=== PATIENT | female | born 1950 | race Hispanic/Latino ===

== ENCOUNTER 2018-08-11 13:20 | Emergency (ER) | payer OTHER ==
--- OUTSIDE RECORDS SUMMARY | 2018-08-11 13:41 | XMS REPORT | Continuity of Care Document ---
:1950 Author Organization Interface Problems Problem Status Onset Classification Date Comments Source Date Reported FOLLOW UP Active [address] FOLLOW-UP Active [address] Cyst of pancreas [address],[facility] BDDC-PANCREATIC CYST Active [address] DDC // NEW CLINIC Active [facility] VISIT // REF FROM DR Herber Penaloza [facility] LABH Active [address] Abnormal results of liver function studies 018 8 [facility] K86.[address] K75.4 AUTOIMMUNE Active HEPATITIS, R79.89 018 [facility] OTHER Type 2 diabetes [facility] mellitus without 018 Medical complications Center R79.89 - OTHER Active OPID SPECIFIED ABNORMAL 018 [place] FINDI FATTY LIVER Active [address] ELEVATED LIVER Active FUNCTION 017 [place] Discharge Diagnosis: Cellulitis of trunk, 017 7 [place] unspecified SPIDER BITE Active 017 [place] Paronychia of Active Problem Data toe<sup>5</sup> 015 7 migrated [place], from [facility] OP Centricity Upper on 11/06/14. [place] Urinary Active Problem Data incontinence<sup>8</moss 014 7 migrated [place], p> from [facility] OP Centricity Upper on 08/31/14. [place] Urinary Resolved Problem Data [facility] incontinence<sup>7</moss 014 9 migrated Medical p> from [facility] Centricity [place], on 08/31/14. Medical Group Urinary Resolved Problem Data [place] incontinence<sup>7</moss 014 9 migrated Medical p> from [facility], on 08/31/14. EDDC URINARY INCONTINENCE Active Condition Medical 014 4 Group Ureteric Active Problem Data stone<sup>7</sup> 014 7 migrated [place], from [facility] OP Centricity Upper on 08/31/14. [place] Fatigue<sup>2</sup> Resolved Problem Data [place] 014 9 migrated Medical from [facility], on 08/31/14. Medical Group Ureteric Resolved Problem Data [facility] stone<sup>6</sup> 014 9 migrated Medical from [facility], on 08/31/14. Medical Group Fatigue<sup>2</sup> Resolved Problem Data [place] 014 9 migrated Medical from [facility], on 08/31/14. OP Upper [place], EDDC Ureteric Resolved Problem Data [facility] stone<sup>6</sup> 014 9 migrated Medical from [facility], on 08/31/14. EDDC CALCULUS OF URETER Active Condition Medical 014 4 Group FATIGUE Active Condition Medical 014 4 Group 719.46 - JOINT Active OPID PAIN-L/LE 013 [place] CLOSED PATELLA FX, S/P Active [facility] FALL 013 [facility] Diabetes mellitus Resolved Problem SMR 3 [facility], OPID [place] Hypothyroid Resolved Problem SMR 3 [facility], OPID [place] Vertigo Resolved Problem SMR 3 [facility], OPID [place] Rheumatoid Active Problem Data arthritis<sup>6</sup> 7 migrated [place], from [facility] OP Centricity Upper on 08/31/14. [place] Abnormal levels of [facility] other serum enzymes [address] [place] [address] Hypothyroidism, [facility] unspecified [address] [place] [address] Abnormal liver Resolved Problem [facility] function [address] [place] [address],[facility], Medical Group Breast cancer Active Problem [facility] screening [address] [place] [address],[facility], Medical Group Diabetes Active Problem Data [facility] mellitus<sup>1</sup> 9 migrated Medical from [facility], on 08/31/14. Medical Group Diabetes Resolved Problem [address],[facility], Medical Group Female stress Active Problem [facility] incontinence [address] [place] [address],[facility], Medical Group History of - Resolved Problem [facility] rheumatoid arthritis [address] [place] [address],[facility], Medical Group Hyperlipidemia Resolved Problem [address],[facility], Medical Group Hypertriglyceridemia<s Active Problem Data [facility] up>3</sup> 9 migrated Medical from [facility], on 08/31/14. Medical Group Hypothyroid Resolved Problem [address],[facility], Medical Group Hypothyroidism<sup>4</ Active Problem Data [facility] sup> 9 migrated Medical from [facility], on 08/31/14. Medical Group Obesity Active Problem [address],[facility], Medical Group Rheumatoid Active Problem Data [facility] arthritis<sup>5</sup> 9 migrated Medical from [facility], on 08/31/14. Medical Group Vertigo Resolved Problem [address],[facility], Medical Group Final: Dorsalgia, unspecified 6 [place] Final: Pain in right hip 6 [place] Final: Scoliosis, unspecified 6 [place] Final: Spondylosis, unspecified 6 [place] Autoimmune hepatitis 8 [place] Other specified diabetes mellitus 8 [place] without complications Acquired absence of other specified parts 8 [place] of digestive tract Fatty liver, not elsewhere classified 8 [place] Other specified [facility] abnormal findings of 8 Medical blood chemistry Center Personal history of Active Problem [facility] immunosuppressive Medical therapy [place], Medical Group Abnormal liver Resolved Problem [facility] function [address] [place] [address],[facility], [facility]DC Breast cancer Active Problem [facility] screening [address] [place] [address],[facility], [facility] Diabetes Active Problem Data [place] mellitus<sup>1</sup> 9 migrated Medical from [facility], on 08/31/14. OP Upper [place], [facility] Diabetes Resolved Problem [address],[facility], OP Upper [place], [facility] Female stress Active Problem [facility] incontinence [address] [place] [address],[facility], [facility] History of - Resolved Problem [facility] rheumatoid arthritis [address] [place] [address],[facility], OP Upper [place], [facility] Personal history of Active Problem [facility] immunosuppressive [address] [place] [address], [facility] Hyperlipidemia Resolved Problem [address],[facility], OP Upper [place], [facility] Hypertriglyceridemia<s Active Problem Data [facility] up>3</sup> 9 migrated Medical from [facility], on 08/31/14. OP [place], [facility] Hypothyroid Resolved Problem [address],[facility], OP Upper [place], [facility] Hypothyroidism<sup>4</ Active Problem Data [facility] sup> 9 migrated Medical from [facility], on 08/31/14. OP Upper [place], [facility] Obesity Active Problem [address],[facility], OP Upper [place], [facility] Rheumatoid Active Problem Data [facility] arthritis<sup>5</sup> 9 migrated Medical from [facility], on 08/31/14. ED[facility] Vertigo Resolved Problem [address],[facility], OP Upper [place], [facility] DIABETES MELLITUS Active Condition Medical 4 Group UNSPECIFIED Active Condition Medical HYPOTHYROIDISM 4 Group HYPERTRIGLYCERIDEMIA Active Condition Medical 4 Group RHEUMATOID ARTHRITIS Active Condition Medical 4 Group LT KNEE FRACTURE Active SMR [facility] [place] FRACTURE Active [facility] PATELLA-CLOSED [facility] X RAY Active [facility] DORSALGIA, UNSPECIFIED Active [facility] PAIN IN RIGHT HIP Active [facility] ENCNTR FOR GENERAL Active [facility] ADULT MEDICAL EXAM W/ Medical Center HEPATOMEGALY, NOT Active ELSEWHERE CLASSIFIED [place] Datatype(DG1.4)- Active [facility] AUTOIMMUNE HEPATITIS Active [facility] CYST OF PANCREAS Active [facility] PERSONS ENCOUNTERING Active [facility] IN [facility] Medications Medication Details Route Status Patient Ordering Order Source Instructions Provider Date 24 HR 25 mg=1 tab, PO, Active Medical mirabegron 25 Daily, # 30 tab, 2019 Group MG Extended 5 Refill(s) Release Tablet [Myrbetriq] alogliptin 25 1 tab, PO, Inactive 07/27[facility] Medical MG / Daily, 0 2019 Group pioglitazone 15 Refill(s) MG Oral Tablet predniSONE 5 mg 5 mg=1 tab, PO, Active [place] oral tablet Daily, # 30 tab, 2019 Medical 5 Refill(s), Center Pharmacy: [facility] azaTHIOprine 50 100 mg=2 tab, Active 05/29[facility] [place] mg oral tablet PO, Daily, # 60 2019 Medical tab, 5 Center Refill(s), Pharmacy: [facility] predniSONE 5 mg 5 mg=1 tab, PO, Active 05/29[facility] [place] oral tablet Daily, Give with 2019 Medical food., # 14 tab, Center 0 Refill(s) alogliptin 25 1 tab, PO, Active 05/29[facility] [place] MG / Daily, 0 2019 Medical pioglitazone 15 Refill(s) Center MG Oral Tablet oxybutynin 5 mg =1 tab, PO, Active Medical oral tablet, Daily, # 30 tab, 2019 Group extended Refill(s) 3, release Pharmacy: [facility] predniSONE 10 10 mg=1 tab, PO, Active 04/25[facility] Medical mg oral tablet Daily, # 30 tab, 2019 Group 0 Refill(s) 24 HR 25 mg=1 tab, PO, Active 04/25[facility] Medical mirabegron 25 Daily 2019 Group MG Extended Release Tablet [Myrbetriq] predniSONE 10 20 mg=2 tab, PO, No Longer EDDC mg oral tablet Daily, # 60 tab, Active 2018 1 Refill(s), Pharmacy: [facility] azaTHIOprine 50 50 mg=1 tab, PO, No Longer EDDC mg oral tablet Daily, # 30 tab, Active 2018 1 Refill(s), Pharmacy: [facility] predniSONE 10 20 mg=2 tab, PO, Active [place] mg oral tablet Daily, # 60 tab, 2018 Medical 1 Refill(s), Center Pharmacy: [facility] 24 HR 25 mg=1 tab, PO, Active [place] mirabegron 25 Daily, # 30 tab, 2018 Medical MG Extended 5 Refill(s) Center Release Tablet [Myrbetriq] oxybutynin 5 mg 5 mg=1 tab, PO, Active Medical oral tablet, Daily, # 30 tab, 2018 Group extended 3 Refill(s), release Pharmacy: [facility] cephalexin 250 500 mg=2 cap, Active mg oral capsule PO, BID, X 10 2016, # 40 cap, 0 Refill(s) MACROBID 100 MG 1 tablet by Active Medical CAPS mouth every 2013 Group hours for 3 days LISINOPRIL 10 Active Medical MG TABS 2013 Group NAPROXEN SODIUM Active Medical 550 MG TABS 2013 Group LISINOPRIL 10 Active Medical MG TABS 2013 Group LEVOTHYROXINE 1 po daily Active Medical SODIUM 175 MCG 2013 Group TABS TRADJENTA 5 MG 1 po qam Active Medical TABS 2013 Group FENOFIBRATE 160 take 0.5 tablet Active Medical MG TABS daily 2013 Group METFORMIN HCL 1 po bid Active Medical ER 500 MG 2013 Group [id number] GLIPIZIDE ER 5 1 po bid Active Medical MG [id number] 2013 Group HALOG 0.1 % No Longer Medical CREA Active 2013 Group PIROXICAM 20 MG 1 po daily x2 Active Medical CAPS weeks, then 1 po 2013 Group on tue,tue,tue TAMSULOSIN HCL 1 po daily Active Medical 0.4 MG CAPS 2013 Group HYDROCODONE-CELIA 1 po q 6 hrs prn Active Medical TAMINOPHEN 2013 Group 10-325 MG TABS CIPROFLOXACIN 1 po q 12 hrs Active Medical HCL 500 MG TABS 2013 Group TRAVATAN Z instill 1 drop Active Medical 0.004 % SOLN at bedtime in 2013 Group both eyes LEVOTHYROXINE 1 po daily Active Medical SODIUM 175 MCG 2013 Group TABS FENOFIBRATE 160 take 0.5 tablet Active Medical MG TABS daily 2013 Group METFORMIN HCL 1 po bid Active Medical ER 500 MG 2013 Group [id number] PIROXICAM 20 MG 1 po daily x2 Active Medical CAPS weeks, then 1 po 2013 Group on ,tue TAMSULOSIN HCL 1 po daily Active Medical 0.4 MG CAPS 2013 Group HYDROCODONE-CELIA 1 po q 6 hrs prn Active Medical TAMINOPHEN 2013 Group 10-325 MG TABS CIPROFLOXACIN 1 po q 12 hrs Active Medical HCL 500 MG TABS 2013 Group TRAVATAN Z instill 1 drop Active Medical 0.004 % SOLN at bedtime in 2013 Group both eyes LEVOTHYROXINE 1 po daily Active Medical SODIUM 175 MCG 2013 Group TABS HYDROCODONE-CELIA 1 po q 6 hrs prn Active Medical TAMINOPHEN 2013 Group 10-325 MG TABS TRADJENTA 5 MG 1 po qam Active Medical TABS 2013 Group PIROXICAM 20 MG 1 po daily x2 Active Medical CAPS weeks, then 1 po 2013 Group on tue,tue,tue HYDROCODONE-CELIA 1 po q 6 hrs prn Active Medical TAMINOPHEN 2013 Group 10-325 MG TABS Colace 100 mg 100 mg, 1 cap, PO Active [place] oral capsule PO, BID, 60 cap, 2013 Medical Substitution Center Allowed, CAP [place] 10/325 1 tab, PO, Q4H, PO Active [facility] [place] oral tablet PRN, 45 tab, as 2013 Medical needed for pain, Center Substitution Allowed, Maintenance, TAB fenofibrate 160 80 mg, 0.5 tab, PO No Longer [place] [facility] mg oral tablet Route: PO, Drug Active 2012 Medical form: TAB, Center Daily, Dosing Weight 93.182, kg, Start date: 04/21/12 9:00:00, Duration: 30 day, Stop date: 05/20/12 9:00:00 glipiZIDE 5 mg 5 mg, 1 tab, PO No Longer [place] [facility] oral tablet, Route: PO, Drug Active 2012 Medical extended form: ERTAB, Center release BID, Dosing Weight 93.182, kg, Start date: 04/20/12 14:00:00, Duration: 30 day, Stop date: 05/20/12 9:00:00 glipiZIDE 5 mg 5 mg, 1 tab, PO, PO Active [facility] oral tablet, BID, 30 tab, 2012 Medical extended Substitution Center release Allowed Trajenta Trajenta PO No Longer [place] [facility] (Linagliptin) 5 (Linagliptin) 5 Active 2012 Medical mg tablet mg tablet, 5 mg, Center Drug form: MISC, Route: PO, Daily, 04/20/12 13:00:00, Duration: 30 day, Stop date: 05/20/12 9:00:00 linagliptin 5 mg, Route: PO, PO No Longer [place] [facility] Drug form: TAB, Active 2012 Medical Daily, Dosing Center Weight 93.182, kg, Priority: NOW, Start date: 04/20/12 11:35:00 glipiZIDE 10 mg, Route: PO No Longer [place] [facility] PO, Daily, Active 2012 Medical Dosing Weight Center 93.182, kg, Priority: NOW, Start date: 04/20/12 11:35:00, Duration: 30 day, Stop date: 05/20/12 9:00:00 bisacodyl 10 mg, 1 supp, OR No Longer [place] [facility] Route: OR, Drug Active 2012 Medical form: SUPP, Center Daily, Dosing Weight 93.182, kg, PRN as needed for constipation, Start date: 04/20/12 4:34:00, Duration: 30 day, Stop date: 05/20/12 4:33:00 Zofran 4 mg, 2 mL, IV No Longer [place] Route: IV, Drug Active 2012 Medical form: INJ, Q6H, Center Dosing Weight 93.182, kg, PRN Nausea, Start date: 04/19/12 21:20:00, Duration: 30 day, Stop date: 05/19/12 21:19:00 [place] 10/325 1 tab, Route: PO No Longer [place] oral tablet PO, Drug Form: Active 2012 Medical TAB, Dosing Center Weight 93.182, kg, Q4H, Start date: 04/19/12 20:00:00, Duration: 30 day, Stop date: 05/19/12 16:00:00 [place] 10/325 1 tab, Route: PO No Longer [place] oral tablet PO, Drug Form: Active 2012 Medical TAB, Dosing Center Weight 93.182, kg, Q4H, PRN Pain, Start date: 04/19/12 18:56:00, Duration: 30 day, Stop date: 05/19/12 18:55:00 cefazolin + 2 gm, Route: IVPB No Longer [place] Sodium Chloride IVPB, ABXQ8H, Active 2012 Medical 0.9% IV 100 mL Start date: [place] 04/19/12 16:00:00, Duration: 24 hr, Stop date: 04/20/12 8:00:00 influenza virus 0.5 mL, Route: IM No Longer [place] SMR vaccine IM, Drug Form: Active 2012 [place] intramuscular INJ, ONCE, Start [place] suspension date: 04/19/12 [place] 15:52:00, Stop [facility] date: 04/19/12 OPID 15:52:00 [place] magnesium 2 gm, 50 mL, IVPB No Longer [place] sulfate Route: IVPB, Active 2012 Medical Drug form: INJ, Center Q2H, Dosing Weight 93.182, kg, Total dose=4 gm, Start date: 04/19/12 14:00:00, Duration: 2 doses or times, Stop date: 04/19/12 16:00:00 ropivacaine 1% 320 mL, Rate: 8 NERVE No Longer [place] 800 mg + Q-Pump ml/hr, Infuse BLOCK Active 2012 Medical 1 ea + Sodium over: 50 hr, Center Chloride 0.9% Route: NERVE IV 320 mL BLOCK, kg, Total Volume: 400, Start date: 04/19/12 12:18:00, Duration: 7 day, Stop date: 05/03/12 12:17:00 ropivacaine 800 320 mL, Rate: 8 NERVE No Longer [place] mg + Q-Pump 1 ml/hr, Infuse BLOCK Active 2012 Medical ea + Sodium over: 40 hr, Center Chloride 0.9% Dosing Weight (titrate) 320 93.182, kg, mL Route: NERVE BLOCK, Total Volume: 320 mL, Duration: 30 day, Stop date: 05/19/12 11:54:00, Replace Every: 24 hr flumazenil 0.2 mg, 2 mL, IVP No Longer [place] Route: IVP, Drug Active 2012 Medical form: INJ, PRN, Center Dosing Weight 93.182, kg, PRN Benzodiazepine Reversal, Initial dose, Start date: 04/19/12 10:06:00, Stop date: 04/20/12 0:00:00 hydromorphone 0.5 mg, 0.25 mL, IVP No Longer [place] Route: IVP, Drug Active 2012 Medical form: INJ, Center Q5Min, Dosing Weight 93.182, kg, PRN Pain Score 4-6, Start date: 04/19/12 10:06:00, Duration: 5 doses or times, Stop date: 04/20/12 0:00:00 naloxone 0.04 mg, 0.1 mL, IVP No Longer [facility] Route: IVP, Drug Active 2012 Medical form: INJ, Center Q2MIN, Dosing Weight 93.182, kg, PRN Narcotic Reversal, Start date: 04/19/12 10:06:00, Duration: 8 doses or times, Stop date: 04/20/12 0:00:00 ondansetron 4 mg, 2 mL, IVP No Longer [place] Route: IVP, Drug Active 2012 Medical form: INJ, ONCE, Center Dosing Weight 93.182, kg, PRN Nausea & Vomiting, Start date: 04/19/12 10:06:00 Ancef 2 gm, Route: IVPB No Longer [place] IVPB, ABXQ8H, Active 2012 Medical Dosing Weight Center 93.182, kg, Start date: 04/19/12 10:00:00, Duration: 24 hr, Stop date: 04/20/12 2:00:00 influenza virus 0.5 ml, Route: IM No Longer [facility] vaccine, IM, Drug Form: Active 2012 [place] inactivated INJ, Start date: [place] 04/19/12 Silver 9:00:00, Stop [place], date: 04/19/12 OPID 9:00:00 [place] Colace 100 mg 100 mg, 1 cap, PO No Longer [place] oral capsule Route: PO, Drug Active 2012 Medical form: CAP, BID, Center Dosing Weight 93.182, kg, Start date: 04/19/12 9:00:00, Duration: 30 day, Stop date: 05/18/12 17:00:00 multivitamin 1 tab, Route: PO No Longer [place] PO, Drug Form: Active 2012 Medical TAB, Dosing Center Weight 93.182, kg, Daily, Start date: 04/19/12 9:00:00, Duration: 30 day, Stop date: 05/18/12 9:00:00 fenofibrate 96 mg, 2 tab, PO No Longer [place] Route: PO, Drug 2012 Medical form: TAB, Center Daily, Dosing Weight 93.182, kg, Start date: 04/19/12 9:00:00, Duration: 30 day, Stop date: 05/18/12 9:00:00 levothyroxine 150 microgram, 1 PO No Longer [place] [facility] tab, Route: PO, Active 2012 Medical Drug form: TAB, Center Q630AM, Dosing Weight 93.182, kg, Start date: 04/19/12 9:00:00, Stop date: 05/18/12 6:30:00 magnesium 2 gm, 50 mL, IVPB No Longer [place] sulfate Route: IVPB, Active 2012 Medical Drug form: INJ, Center Q2H, Dosing Weight 93.182, kg, Total dose=4 gm, Start date: 04/19/12 8:00:00, Duration: 2 doses or times, Stop date: 04/19/12 10:00:00 Levothroid 25 microgram, 1 PO No Longer [place] tab, Route: PO, Active 2012 Medical Drug form: TAB, Center Q630AM, Start date: 04/19/12 6:30:00, Duration: 30 day, Stop date: 05/18/12 6:30:00 Sodium Chloride 1,000 mL, Rate: IV No Longer [place] 0.9% IV 1,000 100 ml/hr, Active 2012 Medical mL Infuse over: 10 Center hr, Route: IV, kg, Total Volume: 1,000, Start date: 04/18/12 23:59:00, Duration: 30 day, Stop date: 05/18/12 23:58:00 clonazepam 0.25 mg, 0.5 PO No Longer [place] tab, Route: PO, Active 2012 Medical Drug form: TAB, Center TID, Dosing Weight 93.182, kg, PRN Anxiety, Start date: 04/18/12 23:18:00, Duration: 30 day, Stop date: 05/18/12 23:17:00 Lovenox 40 mg, 0.4 mL, SUB-Q No Longer [place] Route: SUB-Q, 2012 Medical Drug form: INJ, Center Q24H, Dosing Weight 93.182, kg, Start date: 04/18/12 20:00:00, Duration: 30 day, Stop date: 05/17/12 20:00:00 morphine 4 mg, Route: IVP No Longer [place] Sulfate IVP, ONCE, Active 2012 Medical Dosing Weight Center 93.182, kg, Start date: 04/18/12 19:58:00, Stop date: 04/18/12 19:58:00 Dextrose 50% 12.5 gm, 25 mL, IVP No Longer [place] Syringe Route: IVP, Drug Active 2012 Medical Form: INJ, Center Dosing Weight 93.182, kg, PRN, PRN Blood Glucose Results, Start date: 04/18/12 18:58:00, Duration: 30 day, Stop date: 05/18/12 18:57:00 glucagon 1 mg, Route: IM, IM No Longer [place] Drug form: Active 2012 Medical PDR/INJ, PRN, Center Dosing Weight 93.182, kg, PRN Blood Glucose Results, Start date: 04/18/12 18:58:00, Duration: 30 day, Stop date: 05/18/12 18:57:00 insulin aspart 10 unit, 0.1 mL, SUB-Q No Longer [place] Route: SUB-Q, Active 2012 Medical Drug form: SOLN, Center TID-Before Meals, Dosing Weight 93.182, kg, PRN Blood Glucose Results, Start date: 04/18/12 18:58:00, Duration: 30 day, Stop date: 05/18/12 18:57:00 multivitamin Substitution Active [facility] Martin Allowed, 2012 Medical Maintenance Center morphine 2 mg, 1 mL, IVP [facility] Sulfate Route: IVP, Drug Active 2012 Medical form: INJ, Q4H, Center Dosing Weight 93.182, kg, PRN Pain Score 7-10, Start date: 04/18/12 18:45:00, Duration: 30 day, Stop date: 05/18/12 18:44:00 [place] 5/325 1 tab, Route: PO No Longer [facility] [place] oral tablet PO, Drug Form: Active 2012 Medical TAB, Dosing Center Weight 93.182, kg, Q4H, PRN Pain Score 4-6, Start date: 04/18/12 18:45:00, Duration: 30 day, Stop date: 05/18/12 18:44:00 Sodium Chloride 1,000 mL, Rate: IV No Longer [place] 0.9% IV 1,000 100 ml/hr, Active 2012 Medical mL Infuse over: 10 Center hr, Route: IV, kg, Total Volume: 1,000, Start date: 04/18/12 16:29:00, Duration: 30 day, Stop date: 05/18/12 16:28:00 morphine 4 mg, Route: IVP No Longer [place] Sulfate IVP, Drug form: Active 2012 Medical INJ, ONCE, Center Dosing Weight 93.182, kg, Priority: STAT, Start date: 04/18/12 15:22:00, Stop date: 04/18/12 15:22:00 metFORmin 500 mg, BID, Active [facility] Substitution 2012 Medical Allowed [place] levothyroxine 175 microgram, Active [place] Substitution 2012 Medical Allowed [place] fenofibrate 80 mg, PO, PO Active [place] Daily, 2012 Medical Substitution Center Allowed Tradjenta 5 mg 5 mg, 1 tab, PO, PO Active [facility] oral tablet Daily, 2012 Medical Substitution Center Allowed glipiZIDE 10 mg, No Longer [place] Substitution Active 2012 Medical Allowed [place] piroxicam 20 mg, PRN, as Active [facility] needed for 2012 Medical arthritis, Center Substitution Allowed Allergies, Adverse Reactions, Alerts Substance Category Reaction Severity Reaction Status Date Comments Source type Reported LATEX Environmental LATEX allergy 4 Medical Group Latex<sup> Assertion Drug Active Data [place] [id number]</sup> allergy 4 migrated Medical from [facility] on 06/04/15. Originally documented as LATEX. Immunizations Immunization Date Site Status Last Comments Source Given Updated influenza virus Right completed [place] Result Comment: [place]: 48136-375-96 Medical vaccine, 8 Deltoid LOT: [id number] [facility] inactivated<sup> EXP: [id number] [place] [address]</sup> [facility] NO ADVERSE REACTIONS AT TIME OF VISIT EDID influenza virus completed [place] [facility] vaccine, 3 [place] inactivated [facility] [address] influenza virus Left completed [place] [facility] vaccine, 3 Deltoid Medical inactivated [place] influenza virus Left completed [place] Women vaccine, 3 [facility] inactivated [place],[facility], OP [place], EDID influenza virus Not Given Tubb 1Result [facility] vaccine, 3 Comment: [place] inactivated<sup> duplicate [place] [id number]</sup> [facility] [address] Results Order Name Results Value Reference Date Interpretation Comments Source Range BODY Glucose BF <2 mg/dL 07/25 [facility] FLUIDS Cyst [facility] BODY CEA BF Cyst 49.3 ng/mL 07/25 [facility] FLUIDS /2017 [facility] BODY Amylase BF 802 unit/L 07/25 [facility] FLUIDS Cyst [facility] CHEM PANEL eGFR 52 05/23 Result Comment: The eGFR is calculated using the CKD-EPI formula. In most young, healthy individuals the eGFR will be >90 mL/ min/1.73m2. The eGFR declines with age. An eGFR of 60-89 may be normal in mL/min/1.7 some populations, particularly the elderly, for whom the CKD-EPI formula has not been extensively validated. Use of the eGFR is not recommended in the following populations: [address] Individuals with unstable creatinine concentrations, including patients and those with serious co-morbid conditions. Patients with extremes in muscle mass or diet. The data above are obtained from the National Kidney Disease Education Program (NKDEP) which additionally recommends that when the eGFR is used in patients with extremes of body mass index for purposes of drug dosing, the eGFR should be multiplied by the estimated BMI. CHEM PANEL POC 1.1 mg/dL 0.5 - 1.4 05/23 Creatinine /2017 [facility] Abdomen Abdomen w/wo Clinical Indication: - Pancreas Protocol. US shows pacreatic cystic structure measuring 3.2 cm. 05/23 - w/wo contrast MRI /2017 - [facility] contrast Comparison: Liver ultrasound 05/09/2017 MRI Read by: Taty Nicholson MD Dictated Date/time: 05/23/17 19:12 TECHNIQUE: Multiplanar, multisequence acquisition of the abdomen both prior to and following intravenous contrast. Electronically Signed by: Taty Nicholson MD 05/23/17 19:22 FINAL REPORT IV contrast: 7 mL MultiHance Enteric contrast: None. FINDINGS: Lower thorax: Clear. Liver: Multiple T2 hyperintense cysts are seen in the visualized liver parenchyma, the largest in the segment 5, measuring 0.9 cm. Biliary tree: No evidence of intra or extrahepatic biliary ductal dilatation. Gallbladder: The gallbladder is surgically absent. Pancreas: Pancreas divisum is present. The pancreatic parenchyma is atrophic with innumerable T2 hyperintense cyst throughout the pancreas. There is no definite evidence of internal enhancement. The lar gest cyst is a 1.3 x 1.3 x 2 cm lobulated cyst with communication with the main pancreatic duct in the pancreatic body (series 3 image 13). Numerous additional cysts are seen throughout the pancreas. The pancreatic duct is normal in caliber. Spleen: The spleen is normal in size and enhancement. Adrenals: Normal. Kidneys and ureters: Kidneys symmetric symmetric uptake of intravenous contrast. No hydronephrosis. Gastrointestinal tract: The stomach is unremarkable. Visualized portions of the small and large bowel are normal in caliber. Peritoneum and retroperitoneum: No ascites or free air. No other fluid collection. Lymph nodes: No abdominal lymphadenopathy. Vasculature: Abdominal aorta is normal in caliber. The portal vasculature is patent. Bones: No enhancing osseous lesions. No marrow signal abnormality. Soft tissues: Normal. IMPRESSION: 1. Innumerable cysts throughout the pancreatic parenchyma. 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 Numerous other cysts may repr esent epithelial cysts, pseudocysts, or cystic neoplasm. Follow-up MRI in 6 months is recommended, per ACR white paper criteria. 2. Pancreas divisum. RECOMMENDATION: 2-2.5 cm cyst * Reimage q6mo x 4, then q1yr x 2, then q2yr x 3. * Stop imaging if stable over 10 years * Growth at any point: EUS/FNA Breezy Kong et al. Management of Incidental Pancreatic Cysts: A White Paper of the ACR Incidental Findings Committee. 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 FINDINGS: Liver: The liver demonstrates increased echogenicity and is normal in size, measuring 13.4 cm. No focal liver lesion identified. The main portal vein demonstrates normal hepatopedal flow. Gallbladder: Cholecystectomy. Biliary: No intra or extrahepatic biliary ductal dilatation. The common bile duct measures 0.84 cm. Pancreas: Anechoic structure (3.2 x 1.4 x 2.4cm) within the pancreatic neck. No evidence of free fluid. IMPRESSION: Cystic structure (3.2 x 1.4 x 2.4 cm) within the pancreatic neck. This may represent a true pancreatic cyst, pseudocyst, or possibly a cystic neoplasm. Recommend CT or MRI pancreatic protocol for further catheterization. Hepatic steatosis. Cholecystectomy. 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 Utilizing sonographic guidance, 18-gauge core biopsy of right hepatic lobe parenchyma was performed. Biopsy performed coaxially through 17-gauge cannula needle. Hard copy sonographic images recorded. 2 18-gauge core biopsy specimens were obtained. Tract embolization with Gelfoam, upon removal of 18-gauge needle. Intravenous conscious sedation. Patient received 2 mg Versed and 100 mcg fentanyl intravenously. Total physician-patient [id number] sedation monitoring was 13 minutes. Procedure well-tolerated. SL: [id number] CHEM PANEL Lipase Lvl 107 unit/L 73 - 393 08/24 [facility] CHEM PANEL eGFR 47 08/24 Result Comment: The eGFR is calculated using the CKD-EPI formula. In most young, healthy individuals the eGFR will be >90 mL/ min/1.73m2. The eGFR declines with age. An eGFR of 60-89 may be normal in mL/min/1. some populations, particularly the elderly, for whom the CKD-EPI formula has not been extensively validated. Use of the eGFR is not recommended in the following populations: [facility] 3m2 Individuals with unstable creatinine concentrations, including patients and those with serious co-morbid conditions. Patients with extremes in muscle mass or diet. The data above are obtained from the National Kidney Disease Education Program (NKDEP) which additionally recommends that when the eGFR is used in patients with extremes of body mass index for purposes of drug dosing, the eGFR should be multiplied by the estimated BMI. CHEM PANEL Bili Total 0.6 mg/dL 0.2 - 1.3 08/24 [facility] CHEM PANEL ALT 78 unit/L 0 - 65 08/24 [facility] CHEM PANEL AST 42 unit/L 0 - 37 08/24 [facility] CHEM PANEL Alk Phos 123 unit/L 39 - 136 08/24 [facility] CHEM PANEL Albumin Lvl 3.3 g/dL 3.5 - 5.0 08/24 [facility] CHEM PANEL Calcium Lvl 8.8 mg/dL 8.5 - 10.5 08/24 [facility] CHEM PANEL Total 7.6 g/dL 6.4 - 8.4 08/24 [facility] CHEM PANEL CO2 21 meq/L 24 - 32 08/24 [facility] CHEM PANEL Chloride Lvl 110 meq/L 95 - 109 08/24 [facility] CHEM PANEL Potassium 4.7 meq/L 3.5 - 5.1 08/24 Lvl [facility] CHEM PANEL Creatinine 1.20 mg/dL 0.50 - 08/24 Lvl 1.40 [facility] CHEM PANEL Sodium Lvl 138 meq/L 135 - 145 08/24 [facility] CHEM PANEL Glucose Lvl 93 mg/dL 70 - 99 08/24 [facility] CHEM PANEL BUN 30 mg/dL 7 - 22 08/24 [facility] CHEM PANEL A/G Ratio 0.8 0.7 - 1.6 08/24 [facility] CHEM PANEL Globulin 4.3 g/dL 2.7 - 4.2 08/24 [facility] CHEM PANEL B/C Ratio 25 6 - 25 08/24 [facility] CHEM PANEL AGAP 11.7 meq/L 10.0 - 08/24 20.0 [facility] HEMATOLOGY Monocytes 11.0 % 2.0 - 12.0 08/24 [facility] HEMATOLOGY Lymphocytes 21.8 % 20.0 - 08/24 MH 40.0 [facility] HEMATOLOGY Basophils 0.4 % 0.0 - 1.0 08/24 [facility] HEMATOLOGY Eosinophils 2.5 % 0.0 - 4.0 08/24 [facility] HEMATOLOGY Monocytes # 0.8 K/CMM 0.0 - 0.8 08/242016 [facility] HEMATOLOGY Lymphocytes 1.7 K/CMM 1.0 - 5.5 08/24 MH # /2017 [facility] HEMATOLOGY Segs-Bands # 5.0 K/CMM 1.5 - 8.1 08/24 /2016 [facility] HEMATOLOGY Eosinophils 0.2 K/CMM 0.0 - 0.5 08/24 MH # /2016 [facility] HEMATOLOGY Segs 64.3 % 45.0 - 08/24 MH 75.0 /2016 [facility] HEMATOLOGY WBC 7.7 K/CMM 3.7 - 10.4 08/24 /2016 [facility] HEMATOLOGY Hgb 13.5 g/dL 12.0 - 08/24 MH 16.0 /2016 [facility] HEMATOLOGY MCV 85.0 fL 80.0 - 08/24 MH 98.0 /2016 [facility] HEMATOLOGY RBC 4.74 M/CMM 4.20 - 08/24 MH 5.40 /2016 [facility] HEMATOLOGY Hct 40.3 % 36.0 - 08/24 MH 48.0 /2016 [facility] HEMATOLOGY MPV 8.3 fL 7.4 - 10.4 08/24 [facility] HEMATOLOGY MCH 28.6 pg 27.0 - 08/24 31.0 /2016 [facility] HEMATOLOGY MCHC 33.6 g/dL 32.0 - 08/24 36.0 /2016 [facility] HEMATOLOGY RDW 14.9 % 11.5 - 08/24 14.5 /2016 [facility] HEMATOLOGY Platelet 270 K/CMM 133 - 450 08/24 [facility] URINE AND UA Color Yellow Yellow 08/24 STOOL [facility] *NA* (08/24/16 6:59 PM) URINE AND UA Protein Negative Negative 08/24 [facility] mg/dL mg/dL /2016 [facility] URINE AND UA Turbidity Slight Clear 08/24 STOOL [facility] *ABN* (08/24/16 6:59 PM) URINE AND UA pH 5.0 5.0 - 8.0 08/24 STOOL [facility] URINE AND UA Spec Grav 1.017 <=1.030 08/24 STOOL [facility] URINE AND UA Ketones Negative Negative 08/24 [facility] mg/dL mg/dL [facility] URINE AND UA Glucose Negative Negative 08/24 [facility] mg/dL mg/dL [facility] URINE AND UA Nitrite Negative Negative 08/24 STOOL [facility] (08/24/16 6:59 PM) URINE AND UA Blood Negative Negative 08/24 [facility] (08/24/16 6:59 PM) URINE AND UA Bili Negative Negative 08/24 [facility] *NA* (08/24/16 6:59 PM) URINE AND UA <=1.0 0.1 - 1.0 08/24 [facility] Urobilinogen mg/dL URINE AND UA Bacteria Occasional None Seen 08/24 [facility] /HPF /HPF /2016 URINE AND UA Mucus Few /LPF None Seen 08/24 [facility] /LPF /2016 URINE AND UA Sq Epi Few /LPF Few /LPF 08/24 URINE AND UA Leuk Est Trace Negative 08/24 [facility] *ABN* (08/24/16 6:59 PM) URINE AND UA WBC 3 /HPF 0 - 5 08/24 URINE AND UA RBC 1 /HPF 0 - 2 08/24 Hip 1 view Hip 1 view Hip 1 view bilateral DX 07/08 - bilateral bilateral DX /2015 - DX CLINICAL HISTORY: M54.9 Dorsalgia, unspecified, M25.551 Pain in right hip Read by: Anthony Chase MD Dictated Date/time: 07/09/15 16:58 Electronically Signed by: Anthony Chase MD 07/09/15 16:59 FINAL REPORT Single AP views of both hips are submitted. IMPRESSION: Mild degenerative changes with marginal osteophyte formation of the lateral acetabular margin. The changes appears symmetric bilaterally. No significant joint space narrowing or periarticular erosion, otherwise. SL: [id number] Spine Spine lumbar Spine lumbar 2 or 3 views DX 07/08 - lumbar 2 2 or 3 views - or 3 views DX DX COMPARISON: None Read by: Anthony Chase MD Dictated Date/time: 07/09/15 16:56 Electronically Signed by: Anthony Chase MD 07/09/15 16:58 FINAL REPORT CLINICAL HISTORY: M54.9 Dorsalgia, unspecified, M25.551 Pain in right hip; FINDINGS: 5 nonrib-bearing lumbar-type vertebra are visualized. Visualized bones demonstrate normal radiodensity. There is no evidence for fracture or subluxation. Mild scoliosis convex to the right. Endplate degenerative changes, marginal osteophytes at L3-L4 and L1-L2 levels. The SI joints demonstrate normal morphology. Pelvic phleboliths. 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 IMPRESSION: Mild scoliosis. Mild degenerative spondylosis. SL: [id number] Digital Digital - DIGITAL MAMMO SCREENING MARCIO CRISTOBAL 11/29 - [facility] Mammo Mammo /2014 - [place] Screening Screening BILATERAL DIGITAL SCREENING MAMMOGRAM WITH CAD: 2014 Marcio Buckley [place] CLINICAL: Routine. Read by: Sy Goodwin MD Dictated Date/time: 12/10/14 14:13 Electronically Signed by: Sy Goodwin MD 12/10/14 14:13 FINAL REPORT Current study was evaluated with a Computer Aided Detection (CAD) system. Attempts to locate prior exams have been unsuccessful; if these can be located by the patient or clinician, they can be submitted for review. The tissue of both breasts is almost entirely fat. There are benign calcifications in both breasts. There also is a biopsy clip in both breasts. No significant masses, calcifications, or other findings are seen in either breast. IMPRESSION: BENIGN There is no mammographic evidence of malignancy. A 1 year screening mammogram is recommended. Sy anton/penrad:12/10/2014 14:13:27 Screw Eye Assembler: Kristi GARNICA(Nichol)(Izabela), [facility] This exam was dictated and interpreted by [id number] for [facility]. 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 COMPARISON: Left knee series 06/28/2012. TECHNIQUE: Weight bearing AP and sunrise radiographs of both knees, and a lateral radiograph of the left knee FINDINGS: There is unchanged appearance of patella fixation hardware. Patellar fracture is unchanged in alignment with progressive bone remodeling. Fracture line remains faintly apparent. Mild anterior knee soft tissue swelling is unchanged. IMPRESSION: Progressive healing of patellar fracture without hardware complication apparent. BEDSIDE Gluc POC 251 mg/dL 70 - 99 04/21 HI 1Interpretive [facility] GLUCOSE [facility] Data: [facility] [place] Reportable Limit: 200 mg/dL. BEDSIDE Comment1 Notify 04/21 NA [facility] GLUCOSE RN/ /2012 [facility] TESTING Center BEDSIDE Gluc POC 211 mg/dL 70 - 99 04/21 HI 2Interpretive [facility] GLUCOSE [facility] Data: [facility] Reportable Limit: 200 mg/dL. CHEMISTRY eGFR 94 04/21 NA 4Result Comment: The eGFR is calculated using the CKD-EPI formula. In most young, healthy individuals the eGFR will be > 90 mL/min/1.73m2. The eGFR declines with age. An eGFR of 60-89 may be normal in [facility] mL/min/1.7 some populations, particularly the elderly, for whom the CKD-EPI formula has not been extensively validated. Use of the eGFR is not recommended in the following populations: [place] [address] Center Individuals with unstable creatinine concentrations, including patients and those with serious co-morbid conditions. Patients with extremes in muscle mass or diet. The data above are obtained from the National Kidney Disease Education Program (NKDEP) which additionally recommends that when the eGFR is used in patients with extremes of body mass index for purposes of drug dosing, the eGFR should be multiplied by the estimated BMI. CHEMISTRY CO2 21 meq/L 24 - 32 04/21 LOW [facility] CHEMISTRY Calcium Lvl 7.7 mg/dL 8.5 - 10.5 04/21 LOW [facility] CHEMISTRY Potassium 4.3 meq/L 3.5 - 5.1 04/21 Normal [facility] CHEMISTRY Chloride Lvl 106 meq/L 95 - 109 04/21 Normal [facility] CHEMISTRY Creatinine 0.7 mg/dL 0.5 - 1.4 04/21 Normal [facility] CHEMISTRY Sodium Lvl 138 meq/L 135 - 145 04/21 Normal [facility] CHEMISTRY Glucose Lvl 189 mg/dL 70 - 99 04/21 HI 7Interpretive Data: Adult reference range values reflect the clinical guidelines of the [place] [employer]. [facility] CHEMISTRY BUN 21 mg/dL 7 - 22 04/21 Normal /2012 [facility] CHEMISTRY AGAP 15.3 meq/L 10.0 - 04/21 Normal [place] 20.0 /2012 [facility] HEMATOLOGY Basophils 0.5 % 0.0 - 1.0 04/21 Normal [facility] HEMATOLOGY Eosinophils 1.4 % 0.0 - 4.0 04/21 Normal [facility] HEMATOLOGY Segs 58.3 % 45.0 - 04/21 Normal [place] 75.0 /2012 [facility] HEMATOLOGY Lymphocytes 30.8 % 20.0 - 04/21 Normal [place] 40.0 /2012 [facility] HEMATOLOGY Eosinophils 0.1 K/CMM 0.0 - 0.5 04/21 Normal [place] # /2012 [facility] HEMATOLOGY Monocytes # 0.4 K/CMM 0.0 - 0.8 04/21 Normal /2012 [facility] HEMATOLOGY Segs-Bands # 2.6 K/CMM 1.5 - 8.1 04/21 Normal [facility] HEMATOLOGY Monocytes 9.0 % 2.0 - 12.0 04/21 Normal /2012 [facility] HEMATOLOGY Lymphocytes 1.4 K/CMM 1.0 - 5.5 04/21 Normal [place] # /2012 [facility] HEMATOLOGY MCHC 34.0 g/dL 32.0 - 04/21 Normal [place] 36.0 /2012 [facility] HEMATOLOGY MCH 30.1 pg 27.0 - 04/21 Normal [place] 31.0 /2012 [facility] HEMATOLOGY Hgb 10.3 g/dL 12.0 - 04/21 LOW [place] 16.0 /2012 [facility] HEMATOLOGY RBC 3.41 M/CMM 4.20 - 04/21 LOW [place] 5.40 /2012 [facility] HEMATOLOGY MPV 8.1 fL 7.4 - 10.4 04/21 Normal /2012 [facility] HEMATOLOGY Platelet 173 K/CMM 133 - 450 04/21 Normal [facility] HEMATOLOGY RDW 14.0 % 11.5 - 04/21 Normal [place] 14.5 [facility] HEMATOLOGY MCV 88.5 fL 81.0 - 04/21 Normal [place] 99.0 /2012 [facility] HEMATOLOGY Hct 30.2 % 36.0 - 04/21 LOW [place] 48.0 /2012 [facility] HEMATOLOGY WBC 4.4 K/CMM 3.7 - 10.4 04/21 Normal [facility] BEDSIDE Gluc POC 293 mg/dL 70 - 99 04/21 HI 3Interpretive [facility] GLUCOSE [facility] Data: Medical TESTING [facility] Upper Reportable Limit: 200 mg/dL. BEDSIDE Comment1 Notify 04/21 NA [facility] GLUCOSE RN/ Medical TESTING Center BEDSIDE Comment1 Notify 04/20 NA [facility] GLUCOSE RN/ /2012 [facility] TESTING Center CHEMISTRY Hgb A1C 9.6 % 04/20 NA 10Interpretive Data: HbA1C% eAG( mg/dL) Interpretation 6.0 126 Very good control Medical 6.5 140 Very good control Center 7.0 154 Good Control 7.5 169 Good Control 8.0 183 Marginal Control, take action to lower 8.5 197 Marginal Control, take action to lower 9.0 212 Poor Control, take action to lower 9.5 226 Poor Control, take action to lower 10.0 240 Poor Control, take action to lower CHEMISTRY eGFR 69 04/19 NA 5Result Comment: The eGFR is calculated using the CKD-EPI formula. In most young, healthy individuals the eGFR will be > 90 mL/min/1.73m2. The eGFR declines with age. An eGFR of 60-89 may be normal in [facility] mL/min/1.7 some populations, particularly the elderly, for whom the CKD-EPI formula has not been extensively validated. Use of the eGFR is not recommended in the following populations: [place] [address] Center Individuals with unstable creatinine concentrations, including patients and those with serious co-morbid conditions. Patients with extremes in muscle mass or diet. The data above are obtained from the National Kidney Disease Education Program (NKDEP) which additionally recommends that when the eGFR is used in patients with extremes of body mass index for purposes of drug dosing, the eGFR should be multiplied by the estimated BMI. CHEMISTRY CO2 24 meq/L 24 - 32 04/19 Normal [facility] CHEMISTRY AGAP 13.1 meq/L 10.0 - 04/19 Normal [facility] .0 [facility] CHEMISTRY Calcium Lvl 8.1 mg/dL 8.5 - 10.5 04/19 LOW [facility] CHEMISTRY Chloride Lvl 108 meq/L 95 - 109 04/19 Normal [facility] CHEMISTRY BUN 20 mg/dL 7 - 22 04/19 Normal [facility] CHEMISTRY Glucose Lvl 175 mg/dL 70 - 99 04/19 HI 8Interpretive Data: Adult reference range values reflect the clinical guidelines of the [place] [employer]. Medical Center CHEMISTRY Sodium Lvl 141 meq/L 135 - 145 04/19 Normal [facility] CHEMISTRY Creatinine 0.9 mg/dL 0.5 - 1.4 04/19 Normal [facility] CHEMISTRY Potassium 4.1 meq/L 3.5 - 5.1 04/19 Normal [facility] CHEMISTRY Magnesium 1.4 mg/dL 1.8 - 2.4 04/19 LOW [facility] CHEMISTRY Phosphorus 4.0 mg/dL 2.5 - 4.5 04/19 Normal [facility] HEMATOLOGY Monocytes # 0.5 K/CMM 0.0 - 0.8 04/19 Normal [facility] HEMATOLOGY Lymphocytes 1.3 K/CMM 1.0 - 5.5 04/19 Normal [facility] HEMATOLOGY Eosinophils 1.9 % 0.0 - 4.0 04/19 Normal [facility] HEMATOLOGY Basophils 0.4 % 0.0 - 1.0 04/19 Normal [facility] HEMATOLOGY Segs-Bands # 3.3 K/CMM 1.5 - 8.1 04/19 Normal [facility] HEMATOLOGY Lymphocytes 25.3 % 20.0 - 04/19 Normal [facility] 40.0 [facility] HEMATOLOGY Monocytes 9.5 % 2.0 - 12.0 04/19 Normal [facility] HEMATOLOGY Segs 62.9 % 45.0 - 04/19 Normal [facility] 75.0 [facility] HEMATOLOGY Eosinophils 0.1 K/CMM 0.0 - 0.5 04/19 Normal [facility] HEMATOLOGY Platelet 170 K/CMM 133 - 450 04/19 Normal [facility] HEMATOLOGY MCHC 34.2 g/dL 32.0 - 04/19 Normal [facility] 36.0 [facility] HEMATOLOGY RDW 13.8 % 11.5 - 04/19 Normal [facility] 14.5 Medical [place] HEMATOLOGY MCH 30.2 pg 27.0 - 04/19 Normal [facility] 31.0 [facility] HEMATOLOGY Hgb 11.4 g/dL 12.0 - 04/19 LOW [place] 16.0 /2012 [facility] HEMATOLOGY RBC 3.77 M/CMM 4.20 - 04/19 LOW [place] 5.40 /2012 [facility] HEMATOLOGY WBC 5.3 K/CMM 3.7 - 10.4 04/19 Normal [facility] HEMATOLOGY MPV 8.1 fL 7.4 - 10.4 04/19 Normal [facility] HEMATOLOGY Hct 33.4 % 36.0 - 04/19 LOW [place] 48.0 /2012 [facility] HEMATOLOGY MCV 88.5 fL 81.0 - 04/19 Normal [facility] 99.0 [facility] BLOOD BANK Antibody Negative 04/18 Normal [facility] RESULTS [facility] (04/18/2012 16:22:00) [place] BLOOD BANK ABO/Rh O NEG 04/18 Unknown [facility] RESULTS [facility] CHEMISTRY eGFR 61 04/18 NA 6Result Comment: The eGFR is calculated using the CKD-EPI formula. In most young, healthy individuals the eGFR will be > 90 mL/min/1.73m2. The eGFR declines with age. An eGFR of 60-89 may be normal in [facility] mL/min/1. some populations, particularly the elderly, for whom the CKD-EPI formula has not been extensively validated. Use of the eGFR is not recommended in the following populations: [place] [address] [facility] Individuals with unstable creatinine concentrations, including patients and those with serious co-morbid conditions. Patients with extremes in muscle mass or diet. The data above are obtained from the National Kidney Disease Education Program (NKDEP) which additionally recommends that when the eGFR is used in patients with extremes of body mass index for purposes of drug dosing, the eGFR should be multiplied by the estimated BMI. CHEMISTRY Calcium Lvl 8.9 mg/dL 8.5 - 10.5 04/18 Normal [facility] CHEMISTRY Potassium 4.6 meq/L 3.5 - 5.1 04/18 Normal [facility] Lvl [facility] CHEMISTRY Sodium Lvl 137 meq/L 135 - 145 04/18 Normal [facility] CHEMISTRY CO2 26 meq/L 24 - 32 04/18 Normal [facility] CHEMISTRY Chloride Lvl 104 meq/L 95 - 109 04/18 Normal [facility] CHEMISTRY Glucose Lvl 279 mg/dL 70 - 99 04/18 HI 9Interpretive Data: Adult reference range values reflect the clinical guidelines of the [employer] [employer]. [facility] CHEMISTRY Creatinine 1.0 mg/dL 0.5 - 1.4 04/18 Normal [facility] Lvl [facility] CHEMISTRY BUN 23 mg/dL 7 - 22 04/18 HI [facility] CHEMISTRY AGAP 11.6 meq/L 10.0 - 04/18 Normal [place] 20.0 [facility] HEMATOLOGY MPV 8.2 fL 7.4 - 10.4 04/18 Normal [facility] HEMATOLOGY MCH 29.6 pg 27.0 - 04/18 Normal [place] 31.0 [facility] HEMATOLOGY MCHC 34.0 g/dL 32.0 - 04/18 Normal [place] 36.0 [facility] HEMATOLOGY WBC 5.6 K/CMM 3.7 - 10.4 04/18 Normal [facility] HEMATOLOGY MCV 87.3 fL 81.0 - 04/18 Normal [place] 99.0 [facility] HEMATOLOGY Platelet 219 K/CMM 133 - 450 04/18 Normal [facility] HEMATOLOGY RDW 13.2 % 11.5 - 04/18 Normal [place] 14.5 [facility] HEMATOLOGY Hct 40.5 % 36.0 - 04/18 Normal [place] 48.0 [facility] HEMATOLOGY RBC 4.64 M/CMM 4.20 - 04/18 Normal [place] 5.40 /2012 [facility] HEMATOLOGY Hgb 13.8 g/dL 12.0 - 04/18 Normal [place] 16.0 [facility] HEMATOLOGY Monocytes # 0.3 K/CMM 0.0 - 0.8 04/18 Normal [facility] HEMATOLOGY Lymphocytes 0.9 K/CMM 1.0 - 5.5 04/18 LOW [place] # /2012 [facility] HEMATOLOGY Segs-Bands # 4.3 K/CMM 1.5 - 8.1 04/18 Normal [facility] HEMATOLOGY Basophils 0.5 % 0.0 - 1.0 04/18 Normal [facility] HEMATOLOGY Monocytes 5.8 % 2.0 - 12.0 04/18 Normal [facility] HEMATOLOGY Eosinophils 1.3 % 0.0 - 4.0 04/18 Normal [facility] HEMATOLOGY Lymphocytes 16.1 % 20.0 - 04/18 LOW [place] 40.0 /2013 [facility] HEMATOLOGY Eosinophils 0.1 K/CMM 0.0 - 0.5 04/18 Normal [place] # /2013 [facility] HEMATOLOGY Basophils # 0.0 K/CMM 0.0 - 0.2 04/18 Normal [place] /2012 [facility] HEMATOLOGY Segs 76.3 % 45.0 - /15 HI [place] 75.0 /2013 [facility] HEMATOLOGY PT 13.0 s 12.0 - 04/18 Normal [place] 14.7 /2013 [facility] HEMATOLOGY INR 0.96 0.85 - 04/18 Normal 11Interpretive Data: RECOMMENDED RANGES FOR PROTIME INR: [facility] 1.17 /2012 2.0-3.0 for most medical and surgical thromboembolic states. Medical 2.5-3.5 for artificial heart valves and recurrent embolism. Center INR SHOULD BE USED ONLY FOR PATIENTS ON STABLE ANTICOAGULANT THERAPY. HEMATOLOGY PTT 38.3 s 22.9 - 04/18 HI 12Interpretiv [facility] 35.8 /2013 e Data: [facility] Therapeutic Range: 57 - 92 Seconds Vital Signs Vital Sign Value Date Comments Source Temperature Oral (F) 97.6 F 07/27/2018 [facility] Heart Rate 54 07/27/2018 Medical [facility] Height 170.18 cm 07/27/2018 Medical [facility] Weight 85.091 07/27/2018 Medical [facility] BMI Calculated 29.38 07/27/2018 Medical [facility] Systolic (mm Hg) 155 07/27/2018 Medical [facility] Diastolic (mm Hg) 81 07/27/2018 Medical [facility] Systolic (mm Hg) 137 06/01/2018 [facility] Diastolic (mm Hg) 72 06/01/2018 Medical [facility] Temperature Oral (F) 98.1 F 06/01/2018 Medical [facility] Heart Rate 79 06/01/2018 Medical [facility] Height 170.18 cm 06/01/2018 Medical [facility] BMI Calculated 31.52 05/29/2018 [facility] Weight 85.909 05/29/2018 [facility] Height 165.1 cm 05/29/2018 [facility] Systolic (mm Hg) 155 05/29/2018 [facility] Diastolic (mm Hg) 76 05/29/2018 [facility] Heart Rate 79 05/29/2018 [facility] BMI Calculated 28.22 04/25/2018 [facility] Weight 81.727 04/25/2018 [facility] Height 170.18 cm 04/25/2018 [facility] Systolic (mm Hg) 144 04/25/2018 [facility] Diastolic (mm Hg) 68 04/25/2018 [facility] Heart Rate 63 04/25/2018 [facility] Temperature Oral (F) 97.8 F 04/25/2018 [facility] Height 165.1 cm 07/01/2017 [facility] BMI Calculated 29.18 07/01/2017 [facility] Weight 79.545 07/01/2017 [facility] Respitory Rate 16 07/01/2017 [facility] Systolic (mm Hg) 126 07/01/2017 [facility] Diastolic (mm Hg) 77 07/01/2017 [facility] Heart Rate 66 07/01/2017 [facility] BMI Calculated 26.68 05/31/2017 [facility] Weight 77.273 05/31/2017 [facility] Systolic (mm Hg) 135 05/31/2017 [facility] Diastolic (mm Hg) 77 05/31/2017 [facility] Temperature Oral (F) 98.5 F 05/31/2017 [facility] Respitory Rate 16 05/31/2017 [facility] Heart Rate 75 05/31/2017 [facility] Height 170.18 cm 05/31/2017 [facility] BMI Calculated 25.11 05/23/2017 [facility] Height 170.18 cm 05/23/2017 [facility] Weight 72.727 05/23/2017 [facility] Height 165.1 cm 04/28/2017 [facility] Weight 78.182 04/28/2017 [facility] BMI Calculated 28.68 04/28/2017 [facility] Heart Rate 78 04/28/2017 [facility] Respitory Rate 16 04/28/2017 [facility] Systolic (mm Hg) 136 04/28/2017 [facility] Diastolic (mm Hg) 85 04/28/2017 [facility] Weight 72.727 03/21/2017 [facility] BMI Calculated 26.68 03/21/2017 [facility] Height 165.1 cm 03/21/2017 [facility] Respitory Rate 18 08/25/2016 [facility] Heart Rate 82 08/25/2016 [facility] Temperature Oral (F) 97.9 F 08/25/2016 [facility] Systolic (mm Hg) 125 08/25/2016 [facility] Diastolic (mm Hg) 76 08/25/2016 [facility] BMI Calculated 28.35 08/24/2016 [facility] Weight 77.273 08/24/2016 [facility] Respitory Rate 18 08/24/2016 [facility] Systolic (mm Hg) 126 08/24/2016 [facility] Diastolic (mm Hg) 77 08/24/2016 [facility] Height 165.1 cm 08/24/2016 [facility] Temperature Oral (F) 97.9 F 08/24/2016 [facility] Heart Rate 81 08/24/2016 [facility] Weight 198 01/01/2014 [facility] Systolic (mm Hg) 118 01/01/2014 [facility] Diastolic (mm Hg) 77 01/01/2014 [facility] Heart Rate 76 01/01/2014 [facility] Height 65 05/10/2013 [facility] Weight 203 05/10/2013 [facility] Temperature Oral (F) 98.0 F 05/10/2013 [facility] Heart Rate 84 05/10/2013 [facility] Systolic (mm Hg) 131 05/10/2013 [facility] Diastolic (mm Hg) 76 05/10/2013 [facility] Heart Rate 61 04/21/2012 [facility] Temperature Oral (F) 97.5 F 04/21/2012 [facility] Center Systolic (mm Hg) 115 04/21/2012 [facility] Center Respitory Rate 20 04/21/2012 [facility] Center Diastolic (mm Hg) 70 04/21/2012 [facility] Heart Rate 56 04/21/2012 [facility] Respitory Rate 20 04/21/2012 [facility] Temperature Oral (F) 98.3 F 04/21/2012 [facility] Center Systolic (mm Hg) 117 04/21/2012 [facility] Center Diastolic (mm Hg) 57 04/21/2012 [facility] Respitory Rate 20 04/21/2012 [facility] Center Diastolic (mm Hg) 57 04/21/2012 [facility] Heart Rate 68 04/21/2012 [facility] Center Systolic (mm Hg) 100 04/21/2012 [facility] Temperature Oral (F) 98.0 F 04/21/2012 [facility] Height 162.56 cm 04/19/2012 [facility] Weight 93.182 04/19/2012 [facility] Height 162.56 cm 04/18/2012 [facility] Weight 93.182 04/18/2012 [facility] Encounters Location Location Encounter Encounter Reason Attending ADM DC Status Source Details Type Number For Provider Date Date Visit [facility] Inpatient [id number] CLOSED COREY 04/18 04/21 Active [facility] 0 PATELLA CIERA [facility] S[facility] [id number] 719.46 - TEDDY 05/03 05/03 Active MH OPID 0 JOINT PRASARN /2012 [place] PAIN-L/L E TH [id number] LT KNEE TEDDY 05/10 Active MH SMR 0 FRACTURE PRASARN [facility] OD [id number] 719.46 - TEDDY 05/31 05/31 Active MH OPID 1 JOINT PRASARN /2012 [place] PAIN-L/L E TH [id number] TEDDY 06/14 07/13 Active MH SMR 1 PRASARN /2012 [facility] [place] [id number] 719.46 - TEDDY 06/28 06/28 Active MH OPID 2 JOINT PRASARN /2012 [place] PAIN-L/L E TH [id number] LT KNEE TEDDY 07/14 Active MH SMR 2 FRACTURE PRASARN [facility] TH [id number] LT KNEE TEDDY 08/14 Active MH SMR 3 FRACTURE PRASARN [facility] OD [id number] 719.46 - TEDDY 09/27 09/27 Active MH OPID 3 JOINT PRASARN /2012 [place] PAIN-L/L E [facility] [id number] Alexander 05/10 05/10 [place] Syed [id number] MD Martina /2013 [facility] Lab Report [id number] Alexander 05/15 05/15 [place] 32335 MD Martina /2013 [facility] - [place] [facility] Lab Report [id number] Alexander 08/01 08/[address] [address] MD Martina /2013 [facility] Lab Report [id number] Alexander 12/24 12/[address] [address] MD Martina /2013 Medical [facility] Lab Report [id number] Danish 01/01 01/01 Domingo 95641 MD Blas /2013 [facility] visitor services specialist [facility] Office [id number] Danish 01/01 01/01 [place] Visit 27961 MD Blas /2013 [facility] visitor services specialist [facility] Lab Report [id number] Danish 01/01 01/01 [place] [address] MD Blas /2013 [facility] visitor services specialist Outpatient [id number] ALEXANDER10/23 Active [facility] 0 [place] Outpatient [id number] ALEXANDER11/28 Active Memorial 1 [facility] Diag [id number] 11/29 OP Outpatient Services [facility] Outpatient [id number] Dorota 07/08 07/09 [place] 7 [place] [facility] Outpatient [id number] JUAN 08/24 Active [facility] 2 [facility] Emergency [id number] Deborah Banegas 08/24 08/25 [facility] Outpatient [id number] JUAN 08/25 Active [facility] 3 [place] Outpatient [id number] ALEXANDER 01/18 Active Memorial [facility] Outpatient [id number] [facility] 03/21 03/22 [facility] 2 Le[facility]patient [id number] Amauri 04/28 04/29 [facility] 3 Teja Vu [facility] Outpatient [id number] Glenty 05/09 05/10 [place] 5 [facility] [id number] Glenty 05/23 05/24 [place] 7 [facility] Outpatient [id number] Amauri 05/24 05/25 [facility] [place] 1 Vu [facility] Outpatient [id number] BLANQUITA 02/27 [facility] [id number] Blanquita 05/31 06/01 Primary 5 [facility] Outside [id number] 06/14 06/16 Primary Medical Medical [facility] Outpatient [id number] Alireza Kavon 07/01 07/02 [facility] Medical [facility] Outside [id number] 07/18 07/20 MH Primary Medical [facility] Bedded [id number] Alireza Kavon 07/25 07/25 [facility] Outpatient [facility] Phone [id number] 08/03 08/05 Primary Message Medical Care [facility] Outside [id number] 08/25 08/27 MH Primary Medical Medical Care [place] [facility] Outside [id number] 11/02 11/04 Primary Medical Medical Care [facility] Digestive Phone [id number] 12/22 12/24 [facility] Disease [facility] Phone [id number] 01/19 01/21 Primary Message [facility] [place] [facility] Outpatient [id number] 01/23 Active [facility] 6 [place] Outpatient [id number] 02/15 Active [facility] 7 [place] Outpatient [id number] 03/01 Active Memorial 8 [place] Outpatient [id number] 04/25 Active Memorial 9 [facility] Outpatient [id number] 04/25 MH Primary 9 [facility] Phone [id number] 05/18 05/20 Primary Message Medical [facility] [place] [facility] Outpatient [id number] Amauri 05/29 05/[address] Medical [facility] Outpatient [id number] 06/01 Active Memorial 0 [facility] Outpatient [id number] Alexander 06/01 06/02 MH Primary 0 [facility] Outpatient [id number] 07/27 Active Memorial [facility] Outpatient [id number] Alexander 07/27 07/28 Primary 1 [facility] MG Between [id number] 07/28 07/29 Primary Visit [facility] Procedures Procedure Code Date Perfomer Comments Source Colonoscopy [id number] [address] Colonoscopy 67031436 [facility] 7 Colonoscopy [id number] Medical 7 Group Colonoscopy 59477098 [facility] 7 vaginal Pap smear 27260 normal Medical results 4 Group mammogram 06832 11/2012 Medical 4 Group Cholecystectomy 39031085 [facility] Tubal ligation 883222290 [facility] Appendectomy 69105896 [facility] Cholecystectomy 96459373 [facility] Excision of cyst of 72047266 11/2011 [facility] breast<sup>1</sup> [facility] Repair of knee joint 50934421 [facility] Tubal ligation 18922030 [facility] Appendectomy 08269789 [facility] Cholecystectomy 70360151 [facility] Excision of cyst of 96443528 11/2011 [facility] breast<sup>1</sup> Repair of knee joint 72060734 [facility] Tubal ligation 00441153 [facility] Appendectomy [id number] Medical Group Cholecystectomy 31353559 Medical Group Excision of cyst of 63814081 11/2011 Medical breast<sup>1</sup> Group Repair of knee joint 27055600 [facility] Tubal ligation 17342503 [facility] Appendectomy [id number] [place] Cholecystectomy 94796305 [facility] [place] Excision of cyst of 82562662 11/2011 OP Upper breast<sup>1</sup> [place] Repair of knee joint 05570243 [facility] [place] Tubal ligation 74748629 [place] Appendectomy 35556153 [facility] Cholecystectomy 02193167 [facility] Excision of cyst of 49174783 11/2011 [facility] breast<sup>1</sup> Repair of knee joint 50377104 [facility] Tubal ligation 35238879 [facility]
--- OUTSIDE RECORDS SUMMARY | 2018-08-11 13:41 | XMS REPORT | Summary of Care ---
:1950 Author Organization [facility] Primary [facility] [place] Address [address] [place] [address]- Encounter HQ Rear_christine(FIN) [id number] Date(s): 11/02/17 - 11/03/17 [facility] [place] [address] [place] [address]- [phone] Vital Signs No data available for this section Problem List Condition Effective Dates Status Health Status Informant Abnormal liver function(Confirmed) Resolved Breast cancer screening(Confirmed) Active Diabetes mellitus1 Active Diabetes(Confirmed) Resolved Fatigue2 05/10/13 Active Female stress Active incontinence(Confirmed) History of - rheumatoid Resolved arthritis(Confirmed) Hyperlipidemia(Confirmed) Resolved Hypertriglyceridemia3 Active Hypothyroid(Confirmed) Resolved Hypothyroidism4 Active Obesity(Confirmed) Active Rheumatoid arthritis5 Active Ureteric stone6 05/10/13 Active Urinary incontinence7 01/01/14 Active Vertigo(Confirmed) Resolved 1Data migrated from [employer] on 08/31/14.2Data migrated from [employer] on 08/31/14.3Data migrated from [employer] on 08/31/14.4Data migrated from [employer] on 08/31/14.5Data migrated from [employer] on 08/31/14.6Data migrated from [employer] on 08/31/14.7Data migrated from [employer] on 08/31. Allergies, Adverse Reactions, Alerts Substance Reaction Severity Status NKDA Active Latex1 Active 1Data migrated from [employer] on 06/04/15. Originally documented as LATEX. Medications No data available for this section Results No data available for this section Immunizations Given and Recorded Vaccine Date Status Refusal Reason influenza virus vaccine, inactivated1 03/01/18 Given influenza virus vaccine, inactivated 04/19/12 Given 1Result Comment: [facility]: [id number] LOT: [id number] EXP: [id number] NO ADVERSE REACTIONS AT TIME OF VISIT Procedures Procedure Date Related Diagnosis Body Site Status Colonoscopy 2016 Completed Appendectomy Completed Cholecystectomy Completed Excision of cyst of breast1 Completed Repair of knee joint Completed Tubal ligation Completed Social History Social History Type Response Exercise Exercise frequency: 3-4 times/week. Exercise type: Walking. Alcohol Current, Type Wine. Frequency: 1-2 times per month. Smoking Status Never smoker; Concerns about tobacco use in household: No; Exposure to Tobacco Smoke None; Cigarette Smoking Last 365 Days No; Reg Smoking Cessation Counseling No entered on: 04/25/18 Assessment and Plan No data available for this section
--- OUTSIDE RECORDS SUMMARY | 2018-08-11 13:42 | XMS REPORT | Summary of Care ---
:1950 Author Organization [facility] Primary [facility] [place] Address [address] [place] [address]- Care Team Providers Name Role Phone Blanquita Alcantar Primary Care Physician Encounter HQ Manish(CJ) [id number] Date(s): 07/27/18 - 07/27/18 [facility] [place] [address] [place] [address]- [phone] Discharge Disposition: Home or Self Care Attending Physician: Wily Mack MD Vital Signs Most recent to oldest [Reference Range]: 1 Height 170.18 cm (07/27/18 9:17 AM) Temperature Oral [96.4-99.1 DegF] 97.6 DegF (07/27/18 9:17 AM) Blood Pressure [90-140/60-90 mmHg] 155/81 mmHg *HI* (07/27/18 9:17 AM) Peripheral Pulse Rate [60-100 bpm] 54 bpm *LOW* (07/27/18 9:17 AM) Weight 85.091 kg (07/27/18 9:17 AM) Body Mass Index 29.38 m2 (07/27/18 9:17 AM) Problem List Condition Effective Dates Status Health Status Informant Abnormal liver function(Confirmed) Resolved Breast cancer screening(Confirmed) Active Diabetes mellitus1 Active Diabetes(Confirmed) Resolved Fatigue(Confirmed)2 05/10/13 Resolved Female stress Active incontinence(Confirmed) History of - rheumatoid Resolved arthritis(Confirmed) Personal history of Active immunosuppressive therapy(Confirmed) Hyperlipidemia(Confirmed) Resolved Hypertriglyceridemia3 Active Hypothyroid(Confirmed) Resolved Hypothyroidism4 Active Obesity(Confirmed) Active Rheumatoid arthritis5 Active Ureteric stone(Confirmed)6 05/10/13 Resolved Urinary incontinence(Confirmed)7 01/01/14 Resolved Vertigo(Confirmed) Resolved 1Data migrated from [employer] [...] on 06/04/15. Originally documented as LATEX. Medications alogliptin-pioglitazone 25 mg-15 mg oral tablet 1 tab, PO, Daily, 0 Refill(s) Start Date: 07/27/18 Stop Date: 07/27/18 Status: DiscontinuedMyrbetriq 25 mg oral tablet, extended release 25 mg=1 tab, PO, Daily, # 30 tab, 5 Refill(s) Start Date: 07/27/18 Status: Ordered Results No data available for this section Immunizations Given and Recorded Vaccine Date Status Refusal Reason influenza virus vaccine, inactivated1 03/01/18 Given influenza virus vaccine, inactivated 04/19/12 Given 1Result Comment: [facility]: [id number] LOT: [id number] EXP: [id number] NO ADVERSE REACTIONS AT TIME OF VISIT [...] Reg Smoking Cessation Counseling No entered on: 07/27/18 Assessment and Plan No data available for this section
--- OUTSIDE RECORDS SUMMARY | 2018-08-11 13:42 | XMS REPORT | Summary of Care ---
:1950 Author Organization [facility] Primary [facility] [place] Address [address] [place] [address]- Care Team Providers Name Role Phone Blanquita Alcantar Primary Care Physician Encounter HQ Manish(CJ) [phone] Date(s): 07/27/18 - 07/27/18 [facility] [place] [address] [place] [address]- [phone] Discharge Disposition: Home or Self Care Attending [...] virus vaccine, inactivated 04/19/12 Given 1Result Comment: [facility][NOTE 2]: [id number] LOT: [id number] EXP: [id number] NO ADVERSE REACTIONS AT TIME OF VISIT [...]
--- OUTSIDE RECORDS SUMMARY | 2018-08-11 13:42 | XMS REPORT | Summary of Care ---
:1950 Author Organization [facility] Primary Care [place] Address [address] [place] [address]- Care Team Providers Name Role Phone Blanquita Alcantar Primary Care Physician Encounter HQ Manish(CJ) [phone] Date(s): 07/27/18 - 07/27/18 [facility] Primary [place] [address] [place] [address]- [phone] Discharge Disposition: Home or Self Care Attending [...] virus vaccine, inactivated 04/19/12 Given 1Result Comment: [facility]: [id number] LOT: [id number] EXP: [id number] NO ADVERSE REACTIONS AT TIME OF VISIT [...]
--- OUTSIDE RECORDS SUMMARY | 2018-08-11 13:42 | XMS REPORT | Summary of Care ---
:1950 Author Organization [facility] Primary [facility] [place] Address [address] [place] [address]- Care Team Providers Name Role Phone Blanquita Alcantar Primary Care Physician Encounter HQ Manish(FIN) [phone] Date(s): 07/28/18 - 07/29/18 [facility] Primary [place] [address] [place] [address]- Vital Signs No data available for this [...] virus vaccine, inactivated 04/19/12 Given 1Result Comment: [facility]: [id number] LOT: [id number] EXP: [id number] NO ADVERSE REACTIONS AT TIME OF VISIT [...]
--- OUTSIDE RECORDS SUMMARY | 2018-08-11 13:42 | XMS REPORT | Summary of Care ---
:1950 Author Organization [facility] Primary [facility] [place] Address [address] [place] [address]- Care Team Providers Name Role Phone Blanquita Alcantar Primary Care Physician Encounter HQ Manish(CJ) [phone] Date(s): 07/27/18 - 07/27/18 [facility] Primary [place] [address] [place] [address]- Discharge Disposition: Home or Self Care Attending [...] virus vaccine, inactivated 04/19/12 Given 1Result Comment: [facility]: [id number] LOT: [id number] EXP: [id number] NO ADVERSE REACTIONS AT TIME OF VISIT [...]
--- OUTSIDE RECORDS SUMMARY | 2018-08-11 13:43 | XMS REPORT | Summary of Care ---
:1950 Author Organization [facility] [place] Address [address] [place] [address]- Encounter HQ Manish(FIN) [phone] Date(s): 06/01/18 - 06/01/18 [facility] [place] [address] [place] [phone] Discharge Disposition: Home or Self Care Attending Physician: Wily Mack MD Vital Signs Most recent to oldest [Reference Range]: 1 Height 170.18 cm (06/01/18 11:05 AM) Temperature Oral [96.4-99.1 DegF] 98.1 DegF (06/01/18 11:05 AM) Blood Pressure [90-140/60-90 mmHg] 137/72 mmHg (06/01/18 11:05 AM) Peripheral Pulse Rate [60-100 bpm] 79 bpm (06/01/18 11:05 AM) Problem List Condition Effective Dates Status [...] 06/04/15. Originally documented as LATEX. Medications No Known Medications Results No data available for this section Immunizations Given and Recorded Vaccine Date Status Refusal Reason influenza virus vaccine, inactivated1 03/01/18 Given influenza virus vaccine, inactivated 04/19/12 Given 1Result Comment: [facility]: 50340-348-61 LOT: [id number] EXP: [id number] NO ADVERSE REACTIONS AT TIME OF VISIT [...] Reg Smoking Cessation Counseling No entered on: 06/01/18 Assessment and Plan No data available for this section
--- OUTSIDE RECORDS SUMMARY | 2018-08-11 13:44 | XMS REPORT | Summary of Care ---
:1950 Author Organization [facility] [place] Address [address] [place] [address]- Encounter HQ Manish(FIN) [phone] Date(s): 04/25/18 - 04/25/18 [facility] [place] [address] [place] [phone] Discharge Disposition: Home or Self Care Attending Physician: Wily Mack MD Vital Signs Most recent to oldest [Reference Range]: 1 Height 170.18 cm (04/25/18 10:38 AM) Temperature Oral [96.4-99.1 DegF] 97.8 DegF (04/25/18 10:38 AM) Blood Pressure [90-140/60-90 mmHg] 144/68 mmHg *HI* (04/25/18 10:38 AM) Peripheral Pulse Rate [60-100 bpm] 63 bpm (04/25/18 10:38 AM) Weight 81.727 kg (04/25/18 10:38 AM) Body Mass Index 28.22 m2 (04/25/18 10:38 AM) Problem List Condition Effective Dates Status [...] on 06/04/15. Originally documented as LATEX. Medications Myrbetriq 25 mg oral tablet, extended release 25 mg=1 tab, PO, Daily Start Date: 04/25/18 Status: OrderedpredniSONE 10 mg oral tablet 10 mg=1 tab, PO, Daily, # 30 tab, 0 Refill(s) Start Date: 04/25/18 Stop Date: 05/25/18 Status: Ordered Results No data available for this section Immunizations Given and Recorded Vaccine Date Status Refusal Reason influenza virus vaccine, inactivated1 03/01/18 Given influenza virus vaccine, inactivated 04/19/12 Given 1Result Comment: [facility]: [id number] LOT: [id number] EXP: [id number] NO ADVERSE REACTIONS AT TIME OF VISIT [...]
--- OUTSIDE RECORDS SUMMARY | 2018-08-11 13:44 | XMS REPORT | Summary of Care ---
:1950 Author Organization [facility] Address [address], [address] [place] [address]- Encounter HQ Ernie_christine(FIN) [phone] Date(s): 12/22/17 - 12/23/17 [facility] [address] [place] [address]- Vital Signs No data available for this [...] on 06/04/15. Originally documented as LATEX. Medications azaTHIOprine 50 mg oral tablet 50 mg=1 tab, PO, Daily, # 30 tab, 1 Refill(s), Pharmacy: [id number] Start Date: 12/22/17 Stop Date: 02/08/18 Status: CompletedpredniSONE 10 mg oral tablet 20 mg=2 tab, PO, Daily, # 60 tab, 1 Refill(s), Pharmacy: [facility] Start Date: 12/22/17 Stop Date: 02/08/18 Status: Completed Results No data available for this section Immunizations Given and Recorded Vaccine Date Status Refusal Reason influenza virus vaccine, inactivated1 03/01/18 Given influenza virus vaccine, inactivated 04/19/12 Given 1Result Comment: [facility]: [id number] LOT: [id number] EXP: [id number] NO ADVERSE REACTIONS AT TIME OF VISIT [...]
--- OUTSIDE RECORDS SUMMARY | 2018-08-11 13:44 | XMS REPORT | Summary of Care ---
:1950 Author Organization [facility] [place] Address [address] [place] [address]- Care Team Providers Name Role Phone Blanquita Alcantar Primary Care Physician Encounter HQ Manish(FIN) [phone] Date(s): 01/19/18 - 01/20/18 [facility] [place] [address] [place] [address]- Vital Signs No data available for this [...] virus vaccine, inactivated 04/19/12 Given 1Result Comment: [facility]: 90273-870-88 LOT: [id number] EXP: [id number] NO ADVERSE REACTIONS AT TIME OF VISIT [...]
--- OUTSIDE RECORDS SUMMARY | 2018-08-11 13:45 | XMS REPORT | Summary of Care ---
:1950 Author Organization [facility] [place] Address [address] [place] [address]- Encounter HQ Ernie_christine(FIN) [phone] Date(s): 05/18/18 - 05/19/18 [facility] [place] [address] [place] [address] [phone] Vital Signs No data available for this [...] on 06/04/15. Originally documented as LATEX. Medications oxybutynin 5 mg oral tablet, extended release =1 tab, PO, Daily, # 30 tab, Refill(s) 3, Pharmacy: [facility] Start Date: 05/18/18 Status: Ordered Results No data available for this section Immunizations Given and Recorded Vaccine Date Status Refusal Reason influenza virus vaccine, inactivated1 03/01/18 Given influenza virus vaccine, inactivated 04/19/12 Given 1Result Comment: [facility]: [id number] LOT: [id number] EXP: [id number] NO ADVERSE REACTIONS AT TIME OF VISIT [...]
--- OUTSIDE RECORDS SUMMARY | 2018-08-11 13:45 | XMS REPORT | CCD ---
:1950 Author Organization [facility] Care Team Providers Name Role Phone PhucNamrata Jyothi Consulting Provider Sherly Boyd Consulting Provider Allergies, Adverse Reactions, Alerts Substance Reaction Status NKDA Active Problem List Condition Effective Dates Status Diabetes mellitus Resolved Hypothyroid Resolved Vertigo Resolved Medications Medication Instructions Start Date End Date Status magnesium sulfate 2 gm, 50 mL, Route: IVPB, 04/19/2012 04/19/2012 Deleted Drug form: INJ, Q2H, Dosing Weight 93.182, kg, Total dose=4 gm, Start date: 04/19/12 8:00:00, Duration: 2 doses or times, Stop date: 04/19/12 10:00:00 morphine Sulfate 4 mg, Route: IVP, Drug 04/18/2012 04/18/2012 Completed form: INJ, ONCE, Dosing Weight 93.182, kg, Priority: STAT, Start date: 04/18/12 15:22:00, Stop date: 04/18/12 15:22:00 metFORmin 500 mg, BID, Substitution 04/18/2012 Ordered Allowed levothyroxine 175 microgram, 04/18/2012 Ordered Substitution Allowed fenofibrate 80 mg, PO, Daily, 04/18/2012 Ordered Substitution Allowed Tradjenta 5 mg oral 5 mg, 1 tab, PO, Daily, 04/18/2012 Ordered tablet Substitution Allowed glipiZIDE 10 mg, Substitution 04/18/2012 04/20/2012 Discontinued Allowed flumazenil 0.2 mg, 2 mL, Route: IVP, 04/19/2012 04/19/2012 Discontinued Drug form: INJ, PRN, Dosing Weight 93.182, kg, PRN Benzodiazepine Reversal, Initial dose, Start date: 04/19/12 10:06:00, Stop date: 04/20/12 0:00:00 hydromorphone 0.5 mg, 0.25 mL, Route: 04/19/2012 04/19/2012 Discontinued IVP, Drug form: INJ, Q5Min, Dosing Weight 93.182, kg, PRN Pain Score 4-6, Start date: 04/19/12 10:06:00, Duration: 5 doses or times, Stop date: 04/20/12 0:00:00 naloxone 0.04 mg, 0.1 mL, Route: 04/19/2012 04/19/2012 Discontinued IVP, Drug form: INJ, Q2MIN, Dosing Weight 93.182, kg, PRN Narcotic Reversal, Start date: 04/19/12 10:06:00, Duration: 8 doses or times, Stop date: 04/20/12 0:00:00 ondansetron 4 mg, 2 mL, Route: IVP, 04/19/2012 04/19/2012 Discontinued Drug form: INJ, ONCE, Dosing Weight 93.182, kg, PRN Nausea & Vomiting, Start date: 04/19/12 10:06:00 piroxicam 20 mg, PRN, as needed for 04/18/2012 Ordered arthritis, Substitution Allowed Colace 100 mg oral 100 mg, 1 cap, Route: PO, 04/19/2012 04/21/2012 Discontinued capsule Drug form: CAP, BID, Dosing Weight 93.182, kg, Start date: 04/19/12 9:00:00, Duration: 30 day, Stop date: 05/18/12 17:00:00 Sodium Chloride 0.9% IV 1,000 mL, Rate: 100 04/18/2012 04/20/2012 Discontinued 1,000 mL ml/hr, Infuse over: 10 hr, Route: IV, kg, Total Volume: 1,000, Start date: 04/18/12 23:59:00, Duration: 30 day, Stop date: 05/18/12 23:58:00 Trajenta (Linagliptin) 5 Trajenta (Linagliptin) 5 04/20/2012 04/21/2012 Discontinued mg tablet mg tablet, 5 mg, Drug form: MISC, Route: PO, Daily, 04/20/12 13:00:00, Duration: 30 day, Stop date: 05/20/12 9:00:00 linagliptin 5 mg, Route: PO, Drug 04/20/2012 04/20/2012 Discontinued form: TAB, Daily, Dosing Weight 93.182, kg, Priority: NOW, Start date: 04/20/12 11:35:00 glipiZIDE 10 mg, Route: PO, Daily, 04/20/2012 04/20/2012 Discontinued Dosing Weight 93.182, kg, Priority: NOW, Start date: 04/20/12 11:35:00, Duration: 30 day, Stop date: 05/20/12 9:00:00 magnesium sulfate 2 gm, 50 mL, Route: IVPB, 04/19/2012 04/19/2012 Completed Drug form: INJ, Q2H, Dosing Weight 93.182, kg, Total dose=4 gm, Start date: 04/19/12 14:00:00, Duration: 2 doses or times, Stop date: 04/19/12 16:00:00 Ancef 2 gm, Route: IVPB, 04/19/2012 04/19/2012 Deleted ABXQ8H, Dosing Weight 93.182, kg, Start date: 04/19/12 10:00:00, Duration: 24 hr, Stop date: 04/20/12 2:00:00 cefazolin + Sodium 2 gm, Route: IVPB, 04/19/2012 04/20/2012 Completed Chloride 0.9% IV 100 mL ABXQ8H, Start date: 04/19/12 16:00:00, Duration: 24 hr, Stop date: 04/20/12 8:00:00 glipiZIDE 5 mg oral 5 mg, 1 tab, PO, BID, 30 04/20/2012 Ordered tablet, extended release tab, Substitution Allowed Levothroid 25 microgram, 1 tab, 04/19/2012 04/21/2012 Discontinued Route: PO, Drug form: TAB, Q630AM, Start date: 04/19/12 6:30:00, Duration: 30 day, Stop date: 05/18/12 6:30:00 Medfield 10/325 oral tablet 1 tab, Route: PO, Drug 04/19/2012 04/21/2012 Discontinued Form: TAB, Dosing Weight 93.182, kg, Q4H, PRN Pain, Start date: 04/19/12 18:56:00, Duration: 30 day, Stop date: 05/19/12 18:55:00 multivitamin 1 tab, Route: PO, Drug 04/19/2012 04/21/2012 Discontinued Form: TAB, Dosing Weight 93.182, kg, Daily, Start date: 04/19/12 9:00:00, Duration: 30 day, Stop date: 05/18/12 9:00:00 fenofibrate 96 mg, 2 tab, Route: PO, 04/19/2012 04/20/2012 Discontinued Drug form: TAB, Daily, Dosing Weight 93.182, kg, Start date: 04/19/12 9:00:00, Duration: 30 day, Stop date: 05/18/12 9:00:00 levothyroxine 150 microgram, 1 tab, 04/19/2012 04/21/2012 Discontinued Route: PO, Drug form: TAB, Q630AM, Dosing Weight 93.182, kg, Start date: 04/19/12 9:00:00, Stop date: 05/18/12 6:30:00 multivitamin Substitution Allowed, 04/18/2012 Ordered Maintenance Sodium Chloride 0.9% IV 1,000 mL, Rate: 100 04/18/2012 04/18/2012 Discontinued 1,000 mL ml/hr, Infuse over: 10 hr, Route: IV, kg, Total Volume: 1,000, Start date: 04/18/12 16:29:00, Duration: 30 day, Stop date: 05/18/12 16:28:00 ropivacaine 800 mg + 320 mL, Rate: 8 ml/hr, 04/19/2012 04/19/2012 Discontinued Q-Pump 1 ea + Sodium Infuse over: 40 hr, Chloride 0.9% (titrate) Dosing Weight 93.182, kg, 320 mL Route: NERVE BLOCK, Total Volume: 320 mL, Duration: 30 day, Stop date: 05/19/12 11:54:00, Replace Every: 24 hr morphine Sulfate 2 mg, 1 mL, Route: IVP, 04/18/2012 04/19/2012 Discontinued Drug form: INJ, Q4H, Dosing Weight 93.182, kg, PRN Pain Score 7-10, Start date: 04/18/12 18:45:00, Duration: 30 day, Stop date: 05/18/12 18:44:00 Medfield 5/325 oral tablet 1 tab, Route: PO, Drug 04/18/2012 04/19/2012 Discontinued Form: TAB, Dosing Weight 93.182, kg, Q4H, PRN Pain Score 4-6, Start date: 04/18/12 18:45:00, Duration: 30 day, Stop date: 05/18/12 18:44:00 Lovenox 40 mg, 0.4 mL, Route: 04/18/2012 04/21/2012 Discontinued SUB-Q, Drug form: INJ, Q24H, Dosing Weight 93.182, kg, Start date: 04/18/12 20:00:00, Duration: 30 day, Stop date: 05/17/12 20:00:00 influenza virus vaccine 0.5 mL, Route: IM, Drug 04/19/2012 04/19/2012 Completed intramuscular suspension Form: INJ, ONCE, Start date: 04/19/12 15:52:00, Stop date: 04/19/12 15:52:00 Zofran 4 mg, 2 mL, Route: IV, 04/19/2012 04/21/2012 Discontinued Drug form: INJ, Q6H, Dosing Weight 93.182, kg, PRN Nausea, Start date: 04/19/12 21:20:00, Duration: 30 day, Stop date: 05/19/12 21:19:00 Dextrose 50% Syringe 12.5 gm, 25 mL, Route: 04/18/2012 04/21/2012 Discontinued IVP, Drug Form: INJ, Dosing Weight 93.182, kg, PRN, PRN Blood Glucose Results, Start date: 04/18/12 18:58:00, Duration: 30 day, Stop date: 05/18/12 18:57:00 Dextrose 50% Syringe 25 gm, 50 mL, Route: IVP, 04/18/2012 04/21/2012 Discontinued Drug Form: INJ, Dosing Weight 93.182, kg, PRN, PRN Blood Glucose Results, Start date: 04/18/12 18:58:00, Duration: 30 day, Stop date: 05/18/12 18:57:00 glucagon 1 mg, Route: IM, Drug 04/18/2012 04/21/2012 Discontinued form: PDR/INJ, PRN, Dosing Weight 93.182, kg, PRN Blood Glucose Results, Start date: 04/18/12 18:58:00, Duration: 30 day, Stop date: 05/18/12 18:57:00 insulin aspart 10 unit, 0.1 mL, Route: 04/18/2012 04/21/2012 Discontinued SUB-Q, Drug form: SOLN, TID-Before Meals, Dosing Weight 93.182, kg, PRN Blood Glucose Results, Start date: 04/18/12 18:58:00, Duration: 30 day, Stop date: 05/18/12 18:57:00 insulin aspart 8 unit, 0.08 mL, Route: 04/18/2012 04/21/2012 Discontinued SUB-Q, Drug form: SOLN, TID-Before Meals, Dosing Weight 93.182, kg, PRN Blood Glucose Results, Start date: 04/18/12 18:58:00, Duration: 30 day, Stop date: 05/18/12 18:57:00 insulin aspart 4 unit, 0.04 mL, Route: 04/18/2012 04/21/2012 Discontinued SUB-Q, Drug form: SOLN, TID-Before Meals, Dosing Weight 93.182, kg, PRN Blood Glucose Results, Start date: 04/18/12 18:58:00, Duration: 30 day, Stop date: 05/18/12 18:57:00 insulin aspart 6 unit, 0.06 mL, Route: 04/18/2012 04/21/2012 Discontinued SUB-Q, Drug form: SOLN, TID-Before Meals, Dosing Weight 93.182, kg, PRN Blood Glucose Results, Start date: 04/18/12 18:58:00, Duration: 30 day, Stop date: 05/18/12 18:57:00 insulin aspart 2 unit, 0.02 mL, Route: 04/18/2012 04/21/2012 Discontinued SUB-Q, Drug form: SOLN, TID-Before Meals, Dosing Weight 93.182, kg, PRN Blood Glucose Results, Start date: 04/18/12 18:58:00, Duration: 30 day, Stop date: 05/18/12 18:57:00 fenofibrate 160 mg oral 80 mg, 0.5 tab, Route: 04/21/2012 04/21/2012 Discontinued tablet PO, Drug form: TAB, Daily, Dosing Weight 93.182, kg, Start date: 04/21/12 9:00:00, Duration: 30 day, Stop date: 05/20/12 9:00:00 clonazepam 0.25 mg, 0.5 tab, Route: 04/18/2012 04/21/2012 Discontinued PO, Drug form: TAB, TID, Dosing Weight 93.182, kg, PRN Anxiety, Start date: 04/18/12 23:18:00, Duration: 30 day, Stop date: 05/18/12 23:17:00 morphine Sulfate 4 mg, Route: IVP, ONCE, 04/18/2012 04/18/2012 Completed Dosing Weight 93.182, kg, Start date: 04/18/12 19:58:00, Stop date: 04/18/12 19:58:00 Colace 100 mg oral 100 mg, 1 cap, PO, BID, 04/21/2012 Ordered capsule 60 cap, Substitution Allowed, CAP Med[place] 10/325 oral tablet 1 tab, PO, Q4H, PRN, 45 04/21/2012 Ordered tab, as needed for pain, Substitution Allowed, Maintenance, TAB influenza virus vaccine, 0.5 ml, Route: IM, Drug 04/19/2012 04/19/2012 Completed inactivated Form: INJ, Start date: 04/19/12 9:00:00, Stop date: 04/19/12 9:00:00 Medfield 10/325 oral tablet 1 tab, Route: PO, Drug 04/19/2012 04/21/2012 Discontinued Form: TAB, Dosing Weight 93.182, kg, Q4H, Start date: 04/19/12 20:00:00, Duration: 30 day, Stop date: 05/19/12 16:00:00 bisacodyl 10 mg, 1 supp, Route: MT, 04/20/2012 04/21/2012 Discontinued Drug form: SUPP, Daily, Dosing Weight 93.182, kg, PRN as needed for constipation, Start date: 04/20/12 4:34:00, Duration: 30 day, Stop date: 05/20/12 4:33:00 influenza virus vaccine, 0.5 ml, Route: IM, Drug 04/19/2012 04/19/2012 Completed inactivated Form: INJ, Daily, Start date: 04/19/12 9:00:00, Duration: 1 doses or times, Stop date: 04/19/12 9:00:00 ropivacaine 1% 800 mg + 320 mL, Rate: 8 ml/hr, 04/19/2012 04/21/2012 Discontinued Q-Pump 1 ea + Sodium Infuse over: 50 hr, Chloride 0.9% IV 320 mL Route: NERVE BLOCK, kg, Total Volume: 400, Start date: 04/19/12 12:18:00, Duration: 7 day, Stop date: 05/03/12 12:17:00 glipiZIDE 5 mg oral 5 mg, 1 tab, Route: PO, 04/20/2012 04/21/2012 Discontinued tablet, extended release Drug form: ERTAB, BID, Dosing Weight 93.182, kg, Start date: 04/20/12 14:00:00, Duration: 30 day, Stop date: 05/20/12 9:00:00 Immunizations Vaccine Date Status influenza virus vaccine, inactivated1 04/19/2012 Not Done influenza virus vaccine, inactivated 04/19/2012 Auth (Verified) 1Result Comment: duplicate Vital Signs Most recent to oldest 1 2 3 [Reference Range]: Height 162.56 cm 162.56 cm (04/18/2012 23:46:00) (04/18/2012 14:50:00) Temperature Oral 97.5 DegF 98.3 DegF 98.0 DegF [96.4-99.1 DegF] (04/21/2012 11:39:00) (04/21/2012 08:00:00) (04/21/2012 04: 18:00) Systolic Blood Pressure 115 mmHg 117 mmHg 100 mmHg [90-140 mmHg] (04/21/2012 11:39:00) (04/21/2012 08:00:00) (04/21/2012 04:18: 00) Diastolic Blood Pressure 70 mmHg 57 mmHg 57 mmHg [60-90 mmHg] (04/21/2012 11:39:00) *LOW* *LOW* (04/21/2012 08:00:00) (04/21/2012 04:18:00) Respiratory Rate [14-20 20 BRMIN 20 BRMIN 20 BRMIN BRMIN] (04/21/2012 11:39:00) (04/21/2012 08:00:00) (04/21/2012 04:18:00) Peripheral Pulse Rate 61 bpm 56 bpm 68 bpm [60-100 bpm] (04/21/2012 11:39:00) *LOW* (04/21/2012 04:18:00) (04/21/2012 08:00:00) Weight 93.182 kg 93.182 kg (04/18/2012 23:46:00) (04/18/2012 14:50:00) Results BEDSIDE GLUCOSE TESTING Most recent to oldest 1 2 3 [Reference Range]: Gluc POC Lifscn [70-99 251 mg/dL 1 211 mg/dL 2 293 mg/dL 3 mg/dL] *HI* *HI* *HI* (04/21/2012 11:55:00) (04/21/2012 05:54:00) (04/20/2012 21:11:00) Comment1 Notify RN/MD Notify RN/MD Notify RN/MD *NA* *NA* *NA* (04/21/2012 05:54:00) (04/20/2012 21:11:00) (04/20/2012 17:18:00) 1Interpretive Data: Upper Reportable Limit: 200 mg/dL.2Interpretive Data: Upper Reportable Limit: 200 mg/dL.3Interpretive Data: Upper Reportable Limit: 200 mg/dL.BLOOD BANK RESULTS Most recent to oldest [Reference Range]: 1 2 3 ABO/Rh O NEG *Unknown* (04/18/2012 16:22:00) Antibody Scrn Negative (04/18/2012 16:22:00) CHEMISTRY Most recent to oldest 1 2 3 [Reference Range]: Sodium Lvl [135-145 mEq/L] 138 mEq/L 141 mEq/L 137 mEq/L (04/21/2012 05:24:00) (04/19/2012 01:46:00) (04/18/2012 15:45:00) Potassium Lvl [3.5-5.1 4.3 mEq/L 4.1 mEq/L 4.6 mEq/L mEq/L] (04/21/2012 05:24:00) (04/19/2012 01:46:00) (04/18/2012 15:45:00) Chloride Lvl [95-109 mEq/L] 106 mEq/L 108 mEq/L 104 mEq/L (04/21/2012 05:24:00) (04/19/2012 01:46:00) (04/18/2012 15:45:00) CO2 [24-32 mEq/L] 21 mEq/L 24 mEq/L 26 mEq/L *LOW* (04/19/2012 01:46:00) (04/18/2012 15:45:00) (04/21/2012 05:24:00) AGAP [10.0-20.0 mEq/L] 15.3 mEq/L 13.1 mEq/L 11.6 mEq/L (04/21/2012 05:24:00) (04/19/2012 01:46:00) (04/18/2012 15:45:00) Creatinine Lvl [0.5-1.4 0.7 mg/dL 0.9 mg/dL 1.0 mg/dL mg/dL] (04/21/2012 05:24:00) (04/19/2012 01:46:00) (04/18/2012 15:45:00) eGFR 94 mL/min/1.73m2 4 69 mL/min/1.73m2 5 61 mL/min/1.73m2 6 *NA* *NA* *NA* (04/21/2012 05:24:00) (04/19/2012 01:46:00) (04/18/2012 15:45:00) BUN [7-22 mg/dL] 21 mg/dL 20 mg/dL 23 mg/dL (04/21/2012 05:24:00) (04/19/2012 01:46:00) *HI* (04/18/2012 15:45:00) Glucose Lvl [70-99 mg/dL] 189 mg/dL 7 175 mg/dL 8 279 mg/dL 9 *HI* *HI* *HI* (04/21/2012 05:24:00) (04/19/2012 01:46:00) (04/18/2012 15:45:00) Calcium Lvl [8.5-10.5 7.7 mg/dL 8.1 mg/dL 8.9 mg/dL mg/dL] *LOW* *LOW* (04/18/2012 15:45:00) (04/21/2012 05:24:00) (04/19/2012 01:46:00) Phosphorus [2.5-4.5 mg/dL] 4.0 mg/dL (04/19/2012 01:46:00) Magnesium Lvl [1.8-2.4 1.4 mg/dL mg/dL] *LOW* (04/19/2012 01:46:00) Hgb A1C 9.6 % 10 *NA* (04/20/2012 12:00:00) 4Result Comment: The eGFR is calculated using the CKD-EPI formula. In most young , healthy individualsthe eGFR will be >90 mL/min/1.73m2. The eGFR declines with age. An eGFR of 60-89 may be normal in some populations, particularly the elderly, for whom the CKD-EPI formula has not been extensively validated. Use of the eGFR is not recommended in the following populations: Individuals with unstable creatinine concentrations, including patients and those with serious co-morbid conditions. Patients with extremes in muscle mass or diet. The data above are obtained from the National Kidney Disease Education Program ( NKDEP) which additionally recommends that when the eGFR is used in patients with extremes of body mass index for purposesof drug dosing, the eGFR should be multiplied by the estimated BMI.5Result Comment: The eGFR is calculated using the CKD-EPI formula. In most young, healthy individualsthe eGFR will be >90 mL/ min/1.73m2. The eGFR declines with age. An eGFR of 60-89 may be normal in some populations, particularly the elderly, for whom the CKD-EPI formula has not been extensively validated. Use of the eGFR is not recommended in the following populations: Individuals with unstable creatinine concentrations, including patients and those with serious co-morbid conditions. Patients with extremes in muscle mass or diet. The data above are obtained from the National Kidney Disease Education Program ( NKDEP) which additionally recommends that when the eGFR is used in patients with extremes of body mass index for purposesof drug dosing, the eGFR should be multiplied by the estimated BMI.6Result Comment: The eGFR is calculated using the CKD-EPI formula. In most young, healthy individualsthe eGFR will be >90 mL/ min/1.73m2. The eGFR declines with age. An eGFR of 60-89 may be normal in some populations, particularly the elderly, for whom the CKD-EPI formula has not been extensively validated. Use of the eGFR is not recommended in the following populations: Individuals with unstable creatinine concentrations, including patients and those with serious co-morbid conditions. Patients with extremes in muscle mass or diet. The data above are obtained from the National Kidney Disease Education Program ( NKDEP) which additionally recommends that when the eGFR is used in patients with extremes of body mass index for purposesof drug dosing, the eGFR should be multiplied by the estimated BMI.7Interpretive Data: Adult reference range values reflect the clinical guidelines of the [place] [employer].8Interpretive Data: Adult reference range values reflect the clinical guidelines of the [place] [employer].9Interpretive Data: Adult reference range values reflect the clinical guidelines of the [place] [employer].10Interpretive Data: HbA1C% eAG(mg/dL ) Interpretation 6.0 126 Very good control 6.5 140 Very good control 7.0 154 Good Control 7.5 169 Good Control 8.0 183 Marginal Control, take action to lower 8.5 197 Marginal Control, take action to lower 9.0 212 Poor Control, take action to lower 9.5 226 Poor Control, take action to lower 10.0 240 Poor Control, take action to lowerHEMATOLOGY Most recent to oldest 1 2 3 [Reference Range]: WBC [3.7-10.4 K/CMM] 4.4 K/CMM 5.3 K/CMM 5.6 K/CMM (04/21/2012 05:24:00) (04/19/2012 01:46:00) (04/18/2012 15:45:00) RBC [4.20-5.40 M/CMM] 3.41 M/CMM 3.77 M/CMM 4.64 M/CMM *LOW* *LOW* (04/18/2012 15:45:00) (04/21/2012 05:24:00) (04/19/2012 01:46:00) Hgb [12.0-16.0 g/dL] 10.3 g/dL 11.4 g/dL 13.8 g/dL *LOW* *LOW* (04/18/2012 15:45:00) (04/21/2012 05:24:00) (04/19/2012 01:46:00) Hct [36.0-48.0 %] 30.2 % 33.4 % 40.5 % *LOW* *LOW* (04/18/2012 15:45:00) (04/21/2012 05:24:00) (04/19/2012 01:46:00) MCV [81.0-99.0 fL] 88.5 fL 88.5 fL 87.3 fL (04/21/2012 05:24:00) (04/19/2012 01:46:00) (04/18/2012 15:45:00) MCH [27.0-31.0 pg] 30.1 pg 30.2 pg 29.6 pg (04/21/2012 05:24:00) (04/19/2012 01:46:00) (04/18/2012 15:45:00) MCHC [32.0-36.0 g/dL] 34.0 g/dL 34.2 g/dL 34.0 g/dL (04/21/2012 05:24:00) (04/19/2012 01:46:00) (04/18/2012 15:45:00) RDW [11.5-14.5 %] 14.0 % 13.8 % 13.2 % (04/21/2012 05:24:00) (04/19/2012 01:46:00) (04/18/2012 15:45:00) Platelet [133-450 K/CMM] 173 K/CMM 170 K/CMM 219 K/CMM (04/21/2012 05:24:00) (04/19/2012 01:46:00) (04/18/2012 15:45:00) MPV [7.4-10.4 fL] 8.1 fL 8.1 fL 8.2 fL (04/21/2012 05:24:00) (04/19/2012 01:46:00) (04/18/2012 15:45:00) Segs [45.0-75.0 %] 58.3 % 62.9 % 76.3 % (04/21/2012 05:24:00) (04/19/2012 01:46:00) *HI* (04/18/2012 15:45:00) Lymphocytes [20.0-40.0 %] 30.8 % 25.3 % 16.1 % (04/21/2012 05:24:00) (04/19/2012 01:46:00) *LOW* (04/18/2012 15:45:00) Monocytes [2.0-12.0 %] 9.0 % 9.5 % 5.8 % (04/21/2012 05:24:00) (04/19/2012 01:46:00) (04/18/2012 15:45:00) Eosinophils [0.0-4.0 %] 1.4 % 1.9 % 1.3 % (04/21/2012 05:24:00) (04/19/2012 01:46:00) (04/18/2012 15:45:00) Basophils [0.0-1.0 %] 0.5 % 0.4 % 0.5 % (04/21/2012 05:24:00) (04/19/2012 01:46:00) (04/18/2012 15:45:00) Segs-Bands # [1.5-8.1 2.6 K/CMM 3.3 K/CMM 4.3 K/CMM K/CMM] (04/21/2012 05:24:00) (04/19/2012 01:46:00) (04/18/2012 15:45:00) Lymphocytes # [1.0-5.5 1.4 K/CMM 1.3 K/CMM 0.9 K/CMM K/CMM] (04/21/2012 05:24:00) (04/19/2012 01:46:00) *LOW* (04/18/2012 15:45:00) Monocytes # [0.0-0.8 K/CMM] 0.4 K/CMM 0.5 K/CMM 0.3 K/CMM (04/21/2012 05:24:00) (04/19/2012 01:46:00) (04/18/2012 15:45:00) Eosinophils # [0.0-0.5 0.1 K/CMM 0.1 K/CMM 0.1 K/CMM K/CMM] (04/21/2012 05:24:00) (04/19/2012 01:46:00) (04/18/2012 15:45:00) Basophils # [0.0-0.2 K/CMM] 0.0 K/CMM (04/18/2012 15:45:00) PT [12.0-14.7 seconds] 13.0 seconds (04/18/2012 15:18:00) INR [0.85-1.17] 0.96 11 (04/18/2012 15:18:00) PTT [22.9-35.8 seconds] 38.3 seconds 12 *HI* (04/18/2012 15:18:00) 11Interpretive Data: RECOMMENDED RANGES FOR PROTIME INR: 2.0-3.0 for most medical and surgical thromboembolic states. 2.5-3.5 for artificial heart valves and recurrent embolism. INR SHOULD BE USED ONLY FOR PATIENTS ON STABLE ANTICOAGULANT THERAPY.12Interpretive Data: Heparin Therapeutic Range: 57 - 92 Seconds Procedures Procedures Date Related Diagnosis Cholecystectomy Tubal ligation
--- OUTSIDE RECORDS SUMMARY | 2018-08-11 13:45 | XMS REPORT | CCD ---
:1950 Author Organization [facility] Team Providers Name Role Phone David Cohn Consulting Provider Allergies, Adverse Reactions, Alerts Substance Reaction Status NKDA Active Problem List Condition Effective Dates Status Diabetes mellitus Resolved Hypothyroid Resolved Vertigo Resolved Medications Medication Instructions Start Date End Date Status influenza virus vaccine 0.5 mL, Route: IM, Drug 04/19/2012 04/19/2012 Completed intramuscular suspension Form: INJ, ONCE, Start date: 04/19/12 15:52:00, Stop date: 04/19/12 15:52:00 influenza virus vaccine, 0.5 ml, Route: IM, Drug 04/19/2012 04/19/2012 Completed inactivated Form: INJ, Start date: 04/19/12 9:00:00, Stop date: 04/19/12 9:00:00 Immunizations Vaccine Date Status influenza virus vaccine, inactivated1 04/19/2012 Not Done influenza virus vaccine, inactivated 04/19/2012 Auth (Verified) 1Result Comment: duplicate
--- OUTSIDE RECORDS SUMMARY | 2018-08-11 13:45 | XMS REPORT | CCD ---
:1950 Author Organization [facility] Outpatient Imaging [place] Care Team Providers Name Role Phone David Cohn [...]
--- OUTSIDE RECORDS SUMMARY | 2018-08-11 13:45 | XMS REPORT | CCD ---
:1950 Author Organization [facility] Outpatient Imaging [place] Care Team Providers Name Role Phone David [...]
--- OUTSIDE RECORDS SUMMARY | 2018-08-11 13:46 | XMS REPORT | Continuity of Care Document ---
:1950 Author Organization [facility] Care Team Providers Name Role Phone MD Martina, Wily Unavailable Unavailable Insurance Providers Payer name Policy type / Coverage type Policy ID Covered green party ID Policy Sethi [employer] Encounters Encounter Performer Location Date Lab Report Wily Mack MD [facility] Aug 01, 2013 Problems Problem Effective Dates Problem Status DIABETES MELLITUS Active UNSPECIFIED HYPOTHYROIDISM Active HYPERTRIGLYCERIDEMIA Active RHEUMATOID ARTHRITIS Active CALCULUS OF URETER May 10, 2013 Active FATIGUE May 10, 2013 Active Procedures Date Description Comments May 10, 2013 smoking status never smoker Medications Medication Instructions Start Date Status LEVOTHYROXINE SODIUM 175 MCG 1 po daily May 10, 2013 Active TABS TRADJENTA 5 MG TABS 1 po qam May 10, 2013 Active FENOFIBRATE 160 MG TABS take 0.5 tablet daily May 10, 2013 Active METFORMIN HCL ER 500 MG 1 po bid May 10, 2013 Active [id number] GLIPIZIDE ER 5 MG [id number] 1 po bid May 10, 2013 Active HALOG 0.1 % CREA Inactive PIROXICAM 20 MG CAPS 1 po daily x2 weeks, then 1 po May 10, 2013 Active on mon,wed,fri TAMSULOSIN HCL 0.4 MG CAPS 1 po daily May 10, 2013 Active HYDROCODONE-ACETAMINOPHEN 10-325 1 po q 6 hrs prn May 10, 2013 Active MG TABS CIPROFLOXACIN HCL 500 MG TABS 1 po q 12 hrs May 10, 2013 Active TRAVATAN Z 0.004 % SOLN instill 1 drop at bedtime in May 10, 2013 Active both eyes Vital Signs Date Description Test Result May 10, 2013 height E&M - 8302-2 HEIGHT 65 in May 10, 2013 weight E&M - 3141-9 WEIGHT 203 lb May 10, 2013 temperature E&M TEMPERATURE 98.0 deg f May 10, 2013 pulse rate E&M - 8867-4 PULSE RATE 84 /min May 10, 2013 blood pressure, systolic - 8480-6 BP SYSTOLIC 131 mm Hg May 10, 2013 blood pressure, diastolic - 8462-4 BP DIASTOLIC 76 mm Hg
--- OUTSIDE RECORDS SUMMARY | 2018-08-11 13:46 | XMS REPORT | Continuity of Care Document ---
:[address] [facility] Care Team Providers Name Role Phone MD Martina, Wily Unavailable Unavailable Insurance Providers Payer name Policy type / Coverage type Policy ID Covered alliance party ID Policy Sethi [employer] Encounters Encounter Performer Location Date Lab Report Wily Mack MD [facility] - May 15, 2013 [place] Problems Problem Effective Dates Problem Status DIABETES [...] 1 po bid May 10, 2013 Active [id number] GLIPIZIDE ER 5 MG [id number] 1 po bid May 10, 2013 Active [...]
--- OUTSIDE RECORDS SUMMARY | 2018-08-11 13:46 | XMS REPORT | Continuity of Care Document ---
:1950 Author Organization [facility] Care Team Providers Name Role Phone MD Martina, Wily Unavailable Unavailable Insurance Providers Payer name Policy type / Coverage type Policy ID Covered constitution party ID Policy Sethi AETNA Encounters Encounter Performer Location Date Office Visit Wily Mack MD [facility] [place] May 10, 2013 Problems Problem Effective Dates Problem Status [...] 1 po bid May 10, 2013 Active [id number] GLIPIZIDE ER 5 MG [id number] 1 po bid May 10, 2013 Active [...]
--- OUTSIDE RECORDS SUMMARY | 2018-08-11 13:46 | XMS REPORT | CCD ---
:1950 Author Organization [facility] [place] Care Team Providers Name Role Phone David [...]
--- OUTSIDE RECORDS SUMMARY | 2018-08-11 13:46 | XMS REPORT | CCD ---
:1950 Author Organization [facility] Team Providers Name Role Phone David Cohn [...]
--- OUTSIDE RECORDS SUMMARY | 2018-08-11 13:46 | XMS REPORT | CCD ---
:1950 Author Organization [facility] Team Providers Name Role Phone David Cohn [...]
--- OUTSIDE RECORDS SUMMARY | 2018-08-11 13:47 | XMS REPORT ---
:1950 Author Organization [employer] Care Team Providers Name Role Phone Parnell Jona Provider Role Unavailable Allergies, Adverse Reactions, Alerts Substance Reaction Event Type N.K.D.A. Info Not Available Non Drug Allergy Problems Problem Type Condition Code Onset Dates Condition Status Problem Plantar fasciitis of right foot M72.2 Active Problem Pain of right heel M79.671 Active Assessment Pain of right heel M79.671 Active Assessment Plantar fasciitis of right foot M72.2 Active Medications Medication Code System Code Instructions Start Date End Date Status Dosage Myrbetriq [facility] [id number] 25 MG Oral Active not defined Results No Known Results Summary Purpose [employer] Submission
--- OUTSIDE RECORDS SUMMARY | 2018-08-11 13:47 | XMS REPORT | Continuity of Care Document ---
:[address] 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 Allergies, Adverse Reactions, Alerts Type Substance Reaction Status Environmental allergy LATEX Active Problems Problem Effective Dates Problem Status DIABETES MELLITUS Active UNSPECIFIED HYPOTHYROIDISM Active HYPERTRIGLYCERIDEMIA Active RHEUMATOID ARTHRITIS Active CALCULUS OF URETER May 10, 2013 Active FATIGUE May 10, 2013 Active 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 Jan 01, 2014 Active URINARY INCONTINENCE Jan 01, 2014 Active Procedures Date Description Comments May 10, 2013 smoking status never smoker Jan 01, 2014 vaginal Pap smear results normal Jan 01, 2014 mammogram 11/2012Jan 01, 2014 smoking status Never smoker Medications Medication Instructions Start Date Status LEVOTHYROXINE SODIUM 175 MCG 1 po daily May 10, 2013 Active TABS TRADJENTA 5 MG TABS 1 po qam May 10, 2013 Active FENOFIBRATE 160 MG TABS take 0.5 tablet daily May 10, 2013 Active METFORMIN HCL ER 500 MG 1 po bid May 10, 2013 Active [id number]-HTD GLIPIZIDE ER 5 MG [id number] 1 po bid May 10, 2013 Active [...] in May 10, 2013 Active both eyes LISINOPRIL 10 MG TABS Jan 01, 2014 Active NAPROXEN SODIUM 550 MG TABS Jan 01, 2014 Active Vital Signs Date Description Test Result May [...] - 8462-4 BP DIASTOLIC 76 mm Hg Jan 01, 2014 weight E&M - 3141-9 WEIGHT 198 lb Jan 01, 2014 blood pressure, systolic, sitting, left arm BP SYS SIT L 118 mm Hg Jan 01, 2014 blood pressure, diastolic, sitting, left arm BP ANNIE SIT L 77 mm Hg Jan 01, 2014 blood pressure, systolic - 8480-6 BP SYSTOLIC 118 mm Hg Jan 01, 2014 blood pressure, diastolic - 8462-4 BP DIASTOLIC 77 mm Hg Jan 01, 2014 pulse rate, sitting, left PULSE SIT L 76 /min Jan 01, 2014 pulse rate E&M - 8867-4 PULSE RATE 76 /min Results Date Description Test Name Value Reference Interpretation Status Jan 01, 2014 vaginal Pap smear PAP SMEAR normal null results
--- OUTSIDE RECORDS SUMMARY | 2018-08-11 13:47 | XMS REPORT | Continuity of Care Document ---
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
--- OUTSIDE RECORDS SUMMARY | 2018-08-11 13:47 | XMS REPORT | Continuity of Care Document ---
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
--- OUTSIDE RECORDS SUMMARY | 2018-08-11 13:47 | XMS REPORT | Continuity of Care Document ---
:1950 Author Organization [facility] Care Team Providers Name Role Phone MD Martina, Wily Unavailable Unavailable Insurance Providers Payer name Policy type / Coverage type Policy ID Covered libertarian ID Policy Sethi AETNA Encounters Encounter Performer Location Date Lab Report Wily Mack MD [facility] Dec 24, 2013 Problems Problem Effective Dates Problem Status [...] 1 po bid May 10, 2013 Active HY98H-RLH GLIPIZIDE ER 5 MG [id number] 1 po bid May 10, 2013 Active [...]
--- OUTSIDE RECORDS SUMMARY | 2018-08-11 13:47 | XMS REPORT | Continuity of Care Document ---
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
--- NOTE | 2018-08-11 14:16 | RAD REPORT ---
EXAM DESCRIPTION: RAD - Wrist Right 3 View - 08/11/2018 2:05 pm CLINICAL HISTORY: Fall, arm pain COMPARISON: None. FINDINGS: Transverse fracture through the distal radial metaphysis is present on the right. There ar e multiple small fracture fragments along this main fracture plane. No significant angulation deformi ty seen. There is 1/2 shaft width dorsal displacement of the distal fracture fragment. There are 2 ad ditional fracture lines that extend along a sagittal plane from the articular surface of the radius t o the diaphyseal metaphyseal junction of the radius. Distal ulna fracture is present also with approximately 1/2 shaft width dorsal displacement. There is an oblique fracture without displacement involving the ulna styloid. No pathologic finding. No carpa l bone injury identified. Carpal bones maintain normal positioning to the displaced distal fracture f ragment. No air or foreign body in the soft tissues. Soft tissue swelling present. IMPRESSION: Comminuted and displaced fractures of the distal radius and ulna as detailed.
--- NOTE | 2018-08-11 14:16 | RAD REPORT ---
EXAM DESCRIPTION: RAD - Elbow Right 3 View - 08/11/2018 2:05 pm CLINICAL HISTORY: Fall, arm pain COMPARISON: None. FINDINGS: No fracture is identified and no elevated posterior fat pad. There is no dislocation or pe riosteal reaction noted. No foreign body or other soft tissue abnormality. No other significant findi ng. IMPRESSION: Negative right elbow examination.
--- NOTE | 2018-08-11 14:18 | RAD REPORT ---
EXAM DESCRIPTION: RAD - Forearm Right - 08/11/2018 2:05 pm CLINICAL HISTORY: Fall, arm pain COMPARISON: None. FINDINGS: Comminuted, displaced fractures of the distal radius and ulna are present and detailed on the right wrist report. Distal radius sagittal fracture planes also detailed on separate report. No acute finding of the radius or ulna at the elbow joint. No acute finding in the proximal and mid p ortions of the radius and ulna shafts. Soft tissue edema changes are present. No foreign body. IMPRESSION: Fractures of the right distal radius and ulna are present and detailed in a separate rig ht wrist report. Remainder of the radius and ulna without significant finding.
[2018-08-11] MEDS ORDERED: ONDANSETRON 4 MG/2 ML VIAL ONE (14:35)
[2018-08-11] MEDS ORDERED: MORPHINE 4 MG/ML SYR ONE ×2 (14:35→15:44)
[2018-08-11] MEDS ORDERED: LIDOCAINE 1% MPF 30 ML VIAL ONE (15:20)
[2018-08-11] MEDS ORDERED: KETAMINE HCL 500 MG/5 ML VIAL ONE (15:20)
[2018-08-11] MEDS ORDERED: MIDAZOLAM HCL 2 MG/2 ML INJ ONE (15:43)
--- NOTE | 2018-08-11 16:47 | RAD REPORT ---
EXAM DESCRIPTION: RAD - Wrist Right 2 View - 08/11/2018 4:35 pm FINDINGS: Two views the right wrist obtained labeled post reduction. Dorsal displaced fracture has b een reduced to near anatomic alignment and position.
--- NOTE | 2018-08-11 17:01 | EDPHYS ---
Physician Documentation [facility] Name: Cynthia Mayen Age: 68 yrs Sex: Female : 1950 Arrival Date: 08/11/2018 Time: 13:23 Bed 3 Private MD: ED Physician Edwar Levine HPI: 08/11 16:05 This 68 yrs old Female presents to ER via EMS with complaints of Fall injury. pm1 16:05 The patient or guardian reports deformity, pain. The complaints affect the right wrist pm1 diffusely. Context: The problem was sustained at a store, resulted from a fall, while walking, on an outstretched hand. Onset: The symptoms/episode began/occurred just prior to arrival. Modifying factors: The symptoms are alleviated by nothing, the symptoms are aggravated by movement. Associated signs and symptoms: Pertinent negatives: cyanosis distally, decreased sensation distally, numbness distally, tingling distally. Compartment Syndrome negative for numbness, tingling. The patient has not experienced similar symptoms in the past. Patient was walking and tripped landing on right outstretched arm. Present with splint by EMS to right wrist with deformity. Patient was given 75 mcg Fentanyl in route. No head injury, headache, neck pain or LOC. Patient able to move all her right fingers and has not complaints of numbness or tingling to right hand. Historical: - Allergies: 14:04 No Known Allergies; ch - PMHx: 14:04 Hypertension; ch - PSHx: 14:04 Appendectomy; Cholecystectomy; ch - Immunization history:: Adult Immunizations up to date. - Social history:: Smoking status: Patient/guardian denies using tobacco. - Ebola Screening: : Patient negative for fever greater than or equal to 101.5 degrees Fahrenheit, and additional compatible Ebola Virus Disease symptoms Patient denies exposure to infectious person Patient denies travel to an Ebola-affected area in the 21 days before illness onset No symptoms or risks identified at this time. ROS: 16:05 Constitutional: Negative for fever, chills, and weight loss, Eyes: Negative for injury, pm1 pain, redness, and discharge, ENT: Negative for injury, pain, and discharge, Neck: Negative for injury, pain, and swelling, Cardiovascular: Negative for chest pain, palpitations, and edema, Respiratory: Negative for shortness of breath, cough, wheezing, and pleuritic chest pain, Abdomen/GI: Negative for abdominal pain, nausea, vomiting, diarrhea, and constipation, Back: Negative for injury and pain, : Negative for injury, bleeding, discharge, and swelling. 16:05 Skin: Negative for injury, rash, and discoloration, Neuro: Negative for headache, weakness, numbness, tingling, and seizure. 16:05 MS/extremity: Positive for deformity, pain, of the right wrist. Exam: 16:05 Hand exam: Exam is positive for deformity, right wrist. Circulation is intact in all pm1 extremities. brisk capillary refill to all fingers of right hand. sensation intact. 16:05 Skin: injury, puncture(s), of the distal palmar aspect of right forearm radial side, 3 mm in length. 16:05 Constitutional: This is a well developed, well nourished patient who is awake, alert, and in no acute distress. Head/Face: Normocephalic, atraumatic. Eyes: Pupils equal round and reactive to light, extra-ocular motions intact. Lids and lashes normal. Conjunctiva and sclera are non-icteric and not injected. Cornea within normal limits. Periorbital areas with no swelling, redness, or edema. ENT: Nares patent. No nasal discharge, no septal abnormalities noted. Tympanic membranes are normal and external auditory canals are clear. Oropharynx with no redness, swelling, or masses, exudates, or evidence of obstruction, uvula midline. Mucous membranes moist. Neck: Trachea midline, no thyromegaly or masses palpated, and no cervical lymphadenopathy. Supple, full range of motion without nuchal rigidity, or vertebral point tenderness. No Meningismus. Chest/axilla: Normal chest wall appearance and motion. Nontender with no deformity. No lesions are appreciated. Cardiovascular: Regular rate and rhythm with a normal S1 and S2. No gallops, murmurs, or rubs. Normal PMI, no JVD. No pulse deficits. Respiratory: Lungs have equal breath sounds bilaterally, clear to auscultation and percussion. No rales, rhonchi or wheezes noted. No increased work of breathing, no retractions or nasal flaring. Abdomen/GI: Soft, non-tender, with normal bowel sounds. No distension or tympany. No guarding or rebound. No evidence of tenderness throughout. Back: No spinal tenderness. No costovertebral tenderness. Full range of motion. 16:05 Neuro: Orientation: is normal, Motor: is normal, moves all fours, Sensation: is normal, no obvious gross deficits. Vital Signs: 13:45 BP 167 / 84; Pulse 68; Resp 14; Temp 98.7; Pulse Ox 100% on R/A; Pain 7/10; ch 14:47 BP 176 / 68; Pulse 71; Resp 16; Temp 98.8; Pulse Ox 99% on R/A; Pain 8/10; ch 16:14 BP 154 / 81; Pulse 62; Resp 20; Temp 98.8; Pulse Ox 99% on R/A; ch 17:23 BP 142 / 78; Pulse 84; Resp 16; Temp 98.3; Pulse Ox 99% on R/A; Pain 2/10; ch 18:29 BP 147 / 86; Pulse 72; Resp 16; Temp 98.8; Pulse Ox 99% on R/A; Pain 3/10; ch Procedures: 16:05 Reduction: of the right wrist, using traction, manipulation, Immobilized with sugar pm1 tong splint. Patient tolerated well. Post reduction film - reveals normal alignment. Performed under conscious sedation. MDM: 13:34 Patient medically screened. pm1 16:28 Physician consultation: Brett Soni MD was called at 16:28, was contacted at 16:28, pm1 regarding consult, patient's condition, after a discussion of the case, a recommendation for transfer for higher level of care is made, Unable to work on open fractures at this facility. 16:58 Data reviewed: vital signs. Data interpreted: Pulse oximetry: on room air is 99 %. pm1 Interpretation: normal. Counseling: I had a detailed discussion with the patient and/or guardian regarding: the historical points, exam findings, and any diagnostic results supporting the discharge/admit diagnosis, radiology results, the need to transfer to another facility, [facility] does not immediately have the required specialist. 08/11 17:01 Order name: CBC with Diff; Complete Time: 17:57 pm1 08/11 13:28 Order name: XRAY Wrist RIGHT 3 view; Complete Time: 14:17 08/11 13:28 Order name: XRAY Forearm RIGHT; Complete Time: 14:30 08/11 13:28 Order name: XRAY Elbow RIGHT 3 view; Complete Time: 14:17 ch 08/11 17:01 Order name: CMP; Complete Time: 17:57 pm1 08/11 16:05 Order name: Wrist Right 2 View XRAY; Complete Time: 17:01 pm1 08/11 14:32 Order name: Conscious Sedation; Complete Time: 17:26 pm1 08/11 17:57 Order name: NPO; Complete Time: 18:18 pm1 Administered Medications: 14:45 Drug: Zofran 4 mg Route: IVP; Site: left hand; aa5 17:18 Follow up: Response: No adverse reaction ch 14:49 Drug: morphine 4 mg Route: IVP; Site: left hand; aa5 18:33 Follow up: Response: No adverse reaction; Marked relief of symptoms ch 15:42 Drug: morphine 4 mg Route: IVP; Site: left hand; ch 18:33 Follow up: Response: No adverse reaction; Marked relief of symptoms ch 15:51 Drug: Versed 4 mg Route: IVP; Site: left hand; ch 18:32 Follow up: Response: No adverse reaction ch 15:55 Drug: morphine 2 mg Route: IVP; Site: left hand; ch 18:32 Follow up: Response: No adverse reaction; Marked relief of symptoms ch 15:57 Drug: Versed 1 mg Route: IVP; Site: left hand; ch 18:32 Follow up: Response: No adverse reaction ch 16:30 Drug: Lidocaine (1 %) 5 ml {Note: at bedside for physician.} Volume: 5 ml; Route: ch Infiltration; 18:33 Follow up: Response: No adverse reaction; Pain is decreased ch 17:10 Drug: Ancef 1 grams Route: IVPB; Site: left hand; ch 17:26 Follow up: IV Status: Completed infusion; IV Intake: 100ml ch 17:17 Drug: Tetanus-Diphtheria Toxoid Adult 0.5 ml {[employer]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 Exp: 06/01/2020. Lot #: [id number]. } Route: IM; Site: left deltoid; 17:26 Follow up: Response: No adverse reaction ch 18:18 Drug: morphine 2 mg Route: IVP; Site: left hand; ch 18:32 Follow up: Response: No adverse reaction ch 18:25 Drug: NS 0.9% 1000 ml Route: IV; Rate: 100 ml/hr; Site: left hand; 18:32 Follow up: IV Status: Infusion continued upon transfer Disposition: 08/11/18 17:00 Transfer ordered to [facility]. Diagnosis is Open comminuted and displaced fractures of the distal radius and ulna. - Reason for transfer: Higher level of care. - Accepting physician is [facility]. - Condition is Stable. - Problem is new. - Symptoms have improved. Addendum: 08/12/2018 19:32 Co-signature as Attending Physician, Edwar Levine MD I agree with the assessment and k dr plan of care. Signatures: Dispatcher [employer] Raiza Marie, RN RN Edwar Crawford MD MD [facility] Amanda Koenig RN RN aa5 Dennis Henderson, LAUREN SALES OFFICE ADMINISTRATOR pm1 Corrections: (The following items were deleted from the chart) 08/11 18:34 17:00 08/11/2018 17:00 Transfer ordered to [facility]. Diagnosis is Open comminuted and displaced fractures of the distal radius and ulna. Reason for transfer: Higher level of care. Accepting physician is [facility]. Condition is Stable. Problem is new. Symptoms have improved. pm1
--- NOTE | 2018-08-11 17:01 | ER ---
Nurse's Notes [facility] Name: Cynthia Mayen Age: 68 yrs Sex: Female : 1950 Arrival Date: 08/11/2018 Time: 13:23 Bed 3 Private MD: Diagnosis: Open comminuted and displaced fractures of the distal radius and ulna Presentation: 08/11 13:53 Presenting complaint: EMS states: slipped and fell in water approx 1230. given 150 mcg ch fent in route. Transition of care: patient was not received from another setting of care. Onset of symptoms was August 11, 2018 at 12:30. Risk Assessment: Do you want to hurt yourself or someone else? Patient reports no desire to harm self or others. Initial Sepsis Screen: Does the patient meet any 2 criteria? No. Patient's initial sepsis screen is negative. Does the patient have a suspected source of infection? No. Patient's initial sepsis screen is negative. Care prior to arrival: None. 13:53 Method Of Arrival: EMS: [facility] 13:53 Acuity: SOL 3 ch Triage Assessment: 13:45 General: Appears in no apparent distress. uncomfortable, Behavior is cooperative, ch appropriate for age. Pain: Complains of pain in dorsal aspect of right forearm, right wrist and palmar aspect of right forearm Pain currently is 7 out of 10 on a pain scale. Neuro: No deficits noted. Level of Consciousness is awake, alert, obeys commands, Oriented to person, place, time, situation, Hardwood Floor Finisher are weak on right Respiratory: Airway is patent Respiratory effort is even, unlabored, Breath sounds are clear bilaterally. Musculoskeletal: Capillary refill < 3 seconds, in bilateral fingers. toes. Range of motion: limited in right wrist Bony deformity noted of right arm. Injury Description: Deformity sustained to dorsal aspect of right forearm, right wrist and palmar aspect of right forearm is concave, was sustained 1-2 hours ago. Historical: - Allergies: 14:04 No Known Allergies; ch - PMHx: 14:04 Hypertension; ch - PSHx: 14:04 Appendectomy; Cholecystectomy; ch - Immunization history:: Adult Immunizations up to date. - Social history:: Smoking status: Patient/guardian denies using tobacco. - Ebola Screening: : Patient negative for fever greater than or equal to 101.5 degrees Fahrenheit, and additional compatible Ebola Virus Disease symptoms Patient denies exposure to infectious person Patient denies travel to an Ebola-affected area in the 21 days before illness onset No symptoms or risks identified at this time. Screenin:07 Abuse screen: Denies threats or abuse. Denies injuries from another. Nutritional ch screening: No deficits noted. Tuberculosis screening: No symptoms or risk factors identified. Fall Risk None identified. Assessment: 14:07 Reassessment: x ray at bedside. 14:47 Reassessment: Patient appears in no apparent distress at this time. No changes from previously documented assessment. Patient and/or family updated on plan of care and expected duration. Pain level reassessed. pt appears anxious. General: Appears in no apparent distress. comfortable. 14:48 Reassessment: pt medicated per orders. pt consented. 16:14 Reassessment: Patient appears in no apparent distress at this time. conscious sedation completed, repeat x rays being taken now. 17:22 Reassessment: Patient appears in no apparent distress at this time. pt is being transferred, calling report now. 17:39 Reassessment: Patient appears in no apparent distress at this time. See Sedation flow ch sheet for vitals. 18:29 Reassessment: Patient appears in no apparent distress at this time. Patient and/or family updated on plan of care and expected duration. Pain level reassessed. Patient is alert, oriented x 3, equal unlabored respirations, skin warm/dry/pink. pt medicated for ride to [facility]. ems at bedside, report given to ems Patient states feeling better. Patient states symptoms have improved. Vital Signs: 13:45 BP 167 / 84; Pulse 68; Resp 14; Temp 98.7; Pulse Ox 100% on R/A; Pain 7/10; ch 14:47 BP 176 / 68; Pulse 71; Resp 16; Temp 98.8; Pulse Ox 99% on R/A; Pain 8/10; ch 16:14 BP 154 / 81; Pulse 62; Resp 20; Temp 98.8; Pulse Ox 99% on R/A; ch 17:23 BP 142 / 78; Pulse 84; Resp 16; Temp 98.3; Pulse Ox 99% on R/A; Pain 2/10; ch 18:29 BP 147 / 86; Pulse 72; Resp 16; Temp 98.8; Pulse Ox 99% on R/A; Pain 3/10; ch ED Course: 13:23 Patient arrived in ED. iw 13:27 Raiza Nunez, EDGAR is Primary Nurse. ch 13:34 Dennis Henderson NP is PHCP. pm1 13:34 Edwar Levine MD is Attending Physician. pm1 13:45 Arm band placed on left wrist. Patient placed in an exam room, on a stretcher, on pulse ch oximetry. 13:54 Triage completed. ch 14:05 XRAY Wrist RIGHT 3 view In Process Unspecified. EDMS 14:06 XRAY Forearm RIGHT In Process Unspecified. EDMS 14:06 XRAY Elbow RIGHT 3 view In Process Unspecified. EDMS 14:07 Patient has correct armband on for positive identification. Bed in low position. Call light in reach. Side rails up X 1. Adult w/ patient. Pulse ox on. NIBP on. Warm blanket given. Ice pack to injury. Cool cloth applied. 14:07 Maintain EMS IV. Dressing intact. Good blood return noted. Site clean \T\ dry. Gauge \T\ ch site: 22 L hand. 16:30 Assist provider with fracture care of right wrist Fracture is open. Obvious deformity ch is noted. Circulation, motor and sensation is intact. Set up for procedure. Performed by Dennis Henderson NP Reduced with traction. Immobilized with OCL splint, Post immobilization, circulation, motor and sensation remain intact. Patient tolerated well. 16:31 initiated a transfer with Nu at the [facility]. eb 16:35 Wrist Right 2 View XRAY In Process Unspecified. EDMS 16:37 connected the orthopedic surgeon welding machine operator electron beam for [facility] with Dennis AGUILAR for patient eb transfer consultation. 16:[address] Manzo the hospitalist welding machine operator electron beam or [facility] with Dennis for eb patient transfer consultation. 17:04 administrative approval given by Nu Herr RN from the [facility]/ eb patient has been approved to the [facility] bed 1823/ Dr. Manzo has accepted the patient in transfer/ report to be called to [phone]. 17:30 Inserted saline lock: 20 gauge in left antecubital area, using aseptic technique. Blood ch collected. Patient transferred, IV remains in place. Administered Medications: 14:45 Drug: Zofran 4 mg Route: IVP; Site: left hand; aa5 17:18 Follow up: Response: No adverse reaction ch 14:49 Drug: morphine 4 mg Route: IVP; Site: left hand; aa5 18:33 Follow up: Response: No adverse reaction; Marked relief of symptoms ch 15:42 Drug: morphine 4 mg Route: IVP; Site: left hand; ch 18:33 Follow up: Response: No adverse reaction; Marked relief of symptoms ch 15:51 Drug: Versed 4 mg Route: IVP; Site: left hand; ch 18:32 Follow up: Response: No adverse reaction ch 15:55 Drug: morphine 2 mg Route: IVP; Site: left hand; ch 18:32 Follow up: Response: No adverse reaction; Marked relief of symptoms ch 15:57 Drug: Versed 1 mg Route: IVP; Site: left hand; ch 18:32 Follow up: Response: No adverse reaction ch 16:30 Drug: Lidocaine (1 %) 5 ml {Note: at bedside for physician.} Volume: 5 ml; Route: ch Infiltration; 18:33 Follow up: Response: No adverse reaction; Pain is decreased ch 17:10 Drug: Ancef 1 grams Route: IVPB; Site: left hand; ch 17:26 Follow up: IV Status: Completed infusion; IV Intake: 100ml ch 17:17 Drug: Tetanus-Diphtheria Toxoid Adult 0.5 ml {Framing Machine Tender: [employer]. Exp: 06/01/2020. Lot #: [id number]. } Route: IM; Site: left deltoid; 17:26 Follow up: Response: No adverse reaction ch 18:18 Drug: morphine 2 mg Route: IVP; Site: left hand; ch 18:32 Follow up: Response: No adverse reaction ch 18:25 Drug: NS 0.9% 1000 ml Route: IV; Rate: 100 ml/hr; Site: left hand; ch 18:32 Follow up: IV Status: Infusion continued upon transfer ch Intake: 17:26 IV: 100ml; Total: 100ml. ch Outcome: 17:00 ER care complete, transfer ordered by . pm1 18:31 Transferred by ground EMS to [facility]. ch 18:31 Condition: stable 18:31 Instructed on the need for transfer. 18:34 Patient left the ED. Signatures: Dispatcher [employer] Raiza Marie RN RN Kay Porter RN RN Amanda Koenig RN RN aa5 Dennis Henderson, FIRE FIGHTER FIRE FIGHTER pm1 Ashlee Moctezuma
[2018-08-11] MEDS ORDERED: TETANUS & DIPHTHERIA TOX,ADULT 0.5 ML VIAL ONE (17:03)
[2018-08-11] MEDS ORDERED: CEFAZOLIN 2GM (PREMIX IV) 2 GM/50 ML BAG ONE (17:03)
[2018-08-11 17:23] LABS: Absolute Lymphocytes (CBC) 1.1 K/uL (0.7-4.9); Absolute Monocytes 0.5 K/uL (0.1-1.3); Absolute Neutrophil 7.7 K/uL (1.8-8.0); Basophils % 0.3 % (0-1.3); Eosinophils % 0.4 % (0-4.4); Hematocrit 35.8 % (36.0-45.0); Lymphocytes % 11.8 % (15.3-44.8); MPV 8.1 fL (7.6-11.3); Monocytes % 5.6 % (3.3-12.3)
[2018-08-11 17:39] LABS: Albumin 3.4 g/dL (3.4-5.0); Bilirubin Total 0.5 mg/dL (0.2-1.0); Potassium 4.1 mmol/L (3.5-5.1); Protein, Total 6.6 g/dL (6.4-8.2)
[2018-08-11] MEDS ORDERED: MORPHINE 2 MG/ML SYR ONE (18:34)
== END 2018-08-11 18:34 | disposition short-term general hospital (02) ==
LOC: ER 13:20
PROC: 0PSHXZZ Reposition Right Radius, External Approach (ICD-10-PCS; principal; 2018-08-11)
PROC: 0PSKXZZ Reposition Right Ulna, External Approach (ICD-10-PCS; 2018-08-11)
DX: S52.501A Unspecified fracture of the lower end of right radius, initial encounter for closed fracture (principal); S52.601A Unspecified fracture of lower end of right ulna, initial encounter for closed fracture; W18.30XA Fall on same level, unspecified, initial encounter; Y93.01 Activity, walking, marching and hiking; I10 Essential (primary) hypertension
CPT/HCPCS: 96365; 85025; 36415; 80053; 73080; 73090; 73110; 73100; 90471; 90714; 96375; 99285; 25605; J2250; J2270; J0690; J2405

== ENCOUNTER 2023-03-06 18:29 | Emergency (ER) | payer OTHER ==
--- OUTSIDE RECORDS SUMMARY | 2023-03-06 18:40 | XMS REPORT | Continuity of Care Document ---
:1950 Author Organization [facility] t Address [address] [facility] [address] [place] [address] Care Team Providers Name Role Phone Wily Mack MD Primary Care Physician [phone] Wilfredo Thomas Attending Clinician Doctor Unassigned, [place] Attending Clinician Unavailable ZACK MALLORY Attending Clinician Unavailable ZACK MALLORY Attending Clinician Unavailable Zack Mallory MD Attending Clinician Wily Mack Attending Clinician Blanquita Alcantar Attending Clinician SANDY GALLARDO Attending Clinician Unavailable Amauri Samuels Attending Clinician Alireza Jacobson Attending Clinician Blanquita Alcantar Attending Clinician Amauri Vu Attending Clinician Unavailable Aggie Huang Attending Clinician Kay Corey Attending Clinician Deborah Banegas Attending Clinician Dorota Forte Attending Clinician ZACK MALLORY Admitting Clinician Unavailable SANDY GALLARDO Admitting Clinician Unavailable Amauri Vu Admitting Clinician Unavailable Dorota Forte Admitting Clinician Payers Payer Name Policy Type Policy Number Effective Date Expiration Date Luciano lakhani MEDICARE PART A [id number] 2015 2016 00:00:00 00:00:00 Problems Condition Condition Condition Status Onset Resolution Last Treating Co mments Source Name Details Category Date Date Treatment Clinician Date Closed Closed Disease Active [facility] fracture fracture 00:00: Medica l of right of right 00 Center radius radius with with routine routine healing healing Fracture Fracture Disease [facility] FOLLOW UP FOLLOW UP Diagnosis Active 2018-05-29 Memoria Active 05-22 10:52:00 l 05/22/2018 00:00: Jose Angel shanks [address] FOLLOW-UP FOLLOW-UP Diagnosis Active 2018-01-25 Memoria Active 11-18 10:04:00 l 11/18/2017 00:00: Jose Angel shanks [address] BDDC-PANCR BDDC-PANC Diagnosis Active 2017-07-25 Memoria EATIC CYST REATIC 07-01 08:57:00 l CYST 00:00: Domingo Active 00 07/01/2017 [facility] DDC // NEW DDC // Diagnosis Active 2017-07-01 Memoria CLINIC NEW CLINIC 06-10 09:58:00 l VISIT // VISIT // 00:00: Jose Angel shanks REF FROM REF FROM 00 DR Herber Shanks Active 06/10/2017 [facility] LABH LABH Diagnosis Active 2017-05-24 Mem oria Active 05-24 13:28:00 l 05/24/2017 00:00: Jose Angel shanks [address] K86.2 K86.2 Diagnosis Active 2017-05-23 Mem oria Active 05-12 15:13:00 l 05/12/2017 00:00: Jose Angel shanks [address] K75.4 K75.4 Diagnosis Active 2017-05-09 Mem oria AUTOIMMUNE AUTOIMMUNE 05-05 12:06:00 l HEPATITIS, HEPATITIS, 00:00: Martin hogan R79.89 R79.89 00 OTHER OTHER Active 05/05/2017 [facility] R79.89 - R79.89 - Diagnosis Active 2017-09-22 Memoria OTHER OTHER 05-04 11:25:00 l SPECIFIED SPECIFIED 00:01: Herm jyothi ABNORMAL ABNORMAL 00 FINDI FINDI Active 05/04/2017 [facility] [place] FATTY FATTY Diagnosis Active 2017-04-28 Mem oria LIVER LIVER 1- 13:14:00 l Active 00:00: Domingo 04/05/2017 00 [facility] ELEVATED ELEVATED Diagnosis Active 2016-042017-03-21 Memoria LIVER LIVER 2-13 08:15:00 l FUNCTION FUNCTION 00:00: Jose Angel n Active 00 03/16/2017 [facility] Transamini Transamini Disease Active 2016-04 U nivers tis tis 04-12 ity of 00:00: [place] 00 [facility] CRP CRP Disease Active 2016-04 Univers elevated elevated 04-12 ity of 00:00: [place] 00 [facility] Immunizati Immunizati Disease Active 2016-04 U nivers on on 04-12 [place]y of counseling [place] Polyarthra Polyarthra Disease Active U nivers lgia RF lgia RF 12 ity of 71, CCP 71, CCP 00:00: [place] 28.7 28.7 00 Medical Branch Generalize Generalize Disease Active U nivers d OA d OA 12 ity of 00:00: [place] 00 [facility] 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 Uni vers 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 current 9-12 ity of use of use of 00:00: [place] non-steroi non-steroi 00 Me dical ekv kev Branch anti-infla anti-infla mmatories mmatories (NSAID) (NSAID) Vitamin D Vitamin D Disease Active Uni vers insufficie insufficie -12 it y of ncy ncy 00:00: [place] 00 [facility] Osteopenia Osteopenia Disease Active U nivers -12 ity of 00:00: [place] 00 [facility] SPIDER SPIDER Diagnosis Active 2016-08-24 Me moria BITE BITE 08-24 18:09:00 l Active 00:00: Domingo 08/24/2016 00 [facility] Type 2 Type 2 Disease Active 2014-04 Overview: Univer s diabetes diabetes 2-03 Formattin ity of mellitus mellitus 00:00: g of this Ángel as 00 note Medical might be Branch different from the original. Since 1999 Paronychia Paronychi Problem Active 2017-03-24 Memoria of toe a of toe 10-23 03:12:07 l (disorder) (disorder) 00:00: He rmann Active 00 10/23/2014 Problem 03/24/2017 Data migrated from [facility] on 11/06/14. [facility], OP [place] 719.46 - 719.46 - Diagnosis Active 2013-02-26 Memoria JOINT JOINT 09-26 11:11:00 l PAIN-L/LE PAIN-L/LE 00:01: Herm jyothi Active 00 09/26/2012 [facility] [place] CLOSED CLOSED Diagnosis Active 2012-04-27 Me moria PATELLA PATELLA 04-18 08:24:00 l FX, S/P FX, S/P 00:00: [place] FALL FALL Active 04/18/2012 [facility] Other Other Problem 2017-08-15 Memor ia specified specified 13:05:18 l diabetes diabetes Jose Angel n mellitus mellitus without without complicati complicati ons ons 08/15/2017 [facility] Acquired Acquired Problem 2017-08-15 Memoria absence of absence of 13:05:18 l other other [place] specified specified parts of parts of digestive digestive tract tract 08/15/2017 [facility] Fatty Fatty Problem 2017-08-15 Memor ia (change (change 13:05:18 l of) liver, of) liver, He rmann not not elsewhere elsewhere classified classified 8 [facility] Abnormal Abnormal Problem 2017-08-04 Memoria levels of levels of 15:58:43 l other other [place] serum serum enzymes enzymes 08/04/2017 [facility] Hypothyroi Hypothyro Problem 2017-08-04 Memoria dism, idism, 15:58:43 l unspecifie unspecifie He samira d d 08/04/2017 [facility] Other Other Problem 2017-10-07 Memor ia specified specified 11:45:48 l abnormal abnormal Jose Angel n findings findings of blood of blood chemistry chemistry 10/07/2017 [facility] Final: Final: Problem 2015-07-12 Zheng dinah Dorsalgia, Dorsalgia, 04:02:52 l unspecifie unspecifie He rmann d d 07/12/2015 [facility] Final: Final: Problem 2015-07-12 Zheng dinah Pain in Pain in 04:02:52 l right hip right hip Herm jyothi 07/12/2015 [facility] Final: Final: Problem 2015-07-12 Zheng dinah Scoliosis, Scoliosis, 04:02:52 l unspecifie unspecifie He rmann d d 07/12/2015 [facility] Final: Final: Problem 2015-07-12 Zheng dinah Spondylosi Spondylosi 04:02:52 l s, s, Domingo unspecifie unspecifie d d 07/12/2015 [facility] Abnormal Abnormal Problem Resolve 2021-09-13 Memoria liver liver d 21:32:34 l function function Jose Angel n (finding) (finding) Resolved Problem 09/13/2021 [facility], EDPA History of History Problem Resolve 2021-09-13 Memoria - of - d 21:32:34 l rheumatoid rheumatoid He rmann arthritis arthritis (context-d (context-d ependent ependent category) category) Resolved Problem 09/13/2021 [facility], OP [facility], [facility]PA Hyperlipid Hyperlipi Problem Resolve 2021-09-13 Memoria emia demia d 21:32:34 l (disorder) (disorder) He rmann Resolved Problem 09/13/2021 [facility], OP [facility], [facility] Hypothyroi Hypothyro Problem Resolve 2021-09-13 Memoria dism idism d 21:32:34 l (disorder) (disorder) He rmann Resolved Problem 09/13/2021 [facility], [facility], [facility] Vertigo Vertigo Problem Resolve 2021-09-13 M emoria (finding) (finding) d 21:32:34 l Resolved Domingo Problem 09/13/2021 [facility], [facility] [place], [facility] Diabetes Diabetes Problem Resolve 2012-09-29 Memoria mellitus mellitus d 21:40:56 l Resolved Domingo Problem 09/29/2012 [facility], [address],[facility] Hypothyroi Hypothyro Problem Resolve 2012-09-29 Memoria d id d 21:40:56 l Resolved [place] Problem 09/29/2012 [facility], [address],[facility] Vertigo Vertigo Problem Resolve 2012-09-29 Izabela emoria Resolved d 21:40:56 l Problem Domingo 09/29/2012 [facility], [address],[facility] Diabetes Diabetes Problem Active 2021-09-13 Memoria mellitus mellitus 21:32:34 l (disorder) (disorder) He rmann Active Problem 09/13/2021 [facility] migrated from [employer] [facility] [employer] on 08/31/14. [facility], [facility], [facility] Hypertrigl Hypertrig Problem Active 2021-09-13 Memoria yceridemia lyceridemi 21:32:34 l (disorder) a Jose Angel n (disorder) Active Problem 09/13/2021 [facility] migrated from [place] [employer] on 08/31/14. [facility], [facility], [facility] Rheumatoid Rheumatoi Problem Active 2021-09-13 Memoria arthritis d 21:32:34 l (disorder) arthritis Her travis (disorder) Active Problem 09/13/2021 [facility] migrated from [place] [employer] on 08/31/14. 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 Memoria hepatitis e 23:52:21 l (disorder) hepatitis Her travis (disorder) Active Problem 12/23/2022 [facility] Breast Breast Problem Active 2022-12-23 Zheng dinah neoplasm neoplasm 23:52:21 l screening screening Herm jyothi (procedure (procedure ) ) Active Problem 12/23/2022 [facility] Female Female Problem Active 2022-12-23 Zheng dinah urinary urinary 23:52:21 l stress stress Domingo incontinen incontinen ce ce (finding) (finding) Active Problem 12/23/2022 [facility], [facility] History of History Problem Active 2022-12-23 Memoria - of - 23:52:21 l immunosupr immunosupr He samira essive essive therapy therapy (context-d (context-d ependent ependent category) category) Active Problem 12/23/2022 [facility] Impaired Impaired Problem Active 2022-12-23 Memoria cognition cognition 23:52:21 l (finding) (finding) Scott lopez Active Problem 12/23/2022 [facility] Obesity Obesity Problem Active 2022-12-23 Me moria (disorder) (disorder) 23:52:21 l Active Domingo Problem 12/23/2022 [facility], [facility] [place],[facility] FRACTURE FRACTURE Diagnosis Active 2012-04-27 Memoria PATELLA-CL PATELLA-CL 08:24:00 l OSED OSED Domingo Active [facility] LT KNEE LT KNEE Diagnosis Active 2012-08-21 Memoria FRACTURE FRACTURE 09:16:00 l Active Domingo [facility] X RAY X RAY Diagnosis Active 2015 Mem oria Active 13:28:00 l [facility] Domingo DORSALGIA, DORSALGIA Diagnosis Active 2015 Memoria UNSPECIFIE , 13:28:00 l D UNSPECIFIE Jose Angel n Kervin Active [facility] PAIN IN PAIN IN Diagnosis Active 2015 Memoria RIGHT HIP RIGHT HIP 13:28:00 l Active Jose Angel Ken ENCNTR FOR ENCNTR Diagnosis Active 2018-05-29 Memoria GENERAL FOR 10:52:00 l ADULT GENERAL [place] MEDICAL ADULT EXAM W/ MEDICAL EXAM W/ Active [facility] HEPATOMEGA HEPATOMEG Diagnosis Active 2017-03-21 Memoria LY, NOT TAWNY, NOT 08:15:00 l ELSEWHERE ELSEWHERE Scott lopez CLASSIFIED CLASSIFIED Active [facility] Datatype(D Datatype( Diagnosis Active 2017-03-21 Memoria G1.4)- DG1.4)- 08:15:00 l [facility] AUTOIMMUNE AUTOIMMUN Diagnosis Active 2017-05-09 Memoria HEPATITIS E 12:06:00 l HEPATITIS Domingo Active [facility] PERSONS PERSONS Diagnosis Active 2017-05-24 Memoria ENCOUNTERI ENCOUNTERI 13:28:00 l [facility] SERVICES SERVICES IN [place] Active [facility] CYST OF CYST OF Diagnosis Active 2017-05-23 Memoria PANCREAS PANCREAS 15:13:00 l Active Jose Angel shanks [facility] Plantar Plantar Diagnosis Active Commo n fasciitis fasciitis Spir it of right of right - [facility] Pain of Pain of Diagnosis Active Commo n right heel right heel Sp mindy - [facility] Urinary Urinary Problem Resolve 2021-09-13 2021-09-13 Memoria incontinen incontinen d 01-01 21:32:34 21:32:34 l ce ce 00:00: Domingo (finding) (finding) 00 Resolved 01/01/2014 Problem 09/13/2021 Data migrated from [facility] on 08/31/14. [facility] Group,[facility], [facility] [place], [facility] Fatigue Fatigue Problem Resolve 2021-09-13 2021-09-13 Memoria (finding) (finding) d 05-10 21:32:34 21:32:34 l Resolved 00:00: Domingo 05/10/2013 00 Problem 09/13/2021 Data migrated from [facility] on 08/31/14. [facility], [facility], [facility] Ureteric Ureteric Problem Resolve 2021-09-13 2021-09-13 Memoria stone stone d 05-10 21:32:34 21:32:34 l (disorder) (disorder) 00:00: He rmann Resolved 00 05/10/2013 Problem 09/13/2021 Data migrated from [facility] on 08/31/14. [facility], OP [facility] [place], [facility] History of Past Illness Condition Condition Condition Status Onset Resolution Last Treating Co mments Source Name Details Category Date Date Treatment Clinician Date Type 2 Type 2 Problem 2019-042020-01-20 2020-01-20 Memoria diabetes diabetes 0-15 23:59:37 23:59:37 l mellitus mellitus 17:00: Jose Angel shanks without without 00 complicati complicati ons ons 01/17/2020 0 [facility] Group,[facility] Autoimmune Autoimmun Problem 2017-2018-08-14 2018-08-14 Memoria hepatitis e 11:14:13 11:14:13 l hepatitis 02:58: Domingo 02/01/2018 46 9 [facility] Cyst of Cyst of Problem 2017-2017-10-07 2017-10-07 Memoria pancreas pancreas 07-09 11:45:48 11:45:48 l 2017 03:13: Jose Angel shanks 14 8 [facility] Abnormal Abnormal Problem 2017-08-15 2017-08-15 Memoria results of results of 05-13 13:05:18 13:05:18 l liver liver 04:26: Domingo function function 00 studies studies 05/13/2017 08/15/2017 [facility] Cellulitis Celluliti Problem 2016-08-27 2016-08-27 Memoria of trunk, s of 08-24 05:04:46 05:04:46 l unspecifie trunk, 05:00: Jose Angel parsons unspecifie 00 d 08/24/2016 08/27/2016 [facility] Allergies, Adverse Reactions, Alerts Allergy Allergy Status Severity Reaction(s) Onset Inactive Treating Comm ents Source Name Type Date Date Clinician ATORVAST DRUG Active Unknown-Cmnt 2014-04 Un karen ATIN INGREDI 05-07 ity of CALCIUM 00:00: [place] 00 [facility] Atorvast Propensi Active Unknown - 2014-04 Patient Un karen atin ty to See comments 05-07 didn't ity of Calcium adverse 00:00: feel good [place] reaction 00 Medical s Branch Latex<moss Latex<moss Active Memori a p>1</sup p>1</sup 9-30 l > > 05:00: Dom[place] 00 Social History Social Habit Start Date Stop Date Quantity Comments Source Sexual orientation [facility] Exposure to 2022-06-12 2022-06-22 Not sure [facility] SARS-CoV-2 (event) 00:00:00 14:25:00 [facility] Alcohol intake 2022-06-22 2022-06-22 0 /d University of 00:00:00 00:00:00 [facility] History of Social 2022-06-22 2022-06-22 Univers ity of function 00:00:00 00:00:00 [facility] Tobacco use and 2021-12-21 2021-12-21 Smokeless Universit y of exposure 00:00:00 00:00:00 tobacco non-user [facility] dical [place] Social History 2014-11-28 2014-11-28 [facility] 15:22:35 15:22:35 Sex [birth year] MARTÍN Lopez 00:00:00 00:00:00 [facility] Smoking Status Start Date Stop Date Source Tobacco smoking status [facility] Medications Ordered Filled Start Stop Current Ordering Indication Dosage Frequency Signature Comments Components Source Medication Medication Date Date Medication? Clinician (SIG) Name Name mirtazapine 3-0 Yes 15mg Take 1 Univ ers 15 mg 5-11 tablet by ity of tablet 00:00: mouth at [place] [address] bedtime. Medical Take this Branch with the 7.5 mg (total 22.5mg) mirtazapine 2023-0 Yes 7.5mg Take 1 Uni vers 7.5 mg 5-11 tablet by ity of tablet 00:00: mouth at [place] [address] bedtime. Medical Take this Branch with the 7.5mg (total 22.5mg) mirtazapine 2023-0 Yes 15mg Take 1 Univ ers 15 mg 5-11 tablet by ity of tablet 00:00: mouth at [place] [address] bedtime. Medical Take this Branch with the 7.5 mg (total 22.5mg) mirtazapine 2023-0 Yes 7.5mg Take 1 Uni vers 7.5 mg 5-11 tablet by ity of tablet 00:00: mouth at [place] [address] bedtime. Medical Take this Branch with the 7.5mg (total 22.5mg) mirtazapine 2023-0 Yes 15mg Take 1 Univ ers 15 mg 5-11 tablet by ity of tablet 00:00: mouth at [place] [address] bedtime. Medical Take this Branch with the 7.5 mg (total 22.5mg) mirtazapine 2023-0 Yes 7.5mg Take 1 Uni vers 7.5 mg 5-11 tablet by ity of tablet 00:00: mouth at [place] [address] bedtime. Medical Take this Branch with the 7.5mg (total 22.5mg) mirtazapine 2023-0 Yes 15mg Take 1 Univ ers 15 mg 5-11 tablet by ity of tablet 00:00: mouth at [place] 00 bedtime. Medical Take this Branch with the 7.5 mg (total 22.5mg) mirtazapine 2023-0 Yes 7.5mg Take 1 Uni vers 7.5 mg 5-11 tablet by ity of tablet 00:00: mouth at [place] 00 bedtime. Medical Take this Branch with the 7.5mg (total 22.5mg) mirtazapine 2023-0 Yes 15mg Take 1 Univ ers 15 mg 5-11 tablet by ity of tablet 00:00: mouth at [place] 00 bedtime. Medical Take this Branch with the 7.5 mg (total 22.5mg) mirtazapine 2023-0 Yes 7.5mg Take 1 Uni vers 7.5 mg 5-11 tablet by ity of tablet 00:00: mouth at [place] 00 bedtime. Medical Take this Branch with the 7.5mg (total 22.5mg) mirtazapine 3-0 2022- No Unive rs 15 mg 4-25 05-11 ity of tablet 00:00: 00:00 [place] 00 :00 Medical Branch HYDROcodone 3-0 2022- No hydrocodon Univers -acetaminop 3- e 10 ity of hen 10-325 15:16: 00:00 mg-acetami [place] mg tablet 59 :00 nophen 325 Medi lai mg tablet Branch HYDROcodone 3-0 2022- No hydrocodon Univers -acetaminop 306-22 e 10 ity of hen 10-325 15:16: 00:00 mg-acetami [place] mg tablet 59 :00 nophen 325 Medi lai mg tablet Branch lisinopril 3-0 2022- No 5mg Take 5 mg U nivers (PRINIVIL,Z 06-22 by mouth ity of ESTRIL) 5 15:16: 00:00 daily. [place] mg tablet 46 :00 Medical Branch lisinopril 3-0 2022- No 5mg Take 5 mg U nivers (PRINIVIL,Z 06-22-21 by mouth ity of ESTRIL) 5 15:16: 00:00 daily. [place] mg tablet 46 :00 Medical Branch glimepiride 2022- No 1mg Take 1 mg Univers 1 mg tablet 06-22- by mouth ity of 15:16: 00:00 daily with [place] 37 :00 breakfast. Medical Branch glimepiride 2022- No 1mg Take 1 mg Univers 1 mg tablet 06-22- by mouth ity of 15:16: 00:00 daily with [place] 37 :00 breakfast. Medical Branch METFORMIN 2022- No 500mg Take 500 Un karen HCL -21 03-21 mg by ity of (METFORMIN 15:14: 00:00 mouth [place] ORAL) 42 :00 daily. Medical Branch METFORMIN 2022- No 500mg Take 500 Un karen HCL 3-21 03-21 mg by ity of (METFORMIN 15:14: 00:00 mouth [place] ORAL) 42 :00 daily. Medical Branch donepeziL Yes [id number] 10mg Take 1 Un karen (ARICEPT) 9-19 tablet by ity o f 10 mg 00:00: mouth at [place] tablet 00 bedtime. Medical Branch donepeziL Yes [id number] 10mg Take 1 Un karen (ARICEPT) 9-19 tablet by ity o f 10 mg 00:00: mouth at [place] tablet 00 bedtime. Medical Branch donepeziL Yes [id number] 10mg Take 1 Un karen (ARICEPT) 9-19 tablet by ity o f 10 mg 00:00: mouth at [place] tablet 00 bedtime. Medical Branch donepeziL Yes [id number] 10mg Take 1 Un karen (ARICEPT) 9-19 tablet by ity o f 10 mg 00:00: mouth at [place] tablet 00 bedtime. Medical Branch donepeziL Yes [id number] 10mg Take 1 Un karen (ARICEPT) 9-19 tablet by ity o f 10 mg 00:00: mouth at [place] tablet 00 bedtime. Medical Branch donepeziL Yes [id number] 10mg Take 1 Un karen (ARICEPT) 9-19 tablet by ity o f 10 mg 00:00: mouth at [place] tablet 00 bedtime. Medical Branch donepeziL 2022-0 Yes [id number] 10mg Take 1 Un karen (ARICEPT) 9-19 tablet by ity o f 10 mg 00:00: mouth at [place] tablet 00 bedtime. Medical Branch donepeziL Yes [id number] 10mg Take 1 Un karen (ARICEPT) 9-19 tablet by ity o f 10 mg 00:00: mouth at [place] tablet 00 bedtime. Medical Branch donepeziL 0 Yes [id number] 10mg Take 1 Un karen (ARICEPT) 9-19 tablet by ity o f 10 mg 00:00: mouth at [place] tablet 00 bedtime. Medical Branch donepeziL Yes [id number] 10mg Take 1 Un karen (ARICEPT) 9-19 tablet by ity o f 10 mg 00:00: mouth at [place] tablet 00 bedtime. Medical Branch donepeziL Yes [id number] 10mg Take 1 Un karen (ARICEPT) 9-19 tablet by ity o f 10 mg 00:00: mouth at [place] tablet 00 bedtime. Medical Branch donepeziL Yes [id number] 10mg Take 1 Un karen (ARICEPT) 9-19 tablet by ity o f 10 mg 00:00: mouth at [place] tablet 00 bedtime. Medical Branch donepeziL Yes [id number] 10mg Take 1 Un karen (ARICEPT) 9-19 tablet by ity o f 10 mg 00:00: mouth at [place] tablet 00 bedtime. Medical Branch donepeziL Yes [id number] 10mg Take 1 Un karen (ARICEPT) 9-19 tablet by ity o f 10 mg 00:00: mouth at [place] tablet 00 bedtime. Medical Branch donepeziL 0 Yes [id number] 10mg Take 1 Un karen (ARICEPT) 9-19 tablet by ity o f 10 mg 00:00: mouth at [place] tablet 00 bedtime. Medical Branch donepeziL 0 Yes [id number] 10mg Take 1 Un karen (ARICEPT) 9-19 tablet by ity o f 10 mg 00:00: mouth at [place] tablet 00 bedtime. Medical Branch donepeziL Yes [id number] 10mg Take 1 Un karen (ARICEPT) 9-19 tablet by ity o f 10 mg 00:00: mouth at [place] tablet 00 bedtime. Medical Branch donepeziL Yes [id number] 10mg Take 1 Un karen (ARICEPT) 9-19 tablet by ity o f 10 mg 00:00: mouth at [place] tablet 00 bedtime. Medical Branch donepeziL Yes [id number] 10mg Take 1 Un karen (ARICEPT) 9-19 tablet by ity o f 10 mg 00:00: mouth at [place] tablet 00 bedtime. Medical Branch donepeziL Yes [id number] 10mg Take 1 Un karen (ARICEPT) 9-19 tablet by ity o f 10 mg 00:00: mouth at [place] tablet 00 bedtime. Medical Branch donepeziL Yes [id number] 10mg Take 1 Un karen (ARICEPT) 9-19 tablet by ity o f 10 mg 00:00: mouth at [place] tablet 00 bedtime. Medical Branch donepeziL Yes [id number] 10mg Take 1 Un karen (ARICEPT) 9-19 tablet by ity o f 10 mg 00:00: mouth at [place] tablet 00 bedtime. Medical Branch donepeziL Yes [id number] 10mg Take 1 Un karen (ARICEPT) 9-19 tablet by ity o f 10 mg 00:00: mouth at [place] tablet 00 bedtime. Medical Branch donepeziL Yes [id number] 10mg Take 1 Un karen (ARICEPT) 9-19 tablet by ity o f 10 mg 00:00: mouth at [place] tablet 00 bedtime. Medical Branch donepeziL Yes [id number] 10mg Take 1 Un karen (ARICEPT) 9-19 tablet by ity o f 10 mg 00:00: mouth at [place] tablet 00 bedtime. Medical Branch alogliptin- Yes alogliptin Univers pioglitazon 8-16 25 ity of e 25-15 mg 16:11: mg-pioglit [place] Tab 59 azone 15 Medical mg tablet Branch HYDROcodone 0 Yes hydrocodon Univers -acetaminop 8-16 e 10 ity of hen 10-325 16:11: mg-acetami [place] mg tablet 59 nophen 325 Medi lai mg tablet Branch pioglitazon Yes pioglitazo Univers e 15 mg 8-16 ne 15 mg ity of tablet 16:11: tablet [place] 59 Medical Branch alogliptin- Yes alogliptin Univers pioglitazon 8-16 25 ity of e 25-15 mg 16:11: mg-pioglit [place] Tab [facility] azone 15 Medical mg tablet Branch HYDROcodone Yes hydrocodon [facility] -acetaminop 8-16 e 10 ity of hen 10-325 16:11: mg-acetami [place] mg tablet 59 nophen 325 Medi lai mg tablet Branch pioglitazon Yes pioglitazo [facility] e 15 mg 8-16 ne 15 mg ity of tablet 16:11: tablet [place] 59 Medical Branch alogliptin- Yes alogliptin [facility] pioglitazon 8-16 25 ity of e 25-15 mg 16:11: mg-pioglit [place] Tab 59 azone 15 Medical mg tablet Branch HYDROcodone Yes hydrocodon [facility] -acetaminop 8-16 e 10 ity of hen 10-325 16:11: mg-acetami [place] mg tablet 59 nophen 325 Medi lai mg tablet Branch pioglitazon Yes pioglitazo [facility] e 15 mg 8-16 ne 15 mg ity of tablet 16:11: tablet [place] 59 Medical Branch alogliptin- Yes alogliptin [facility] pioglitazon 8-16 25 ity of e 25-15 mg 16:11: mg-pioglit [place] Tab 59 azone 15 Medical mg tablet Branch HYDROcodone Yes hydrocodon [facility] -acetaminop 8-16 e 10 ity of hen 10-325 16:11: mg-acetami [place] mg tablet 59 nophen 325 Medi lai mg tablet Branch pioglitazon Yes pioglitazo [facility] e 15 mg 8-16 ne 15 mg ity of tablet 16:11: tablet [place] 59 Medical Branch alogliptin- Yes alogliptin [facility] pioglitazon 8-16 25 ity of e 25-15 mg 16:11: mg-pioglit [place] Tab 59 azone 15 Medical mg tablet Branch HYDROcodone Yes hydrocodon [facility] -acetaminop 8-16 e 10 ity of hen 10-325 16:11: mg-acetami [place] mg tablet 59 nophen 325 Medi lai mg tablet Branch pioglitazon Yes pioglitazo [facility] e 15 mg 8-16 ne 15 mg ity of tablet 16:11: tablet [place] 59 Medical Branch alogliptin- Yes alogliptin [facility] pioglitazon 8-16 25 ity of e 25-15 mg 16:11: mg-pioglit [place] Tab 59 azone 15 Medical mg tablet Branch HYDROcodone Yes hydrocodon [facility] -acetaminop 8-16 e 10 ity of hen 10-325 16:11: mg-acetami [place] mg tablet 59 nophen 325 Medi lai mg tablet Branch pioglitazon Yes pioglitazo [facility] e 15 mg 8-16 ne 15 mg ity of tablet 16:11: tablet [place] 59 Medical Branch alogliptin- Yes alogliptin [facility] pioglitazon 8-16 25 ity of e 25-15 mg 16:11: mg-pioglit [place] Tab 59 azone 15 Medical mg tablet Branch HYDROcodone Yes hydrocodon [facility] -acetaminop 8-16 e 10 ity of hen 10-325 16:11: mg-acetami [place] mg tablet 59 nophen 325 Medi lai mg tablet Branch pioglitazon Yes pioglitazo [facility] e 15 mg 8-16 ne 15 mg ity of tablet 16:11: tablet [place] 59 Medical Branch alogliptin- Yes alogliptin [facility] pioglitazon 8-16 25 ity of e 25-15 mg 16:11: mg-pioglit [place] Tab 59 azone 15 Medical mg tablet Branch HYDROcodone Yes hydrocodon [facility] -acetaminop 8-16 e 10 ity of hen 10-325 16:11: mg-acetami [place] mg tablet 59 nophen 325 Medi lai mg tablet Branch pioglitazon Yes pioglitazo [facility] e 15 mg 8-16 ne 15 mg ity of tablet 16:11: tablet [place] 59 Medical Branch alogliptin- Yes alogliptin [facility] pioglitazon 8-16 25 ity of e 25-15 mg 16:11: mg-pioglit [place] Tab 59 azone 15 Medical mg tablet Branch HYDROcodone Yes hydrocodon [facility] -acetaminop 8-16 e 10 ity of hen 10-325 16:11: mg-acetami [place] mg tablet 59 nophen 325 Medi lai mg tablet Branch pioglitazon Yes pioglitazo [facility] e 15 mg 8-16 ne 15 mg ity of tablet 16:11: tablet [place] 59 Medical Branch alogliptin- Yes alogliptin [facility] pioglitazon 8-16 25 ity of e 25-15 mg 16:11: mg-pioglit [place] Tab 59 azone 15 Medical mg tablet Branch HYDROcodone Yes hydrocodon [facility] -acetaminop 8-16 e 10 ity of hen 10-325 16:11: mg-acetami [place] mg tablet 59 nophen 325 Medi lai mg tablet Branch pioglitazon Yes pioglitazo [facility] e 15 mg 8-16 ne 15 mg ity of tablet 16:11: tablet [place] 59 Medical Branch alogliptin- Yes alogliptin [facility] pioglitazon 8-16 25 ity of e 25-15 mg 16:11: mg-pioglit [place] Tab 59 azone 15 Medical mg tablet Branch HYDROcodone Yes hydrocodon [facility] -acetaminop 8-16 e 10 ity of hen 10-325 16:11: mg-acetami [place] mg tablet 59 nophen 325 Medi lai mg tablet Branch pioglitazon Yes pioglitazo [facility] e 15 mg 8-16 ne 15 mg ity of tablet 16:11: tablet [place] 59 Medical Branch alogliptin- Yes alogliptin [facility] pioglitazon 8-16 25 ity of e 25-15 mg 16:11: mg-pioglit [place] Tab 59 azone 15 Medical mg tablet Branch HYDROcodone Yes hydrocodon [facility] -acetaminop 8-16 e 10 ity of hen 10-325 16:11: mg-acetami [place] mg tablet 59 nophen 325 Medi lai mg tablet Branch pioglitazon Yes pioglitazo [facility] e 15 mg 8-16 ne 15 mg ity of tablet 16:11: tablet [place] [address] Medical [place] alogliptin- Yes alogliptin [facility] pioglitazon 8-16 25 ity of e 25-15 mg 16:11: mg-pioglit [place] Tab 59 azone 15 Medical mg tablet Branch HYDROcodone Yes hydrocodon [facility] -acetaminop 8-16 e 10 ity of hen 10-325 16:11: mg-acetami [place] mg tablet 59 nophen 325 Medi lai mg tablet Branch pioglitazon Yes pioglitazo [facility] e 15 mg 8-16 ne 15 mg ity of tablet 16:11: tablet [address] alogliptin- Yes alogliptin [facility] pioglitazon 8-16 25 ity of e 25-15 mg 16:11: mg-pioglit [place] Tab 59 azone 15 Medical mg tablet Branch pioglitazon Yes pioglitazo [facility] e 15 mg 8-16 ne 15 mg ity of tablet 16:11: tablet [address] alogliptin- Yes alogliptin [facility] pioglitazon 8-16 25 ity of e 25-15 mg 16:11: mg-pioglit [place] Tab 59 azone 15 Medical mg tablet Branch pioglitazon Yes pioglitazo [facility] e 15 mg 8-16 ne 15 mg ity of tablet 16:11: tablet [address] alogliptin- Yes alogliptin [facility] pioglitazon 8-16 25 ity of e 25-15 mg 16:11: mg-pioglit [place] Tab 59 azone 15 Medical mg tablet Branch pioglitazon Yes pioglitazo [facility] e 15 mg 8-16 ne 15 mg ity of tablet 16:11: tablet [address] alogliptin- Yes alogliptin [facility] pioglitazon 8-16 25 ity of e 25-15 mg 16:11: mg-pioglit [place] Tab 59 azone 15 Medical mg tablet Branch pioglitazon Yes pioglitazo [facility] e 15 mg 8-16 ne 15 mg ity of tablet 16:11: tablet [place] [address] Medical Branch alogliptin- Yes alogliptin [facility] pioglitazon 8-16 25 ity of e 25-15 mg 16:11: mg-pioglit [place] Tab 59 azone 15 Medical mg tablet Branch pioglitazon Yes pioglitazo [facility] e 15 mg 8-16 ne 15 mg ity of tablet 16:11: tablet [address] Branch alogliptin- Yes alogliptin [facility] pioglitazon 8-16 25 ity of e 25-15 mg 16:11: mg-pioglit [place] Tab 59 azone 15 Medical mg tablet Branch pioglitazon Yes pioglitazo [facility] e 15 mg 8-16 ne 15 mg ity of tablet 16:11: tablet [address] Branch alogliptin- Yes alogliptin [facility] pioglitazon 8-16 25 ity of e 25-15 mg 16:11: mg-pioglit [place] Tab 59 azone 15 Medical mg tablet Branch pioglitazon Yes pioglitazo [facility] e 15 mg 8-16 ne 15 mg ity of tablet 16:11: tablet [address] alogliptin- Yes alogliptin [facility] pioglitazon 8-16 25 ity of e 25-15 mg 16:11: mg-pioglit [place] Tab 59 azone 15 Medical mg tablet Branch pioglitazon Yes pioglitazo [facility] e 15 mg 8-16 ne 15 mg ity of tablet 16:11: tablet [place] [address] Medical Branch alogliptin- Yes alogliptin [facility] pioglitazon 8-16 25 ity of e 25-15 mg 16:11: mg-pioglit [place] Tab 59 azone 15 Medical mg tablet Branch pioglitazon Yes pioglitazo [facility] e 15 mg 8-16 ne 15 mg ity of tablet 16:11: tablet [address] alogliptin- Yes alogliptin [facility] pioglitazon 8-16 25 ity of e 25-15 mg 16:11: mg-pioglit [place] Tab 59 azone 15 Medical mg tablet Branch pioglitazon Yes pioglitazo [facility] e 15 mg 8-16 ne 15 mg ity of tablet 16:11: tablet [address] alogliptin- Yes alogliptin [facility] pioglitazon 8-16 25 ity of e 25-15 mg 16:11: mg-pioglit [place] Tab 59 azone 15 Medical mg tablet Branch pioglitazon Yes pioglitazo [facility] e 15 mg 8-16 ne 15 mg ity of tablet 16:11: tablet [address] alogliptin- Yes alogliptin [facility] pioglitazon 8-16 25 ity of e 25-15 mg 16:11: mg-pioglit [place] Tab 59 azone 15 Medical mg tablet Branch pioglitazon Yes pioglitazo [facility] e 15 mg 8-16 ne 15 mg ity of tablet 16:11: tablet [address] alogliptin- Yes alogliptin [facility] pioglitazon 8-16 25 ity of e 25-15 mg 16:11: mg-pioglit [place] Tab 59 azone 15 Medical mg tablet Branch pioglitazon Yes pioglitazo [facility] e 15 mg 8-16 ne 15 mg ity of tablet 16:11: tablet [place] [address] Medical Branch alogliptin- Yes alogliptin [facility] pioglitazon 8-16 25 ity of e 25-15 mg 16:11: mg-pioglit [place] Tab 59 azone 15 Medical mg tablet Branch pioglitazon Yes pioglitazo [facility] e 15 mg 8-16 ne 15 mg ity of tablet 16:11: tablet [address] alogliptin- Yes alogliptin [facility] pioglitazon 8-16 25 ity of e 25-15 mg 16:11: mg-pioglit [place] Tab 59 azone 15 Medical mg tablet Branch pioglitazon Yes pioglitazo [facility] e 15 mg 8-16 ne 15 mg ity of tablet 16:11: tablet [place] 59 Medical Branch donepeziL 5 Yes [id number] 5mg Take 1 [facility] mg tablet 8-16 tablet by ity o f 00:00: mouth at [place] 00 bedtime. Medical Branch donepeziL 5 Yes [id number] 5mg Take 1 [facility] mg tablet 8-16 tablet by ity o f 00:00: mouth at [place] 00 bedtime. Medical Branch donepeziL 5 Yes [id number] 5mg Take 1 [facility] mg tablet 8-16 tablet by ity o f 00:00: mouth at [place] 00 bedtime. Medical Branch donepeziL 5 2021- No [id number] 5mg Take 1 [facility] mg tablet 8-18 12- tablet by ity of 00:00: 00:00 mouth at [place] 00 :00 bedtime. Medical Branch donepeziL 5 2021- No [id number] 5mg Take 1 [facility] mg tablet 8-18 12- tablet by ity of 00:00: 00:00 mouth at [place] 00 :00 bedtime. Medical Branch donepeziL 5 2021-2021- No [id number] 5mg Take 1 [facility] mg tablet 8- tablet by ity of 00:00: 00:00 mouth at [place] 00 :00 bedtime. Medical Branch Dose 2021-0 No Unknown 7-29 00:00: 00 &lt 2022-0 No 7-29 00:00: 00 Dose 2-0 No Unknown 7-28 00:00: 00 Dose 2-0 No Unknown 7-28 00:00: 00 &lt 2022-0 No 7-27 00:00: 00 &lt 2022-0 No 7-27 00:00: 00 &lt 2022-0 No 7-27 00:00: 00 &lt 2022-0 No 7-26 00:00: 00 &lt 2022-0 No 7-21 00:00: 00 Dose 2-0 No Unknown 7-21 00:00: 00 pioglitazon 2021-0 No 1mg e 15 mg 7-06 tablet 00:00: 00 Remeron 15 2021-0 No 1mg mg tablet 10-07 00:00: 00 &lt 2022-0 No 7- 00:00: 00 &lt 2022-0 No 7- 00:00: 00 &lt 2022-0 No 7- 00:00: 00 &lt 2022-0 No 7- 00:00: 00 &lt 2022-0 No 7- 00:00: 00 &lt 2022-0 No 7- 00:00: 00 &lt 2022-0 No 7- 00:00: 00 Dose 2022-0 No Unknown 7- 00:00: 00 &lt 2022-0 No 7- 00:00: 00 &lt 2022-0 No 7- 00:00: 00 donepeziL 5 2021-0 2021- No 5mg Take 5 mg Univers mg tablet 09-10 by mouth ity o f 00:00: 00:00 at [place] 00 :00 bedtime. Medical Branch donepeziL 5 2021-0 2021- No 5mg Take 5 mg [facility] mg tablet 09-10 by mouth ity o f 00:00: 00:00 at [place] 00 :00 bedtime. Medical Branch pioglitazon 2021-0 No 1mg e 15 mg 6-08 tablet 00:00: 00 pioglitazon 2021-0 No 1mg e 15 mg -08 tablet 00:00: 00 &lt 2022-0 No 6-08 00:00: 00 &lt 2022-0 No 6-08 00:00: 00 &lt 2022-0 No 6-08 00:00: 00 &lt 2022-0 No 6-08 00:00: 00 &lt 2022-0 No 6-08 00:00: 00 donepezil 5 2021-0 Yes = 1 tab, Me moria mg oral 3-24 PO, l tablet 19:24: Bedtime, # Krystle nn 00 30 tab, 5 Refill(s), Pharmacy: [facility] 527, 170.18, cm, 03/19/21 14:10:00 [employer], Height, 71.636, kg, 03/19/21 14:10:00 [employer], Weight oxybutynin 2022-0 Yes 5 mg = 1 Mem oria 5 mg oral 1-19 tab, PO, l tablet, 16:16: Daily, # Jose Angel n extended 00 30 tab, 2 release Refill(s), Pharmacy: [facility] 527, 170.18, cm, 03/19/21 14:10:00 [employer], Height, 71.636, kg, 03/19/21 14:10:00 [employer], Weight metFORMIN Yes 1,000 mg = Me moria 1000 mg 1-19 1 tab, PO, l oral tablet 16:16: BID-Meals, [place] 00 # 60 tab, 2 Refill(s), Pharmacy: [facility] 527, 170.18, cm, 03/19/21 14:10:00 [employer], Height, 71.636, kg, 03/19/21 14:10:00 [employer], Weight oxybutynin 2020-04 Yes 5 mg = 1 Mem oria 5 mg oral 2-16 tab, PO, l tablet, 20:32: Daily, # Jose Angel n extended 00 90 tab, 0 release Refill(s), other predniSONE 2020-04 Yes 40 mg = 2 Me moria 20 mg oral 0-13 tab, PO, l tablet 21:50: Daily, X 5 Krystle nn day, # 10 tab, 0 Refill(s), Pharmacy: [facility] 527, 170.18, cm, 12/29/20 10:18:00 CDT, Height, 73.273, kg, 12/29/20 10:18:00 CDT, Weight Metformin Yes 1,000 mg = Me moria hydrochlori 9-27 1 tab, PO, l de 1000 MG 15:52: BID-Meals, [place] Oral Tablet 00 # 60 tab, 5 Refill(s), Pharmacy: [facility] [id number], 170.18, cm, 12/29/20 10:18:00 CDT, Height, 73.273, kg, 12/29/20 10:18:00 CDT, Weight azaTHIOprin No 100 mg = 2 Memoria e 50 mg 4-15 tab, PO, l oral tablet 13:53: Daily, # [place] r[place] 00 60 tab, 2 Refill(s), Pharmacy: [facility] 808, patient needs to contact office to schedule a follow-up visit., 170.18, cm, 10/09/19 13:14:00 CDT, Height, 74.182, kg, 10/09/19 13:14:00 CDT, Weight azaTHIOprin 2019-1 Yes 100 mg = 2 Memoria e 50 mg 1-04 tab, PO, l oral tablet 20:00: Daily, # [place] 00 60 tab, 2 Refill(s), Pharmacy: [facility] 808, patient needs to contact office to schedule a follow-up visit., 170.18, cm, 10/09/19 13:14:00 CDT, Height, 74.182, kg, 10/09/19 13:14:00 CDT, Weight donepezil 5 2019- Yes 5 mg = 1 Me moria mg oral 0-22 tab, PO, l tablet 21:06: Bedtime, # Krystle nn 00 30 tab, 5 Refill(s), Pharmacy: [facility] 808, 170.18, cm, 10/09/19 13:14:00 CDT, Height, 74.182, kg, 10/09/19 13:14:00 CDT, Weight non-formula 2020-0 Yes 1 tab, PO, Memoria ry 7-11 Breakfast, l 14:09: # 90 tab, [place] 00 Refill(s) 1, Pharmacy: [facility] 808, 170.18, cm, 10/09/19 13:14:00 CDT, Height, 74.182, kg, 10/09/19 13:14:00 CDT, Weight Metformin 2019-0 Yes 1,000 mg = Me moria hydrochlori 7-07 1 tab, PO, l de 1000 MG 18:54: BID-Meals, [place] Oral Tablet 00 # 60 tab, 5 Refill(s), Pharmacy: [facility] 808, 170.18, cm, 10/09/19 13:14:00 CDT, Height, 74.182, kg, 10/09/19 13:14:00 CDT, Weight oxybutynin 2020-0 Yes 5 mg = 1 Mem oria 5 mg oral 3-27 tab, PO, l tablet, 17:59: Daily, # Jose Angel n extended 00 90 tab, 0 release Refill(s), Pharmacy: [facility] oxybutynin Yes 5 mg = 1 Mem oria 5 mg oral 1-24 tab, PO, l tablet, 21:25: Daily, # Jose Angel n extended 00 90 tab, 1 release Refill(s), Pharmacy: [facility] pioglitazon Yes = 1 tab, Me moria e 15 mg 1-20 PO, Daily, l oral tablet 18:35: # 90 ea, He rmann 47 Pharmacy: [place] [id number] oxybutynin 2018-04 Yes 5 mg = 1 Mem oria 5 mg oral 0-29 tab, PO, l tablet, 19:23: Daily, # Jose Angel n extended 00 30 tab, 1 release Refill(s), other GLIMEPIRIDE 2018-04 Yes = 1 tab, Me moria 2MG TAB 0-24 PO, l 21:54: Breakfast, [place] 14 # 90 tab, Pharmacy: [facility] pioglitazon Yes = 1 tab, Me moria e 15 mg 8-26 PO, Daily, l oral tablet 14:28: # 90 tab, H [place] 03 Pharmacy: [facility] pioglitazon Yes = 1 tab, Me moria e 15 mg 6-13 PO, Daily, l oral tablet 19:41: # 90 tab, H [place] 54 Pharmacy: [facility] HYDROcodone Yes 10 mg = 1 M emoria 10 mg oral 6-04 cap, PO, l capsule, 19:54: Q12H, 0 Jose Angel n extended 00 Refill(s) release glimepiride Yes 2mg Take [address] [facility] (AMARYL) 2 5-12 by [facility] tablet 15:57: every Medical [facility] morning Center before breakfast. azaTHIOprin 2018- Yes 75mg QD Take [address] [facility] (IMURAN) 5-12 [facility] 50 mg 15:57: daily. Medical tablet 55 [place] oxybutynin Yes 5mg QD Take [address] [facility] [address] [facility] (DITROPAN) 5-12 [facility] 5 MG tablet 15:57: daily. Medi lai [address] [place] pioglitazon 2019-0 Yes 15mg QD Take [address] [facility] (ACTOS) 5-12 by [facility] 15 MG 15:57: daily. Medical tablet [address] [place] [address] oxybutynin 2019-0 Yes 5mg QD Take [address] [facility] [address] (DITROPAN) 5-12 by [facility] 5 MG tablet 15:57: daily. [address] pioglitazon 2019-0 Yes 15mg QD Take [address] [facility] (ACTOS) 5-12 by [facility] 15 MG 15:57: daily. Medical tablet [address] [place] [address] glimepiride 2019-0 Yes 2mg Take [address] (AMARYL) 2 5-12 by [facility] tablet 15:57: every Medical morning Center before breakfast. azaTHIOprin 2018- Yes 75mg QD Take [address] [facility] [facility] (IMURAN) 5-12 by [facility] 50 mg 15:57: daily. Medical tablet [address] [place] [address] 24 HR 2018- Yes 25 mg = 1 Memoria mirabegron 4-25 tab, PO, l 25 MG 14:27: Daily, # [place] Extended 00 30 tab, 5 Release Refill(s) Tablet [Myrbetriq] alogliptin No 1 tab, PO, M emoria 25 MG / 4-25 Daily, 0 l pioglitazon 14:27: Refill(s) H ermann e 15 MG 00 Oral Tablet predniSONE 2018-0 Yes 5 mg = 1 Mem oria 5 mg oral 2-25 tab, PO, l tablet 17:51: Daily, # [place] 00 30 tab, 5 Refill(s), Pharmacy: [facility] 808 azaTHIOprin 2018-0 Yes 100 mg = 2 Memoria e 50 mg 2-25 tab, PO, l oral tablet 17:51: Daily, # [place] 00 60 tab, 5 Refill(s), Pharmacy: [facility] 808 predniSONE 2018-0 Yes 5 mg = 1 Mem oria 5 mg oral 2-25 tab, PO, l tablet 16:58: Daily, [place] 00 Give with food., # 14 tab, 0 Refill(s) alogliptin 2018-0 Yes 1 tab, PO, M emoria 25 MG / 2-25 Daily, 0 l pioglitazon 16:58: Refill(s) H ermann e 15 MG 00 Oral Tablet oxybutynin Yes = 1 tab, Mem oria 5 mg oral 2-14 PO, Daily, l tablet, 18:12: # 30 tab, Krystle nn extended 03 Refill(s) release 3, Pharmacy: [facility] 808 predniSONE No 10 mg = 1 Me moria 10 mg oral 1-22 tab, PO, l tablet 16:46: Daily, # [place] 00 30 tab, 0 Refill(s) 24 HR No 25 mg = 1 Memoria mirabegron 1-22 tab, PO, l 25 MG 16:46: Daily [place] Extended 00 Release Tablet [Myrbetriq] metFORMIN 2017-04 Yes 1,000 mg = Me moria 500 mg oral -29 2 tab, PO, l tablet, 21:01: BID-Meals, Herm jyothi extended 00 # 120 tab, release 3 Refill(s), Pharmacy: [facility] 808 glimepiride 2017-04 Yes 2 mg = 1 Me moria 2 mg oral 29 tab, PO, l tablet 21:01: Breakfast, Krystle nn 00 # 30 tab, 3 Refill(s), Pharmacy: [facility] 808 pioglitazon 2017-04 No 15 mg = 1 M emoria e 15 mg -29 tab, PO, l oral tablet 21:01: Daily, # He r[place] 00 30 tab, 3 Refill(s), Pharmacy: [facility] 808 alogliptin 2017-04 No 1 tab, PO, M emoria 25 MG / -28 Daily, # l pioglitazon 16:20: 30 tab, 5 H ermann e 15 MG 00 Refill(s), Oral Tablet Pharmacy: [Oseni] [facility] 808 24 HR 2017-04 No 2 tab, PO, Memori a dapaglifloz - QAM, # 60 l in 5 MG / 16:20: tab, 5 Jose Angel n Metformin 00 Refill(s), hydrochlori Pharmacy: de 1000 MG [facility] Release 808 Oral Tablet [Xigduo] predniSONE 2017-04 No 10 mg = 1 Me moria 10 mg oral 1-14 tab, PO, l tablet 21:12: Daily, 0 [place] 00 Refill(s) predniSONE 2017-04 No 10 mg = 2 Me moria 5 mg oral 0-31 tab, PO, l tablet 18:58: Daily, # [place] 00 60 tab, 1 Refill(s), Pharmacy: [facility] 808 azaTHIOprin 2017-04 No 75 mg = Mem oria e 50 mg 0-31 1.5 tab, l oral tablet 18:58: PO, Daily, [place] 00 # 45 tab, 5 Refill(s), Pharmacy: [facility] azaTHIOprin 2017-04 No 75 mg = Mem oria e 50 mg 0-24 1.5 tab, l oral tablet 15:55: PO, Daily, [place] 00 # 45 tab, 5 Refill(s), Pharmacy: [facility] predniSONE 2017-04 No 10 mg = 2 Me moria 5 mg oral 0-24 tab, PO, l tablet 15:55: Daily, # [place] 00 60 tab, 0 Refill(s), Pharmacy: [facility] Trimethopri 2017-04 Yes 100 mg = 1 Memoria m 100 MG 0-24 tab, PO, l Oral Tablet 15:10: Daily, 0 [place] 00 Refill(s) predniSONE No 20 mg = 2 Me moria 10 mg oral 9-20 tab, PO, l tablet 19:13: Daily, # [place] 13 60 tab, 1 Refill(s), Pharmacy: [facility] azaTHIOprin No 50 mg = 1 M emoria e 50 mg 9-20 tab, PO, l oral tablet 19:13: Daily, # He r[place] 00 30 tab, 1 Refill(s), Pharmacy: [facility] 808 GLIPIZIDE Yes 5mg Take 5 mg Uni vers ORAL 6-12 by mouth 2 ity of 13:11: (two) [place] 23 times Medical daily. Branch METFORMIN 2018 Yes 500mg Take 500 Uni vers HCL 6-12 mg by ity of (METFORMIN 13:11: mouth [place] ORAL) 23 daily. Medical Branch lisinopril 0 Yes 5mg Take 5 mg Un karen (PRINIVIL,Z 6-12 by mouth ity of ESTRIL) 5 13:11: daily. [place] mg tablet 23 Medical Branch GLIPIZIDE 0 Yes 5mg Take 5 mg Uni vers ORAL 6-12 by mouth 2 ity of 13:11: (two) [place] 23 times Medical daily. Branch METFORMIN 2018-0 Yes 500mg Take 500 Uni vers HCL 6-12 mg by ity of (METFORMIN 13:11: mouth [place] ORAL) 23 daily. Medical Branch lisinopril 2018-0 Yes 5mg Take 5 mg Un [facility]aren (PRINIVIL,Z 6-12 by mouth ity of ESTRIL) 5 13:11: daily. [place] mg tablet 23 Medical Branch GLIPIZIDE 2018-0 Yes 5mg Take 5 mg Uni vers ORAL 6-12 by mouth 2 ity of 13:11: (two) [place] 23 times Medical daily. Branch METFORMIN 2018-0 Yes 500mg Take 500 Uni vers HCL 6-12 mg by ity of (METFORMIN 13:11: mouth [place] ORAL) 23 daily. Medical Branch lisinopril 2018-0 Yes 5mg Take 5 mg Un [facility]aren (PRINIVIL,Z 6-12 by mouth ity of ESTRIL) 5 13:11: daily. [place] mg tablet 23 Medical Branch GLIPIZIDE 2018-0 Yes 5mg Take 5 mg Uni vers ORAL 6-12 by mouth 2 ity of 13:11: (two) [place] 23 times Medical daily. Branch METFORMIN 2018-0 Yes 500mg Take 500 Uni vers HCL 6-12 mg by ity of (METFORMIN 13:11: mouth [place] ORAL) 23 daily. Medical Branch lisinopril 2018-0 Yes 5mg Take 5 mg Un karen (PRINIVIL,Z 6-12 by mouth ity of ESTRIL) 5 13:11: daily. [place] mg tablet 23 Medical Branch GLIPIZIDE 2018-0 Yes 5mg Take 5 mg Uni vers ORAL 6-12 by mouth 2 ity of 13:11: (two) [place] 23 times Medical daily. Branch METFORMIN 2018-0 Yes 500mg Take 500 Uni vers HCL 6-12 mg by ity of (METFORMIN 13:11: mouth [place] ORAL) 23 daily. Medical Branch lisinopril 2018-0 Yes 5mg Take 5 mg Un [place] (PRINIVIL,Z 6-12 by mouth ity of ESTRIL) 5 13:11: daily. [place] mg tablet 23 Medical Branch GLIPIZIDE 2018-0 Yes 5mg Take 5 mg Uni vers ORAL 6-12 by mouth 2 ity of 13:11: (two) [place] 23 times Medical daily. Branch METFORMIN 2018-0 Yes 500mg Take 500 Uni vers HCL 6-12 mg by ity of (METFORMIN 13:11: mouth [place] ORAL) 23 daily. Medical Branch lisinopril 2018-0 Yes 5mg Take 5 mg Un [place] (PRINIVIL,Z 6-12 by mouth ity of ESTRIL) 5 13:11: daily. [place] mg tablet 23 Medical Branch GLIPIZIDE 2018-0 Yes 5mg Take 5 mg Uni vers ORAL 6-12 by mouth 2 ity of 13:11: (two) [place] 23 times Medical daily. Branch METFORMIN 2018-0 Yes 500mg Take 500 Uni vers HCL 6-12 mg by ity of (METFORMIN 13:11: mouth [place] ORAL) 23 daily. Medical Branch lisinopril 2018-0 Yes 5mg Take 5 mg Un k[facility] (PRINIVIL,Z 6-12 by mouth ity of ESTRIL) 5 13:11: daily. [place] mg tablet 23 Medical Branch GLIPIZIDE 2018-0 Yes 5mg Take 5 mg Uni vers ORAL 6-12 by mouth 2 ity of 13:11: (two) [place] 23 times Medical daily. Branch METFORMIN 2018-0 Yes 500mg Take 500 Uni vers HCL 6-12 mg by ity of (METFORMIN 13:11: mouth [place] ORAL) 23 daily. Medical Branch lisinopril 2018-0 Yes 5mg Take 5 mg Un [facility] (PRINIVIL,Z 6-12 by mouth ity of ESTRIL) 5 13:11: daily. [place] mg tablet 23 Medical Branch GLIPIZIDE 2018-0 Yes 5mg Take 5 mg Uni vers ORAL 6-12 by mouth 2 ity of 13:11: (two) [place] 23 times Medical daily. Branch METFORMIN 2018-0 Yes 500mg Take 500 Uni vers HCL 6-12 mg by ity of (METFORMIN 13:11: mouth [place] ORAL) 23 daily. Medical Branch lisinopril 2018-0 Yes 5mg Take 5 mg Un [facility] (PRINIVIL,Z 6-12 by mouth ity of ESTRIL) 5 13:11: daily. [place] mg tablet 23 Medical Branch GLIPIZIDE 2018-0 Yes 5mg Take 5 mg Uni vers ORAL 6-12 by mouth 2 ity of 13:11: (two) [place] 23 times Medical daily. Branch METFORMIN 2018-0 Yes 500mg Take 500 Uni vers HCL 6-12 mg by ity of (METFORMIN 13:11: mouth [place] ORAL) 23 daily. Medical Branch lisinopril 2018-0 Yes 5mg Take 5 mg Un [facility] (PRINIVIL,Z 6-12 by mouth ity of ESTRIL) 5 13:11: daily. [place] mg tablet 23 [facility] GLIPIZIDE 2018-0 Yes 5mg Take 5 mg [facility] vers ORAL 6-12 by mouth 2 ity of 13:11: (two) [place] 23 times Medical daily. Branch METFORMIN 2018-0 Yes 500mg Take 500 Uni vers HCL 6-12 mg by ity of (METFORMIN 13:11: mouth [place] ORAL) 23 daily. [facility] lisinopril 2018-0 Yes 5mg Take 5 mg [facility] [place] (PRINIVIL,Z 6-12 by mouth ity of ESTRIL) 5 13:11: daily. [place] mg tablet 23 [facility] GLIPIZIDE 2018-0 Yes 5mg Take 5 mg Uni vers ORAL 6-12 by mouth 2 ity of 13:11: (two) [place] 23 times Medical daily. Branch METFORMIN 2018-0 Yes 500mg Take 500 Uni vers HCL 6-12 mg by ity of (METFORMIN 13:11: mouth [place] ORAL) 23 daily. [facility] lisinopril 2018-0 Yes 5mg Take 5 mg [facility] [place] (PRINIVIL,Z 6-12 by mouth ity of ESTRIL) 5 13:11: daily. [place] mg tablet 23 Medical Branch GLIPIZIDE 2018-0 Yes 5mg Take 5 mg Uni vers ORAL 6-12 by mouth 2 ity of 13:11: (two) [place] 23 times Medical daily. Branch METFORMIN 2018-0 Yes 500mg Take 500 Uni vers HCL 6-12 mg by ity of (METFORMIN 13:11: mouth [place] ORAL) 23 daily. Medical Branch lisinopril 2018-0 Yes 5mg Take 5 mg Un karen (PRINIVIL,Z 6-12 by mouth ity of ESTRIL) 5 13:11: daily. [place] mg tablet 23 Medical Branch GLIPIZIDE 2018-0 Yes 5mg Take 5 mg Uni vers ORAL 6-12 by mouth 2 ity of 13:11: (two) [place] 23 times Medical daily. Branch GLIPIZIDE 2018-0 Yes 5mg Take 5 mg Uni vers ORAL 6-12 by mouth 2 ity of 13:11: (two) [place] 23 times Medical daily. Branch GLIPIZIDE 2018-0 Yes 5mg Take 5 mg Uni vers ORAL 6-12 by mouth 2 ity of 13:11: (two) [place] 23 times Medical daily. Branch GLIPIZIDE 2018-0 Yes 5mg Take 5 mg Uni vers ORAL 6-12 by mouth 2 ity of 13:11: (two) [place] 23 times Medical daily. Branch GLIPIZIDE 2018-0 Yes 5mg Take 5 mg Uni vers ORAL 6-12 by mouth 2 ity of 13:11: (two) [place] 23 times Medical daily. Branch GLIPIZIDE 2018-0 Yes 5mg Take 5 mg Uni vers ORAL 6-12 by mouth 2 ity of 13:11: (two) [place] 23 times Medical daily. Branch GLIPIZIDE 2018-0 Yes 5mg Take 5 mg Uni vers ORAL 6-12 by mouth 2 ity of 13:11: (two) [place] 23 times Medical daily. Branch GLIPIZIDE 2018-0 Yes 5mg Take 5 mg Uni vers ORAL 6-12 by mouth 2 ity of 13:11: (two) [place] 23 times Medical daily. Branch GLIPIZIDE 2018-0 Yes 5mg Take 5 mg Uni vers ORAL 6-12 by mouth 2 ity of 13:11: (two) [place] 23 times Medical daily. Branch GLIPIZIDE 2018-0 Yes 5mg Take 5 mg Uni vers ORAL 6-12 by mouth 2 ity of 13:11: (two) [place] 23 times Medical daily. Branch GLIPIZIDE 2018-0 Yes 5mg Take 5 mg Uni vers ORAL 6-12 by mouth 2 ity of 13:11: (two) [place] 23 times Medical daily. Branch GLIPIZIDE 2018-0 Yes 5mg Take 5 mg Uni vers ORAL 6-12 by mouth 2 ity of 13:11: (two) [place] 23 times Medical daily. Branch GLIPIZIDE 2018-0 Yes 5mg Take 5 mg Uni vers ORAL 6-12 by mouth 2 ity of 13:11: (two) [place] 23 times Medical daily. Branch GLIPIZIDE 2018-0 Yes 5mg Take 5 mg Uni vers ORAL 6-12 by mouth 2 ity of 13:11: (two) [place] 23 times Medical daily. Branch GLIPIZIDE 2018-0 Yes 5mg Take 5 mg Uni vers ORAL 6-12 by mouth 2 ity of 13:11: (two) [place] 23 times Medical daily. Branch mirabegron 2018-0 Yes Take by Univ ers (MYRBETRIQ) 6-12 mouth. ity of 25 mg 13:09: [place] tablet 19 Medical Branch mirabegron 2018-0 Yes Take by Univ ers (MYRBETRIQ) 6-12 mouth. ity of 25 mg 13:09: [place] tablet 19 Medical Branch mirabegron 2018-0 Yes Take by Univ ers (MYRBETRIQ) 6-12 mouth. ity of 25 mg 13:09: [place] tablet 19 Medical Branch mirabegron 2018-0 Yes Take by Univ ers (MYRBETRIQ) 6-12 mouth. ity of 25 mg 13:09: [place] tablet 19 Medical Branch mirabegron 2018-0 Yes Take by Univ ers (MYRBETRIQ) 6-12 mouth. ity of 25 mg 13:09: [place] tablet 19 Medical Branch mirabegron 2018-0 Yes Take by [facility] ers (MYRBETRIQ) 6-12 mouth. ity of 25 mg 13:09: [place] tablet 19 Medical Branch mirabegron 2018-0 Yes Take by Univ ers (MYRBETRIQ) 6-12 mouth. ity of 25 mg 13:09: [place] tablet 19 Medical Branch mirabegron 2018-0 Yes Take by Univ ers (MYRBETRIQ) 6-12 mouth. ity of 25 mg 13:09: [place] tablet 19 Medical Branch mirabegron 2018-0 Yes Take by Univ ers (MYRBETRIQ) 6-12 mouth. ity of 25 mg 13:09: [place] tablet 19 Medical Branch mirabegron 2018-0 Yes Take by Univ ers (MYRBETRIQ) 6-12 mouth. ity of 25 mg 13:09: [place] tablet 19 Medical Branch mirabegron 2018-0 Yes Take by Univ ers (MYRBETRIQ) 6-12 mouth. ity of 25 mg 13:09: [place] tablet 19 Medical Branch mirabegron 2018-0 Yes Take by Univ ers (MYRBETRIQ) 6-12 mouth. ity of 25 mg 13:09: [place] tablet 19 Medical Branch mirabegron 2018-0 Yes Take by Univ ers (MYRBETRIQ) 6-12 mouth. ity of 25 mg 13:09: [place] tablet 19 Medical Branch mirabegron 2018-0 Yes Take by Univ ers (MYRBETRIQ) 6-12 mouth. ity of 25 mg 13:09: [place] tablet 19 Medical Branch mirabegron 2018-0 Yes Take by Univ ers (MYRBETRIQ) 6-12 mouth. ity of 25 mg 13:09: [place] tablet 19 Medical Branch mirabegron 2018-0 Yes Take by Univ ers (MYRBETRIQ) 6-12 mouth. ity of 25 mg 13:09: [place] tablet 19 Medical Branch mirabegron 2018-0 Yes Take by Univ ers (MYRBETRIQ) 6-12 mouth. ity of 25 mg 13:09: [place] tablet 19 Medical Branch mirabegron 2018-0 Yes Take by [facility] ers (MYRBETRIQ) 6-12 mouth. ity of 25 mg 13:09: [place] tablet 19 Medical Branch mirabegron 2018-0 Yes Take by [facility] ers (MYRBETRIQ) 6-12 mouth. ity of 25 mg 13:09: [place] tablet 19 Medical Branch mirabegron 2018-0 Yes Take by [facility] ers (MYRBETRIQ) 6-12 mouth. ity of 25 mg 13:09: [place] tablet 19 Medical Branch mirabegron 2018-0 Yes Take by [facility] ers (MYRBETRIQ) 6-12 mouth. ity of 25 mg 13:09: [place] tablet 19 Medical Branch mirabegron 2018-0 Yes Take by [facility] ers (MYRBETRIQ) 6-12 mouth. ity of 25 mg 13:09: [place] tablet 19 Medical Branch mirabegron 2018-0 Yes Take by [facility] ers (MYRBETRIQ) 6-12 mouth. ity of 25 mg 13:09: [place] tablet 19 Medical Branch mirabegron 2018-0 Yes Take by Univ ers (MYRBETRIQ) 6-12 mouth. ity of 25 mg 13:09: [place] tablet 19 Medical Branch mirabegron 2018-0 Yes Take by Univ ers (MYRBETRIQ) 6-12 mouth. ity of 25 mg 13:09: [place] tablet 19 Medical Branch mirabegron 2018-0 Yes Take by Univ ers (MYRBETRIQ) 6-12 mouth. ity of 25 mg 13:09: [place] tablet 19 Medical Branch mirabegron 2018-0 Yes Take by Univ ers (MYRBETRIQ) 6-12 mouth. ity of 25 mg 13:09: [place] tablet 19 Medical [place] mirabegron 2018-0 Yes Take by [facility] ers (MYRBETRIQ) 6-12 mouth. ity of 25 mg 13:09: [place] tablet 19 Medical Branch PREMARIN 0 Yes Univers 0.625 5-22 ity of mg/gram 00:00: [place] cream [facility] PREMARIN 2018-0 Yes Univers 0.625 5-22 ity of mg/gram 00:00: [place] cream Medical Branch PREMARIN 2018-0 Yes Univers 0.625 5-22 ity of mg/gram 00:00: [place] cream Medical [place] PREMARIN 2017-0 Yes Univers 0.625 5-22 ity of mg/gram 00:00: [place] cream Medical Branch PREMARIN 2017-0 Yes Univers 0.625 5-22 ity of mg/gram 00:00: [place] cream Medical [place] PREMARIN 0 Yes Univers 0.625 5-22 ity of mg/gram 00:00: [place] cream Medical Branch PREMARIN 2017-0 Yes Univers 0.625 5-22 ity of mg/gram 00:00: [place] cream Medical Branch PREMARIN 0 Yes Univers 0.625 5-22 ity of mg/gram 00:00: [place] cream Medical Branch PREMARIN 2018-0 Yes Univers 0.625 5-22 ity of mg/gram 00:00: [place] cream Medical Branch PREMARIN 2018-0 Yes Univers 0.625 5-22 ity of mg/gram 00:00: [place] cream Medical Branch PREMARIN 2018-0 Yes Univers 0.625 5-22 ity of mg/gram 00:00: [place] cream Medical Branch PREMARIN 2018-0 Yes Univers 0.625 5-22 ity of mg/gram 00:00: [place] cream Medical Branch PREMARIN 2018-0 Yes Univers 0.625 5-22 ity of mg/gram 00:00: [place] cream 00 Medical Branch PREMARIN 2018-0 2023- No Univers 0.625 5-22 03-21 ity of mg/gram 00:00: 00:00 [place] cream 00 :00 Medical Branch PREMARIN 2018-0 3- No Univers 0.625 5-22 03-21 ity of mg/gram 00:00: 00:00 [place] cream 00 :00 [facility] levothyroxi 2018-0 Yes 175ug Take 175 U nivers ne 175 mcg 5-15 mcg by ity of tablet 11:14: mouth [place] 43 every Medical morning. Branch levothyroxi 2018-0 Yes 175ug Take 175 U nivers ne 175 mcg 5-15 mcg by ity of tablet 11:14: mouth [place] 43 every Medical morning. Branch levothyroxi 2018-0 Yes 175ug Take 175 U nivers ne 175 mcg 5-15 mcg by ity of tablet 11:14: mouth [place] 43 every Medical morning. Branch levothyroxi 2018-0 Yes 175ug Take 175 U nivers ne 175 mcg 5-15 mcg by ity of tablet 11:14: mouth [place] 43 every Medical morning. Branch levothyroxi 2018-0 Yes 175ug Take 175 U nivers ne 175 mcg 5-15 mcg by ity of tablet 11:14: mouth [place] 43 every Medical morning. Branch levothyroxi 2017-0 Yes 175ug Take 175 U nivers ne 175 mcg 5-15 mcg by ity of tablet 11:14: mouth [place] 43 every Medical morning. Branch levothyroxi 2018-0 Yes 175ug Take 175 U nivers ne 175 mcg 5-15 mcg by ity of tablet 11:14: mouth [place] 43 every Medical morning. Branch levothyroxi 2017-0 Yes 175ug Take 175 U nivers ne 175 mcg 5-15 mcg by ity of tablet 11:14: mouth [place] 43 every Medical morning. Branch levothyroxi 2018-0 Yes 175ug Take 175 U nivers ne 175 mcg 5-15 mcg by ity of tablet 11:14: mouth [place] 43 every Medical morning. Branch levothyroxi 2018-0 Yes 175ug Take 175 U nivers ne 175 mcg 5-15 mcg by ity of tablet 11:14: mouth [place] 43 every Medical morning. Branch levothyroxi 2018-0 Yes 175ug Take 175 U nivers ne 175 mcg 5-15 mcg by ity of tablet 11:14: mouth [place] 43 every Medical morning. Branch levothyroxi 2018-0 Yes 175ug Take 175 U nivers ne 175 mcg 5-15 mcg by ity of tablet 11:14: mouth [place] 43 every Medical morning. Branch levothyroxi 2018-0 Yes 175ug Take 175 U nivers ne 175 mcg 5-15 mcg by ity of tablet 11:14: mouth [place] 43 every Medical morning. Branch levothyroxi 2018-0 Yes 175ug Take 175 U nivers ne 175 mcg 5-15 mcg by ity of tablet 11:14: mouth [place] 43 every Medical morning. Branch levothyroxi 2018-0 Yes 175ug Take 175 U nivers ne 175 mcg 5-15 mcg by ity of tablet 11:14: mouth [place] 43 every Medical morning. Branch levothyroxi 2018-0 Yes 175ug Take 175 U nivers ne 175 mcg 5-15 mcg by ity of tablet 11:14: mouth [place] 43 every Medical morning. Branch levothyroxi 2018-0 Yes 175ug Take 175 U nivers ne 175 mcg 5-15 mcg by ity of tablet 11:14: mouth [place] 43 every Medical morning. Branch levothyroxi 2018-0 Yes 175ug Take 175 U nivers ne 175 mcg 5-15 mcg by ity of tablet 11:14: mouth [place] 43 every Medical morning. Branch levothyroxi 2017-0 Yes 175ug Take 175 U nivers ne 175 mcg 5-15 mcg by ity of tablet 11:14: mouth [place] 43 every Medical morning. Branch levothyroxi 2017-0 Yes 175ug Take 175 U nivers ne 175 mcg 5-15 mcg by ity of tablet 11:14: mouth [place] 43 every Medical morning. Branch levothyroxi 2017-0 Yes 175ug Take 175 U nivers ne 175 mcg 5-15 mcg by ity of tablet 11:14: mouth [place] 43 every Medical morning. Branch levothyroxi 2017-0 Yes 175ug Take 175 U nivers ne 175 mcg 5-15 mcg by ity of tablet 11:14: mouth [place] 43 every Medical morning. Branch levothyroxi 2018-0 Yes 175ug Take 175 U nivers ne 175 mcg 5-15 mcg by ity of tablet 11:14: mouth [place] 43 every Medical morning. Branch levothyroxi 2018-0 Yes 175ug Take 175 U nivers ne 175 mcg 5-15 mcg by ity of tablet 11:14: mouth [place] 43 every Medical morning. Branch levothyroxi 2018-0 Yes 175ug Take 175 U nivers ne 175 mcg 5-15 mcg by ity of tablet 11:14: mouth [place] 43 every Medical morning. Branch levothyroxi 2018-0 Yes 175ug Take 175 U nivers ne 175 mcg 5-15 mcg by ity of tablet 11:14: mouth [place] 43 every Medical morning. Branch levothyroxi Yes 175ug Take 175 U nivers ne 175 mcg 5-15 mcg by ity of tablet 11:14: mouth [place] 43 every Medical morning. Branch levothyroxi Yes 175ug Take 175 U nivers ne 175 mcg 5-15 mcg by ity of tablet 11:14: mouth [place] 43 every Medical morning. Branch oxybutynin Yes Univers XL 5 mg 24 5-14 ity of hr tablet 00:00: [place] 00 [facility] oxybutynin Yes Univers XL 5 mg 24 5-14 ity of hr tablet 00:00: [address] oxybutynin Yes Univers XL 5 mg 24 5-14 ity of hr tablet 00:00: [place] 00 [facility] oxybutynin Yes Univers XL 5 mg 24 5-14 ity of hr tablet 00:00: [address] oxybutynin Yes Univers XL 5 mg 24 5-14 ity of hr tablet 00:00: [place] 00 [facility] oxybutynin Yes Univers XL 5 mg 24 5-14 ity of hr tablet 00:00: [address] oxybutynin Yes Univers XL 5 mg 24 5-14 ity of hr tablet 00:00: [place] 00 [facility] oxybutynin Yes Univers XL 5 mg 24 5-14 ity of hr tablet 00:00: [place] 00 [facility] oxybutynin Yes Univers XL 5 mg 24 5-14 ity of hr tablet 00:00: [place] 00 [facility] oxybutynin 2018 Yes Univers XL 5 mg 24 5-14 ity of hr tablet 00:00: [place] 00 [facility] oxybutynin 2018 Yes Univers XL 5 mg 24 5-14 ity of hr tablet 00:00: [place] 00 [facility] oxybutynin 2018 Yes Univers XL 5 mg 24 5-14 ity of hr tablet 00:00: [place] 00 [facility] oxybutynin 0 Yes Univers XL 5 mg 24 5-14 ity of hr tablet 00:00: [address] oxybutynin 3- No Univer s XL 5 mg 24 5-14 03-21 ity of hr tablet 00:00: 00:00 [place] 00 :00 Medical Branch oxybutynin 2018-0 3- No Univer s XL 5 mg 24 5-14 -21 ity of hr tablet 00:00: 00:00 [place] 00 :00 Medical Branch trimethopri 2018-0 Yes Univer s m 100 mg 4-13 ity of tablet 00:00: [place] 00 Medical Branch trimethopri 2018-0 Yes Univer s m 100 mg 4-13 ity of tablet 00:00: [place] 00 Medical Branch trimethopri 2018-0 Yes Univer s m 100 mg 4-13 ity of tablet 00:00: [place] 00 Medical Branch trimethopri 2018-0 Yes Univer s m 100 mg 4-13 ity of tablet 00:00: [place] 00 Medical Branch trimethopri 2018-0 Yes Univer s m 100 mg 4-13 ity of tablet 00:00: [place] 00 Medical Branch trimethopri 2018-0 Yes Univer s m 100 mg 4-13 ity of tablet 00:00: [place] 00 Medical Branch trimethopri 2018-0 Yes Univer s m 100 mg 4-13 ity of tablet 00:00: [place] 00 Medical Branch trimethopri 2018-0 Yes Univer s m 100 mg 4-13 ity of tablet 00:00: [place] 00 Medical Branch trimethopri 2018-0 Yes Univer s m 100 mg 4-13 ity of tablet 00:00: [place] 00 Medical Branch trimethopri 2018-0 Yes Univer s m 100 mg 4-13 ity of tablet 00:00: [place] 00 Medical Branch trimethopri 2018-0 Yes Univer s m 100 mg 4-13 ity of tablet 00:00: [place] 00 Medical Branch trimethopri 2018-0 Yes Univer s m 100 mg 4-13 ity of tablet 00:00: [place] 00 Medical Branch trimethopri 2018-0 Yes Univer s m 100 mg 4-13 ity of tablet 00:00: [place] 00 Medical Branch trimethopri 2018-0 2023- No Unive rs m 100 mg 4-13 -21 ity of tablet 00:00: 00:00 [place] 00 :00 Medical Branch trimethopri 2018-0 3- No Unive rs m 100 mg 4-13 -21 ity of tablet 00:00: 00:00 [place] 00 :00 Medical Branch Nitrofurant 2018-0 Yes Univer s oin&Nit. 4-12 ity of Macrocryst 00:00: [place] 100 mg 00 Medical capsule Branch Nitrofurant 2018-0 Yes Justina s oin&Nit. 4-12 ity of Macrocryst 00:00: [place] 100 mg 00 Medical capsule Branch Nitrofurant 2018-0 Yes Univmartha s oin&Nit. 4-12 ity of Macrocryst 00:00: [place] 100 mg 00 Medical capsule Branch Nitrofurant 2018-0 Yes Justina s oin&Nit. 4-12 ity of Macrocryst 00:00: [place] 100 mg 00 Medical capsule Branch Nitrofurant 2018-0 Yes Justina s oin&Nit. 4-12 ity of Macrocryst 00:00: [place] 100 mg 00 Medical capsule Branch Nitrofurant 2018-0 Yes Justina s oin&Nit. 4-12 ity of Macrocryst 00:00: [place] 100 mg 00 Medical capsule Branch Nitrofurant 2018-0 Yes Justina s oin&Nit. 4-12 ity of Macrocryst 00:00: [place] 100 mg 00 Medical capsule Branch Nitrofurant 2018-0 Yes Justina s oin&Nit. 4-12 ity of Macrocryst 00:00: [place] 100 mg 00 Medical capsule Branch Nitrofurant 2018-0 Yes Justina s oin&Nit. 4-12 ity of Macrocryst 00:00: [place] 100 mg 00 Medical capsule Branch Nitrofurant 2018-0 Yes Justina s oin&Nit. 4-12 ity of Macrocryst 00:00: [place] 100 mg 00 Medical capsule Branch Nitrofurant 2018-0 Yes Justina s oin&Nit. 4-12 ity of Macrocryst 00:00: [place] 100 mg 00 Medical capsule Branch Nitrofurant 2018-0 Yes Justina s oin&Nit. 4-12 ity of Macrocryst 00:00: [place] 100 mg 00 Medical capsule Branch Nitrofurant 2018-0 Yes Justina s oin&Nit. 4-12 ity of Macrocryst 00:00: [place] 100 mg 00 Medical capsule Branch Nitrofurant 2018-0 2022- No Unive rs oin&Nit. 4-12 06-22 ity of Macrocryst 00:00: 00:00 [place] 100 mg 00 :00 Medical capsule Branch Nitrofurant 2018-0 2022- No Unive rs oin&Nit. 4-12 -21 ity of Macrocryst 00:00: 00:00 [place] 100 mg 00 :00 Medical capsule Branch predniSONE 2017-0 Yes 20 mg = 2 Me moria 10 mg oral 4-11 tab, PO, l tablet 19:53: Daily, # [place] 00 60 tab, 1 Refill(s), Pharmacy: [id number] HR Yes 25 mg = 1 [place] mirabegron 3-30 tab, PO, l 25 MG 15:02: Daily, # [place] Extended 00 30 tab, 5 Release Refill(s) Tablet [Myrbetriq] oxybutynin Yes 5 mg = 1 Mem oria 5 mg oral 2-27 tab, PO, l tablet, 17:02: Daily, # [place] Angel n extended 00 30 tab, 3 release Refill(s), Pharmacy: [facility] [id number] Diclofenac 2016-04 Yes Apply Univer s Sodium 1 % 1-28 1gram to ity o f gel 00:00: affected [place] 00 area twice Medical daily Branch Diclofenac 2017 Yes Apply Univer s Sodium 1 % 1-28 1gram to ity o f gel 00:00: affected 00 area twice Medical daily Branch Diclofenac 2017- Yes Apply Univer s Sodium 1 % 1-28 1gram to ity o f gel 00:00: [place] 00 area twice Medical daily Branch Diclofenac 2017- Yes Apply Univer s Sodium 1 % 1-28 1gram to ity o f gel 00:00: affected 00 area twice Medical daily Branch Diclofenac 2017- Yes Apply Univer s Sodium 1 % 1-28 1gram to ity o f gel 00:00: affected [place] 00 area twice Medical daily Branch Diclofenac 2016- Yes Apply Univer s Sodium 1 % 1-28 1gram to ity o f gel 00:00: affected [place] 00 area twice Medical daily Branch Diclofenac 2016- Yes Apply Univer s Sodium 1 % 1-28 1gram to ity o f gel 00:00: affected [place] 00 area twice Medical daily Branch Diclofenac 2016-04 Yes Apply Univer s Sodium 1 % 1-28 1gram to ity o f gel 00:00: affected 00 area twice Medical daily Branch Diclofenac 2016-04 Yes Apply Univer s Sodium 1 % 1-28 1gram to ity o f gel 00:00: affected [place] 00 area twice Medical daily Branch Diclofenac 2016-04 Yes Apply Univer s Sodium 1 % 28 1gram to ity o f gel 00:00: affected [place] 00 area twice Medical daily Branch Diclofenac 2016-04 Yes Apply Univer s Sodium 1 % 128 1gram to ity o f gel 00:00: affected [place] 00 area twice Medical daily Branch Diclofenac 2016-04 Yes Apply Univer s Sodium 1 % 28 1gram to ity o f gel 00:00: affected [place] 00 area twice Medical daily Branch Diclofenac 2016-04 Yes Apply Univer s Sodium 1 % 28 1gram to ity o f gel 00:00: affected [place] 00 area twice Medical daily Branch Diclofenac 2016-04- No Apply Unive rs Sodium 1 % 05-01 1gram to ity of gel 00:00: 00:00 affected [place] 00 :00 area twice Medical daily Branch Diclofenac 2016-04- No Apply Unive rs Sodium 1 % 05-01 1gram to ity of gel 00:00: 00:00 affected [place] 00 :00 area twice Medical daily Branch glimepiride 2016-04 Yes 1mg Take 1 mg U nivers 1 mg tablet 1-09 by mouth ity of 13:22: daily with [place] 04 breakfast. Medical Branch glimepiride 2016-04 Yes 1mg Take 1 mg U nivers 1 mg tablet 1-09 by mouth ity of 13:22: daily with [place] 04 breakfast. Medical Branch glimepiride 2016-04 Yes 1mg Take 1 mg U nivers 1 mg tablet 1-09 by mouth ity of 13:22: daily with [place] 04 breakfast. Medical Branch glimepiride 2016-04 Yes 1mg Take 1 mg U nivers 1 mg tablet 1-09 by mouth ity of 13:22: daily with [place] 04 breakfast. Medical Branch glimepiride 2016-04 Yes 1mg Take 1 mg U nivers 1 mg tablet 1-09 by mouth ity of 13:22: daily with [place] 04 breakfast. Medical Branch glimepiride 2016-04 Yes 1mg Take 1 mg U nivers 1 mg tablet 1-09 by mouth ity of 13:22: daily with [place] 04 breakfast. Medical Branch glimepiride 2016-04 Yes 1mg Take 1 mg U nivers 1 mg tablet 1-09 by mouth ity of 13:22: daily with [place] 04 breakfast. Medical Branch glimepiride 2016-04 Yes 1mg Take 1 mg U nivers 1 mg tablet 1-09 by mouth ity of 13:22: daily with [place] 04 breakfast. Medical Branch glimepiride 2016-04 Yes 1mg Take 1 mg U nivers 1 mg tablet 1-09 by mouth ity of 13:22: daily with [place] 04 breakfast. [facility] Branch glimepiride 2016-04 Yes 1mg Take 1 mg U nivers 1 mg tablet 1-09 by mouth ity of 13:22: daily with [place] 04 breakfast. [facility] Branch glimepiride 2016-04 Yes 1mg Take 1 mg U nivers 1 mg tablet 1-09 by mouth ity of 13:22: daily with [place] 04 breakfast. [facility] Branch glimepiride 2016-04 Yes 1mg Take 1 mg U nivers 1 mg tablet 1-09 by mouth ity of 13:22: daily with [place] 04 breakfast. [facility] Branch glimepiride 2016-04 Yes 1mg Take 1 mg U nivers 1 mg tablet 1-09 by mouth ity of 13:22: daily with [place] 04 breakfast. Medical Branch predniSONE 2016-04 Yes 10mg Take 1 Unive rs 10 mg 1-09 tablet by ity of tablet 00:00: mouth [place] 00 daily. 1 Medical tablet Branch daily predniSONE 2016-04 Yes 10mg Take 1 Unive rs 10 mg 1-09 tablet by ity of tablet 00:00: mouth [place] 00 daily. 1 Medical tablet Branch daily predniSONE 2016-04 Yes 10mg Take 1 Unive rs 10 mg 1-09 tablet by ity of tablet 00:00: mouth [place] 00 daily. 1 Medical tablet Branch daily predniSONE 2016-04 Yes 10mg Take 1 Unive rs 10 mg 1-09 tablet by ity of tablet 00:00: mouth [place] 00 daily. 1 Medical tablet Branch daily predniSONE 2016-04 Yes 10mg Take 1 Unive rs 10 mg 1-09 tablet by ity of tablet 00:00: mouth [place] 00 daily. 1 Medical tablet Branch daily predniSONE 2016-04 Yes 10mg Take 1 Unive rs 10 mg 1-09 tablet by ity of tablet 00:00: mouth [place] 00 daily. 1 Medical tablet Branch daily predniSONE 2016-04 Yes 10mg Take 1 Unive rs 10 mg 1-09 tablet by ity of tablet 00:00: mouth [place] 00 daily. 1 Medical tablet Branch daily predniSONE 2016-04 Yes 10mg Take 1 Unive rs 10 mg 1-09 tablet by ity of tablet 00:00: mouth [place] 00 daily. 1 Medical tablet Branch daily predniSONE 2016-04 Yes 10mg Take 1 Unive rs 10 mg 1-09 tablet by ity of tablet 00:00: mouth [place] 00 daily. 1 Medical tablet Branch daily predniSONE 2016-04 Yes 10mg Take 1 Unive rs 10 mg 1-09 tablet by ity of tablet 00:00: mouth [place] 00 daily. 1 Medical tablet Branch daily predniSONE 2016-04 Yes 10mg Take 1 Unive rs 10 mg 1-09 tablet by ity of tablet 00:00: mouth [place] 00 daily. 1 Medical tablet Branch daily predniSONE 2016-04 Yes 10mg Take 1 Unive rs 10 mg 1-09 tablet by ity of tablet 00:00: mouth [place] 00 daily. 1 Medical tablet Branch daily predniSONE 2016-04 Yes 10mg Take 1 Unive rs 10 mg 1-09 tablet by ity of tablet 00:00: mouth [place] 00 daily. 1 Medical tablet Branch daily predniSONE 2016-04- No 10mg Take 1 Univ ers 10 mg -09 -21 tablet by ity of tablet 00:00: 00:00 mouth [place] 00 :00 daily. 1 Medical tablet Branch daily predniSONE 2016-04- No 10mg Take 1 Univ ers 10 mg -09 -21 tablet by ity of tablet 00:00: 00:00 mouth [place] 00 :00 daily. 1 Medical tablet Branch daily naproxen Yes [facility] 500 mg 8-05 ity of tablet 00:00: [place] 00 Medical Branch naproxen Yes [facility] 500 mg 8-05 ity of tablet 00:00: [place] 00 Medical Branch naproxen Yes [facility] 500 mg 8-05 ity of tablet 00:00: [place] 00 Medical Branch naproxen Yes [facility] 500 mg 8-05 ity of tablet 00:00: [place] 00 Medical Branch naproxen Yes [facility] 500 mg 8-05 ity of tablet 00:00: [place] 00 Medical Branch naproxen Yes [facility] 500 mg 8-05 ity of tablet 00:00: [place] 00 Medical Branch naproxen Yes Univers 500 mg 8-05 ity of tablet 00:00: [place] 00 Medical Branch naproxen 0 Yes Univers 500 mg 8-05 ity of tablet 00:00: [place] [facility] naproxen 0 Yes Univers 500 mg 8-05 ity of tablet 00:00: [place] [facility] naproxen 0 Yes Univers 500 mg 8-05 ity of tablet 00:00: [place] [facility] naproxen 0 Yes [facility] 500 mg 8-05 ity of tablet 00:00: [place] [facility] naproxen 0 Yes Univers 500 mg 8-05 ity of tablet 00:00: [place] [facility] naproxen 0 Yes Univers 500 mg 8-05 ity of tablet 00:00: [place] [facility] Branch naproxen 0 2023- No Univers 500 mg 8-05 03-21 ity of tablet 00:00: 00:00 [place] 00 :00 Medical Branch naproxen 0 2023- No Univers 500 mg 8-05 03-21 ity of tablet 00:00: 00:00 [place] 00 :00 Medical Branch cephalexin 0 Yes 500 mg = 2 M emoria 250 mg oral 5-24 cap, PO, l capsule 00:35: BID, X 10 Krystle nn 00 day, # 40 cap, 0 Refill(s) erythromyci 2014-04 Yes .5[in_u Place 0.5 Univers n 2-03 s] Inches in ity of (ILOTYCIN) 00:00: right eye [place] 5 mg/gram 00 4 (four) Medica l (0.5 %) times Branch ophthalmic daily. ointment erythromyci 2014-04 Yes .5[in_u Place 0.5 Univers n 2-03 s] Inches in ity of (ILOTYCIN) 00:00: right eye [place] 5 mg/gram 00 4 (four) Medica l (0.5 %) times Branch ophthalmic daily. ointment erythromyci 2014-04 Yes .5[in_u Place 0.5 Univers n 2-03 s] Inches in ity of (ILOTYCIN) 00:00: right eye [place] 5 mg/gram 00 4 (four) Medica l (0.5 %) times Branch ophthalmic daily. ointment erythromyci 2014-04 Yes .5[in_u Place 0.5 Univers n 2-03 s] Inches in ity of (ILOTYCIN) 00:00: right eye [place] 5 mg/gram 00 4 (four) Medica l (0.5 %) times Branch ophthalmic daily. ointment erythromyci 2014-04 Yes .5[in_u Place 0.5 Univers n 2-03 s] Inches in ity of (ILOTYCIN) 00:00: right eye [place] 5 mg/gram 00 4 (four) Medica l (0.5 %) times Branch ophthalmic daily. ointment erythromyci 2014-04 Yes .5[in_u Place 0.5 Univers n 2-03 s] Inches in ity of (ILOTYCIN) 00:00: right eye [place] 5 mg/gram 00 4 (four) Medica l (0.5 %) times Branch ophthalmic daily. ointment erythromyci 2014-04 Yes .5[in_u Place 0.5 Univers n 2-03 s] Inches in ity of (ILOTYCIN) 00:00: right eye [place] 5 mg/gram 00 4 (four) Medica l (0.5 %) times Branch ophthalmic daily. ointment erythromyci 2014-04 Yes .5[in_u Place 0.5 Univers n 2-03 s] Inches in ity of (ILOTYCIN) 00:00: right eye [place] 5 mg/gram 00 4 (four) Medica l (0.5 %) times Branch ophthalmic daily. ointment erythromyci 2014-04 Yes .5[in_u Place 0.5 Univers n 2-03 s] Inches in ity of (ILOTYCIN) 00:00: right eye [place] 5 mg/gram 00 4 (four) Medica l (0.5 %) times Branch ophthalmic daily. ointment erythromyci 2014-04 Yes .5[in_u Place 0.5 Univers n 2-03 s] Inches in ity of (ILOTYCIN) 00:00: right eye [place] 5 mg/gram 00 4 (four) Medica l (0.5 %) times Branch ophthalmic daily. ointment erythromyci 2014-04 Yes .5[in_u Place 0.5 Univers n 2-03 s] Inches in ity of (ILOTYCIN) 00:00: right eye [place] 5 mg/gram 00 4 (four) Medica l (0.5 %) times Branch ophthalmic daily. ointment erythromyci 2014-04 Yes .5[in_u Place 0.5 Univers n 2-03 s] Inches in ity of (ILOTYCIN) 00:00: right eye [place] 5 mg/gram 00 4 (four) Medica l (0.5 %) times Branch ophthalmic daily. ointment erythromyci 2014-04 Yes .5[in_u Place 0.5 Univers n 2-03 s] Inches in ity of (ILOTYCIN) 00:00: right eye [place] 5 mg/gram 00 4 (four) Medica l (0.5 %) times Branch ophthalmic daily. ointment erythromyci 2014-04- No .5[in_u Place 0.5 Univers n 05-07 s] Inches in ity of (ILOTYCIN) 00:00: 00:00 right eye [place] 5 mg/gram 00 :00 4 (four) Medica l (0.5 %) times Branch ophthalmic daily. ointment erythromyci 2014-04- No .5[in_u Place 0.5 Univers n 05-07 s] Inches in ity of (ILOTYCIN) 00:00: 00:00 right eye [place] 5 mg/gram 00 :00 4 (four) Medica l (0.5 %) times Branch ophthalmic daily. ointment Colace 100 Yes Namrata 100 mg, 1 Memoria mg oral 04-21 Jyothi Phuc cap, PO, l capsule 17:55: BID, 60 [place] 27 cap, Substituti on Allowed, CAP [place] Yes Namrata 1 tab, PO, Me moria 10/325 oral 04-21 Jyothi Phuc Q4H, PRN, l tablet 17:55: 45 tab, as Krystle nn 22 needed for pain, Substituti on Allowed, Maintenanc e, TAB fenofibrate No Namrata 80 mg, 0.5 Memoria 160 mg oral 04-21 Jyothi Phuc tab, l tablet 15:00: Route: PO, Krystle nn 00 Drug form: TAB, Daily, Dosing Weight 93.182, kg, Start date: 04/21/12 9:00:00, Duration: 30 day, Stop date: 05/20/12 9:00:00 glipiZIDE 5 2012-0 No Namrata 5 mg, 1 Memoria mg oral 04-20 Jyothi Phuc tab, l tablet, 20:00: Route: PO, Herm jyothi extended 00 Drug form: release ERTAB, BID, Dosing Weight 93.182, kg, Start date: 04/20/12 14:00:00, Duration: 30 day, Stop date: 05/20/12 9:00:00 glipiZIDE 5 2012- Yes 5 mg, 1 Mem oria mg oral 04-20 tab, PO, l tablet, 19:56: BID, 30 Domingo extended 08 tab, release Substituti on Allowed Trajenta 2012- No Namrata Trajenta M emoria (Linaglipti 04-20 Jyothi Phuc (Linaglipt l n) 5 mg 19:00: in) 5 mg Jose Angel n tablet 00 tablet, 5 mg, Drug form: MISC, Route: PO, Daily, 04/20/12 13:00:00, Duration: 30 day, Stop date: 05/20/12 9:00:00 linagliptin 2012- No Namrata 5 mg, M emoria 04-20 Jyothi Phuc Route: PO, l 17:35: Drug form: [place] 00 TAB, Daily, Dosing Weight 93.182, kg, Priority: NOW, Start date: 04/20/12 11:35:00 glipiZIDE 2012- No Namrata 10 mg, Me moria 04-20 Jyothi Phuc Route: PO, l 17:35: Daily, Dom[place] 00 Dosing Weight 93.182, kg, Priority: NOW, Start date: 04/20/12 11:35:00, Duration: 30 day, Stop date: 05/20/12 9:00:00 bisacodyl 2012-0 No [place] 10 mg, 1 Memoria 17 Jose supp, l 10:34: [place] Route: [place], He rmann Drug form: SUPP, Daily, Dosing Weight 93.182, kg, PRN as needed for constipati on, Start date: 04/20/12 4:34:00, Duration: 30 day, Stop date: 05/20/12 4:33:00 Zofran 2012-0 No Gertrudis 4 mg, 2 Memori a 1-17 Jena mL, Route: l 03:20: Foster IV, Drug [place] 00 form: INJ, Q6H, Dosing Weight 93.182, kg, PRN Nausea, Start date: 04/19/12 21:20:00, Duration: 30 day, Stop date: 05/19/12 21:19:00 [place] 2012-0 No Jerry W 1 tab, Memoria 10/325 oral 1-17 [place] Route: PO, l tablet 02:00: Drug Form: Krystle nn 00 TAB, Dosing Weight 93.182, kg, Q4H, Start date: 04/19/12 20:00:00, Duration: 30 day, Stop date: 05/19/12 16:00:00 [place] 2012-0 No Jerry W 1 tab, Memoria 10/325 oral 1-17 [place] Route: PO, l tablet 00:56: Drug Form: Krystle nn 00 TAB, Dosing Weight 93.182, kg, Q4H, PRN Pain, Start date: 04/19/12 18:56:00, Duration: 30 day, Stop date: 05/19/12 18:55:00 cefazolin + 2012-0 No Wily 2 gm, Me moria Sodium -16 Jayjay Route: l Chloride 22:00: Devon IVPB, Domingo 0.9% IV 100 00 ABXQ8H, mL Start date: 04/19/12 16:00:00, Duration: 24 hr, Stop date: 04/20/12 8:00:00 influenza 2012- No Wily 0.5 mL, Me moria virus 1-16 Jayjay Route: IM, l vaccine 21:52: Devon Drug Form: Her travis intramuscul 00 INJ, ONCE, ar Start suspension date: 04/19/12 15:52:00, Stop date: 04/19/12 15:52:00 magnesium 2012-0 No Namrata 2 gm, 50 Memoria sulfate 1-16 Jyothi Phuc mL, Route: l 20:00: IVPB, Drug [place] 00 form: INJ, Q2H, Dosing Weight 93.182, kg, Total dose = 4 gm, Start date: 04/19/12 14:00:00, Duration: 2 doses or times, Stop date: 04/19/12 16:00:00 ropivacaine 2012-0 No Oludayo A 320 mL, Memoria 1% 800 mg + 1-16 Adeyefa Rate: 8 l Q-Pump 1 ea 18:18: ml/hr, Herm jyothi + Sodium 00 Infuse Chloride over: 50 0.9% IV 320 hr, Route: mL NERVE BLOCK, kg, Total Volume: 400, Start date: 04/19/12 12:18:00, Duration: 7 day, Stop date: 05/03/12 12:17:00 ropivacaine 2012-0 No Oludayo A 320 mL, Memoria 800 mg + 1-16 Adeyefa Rate: 8 l Q-Pump 1 ea 17:54: ml/hr, Herm jyothi + Sodium 00 Infuse Chloride over: 40 0.9% hr, Dosing (titrate) Weight 320 mL 93.182, kg, Route: NERVE BLOCK, Total Volume: 320 mL, Duration: 30 day, Stop date: 05/19/12 11:54:00, Replace Every: 24 hr flumazenil 2012- No Marlo 0.2 mg, 2 M emoria 1-16 Jose mL, Route: l 16:06: Cebe IVP, Drug form: INJ, PRN, Dosing Weight 93.182, kg, PRN Benzodiaze pine Reversal, Initial dose, Start date: 04/19/12 10:06:00, Stop date: 04/20/12 0:00:00 hydromorpho 2012-0 No Marlo 0.5 mg, Me moria ne 1-16 Jose 0.25 mL, l 16:06: Cebe Route: Domingo 00 IVP, Drug form: INJ, Q5Min, Dosing Weight 93.182, kg, PRN Pain Score 4-6, Start date: 04/19/12 10:06:00, Duration: 5 doses or times, Stop date: 04/20/12 0:00:00 naloxone 2012-0 No Marlo 0.04 mg, Zheng dinah 1-16 Jose 0.1 mL, l 16:06: Cebe Route: [place] 00 IVP, Drug form: INJ, Q2MIN, Dosing Weight 93.182, kg, PRN Narcotic Reversal, Start date: 04/19/12 10:06:00, Duration: 8 doses or times, Stop date: 04/20/12 0:00:00 ondansetron 2012- No Marlo 4 mg, 2 Me moria 1-16 Jose mL, Route: l 16:06: Cebe IVP, Drug form: INJ, ONCE, Dosing Weight 93.182, kg, PRN Nausea & Vomiting, Start date: 04/19/12 10:06:00 Ancef 2012-0 No Wily 2 gm, Memoria -16 Jayjay Route: l 16:00: Devon IVPB, [place] ABXQ8H, Dosing Weight 93.182, kg, Start date: 04/19/12 10:00:00, Duration: 24 hr, Stop date: 04/20/12 2:00:00 Colace 100 2012-0 No Sherly 100 mg, 1 Memoria mg oral 1-16 Bernadette cap, l capsule 15:00: Cynthia Route: PO, Her travis 00 Boyd Drug form: CAP, BID, Dosing Weight 93.182, kg, Start date: 04/19/12 9:00:00, Duration: 30 day, Stop date: 05/18/12 17:00:00 multivitami No Sherly 1 tab, Memoria n 1-16 Bernadette Route: PO, l 15:00: Cynthia Drug Form: Jose Angel n 00 [place] TAB, Dosing Weight 93.182, kg, Daily, Start date: 04/19/12 9:00:00, Duration: 30 day, Stop date: 05/18/12 9:00:00 fenofibrate No Namrata 96 mg, 2 Memoria 1-16 Jyothi Phuc tab, l 15:00: Route: PO, [place] 00 Drug form: TAB, Daily, Dosing Weight 93.182, kg, Start date: 04/19/12 9:00:00, Duration: 30 day, Stop date: 05/18/12 9:00:00 levothyroxi 0 No Sherly 150 M emoria ne 1-16 Bernadette microgram, l 15:00: Cynthia 1 tab, Domingo 00 [place] Route: PO, Drug form: TAB, Q630AM, Dosing Weight 93.182, kg, Start date: 04/19/12 9:00:00, Stop date: 05/18/12 6:30:00 influenza 2012- No SYSTEM 0.5 ml, Mem oria virus 1-16 SYSTEM Route: IM, l vaccine, 15:00: Drug Form: Her travis inactivated 00 INJ, Start date: 04/19/12 9:00:00, Stop date: 04/19/12 9:00:00 magnesium 2012-0 No Namrata 2 gm, 50 Memoria sulfate 1-16 Jyothi Phuc mL, Route: l 14:00: IVPB, Drug [place] 00 form: INJ, Q2H, Dosing Weight 93.182, kg, Total dose = 4 gm, Start date: 04/19/12 8:00:00, Duration: 2 doses or times, Stop date: 04/19/12 10:00:00 Levothroid 2012- No Sherly 25 Me moria 1-16 Bernadette microgram, l 12:30: Cynthia 1 tab, Domingo 00 [place] Route: PO, Drug form: TAB, Q630AM, Start date: 04/19/12 6:30:00, Duration: 30 day, Stop date: 05/18/12 6:30:00 Sodium 2012-0 No Namrata 1,000 mL, Me moria Chloride 1-16 Jyothi Phuc Rate: 100 l 0.9% IV 05:59: ml/hr, [place] 1,000 mL 00 Infuse over: 10 hr, Route: IV, kg, Total Volume: 1,000, Start date: 04/18/12 23:59:00, Duration: 30 day, Stop date: 05/18/12 23:58:00 clonazepam 2012-0 No Delores Melba 0.25 mg, Memoria 1-16 Do Eng 0.5 tab, l 05:18: Route: PO, [place] 00 Drug form: TAB, TID, Dosing Weight 93.182, kg, PRN Anxiety, Start date: 04/18/12 23:18:00, Duration: 30 day, Stop date: 05/18/12 23:17:00 Lovenox 2012-0 No Sherly 40 mg, 0.4 Memoria 1-16 Bernadette mL, Route: l 02:00: Cynthia SUB-Q, [place] 00 [place] Drug form: INJ, Q24H, Dosing Weight 93.182, kg, Start date: 04/18/12 20:00:00, Duration: 30 day, Stop date: 05/17/12 20:00:00 morphine 2012- No Caroline 4 mg, Zheng dinah Sulfate 1-16 Mckenzie Route: l 01:58: Brown IVP, ONCE, Jose Angel n 00 Dosing Weight 93.182, kg, Start date: 04/18/12 19:58:00, Stop date: 04/18/12 19:58:00 Dextrose 2012- No Sherly 12.5 gm, Memoria 50% Syringe 1-16 Bernadette 25 mL, l 00:58: Cynthia Route: [place] 00 [place] IVP, Drug Form: INJ, Dosing Weight 93.182, kg, PRN, PRN Blood Glucose Results, Start date: 04/18/12 18:58:00, Duration: 30 day, Stop date: 05/18/12 18:57:00 glucagon 2012- No Sherly 1 mg, Mem oria 1-16 Bernadette Route: IM, l 00:58: Cynthia Drug form: Jose Angel n 00 [place] PDR/INJ, PRN, Dosing Weight 93.182, kg, PRN Blood Glucose Results, Start date: 04/18/12 18:58:00, Duration: 30 day, Stop date: 05/18/12 18:57:00 insulin No Sherly 10 unit, M emoria aspart 1-16 Bernadette 0.1 mL, l 00:58: Cynthia Route: [place] SUB-Q, Drug form: SOLN, TID-Before Meals, Dosing Weight 93.182, kg, PRN Blood Glucose Results, Start date: 04/18/12 18:58:00, Duration: 30 day, Stop date: 05/18/12 18:57:00 multivitami Yes Sherly Substituti Memoria n 1-16 Bernadette on l 00:47: Cynthia Allowed, [place] 10 [place] Maintenanc e morphine No Jerry W 2 mg, 1 Mem oria Sulfate 1-16 [place] mL, Route: l 00:45: IVP, Drug [place] 00 form: INJ, Q4H, Dosing Weight 93.182, kg, PRN Pain Score 7-10, Start date: 04/18/12 18:45:00, Duration: 30 day, Stop date: 05/18/12 18:44:00 [place] 5/325 2012-0 No Jerry W 1 tab, M emoria oral tablet 1-16 [place] Route: PO, l 00:45: Drug Form: [place] 00 TAB, Dosing Weight 93.182, kg, Q4H, PRN Pain Score 4-6, Start date: 04/18/12 18:45:00, Duration: 30 day, Stop date: 05/18/12 18:44:00 Sodium 2012- No Jean Claude 1,000 mL, Memori a Chloride 1-15 Carl Rate: 100 l 0.9% IV 22:29: Kyara ml/hr, Herm jyothi 1,000 mL 00 Infuse over: 10 hr, Route: IV, kg, Total Volume: 1,000, Start date: 04/18/12 16:29:00, Duration: 30 day, Stop date: 05/18/12 16:28:00 morphine 2012-0 No Marycruz 4 mg, Memor ia Sulfate 1-15 Caroline Route: l 21:22: Berto IVP, Drug Krystle nn 00 form: INJ, ONCE, Dosing Weight 93.182, kg, Priority: STAT, Start date: 04/18/12 15:22:00, Stop date: 04/18/12 15:22:00 metFORmin 2012- Yes 500 mg, Memor ia 1-15 BID, l 21:12: Substituti Domingo 25 on Allowed levothyroxi Yes 175 Memori a ne 1-15 microgram, l 21:12: Substituti Domingo 18 on Allowed fenofibrate Yes 80 mg, PO, Memoria 1-15 Daily, l 21:12: Substituti Domingo 13 on Allowed Tradjenta 5 0 Yes 5 mg, 1 Mem oria mg oral 1-15 tab, PO, l tablet 21:12: Daily, Domingo 05 Substituti on Allowed glipiZIDE No 10 mg, Memori a 1-15 Substituti l 21:11: on Allowed Domingo 57 piroxicam Yes 20 mg, Memori a 1-15 PRN, as l 21:11: needed for [place] 51 arthritis, Substituti on Allowed Myrbetriq Myrbetriq Yes Jona not Com yves Parnell defined [facility] Immunizations Ordered Filled Immunization Date Status Comments Sour e Immunization Name Name influenza, seasonal 2022-01-13 Completed vaccine, 00:00:00 quadrivalent, adjuvanted, .5mL dose, preservative-free [id number] Unknown Completed Memor ial [id number] Krystle nn ER [id number] Unknown Completed Memor ial [id number] Krystle nn ER [id number] Unknown Completed Memor ial [id number] Krystle nn ER influenza virus Unknown Completed [facility] vaccine, [place] inactivated<sup>1</ sup> influenza virus Unknown Completed [facility] vaccine, [place] inactivated influenza virus Unknown Completed [facility] vaccine, [place] inactivated Vital Signs Vital Name Observation Time Observation Value Comments Source Systolic blood 2022-06-22 19:45:00 147 mm[Hg] [facility] Diastolic blood 2022-06-22 19:45:00 75 mm[Hg] [facility] Heart rate 2022-06-22 19:45:00 57 /min [facility] Body height 2022-06-22 19:45:00 165.1 cm [facility] Body weight 2022-06-22 19:45:00 73.936 kg [facility] BMI 2022-06-22 19:45:00 27.12 kg/m2 [facility] Oxygen saturation in 2022-06-22 19:45:00 99 /min [facility] Arterial blood by [facility] Pulse oximetry Branch Systolic blood 2021-12-21 21:35:00 136 mm[Hg] [facility] Diastolic blood 2021-12-21 21:35:00 75 mm[Hg] [facility] Heart rate 2021-12-21 21:35:00 54 /min [facility] Body height 2021-12-21 21:35:00 165.1 cm [facility] Body weight 2021-12-21 21:35:00 69.854 kg [facility] BMI 2021-12-21 21:35:00 25.63 kg/m2 [facility] Oxygen saturation in 2021-12-21 21:35:00 98 /min [facility] P[facility] Systolic blood 2021-11-17 21:10:00 138 mm[Hg] [facility] Diastolic blood 2021-11-17 21:10:00 81 mm[Hg] [facility] Heart rate 2021-11-17 21:10:00 70 /min [facility] Body height 2021-11-17 21:10:00 165.1 cm [facility] Body weight 2021-11-17 21:10:00 69.4 kg [facility] BMI 2021-11-17 21:10:00 25.46 kg/m2 [facility] Oxygen saturation in 2021-11-17 21:10:00 98 /min [facility] Pulse oxim[facility] BP Systolic 2022-01-13 11:42:00 160 mm[Hg] BP Diastolic 2022-01-13 11:42:00 82 mm[Hg] Weight Measured 2022-01-13 11:42:00 151.40 pounds Height Measured 2022-01-13 11:42:00 64.17 inches Body Temperature 2022-01-13 11:42:00 98.70 degrees Heart Rate 2022-01-13 11:42:00 60.00 /min Respiratory Rate 2022-01-13 11:42:00 BP Systolic 2021-10-07 17:36:00 148 mm[Hg] BP Diastolic 2021-10-07 17:36:00 87 mm[Hg] Weight Measured 2021-10-07 17:36:00 151.00 pounds Height Measured 2021-10-07 17:36:00 64.17 inches Body Temperature 2021-10-07 17:36:00 98.20 degrees Heart Rate 2021-10-07 17:36:00 85.00 /min Respiratory Rate 2021-10-07 17:36:00 BP Systolic 2021-09-09 13:36:00 142 mm[Hg] BP Diastolic 2021-09-09 13:36:00 85 mm[Hg] Weight Measured 2021-09-09 13:36:00 157.80 pounds Height Measured 2021-09-09 13:36:00 64.17 inches Body Temperature 2021-09-09 13:36:00 98.00 degrees Heart Rate 2021-09-09 13:36:00 71.00 /min Respiratory Rate 2021-09-09 13:36:00 Temperature Oral (F) 2021-03-19 20:10:00 98.7 F [facility] Heart Rate 2021-03-19 20:10:00 [facility] [place] Systolic (mm Hg) 2021-03-19 20:10:00 Zheng rial [place] Diastolic (mm Hg) 2021-03-19 20:10:00 Mem orial [place] Height 2021-03-19 20:10:00 170.18 cm [facility] [place] Weight 2021-03-19 20:10:00 [facility] [place] BMI Calculated 2021-03-19 20:10:00 Memori al [place] Systolic (mm Hg) 2020-12-29 15:18:00 Zheng rial [place] Diastolic (mm Hg) 2020-12-29 15:18:00 Mem orial [place] Heart Rate 2020-12-29 15:18:00 [facility] [place] Temperature Oral (F) 2020-12-29 15:18:00 98.7 F [facility] [place] Height 2020-12-29 15:18:00 170.18 cm [facility] [place] Weight 2020-12-29 15:18:00 [facility] [place] BMI Calculated 2020-12-29 15:18:00 Memori al [place] Systolic (mm Hg) 2019-10-09 18:14:00 Zheng rial [place] Diastolic (mm Hg) 2019-10-09 18:14:00 Mem orial [place] Heart Rate 2019-10-09 18:14:00 [facility] [place] Temperature Oral (F) 2019-10-09 18:14:00 97.9 F [facility] [place] Height 2019-10-09 18:14:00 170.18 cm [facility] [place] Weight 2019-10-09 18:14:00 [facility] [place] BMI Calculated 2019-10-09 18:14:00 Memori al [place] Systolic (mm Hg) 2019-01-30 19:04:00 Zheng rial [place] Diastolic (mm Hg) 2019-01-30 19:04:00 Mem orial [place] Heart Rate 2019-01-30 19:04:00 [facility] [place] Temperature Oral (F) 2019-01-30 19:04:00 98.6 F [facility] [place] Height 2019-01-30 19:04:00 170.18 cm [facility] [place] Weight 2019-01-30 19:04:00 [facility] [place] BMI Calculated 2019-01-30 19:04:00 Memori al [place] BMI Calculated 2018-09-05 19:46:00 [facility] al [place] Weight 2018-09-05 19:46:00 [facility] [place] Systolic (mm Hg) 2018-09-05 19:46:00 Zheng rial [place] Diastolic (mm Hg) 2018-09-05 19:46:00 Mem orial [place] Height 2018-09-05 19:46:00 170.18 cm [facility] Heart Rate 2018-09-05 19:46:00 [facility] [place] Temperature Oral (F) 2018-09-05 19:46:00 98.1 F [facility] [place] Respitory Rate 2018-09-05 19:46:00 Memori al [place] Temperature Oral (F) 2018-07-27 14:17:00 97.6 F [facility] Heart Rate 2018-07-27 14:17:00 [facility] [place] Height 2018-07-27 14:17:00 170.18 cm [facility] [place] Weight 2018-07-27 14:17:00 [facility] BMI Calculated 2018-07-27 14:17:00 [facility] [place] Systolic (mm Hg) 2018-07-27 14:17:00 Zheng rial [place] Diastolic (mm Hg) 2018-07-27 14:17:00 Mem orial [place] Systolic (mm Hg) 2018-06-01 17:05:00 Zheng rial [place] Diastolic (mm Hg) 2018-06-01 17:05:00 Mem orial [place] Temperature Oral (F) 2018-06-01 17:05:00 98.1 F [facility] [place] Heart Rate 2018-06-01 17:05:00 [facility] [place] Height 2018-06-01 17:05:00 170.18 cm [facility] [place] BMI Calculated 2018-05-29 16:51:00 Memori al [place] Weight 2018-05-29 16:51:00 [facility] [place] Height 2018-05-29 16:51:00 165.1 cm [facility] [place] Systolic (mm Hg) 2018-05-29 16:51:00 Zheng rial [place] Diastolic (mm Hg) 2018-05-29 16:51:00 Mem orial [place] Heart Rate 2018-05-29 16:51:00 [facility] [place] BMI Calculated 2018-04-25 16:38:00 Memori al [place] Weight 2018-04-25 16:38:00 [facility] [place] Height 2018-04-25 16:38:00 170.18 cm [facility] [place] Systolic (mm Hg) 2018-04-25 16:38:00 Zheng rial [place] Diastolic (mm Hg) 2018-04-25 16:38:00 Mem orial [place] Heart Rate 2018-04-25 16:38:00 [facility] [place] Temperature Oral (F) 2018-04-25 16:38:00 97.8 F [facility] Weight 2018-03-01 15:52:00 [facility] BMI Calculated 2018-03-01 15:52:00 Memori al [place] Height 2018-03-01 15:52:00 170.18 cm [facility] [place] Systolic (mm Hg) 2018-03-01 15:52:00 Zheng rial [place] Diastolic (mm Hg) 2018-03-01 15:52:00 Mem orial [place] Heart Rate 2018-03-01 15:52:00 [facility] [place] Temperature Oral (F) 2018-03-01 15:52:00 97.8 F [facility] BMI Calculated 2018-02-15 21:05:00 Memori al [place] Temperature Oral (F) 2018-02-15 21:05:00 98.0 F [facility] Heart Rate 2018-02-15 21:05:00 [facility] [place] Weight 2018-02-15 21:05:00 [facility] [place] Height 2018-02-15 21:05:00 170.18 cm [facility] Systolic (mm Hg) 2018-02-15 21:05:00 Zheng rial [place] Diastolic (mm Hg) 2018-02-15 21:05:00 Mem orial [place] Height 2018-01-25 15:04:00 165.1 cm [facility] Weight 2018-01-25 15:04:00 [facility] [place] BMI Calculated 2018-01-25 15:04:00 Memori al [place] Respitory Rate 2018-01-25 15:04:00 Memori al [place] Systolic (mm Hg) 2018-01-25 15:04:00 Zheng rial [place] Diastolic (mm Hg) 2018-01-25 15:04:00 Mem orial [place] Heart Rate 2018-01-25 15:04:00 [facility] [place] Height 2017-07-01 14:59:00 165.1 cm [facility] BMI Calculated 2017-07-01 14:59:00 Memori al [place] Weight 2017-07-01 14:59:00 [facility] [place] Respitory Rate 2017-07-01 14:59:00 Memori al [place] Systolic (mm Hg) 2017-07-01 14:59:00 Zheng rial [place] Diastolic (mm Hg) 2017-07-01 14:59:00 Mem orial [place] Heart Rate 2017-07-01 14:59:00 [facility] BMI Calculated 2017-05-31 16:35:00 Memori al [place] Weight 2017-05-31 16:35:00 [facility] [place] Systolic (mm Hg) 2017-05-31 16:35:00 Zheng rial [place] Diastolic (mm Hg) 2017-05-31 16:35:00 Mem orial [place] Temperature Oral (F) 2017-05-31 16:35:00 98.5 F [facility] Respitory Rate 2017-05-31 16:35:00 Mem[facility] al [place] Heart Rate 2017-05-31 16:35:00 [facility] [place] Height 2017-05-31 16:35:00 170.18 cm [facility] BMI Calculated 2017-05-23 21:53:00 [facility] [place] Height 2017-05-23 21:53:00 170.18 cm [facility] [place] Weight 2017-05-23 21:53:00 [facility] [place] Height 2017-04-28 18:43:00 165.1 cm [facility] [place] Weight 2017-04-28 18:43:00 [facility] [place] BMI Calculated 2017-04-28 18:43:00 Memori al [place] Heart Rate 2017-04-28 18:43:00 [facility] [place] Respitory Rate 2017-04-28 18:43:00 Memori al [place] Systolic (mm Hg) 2017-04-28 18:43:00 Zheng rial [place] Diastolic (mm Hg) 2017-04-28 18:43:00 Mem orial [place] Weight 2017-03-21 14:25:00 [facility] [place] BMI Calculated 2017-03-21 14:25:00 Memori al [place] Height 2017-03-21 14:25:00 165.1 cm [facility] [place] Respitory Rate 2016-08-25 00:48:00 Memori al [place] Heart Rate 2016-08-25 00:48:00 [facility] [place] Temperature Oral (F) 2016-08-25 00:48:00 97.9 F [facility] Systolic (mm Hg) 2016-08-25 00:48:00 Zheng rial [place] Diastolic (mm Hg) 2016-08-25 00:48:00 Mem o[facility] [place] BMI Calculated 2016-08-24 22:25:00 [facility] al [place] Weight 2016-08-24 22:25:00 [facility] [place] Respitory Rate 2016-08-24 22:25:00 Memori al [place] Systolic (mm Hg) 2016-08-24 22:25:00 Zheng rial [place] Diastolic (mm Hg) 2016-08-24 22:25:00 [facility] Height 2016-08-24 22:25:00 165.1 cm [facility] [place] Temperature Oral (F) 2016-08-24 22:25:00 97.9 F [facility] [place] Heart Rate 2016-08-24 22:25:00 [facility] [place] Heart Rate 2012-04-21 17:39:00 [facility] [place] Temperature Oral (F) 2012-04-21 17:39:00 97.5 F [facility] [place] Systolic (mm Hg) 2012-04-21 17:39:00 [facility] Respitory Rate 2012-04-21 17:39:00 [facility] Diastolic (mm Hg) 2012-04-21 17:39:00 [facility] [place] Heart Rate 2012-04-21 14:00:00 [facility] [place] Respitory Rate 2012-04-21 14:00:00 [facility] Temperature Oral (F) 2012-04-21 14:00:00 98.3 F [facility] [place] Systolic (mm Hg) 2012-04-21 14:00:00 [facility] [place] Diastolic (mm Hg) 2012-04-21 14:00:00 [facility] [place] Respitory Rate 2012-04-21 10:18:00 [facility] [place] Diastolic (mm Hg) 2012-04-21 10:18:00 [facility] [place] Heart Rate 2012-04-21 10:18:00 [facility] [place] Systolic (mm Hg) 2012-04-21 10:18:00 [facility] Temperature Oral (F) 2012-04-21 10:18:00 98.0 F [facility] [place] Height 2012-04-19 05:46:00 162.56 cm [facility] [place] Weight 2012-04-19 05:46:00 [facility] Height 2012-04-18 20:50:00 162.56 cm [facility] [place] Weight 2012-04-18 20:50:00 [facility] [place] Procedures Procedure Date / Time Performing Clinician Source Performed AUTHORIZATION FOR RELEASE 2022-12-17 05:01:00 Doctor Unassigned, [facility] [place] [facility] MR BRAIN WO CONTRAST 2021-12-11 21:33:07 Zack Mallory Un iversity [facility] Colonoscopy 2016-04-04 00:00:00 [facility] travis Cholecystectomy [facility] [place] Tubal ligation [facility] [place] Repair of knee joint [facility] rmann Excision of cyst of [facility] Her travis breast<sup>1</sup> Appendectomy [facility] [place] Tubal ligation [facility] [place] Cholecystectomy [facility] [place] Plan of Care Planned Activity Planned Date Details Comments Source Goal Plan of Care Note [code = 58322-7] Goal Plan of Care Note [code = 96104-0] Goal Plan of Care Note [code = 41988-1] Goal Plan of Care Note [code = 04332-4] Goal Plan of Care Note [code = 97868-0] Goal Plan of Care Note [code = 62884-5] Goal Plan of Care Note [code = 24922-4] Goal Plan of Care Note [code = 76964-6] Goal Plan of Care Note [code = 47245-5] Goal Plan of Care Note [code = 81001-0] Goal Plan of Care Note [code = 47752-5] Encounters Start End Encounter Admission Attending Care Care Encounter Source Date/Time Date/Time Type Type Clinicians Facility Department ID 2021-05-07 Outpatient MDA [place] [id number] 17:42:41 Anderso n 2022-12-21 2022-12-21 Ambulatory MHIE MNA [id number] Memoria 16:30:00 16:30:00 Pre-Reg Neurology 35 l Lisha Domingo 2022-12-21 2022-12-21 Outpatient MHIE MHIE [id number] Memoria 11:30:00 11:30:00 35 l [place] 2022-12-21 2022-12-21 Outpatient Martha MHMISCHER MHMISCHER [id number] 11:30:00 11:30:00 Wilfredo 35 [place] 2022-12-17 2022-12-17 Orders Doctor KEKE 1.2.840.[id number] [facility] 00:00:00 00:00:00 Only Unassigned, BRO 350.1.13.10 [facility] 4.2.7.2.686 Ángel as [phone] [address] 2022-11-17 2022-11-17 Outpatient [facility] [id number] Wily 14:56:18 14:56:18 [id number] F Roland 2022-08-27 2022-08-27 Outpatient ZACK WEEKS [place] [id number] Univers 10:40:00 10:40:00 ZACK MALLORY itemelina [facility] 2022-08-14 2022-08-14 [facility] 1.2.840.114 [id number] Univers 00:00:00 00:00:00 Zack [facility] 350.1.13.10 ity of [place] 4.2.7.2.686 Ángel as MÓNICA?BLEA [phone] [address] MEDICAL OFFICE BUILDING 2022-08-13 2022-08-13 [facility] 1.2.840.114 [id number] Univers 00:00:00 00:00:00 Zack [facility] 350.1.13.[address] [facility] 4.2.7.2.686 Ángel as MÓNICA?BLEA [phone] [address] OFFICE [facility] 2022-08-12 2022-08-12 Refill [facility] 1.2.840.114 [id number] Univers 00:00:00 00:00:00 [facility] 350.1.13.10 ity of [place] 4.2.7.2.686 Ángel as MÓNICA?BLEA [phone] [address] 2022-08-11 2022-08-11 [facility] 1.2.840.114 [id number] Univers 00:00:00 00:00:00 [facility] 350.1.13.10 ity of [place] 4.2.7.2.686 Ángel as MÓNICA?BLEA [phone] [address] 2022-07-01 2022-07-01 [facility] 1.2.840.114 [id number] Univers 00:00:00 00:00:00 [facility] 350.1.13.10 ity of [place] 4.2.7.2.686 Ángel as MÓNICA?BLEA [phone] [address] 2022-07-01 2022-07-01 [facility] 1.2.840.114 [id number] Univers 00:00:00 00:00:00 [facility] 350.1.13.10 ity of [place] 4.2.7.2.686 Ángel as MÓNICA?BLEA [phone] [address] 2022-06-28 2022-06-28 [facility] 1.2.840.114 [id number] Univers 00:00:00 00:00:00 [facility] 350.1.13.10 ity of [place] 4.2.7.2.686 Ángel as MÓNICA?BLEA [phone] [address] 2022-06-24 2022-06-24 Telephone [facility] 1.2.840.114 [id number] Univers 00:00:00 00:00:00 [facility] 350.1.13.10 ity of [place] 4.2.7.2.686 Ángel as MÓNICA?BLEA [phone] [address] 2022-06-23 2022-06-23 Telephone Saravanan [facility] 1.2.840.[id number] [facility] 00:00:00 00:00:00 [facility] 350.1.13.10 ity of [place] 4.2.7.2.686 Ángel as MÓNICA?BLEA [phone] [address] 2022-06-22 2022-06-22 Outpatient R ZACK MALLORY [place] [id number] [facility] 14:20:00 15:50:14 [facility] 2022-06-22 2022-06-22 Office Saravanan [facility] 1.2.840.[id number] [facility] 14:20:00 15:50:14 Visit [facility] 350.1.13.[address] 4.2.7.2.686 Ángel as MÓNICA?BLEA [phone] [address] 2022-01-18 2022-01-18 [facility] 1.2.840.114 [id number] Univers 00:00:00 00:00:00 [facility] 350.1.13.10 ity of [place] 4.2.7.2.686 Ángel as MÓNICA?BLEA [phone] [address] 2022-01-13 2022-01-13 Outpatient [facility] [id number] Wily 11:38:11 11:38:11 [id number] F Roland 2022-01-13 2022-01-13 Outpatient [id number] 00:00:00 00:00:00 Visit 0630-45df [id number]-[id number] -[id number] [id number]-b63eda [id number] [id number] 2022-01-08 2022-01-08 Telephone Saravanan, [facility] 1.2.840.114 [id number] Univers 00:00:00 00:00:00 [facility] 350.1.13.10 ity of [place] 4.2.7.2.686 Ángel as MÓNICA?BLEA [phone] [address] 2022-01-05 2022-01-05 Outpatient R SARAVANAN, ZACK [place] [id number] Univers 08:40:00 08:40:00 [facility] 2022-01-01 2022-01-01 [facility] 1.2.840.114 [id number] Univers 00:00:00 00:00:00 [facility] 350.1.13.10 ity of [place] 4.2.7.2.686 Ángel as MÓNICA?BLEA [id number] [address] 2022-01-01 2022-01-01 Telephone [facility] 1.2.840.114 [id number] Univers 00:00:00 00:00:00 [facility] 350.1.13.10 ity of [place] 4.2.7.2.686 Ángel as MÓNICA?BLEA [id number] [address] 2021-12-29 2021-12-29 [facility] 1.2.840.114 [id number] Univers 00:00:00 00:00:00 [facility] 350.1.13.10 ity of [place] 4.2.7.2.686 Ángel as MÓNICA?BLEA [phone] [address] 2021-12-23 2021-12-23 Telephone [facility] 1.2.840.114 [id number] Univers 00:00:00 00:00:00 [facility] 350.1.13.10 ity of [place] 4.2.7.2.686 Ángel as MÓNICA?BLEA [phone] [address] 2021-12-22 2021-12-22 Telephone [facility] 1.2.840.114 [id number] Univers 00:00:00 00:00:00 [facility] 350.1.13.10 ity of [place] 4.2.7.2.686 Ángel as MÓNICA?BLEA [phone] [address] OFFICE [facility] 2021-12-21 2021-12-21 Outpatient ZACK WEEKS [place] [id number] Univers 16:00:00 17:29:09 ZACK MALLORY [facility] 2021-12-21 2021-12-21 [place] [address]697.2.840.114 [id number] Univers 16:00:00 17:29:09 Visit [facility] 350.1.13.10 ity of [place] 4.2.7.2.686 Ángel as MÓNICA?BLEA [id number] [address] OFFICE [facility] 2021-12-21 2021-12-21 Outpatient Nichol CABALLEROEZACK [place] [id number] Univers 16:00:00 16:00:00 ZACK MALLORY [facility] 2021-12-11 2021-12-11 Outpatient Nichol KOLBSARAVANANZACK LOPEZ [place] [id number] Univers 15:44:14 23:59:00 SARAVANANZACK LOPEZ emelina [facility] 2021-12-11 2021-12-11 [facility] [place] [id number] Univers 15:44:14 23:59:00 Encounter Zack Agrawal [place] 350.1.13.10 ity [facility] 4.2.7.2.686 [facility] [phone] [place] [address] [place] 2021-12-08 2021-12-08 Outpatient ZACK WEEKS [place] [id number] Univers 00:00:00 00:00:00 SARAVANANZACK Garcia [facility] 2021-11-27 2021-11-27 Outpatient Nichol CABALLEROZACK Garcia [place] [id number] Univers 14:20:00 14:20:00 SARAVANAN ZACK [facility] 2021-11-17 2021-11-17 Outpatient ZACK WEEKS [place] [id number] Univers 16:00:00 17:04:09 ZACK MALLORY [facility] 2021-11-17 2021-11-17 Outpatient ZACK WEEKS [place] [id number] Univers 16:00:00 17:04:09 ZACK MALLORY [facility] 2021-11-17 2021-11-17 Outpatient ZACK WEEKS [place] [id number] [facility] 16:00:00 17:04:09 ZACK MALLORY emelina [facility] 2021-11-17 2021-11-17 Office Saravanan [facility] 1.2.840.[id number] [facility] 16:00:00 17:04:09 Visit Zack [facility] 350.1.13.10 ity of [place] 4.2.7.2.686 Ángel as MÓNICA?BLEA [phone] [address] MEDICAL OFFICE [facility] 2021-11-17 2021-11-17 Outpatient ZACK WEEKS [place] [id number] Univers 16:00:00 16:00:00 ZACK MALLORY [facility] 2021-11-17 2021-11-17 Orders Doctor KEKE 1.2.840.114 [id number] Univers 00:00:00 00:00:00 Only Unassigned, BRO 350.1.13.10 ity of [facility] 4.2.7.2.686 Ángel as [phone] [address] 2021-10-08 2021-10-08 Orders Doctor KEKE 1.2.840.114 [id number] Univers 00:00:00 00:00:00 Only Unassigned, BRO 350.1.13.10 ity of [facility] 4.2.7.2.686 Ángel as [phone] [address] 2021-09-11 2021-09-11 [place] [id number] Memoria 14:00:00 14:00:00 Pre-Reg r Primary 34 l Care Jose Dalton 2021-09-11 2021-09-11 Outpatient MHIE MHIE [id number] Memoria 09:00:00 09:00:[address] 2021-09-11 2021-09-11 Outpatient Martina, MISAMG MHMG [id number] 09:00:00 09:00:00 Wily 34 Brett 2021-03-21 2021-03-22 Between nullFlavo MHMG [id number] Memoria 17:16:35 17:16:35 Visit r Primary 65 l Lina Dalton 2021-03-21 2021-03-22 Outpatient MHMG MHMG [id number] 11:16:35 11:16:35 65 2021-03-19 2021-03-20 Outpatient nullFlavo MHMG [id number] Memoria 20:00:00 05:59:59 r Primary 33 l Lina Dalton 2021-03-19 2021-03-19 Outpatient Martina, MISAMG MHMG [id number] 14:00:00 23:59:59 Wily 33 Brett 2021-03-19 2021-03-19 Outpatient MHIE MHIE [id number] Memoria 14:00:00 14:00:00 33 [place]ann [place] 2021-01-22 2021-01-22 Ambulatory nullFlavo MHMG [id number] Memoria 18:00:00 18:00:00 Pre-Reg r Primary 32 l Lina Dalton 2021-01-22 2021-01-22 Outpatient MHIE MHIE [id number] Memoria 13:00:00 13:00:[address] 2021-01-22 2021-01-22 Outpatient Martina, [place] [id number] 13:00:00 13:00:00 Wily 32 Brett 2021-01-21 2021-01-21 Ambulatory nullFlavo MHMG [id number] Memoria 21:15:00 21:15:00 Pre-Reg r Primary 31 l Lina Dalton vaughn 2021-01-21 2021-01-21 Outpatient MHIE MHIE [id number] Memoria 16:15:00 16:15:00 31 l Domingo 2021-01-21 2021-01-21 Outpatient Alcantar, MHMG MHMG [id number] 16:15:00 16:15:00 Blanquita R 31 2021-01-14 2021-01-16 Phone nullFlavo MHMG [id number] Memoria 21:47:02 04:59:59 Message r Primary 31 l Lina Dalton nn 2021-01-14 2021-01-15 Outpatient MHMG MHMG [id number] 16:47:02 23:59:59 31 2021-01-12 2021-01-12 Ambulatory nullFlavo MHMG [id number] Memoria 18:45:00 18:45:00 Pre-Reg r Primary 29 l Lina Dalton nn 2021-01-12 2021-01-12 Ambulatory nullFlavo MHMG [id number] Memoria 18:45:00 18:45:00 Pre-Reg r Primary 30 l Lina Dalton nn 2021-01-12 2021-01-12 Outpatient MHIE MHIE [id number] Memoria 13:45:00 13:45:[address] 2021-01-12 2021-01-12 Outpatient MHIE MHIE [id number] Memoria 13:45:00 13:45:[address] 2021-01-12 2021-01-12 Outpatient Alcantar, MHMG MHMG [id number] 13:45:00 13:45:00 Blanquita R 30 2021-01-12 2021-01-12 Outpatient Alcantar, MHMG MHMG [id number] 13:45:00 13:45:00 Blanquita R 29 2020-12-30 2020-12-31 Between nullFlavo MHMG [id number] Memoria 16:08:55 16:08:55 Visit r Primary 63 l Lina Dalton nn 2020-12-30 2020-12-31 Outpatient MHMG MHMG [id number] 11:08:55 11:08:55 63 2020-12-29 2020-12-30 Outpatient nullFlavo MHMG [id number] Memoria 16:00:00 04:59:59 r Primary 28 l Lina Dalton 2020-12-29 2020-12-29 Outpatient Martina, MHMG MHMG [id number] 11:00:00 23:59:59 Wily [place] 2020-12-29 2020-12-29 Outpatient MHIE MHIE [id number] Memoria 11:00:00 11:00:00 28 leeann ChavezDomingo 2020-12-02 2020-12-04 Phone nullFlavo MHMG [id number] Memoria 20:19:49 04:59:59 Message r Primary 30 l Lina mendes 2020-12-02 2020-12-03 Outpatient MHMG MHMG [id number] 15:19:49 23:59:59 30 2020-11-12 2020-11-14 Phone nullFlavo MHMG [id number] Memoria 13:50:11 04:59:59 Message r Primary 29 l Lina mendes 2020-11-12 2020-11-14 Phone nullFlavo MG [id number] Memoria 13:49:28 04:59:59 Message r Primary 28 leeann mendes 2020-11-12 2020-11-13 Outpatient MHMG MHMG [id number] 08:50:11 23:59:59 29 2020-11-12 2020-11-13 Outpatient MHMG MHMG [id number] 08:49:28 23:59:59 28 2020-07-17 2020-07-19 Phone nullFlavo [facility] [id number] Memoria 13:51:41 04:59:59 Message r Disease [address] 2020-07-17 2020-07-18 Outpatient MH92 MH92 [id number] 08:51:41 23:59:59 27 2020-06-26 2020-06-26 Ambulatory nullFlavo MHMG [id number] Memoria 15:30:00 15:30:00 Pre-Reg r Primary 27 l Lina Dalton 2020-06-26 2020-06-26 Outpatient Fredrickk, MHMG MHMG [id number] 10:30:00 10:30:00 Wily Carol Brett 2020-06-03 2020-06-03 Outpatient MHIE MHIE [id number] Memoria 10:00:00 10:00:00 27 leeann [place] 2020-03-12 2020-03-14 Phone nullFlavo MG [id number] Memoria 16:56:49 05:59:59 Message r Primary 26 l Lina Dalton 2020-03-12 2020-03-13 Outpatient MHMG MHMG [id number] 10:56:49 23:59:59 26 2020-03-05 2020-03-05 Ambulatory nullFlavo MHMG [id number] Memoria 16:30:00 16:30:00 Pre-Reg r Primary 26 l Lina Dalton 2020-03-05 2020-03-05 Outpatient MHIE MHIE [id number] Memoria 10:30:00 10:30:00 26 [facility] 2020-03-05 2020-03-05 Outpatient Martina, MHMG MHMG [id number] 10:30:00 10:30:00 Wily 26 [place] 2020-03-03 2020-03-05 Phone nullFlavo MHMG [id number] Memoria 20:01:14 05:59:59 Message r Primary 25 l Lina Dalton 2020-03-03 2020-03-04 Outpatient MHMG MHMG [id number] 14:01:14 23:59:59 25 2020-02-18 2020-02-19 Outpatient nullFlavo MHMG [id number] Memoria 15:30:00 05:59:59 r Primary 25 l Lina Dalton 2020-02-18 2020-02-18 Outpatient Martina, MHMG MHMG [id number] 09:30:00 23:59:59 Wily 25 [place] 2020-02-18 2020-02-18 Ambulatory nullFlavo MHMG [id number] Memoria 16:30:00 16:30:00 Pre-Reg r Primary 21 l Lina Dalton 2020-02-18 2020-02-18 Outpatient Martina, MHMG MHMG [id number] 10:30:00 10:30:00 Wily 21 [place] 2020-02-18 2020-02-18 Outpatient MHIE MHIE [id number] Memoria 09:30:00 09:30:00 25 [facility] 2020-02-06 2020-02-08 Phone nullFlavo [facility] [id number] Memoria 19:48:37 05:59:59 Message r Disease 24 l [facility] 2020-02-06 2020-02-07 Outpatient MH92 MH92 [id number] 13:48:37 23:59:59 24 2020-02-01 2020-02-03 Phone nullFlavo MHMG [id number] Memoria 16:34:24 04:59:59 Message r Primary 23 l Lina Dalton 2020-02-01 2020-02-02 Outpatient MHMG MHMG [id number] 11:34:24 23:59:59 23 2020-01-30 2020-02-01 Phone nullFlavo MHMG [id number] Memoria 21:20:16 04:59:59 Message r Primary 22 l Care Jose Dalton 2020-01-30 2020-01-31 Outpatient MHMG MHMG [id number] 16:20:16 23:59:59 22 2020-01-28 2020-01-28 Outpatient MHIE MHIE [id number] Memoria 13:00:00 13:00:00 21 l Domingo 2020-01-23 2020-01-25 Phone nullFlavo MHMG [id number] Memoria 14:53:23 04:59:59 Message r Primary 21 l Lina Dalton 2020-01-23 2020-01-24 Outpatient MHMG MHMG [id number] 09:53:23 23:59:59 21 2020-01-24 2020-01-24 Ambulatory nullFlavo MHMG [id number] Memoria 21:00:00 21:00:00 Pre-Reg r Primary 22 l Lina Dalton 2020-01-24 2020-01-24 Ambulatory nullFlavo MHMG [id number] Memoria 21:00:00 21:00:00 Pre-Reg r Primary 23 l Lina Dalton 2020-01-24 2020-01-24 Outpatient MHIE MHIE [id number] Memoria 16:00:00 16:00:00 22 l Domingo 2020-01-24 2020-01-24 Outpatient MHIE MHIE [id number] Memoria 16:00:00 16:00:00 23 l Domingo 2020-01-24 2020-01-24 Outpatient MHIE MHIE [id number] Memoria 16:00:00 16:00:00 24 l Domingo 2020-01-24 2020-01-24 Outpatient Janecek, MHMG MHMG [id number] 16:00:00 16:00:00 [place] 2020-01-24 2020-01-24 Outpatient Janecek, MHMG MHMG [id number] 16:00:00 16:00:00 Wily 23 [place] 2020-01-21 2020-01-21 Ambulatory nullFlavo MHMG [id number] Memoria 18:00:00 18:00:00 Pre-Reg r Primary 20 l Lina Dalton 2020-01-21 2020-01-21 Outpatient MHIE MHIE [id number] Memoria 13:30:00 13:30:[address] 2020-01-21 2020-01-21 Outpatient Martina, MHMG MHMG [id number] 13:00:00 13:00:00 Wily 20 [place] 2020-01-17 2020-01-19 Phone nullFlavo MHMG [id number] Memoria 13:41:50 04:59:59 Message r Primary 20 l Lina Dalton 2020-01-17 2020-01-18 Outpatient MHMG MHMG [id number] 08:41:50 23:59:59 20 2019-12-24 2019-12-24 Ambulatory nullFlavo MHMG [id number] Memoria 18:30:00 18:30:00 Pre-Reg r Primary 19 l Lina Dalton 2019-12-24 2019-12-24 Outpatient Martina, MISAMG MHMG [id number] 13:30:00 13:30:00 Wily 19 Brett 2019-11-26 2019-11-26 Outpatient MHIE MHIE [id number] Memoria 10:00:00 10:00:00 19 l Domingo 2019-10-10 2019-10-11 Between nullFlavo MHMG [id number] Memoria 13:05:41 13:05:41 Visit r Primary 48 l Lina Dalton 2019-10-10 2019-10-11 Outpatient MHMG MHMG [id number] 08:05:41 08:05:41 48 2019-10-09 2019-10-10 Outpatient nullFlavo MHMG [id number] Memoria 18:30:00 04:59:59 r Primary 18 l Lina Dalton vaughn 2019-10-09 2019-10-09 Outpatient Martina, MISAMG MHMG [id number] 13:30:00 23:59:59 Wily 18 [place] 2019-10-09 2019-10-09 Outpatient MHIE MHIE [id number] Memoria 13:30:00 13:30:[address] 2019-09-18 2019-09-18 Ambulatory nullFlavo MHMG [id number] Memoria 19:00:00 19:00:00 Pre-Reg r Primary 17 l Lina Dalton 2019-09-18 2019-09-18 Outpatient MHIE MHIE [id number] Memoria 14:00:00 14:00:[address] 2019-09-18 2019-09-18 Outpatient Martina, MHMG MHMG [id number] 14:00:00 14:00:00 Wily [place] 2019-06-29 2019-07-01 Phone nullFlavo MHMG [id number] Memoria 13:14:41 04:59:59 Message r Primary 19 l Lina Dalton 2019-06-29 2019-06-30 Outpatient MHMG MHMG [id number] 08:14:41 23:59:59 19 2019-04-27 2019-04-29 Phone nullFlavo MHMG [id number] Memoria 21:09:39 05:59:59 Message r Primary 18 l Lina Dalton 2019-04-27 2019-04-28 Outpatient MHMG MHMG [id number] 15:09:39 23:59:59 18 2019-04-24 2019-04-26 Phone nullFlavo MHMG [id number] Memoria 13:46:32 05:59:59 Message r Primary 17 l Lina Dalton 2019-04-24 2019-04-25 Outpatient MHMG MHMG [id number] 07:46:32 23:59:59 17 2019-04-23 2019-04-25 Phone nullFlavo MHMG [id number] Memoria 16:43:22 05:59:59 Message r Primary 16 l Lina Dalton 2019-04-23 2019-04-24 Outpatient MHMG MHMG [id number] 10:43:22 23:59:59 16 2019-04-23 2019-04-23 Outpatient MHIE MHIE [id number] Memoria 10:30:00 10:30:[address] 2019-03-05 2019-03-05 Ambulatory nullFlavo MHMG [id number] Memoria 16:30:00 16:30:00 Pre-Reg r Primary 16 leeann Dalton 2019-03-05 2019-03-05 Outpatient MISA MackMG MHMG [id number] 10:30:00 10:30:00 Wily Carver Brett 2019-01-31 2019-02-01 Between nullFlavo MHMG [id number] Memoria 12:50:27 12:50:27 Visit r Primary 43 leeann Dalton 2019-01-31 2019-02-01 Outpatient MHMG MHMG [id number] 07:50:27 07:50:27 43 2019-01-30 2019-01-31 Outpatient nullFlavo MHMG [id number] Memoria 18:30:00 04:59:59 r Primary 15 leeann Dalton 2019-01-30 2019-01-30 Outpatient MISA MackMG MHMG [id number] 13:30:00 23:59:59 Wily Yeison Brett 2019-01-30 2019-01-30 Outpatient MHIE MHIE [id number] Memoria 13:30:00 13:30:00 15 [place] 2019-01-25 2019-01-27 Phone nullFlavo MHMG [id number] Memoria 21:31:40 04:59:59 Message r Primary 15 leeann Dalton 2019-01-25 2019-01-26 Outpatient MHMG MHMG [id number] 16:31:40 23:59:59 15 2019-01-02 2019-01-02 Ambulatory nullFlavo MHMG [id number] Memoria 16:00:00 16:00:00 Pre-Reg r Primary 14 leeann Dalton 2019-01-02 2019-01-02 Outpatient MHIE MHIE [id number] Memoria 11:00:00 11:00:00 14 leeann ChavezDomingo 2019-01-02 2019-01-02 Outpatient Martina, MHMG MHMG [id number] 11:00:00 11:00:00 Wily Butler Brett 2018-11-27 2018-11-29 Phone nullFlavo MHMG [id number] Memoria 14:09:12 04:59:59 Message r Primary 14 leeann Dalton 2018-11-27 2018-11-28 Outpatient MHMG MHMG [id number] 09:09:12 23:59:59 14 2018-11-10 2018-11-10 Ambulatory nullFlavo MHMG [id number] Memoria 19:30:00 19:30:00 Pre-Reg r Primary 13 leeann Dalton 2018-11-10 2018-11-10 Outpatient MHIE MHIE [id number] Memoria 14:30:00 14:30:00 13 leeann Domingo 2018-11-10 2018-11-10 Outpatient Fredrickk, MHMG MHMG [id number] 14:30:00 14:30:00 Wily Noel Brett 2018-09-14 2018-09-16 Phone nullFlavo MHMG [id number] Memoria 13:10:03 04:59:59 Message r Primary 13 leeann Dalton 2018-09-14 2018-09-15 Outpatient MHMG MHMG [id number] 08:10:03 23:59:59 13 2018-09-05 2018-09-06 Outpatient nullFlavo MHMG [id number] Memoria 19:30:00 04:59:59 r Primary 12 leeann Dalton 2018-09-05 2018-09-05 Outpatient Martina, MHMG MHMG [id number] 14:30:00 23:59:59 Wily Kaminski [place] 2018-09-05 2018-09-05 Outpatient MHIE MHIE [id number] Memoria 14:30:00 14:30:00 12 leeann [place] 2018-07-28 2018-07-29 Between nullFlavo MHMG [id number] Memoria 12:26:15 12:26:15 Visit r Primary 38 leeann Dalton 2018-07-28 2018-07-29 Outpatient MHMG MHMG [id number] 07:26:15 07:26:15 38 2018-07-27 2018-07-28 Outpatient nullFlavo MHMG [id number] Memoria 15:30:00 04:59:59 r Primary 11 leeann Dalton 2018-07-27 2018-07-27 Outpatient Martina, MISAMG MHMG [id number] 10:30:00 23:59:59 Wily Vega [place] 2018-07-27 2018-07-27 Outpatient Fredrickk, MHMG MHMG [id number] 10:30:00 23:59:59 Wily Vega [place] 2018-07-27 2018-07-27 Outpatient Martina, MISAMG MHMG [id number] 10:30:00 23:59:59 Wily Vega [place] 2018-07-27 2018-07-27 Outpatient MISA MackMG MHMG [id number] 10:30:00 23:59:59 Wily Vega Brett 2018-07-27 2018-07-27 Outpatient MHIE MHIE [id number] Memoria 10:30:00 10:30:[address] 2018-06-01 2018-06-02 Outpatient nullFlavo [facility]MG [id number] Memoria 17:00:00 05:59:59 r Primary 10 leeann Wyattin Krystle 2018-06-01 2018-06-01 Outpatient MISA MackMG [facility]MG [id number] 11:00:00 23:59:59 Wily 10 [place] 2018-06-01 2018-06-01 Outpatient MHIE MHIE [id number] Memoria 11:00:00 11:00:[address] 2018-05-29 2018-05-30 Outpatient nullFlavo [facility] [id number] Memoria 16:43:00 05:59:00 [facility]-29 [facility] [id number] 10:43:00 23:59:00 Horace Kellen Amauri Ilan 2018-05-18 2018-05-20 Phone nullFlavo MG [id number] Memoria 16:29:00 05:59:59 Message r Primary 12 leeann Lina Gracia Krystle 2018-05-18 2018-05-19 Outpatient MHMG MHMG [id number] 10:29:00 23:59:59 12 2018-04-25 2018-04-26 Outpatient nullFlavo [facility]MG [id number] Memoria 17:00:00 05:59:59 r Primary 09 leeann Lina Garcia Krystle 2018-04-25 2018-04-25 Outpatient Martina, MISAMG MH[facility] [id number] 11:00:00 23:59:59 Wily 09 [place] 2018-04-25 2018-04-25 Outpatient Martina, MHMG MHMG [id number] 11:00:00 23:59:59 Wily Angela Brett 2018-04-25 2018-04-25 Outpatient MHIE MHIE [id number] Memoria 11:00:00 11:00:[address] 2018-04-11 2018-04-13 Phone nullFlavo MHMG [id number] Memoria 23:39:00 05:59:59 Message r Primary 11 leeann Dalton 2018-04-11 2018-04-12 Outpatient MHMG MHMG [id number] 17:39:00 23:59:59 11 2018-03-02 2018-03-04 Phone nullFlavo [facility]MG [id number] Memoria 20:35:00 05:59:59 Message r Primary 10 leeann Dalton 2018-03-02 2018-03-03 Outpatient MHMG MHMG [id number] 14:35:00 23:59:59 10 2018-03-01 2018-03-02 Outpatient nullFlavo [facility] [id number] Memoria 15:30:00 05:59:59 r Primary 08 leeann Dalton 2018-03-01 2018-03-01 Outpatient Martina, MHMG MHMG [id number] 09:30:00 23:59:59 Wily Vanegas Brett 2018-03-01 2018-03-01 Outpatient MHIE MHIE [id number] Memoria 09:30:00 09:30:[address] 2018-02-15 2018-02-16 Outpatient nullFlavo [facility] [id number] Memoria 20:30:00 05:59:59 r Primary 07 Lina Dalton 2018-02-15 2018-02-15 Outpatient Martina, MHMG MHMG [id number] 14:30:00 23:59:59 Wily 07 [place] 2018-02-15 2018-02-15 Outpatient MHIE MHIE [id number] Memoria 14:30:00 14:30:[address] 2018-01-25 2018-01-26 Outpatient nullFlavo [facility] [id number] Memoria 14:52:00 04:59:00 r Disease 15 [facility] [place] 2018-01-25 2018-01-25 Outpatient Critical access hospital [id number] 09:52:00 23:59:00 Yeison Vu 2018-01-23 2018-01-23 Ambulatory nullFlavo MG [id number] Memoria 19:00:00 19:00:00 Pre-Reg r Primary 06 l Care Jose Chavezluann mendes 2018-01-23 2018-01-23 Outpatient MHIE IE [id number] Memoria 14:00:00 14:00:00 06 [facility] 2018-01-23 2018-01-23 Outpatient Martina, MG MG [id number] 14:00:00 14:00:00 Wily [place] 2018-01-19 2018-01-21 Phone nullFlavo MG [id number] Memoria 14:21:00 04:59:59 Message r Primary 09 l Care Jose Chavezluann mendes 2018-01-19 2018-01-20 Outpatient MG MG [id number] 09:21:00 23:59:59 09 2017-12-22 2017-12-24 Phone nullFlavo [facility] [id number] Memoria 19:10:00 04:59:59 Message r Disease 08 l [facility] 2017-12-22 2017-12-23 Outpatient [id number] 14:10:00 23:59:59 08 2017-11-29 2017-11-29 [facility] [id number] Common 10:30:00 10:30:00 [facility] 2017-11-02 2017-11-04 Outside nullFlavo MG [id number] Memoria 16:22:00 04:59:59 Medical r Primary 07 l Records Care Jose Krystle mendes 2017-11-02 2017-11-03 Outpatient MHMG MHMG [id number] 11:22:00 23:59:59 07 2017-08-25 2017-08-27 Outside nullFlavo MG [id number] Memoria 21:36:00 04:59:59 Medical r Primary 06 l Records Care Jose Chavezluann mendes 2017-08-25 2017-08-26 Outpatient MHMG MHMG [id number] 16:36:00 23:59:59 06 2017-08-03 2017-08-05 Phone nullFlavo MHMG [id number] Memoria 20:47:00 04:59:59 Message r Primary 05 l Care Jose Krystle 2017-08-03 2017-08-04 Outpatient MHMG MHMG [id number] 15:47:00 23:59:59 05 2017-07-25 2017-07-25 Bedded nullFlavo [facility] [id number] Memoria 13:48:00 15:48:00 Outpatient r Domingo 12 [facility] 2017-07-25 2017-07-25 Outpatient Kavon [facility] [id number] 08:48:00 10:48:00 Alirezasoco Parisi 12 2017-07-18 2017-07-20 Outside nullFlavo MG [id number] Memoria 21:09:00 04:59:59 Medical r Primary 04 l Records [facility] Jose Dalton 2017-07-18 2017-07-19 Outpatient MHMG MHMG [id number] 16:09:00 23:59:59 04 2017-07-01 2017-07-02 Outpatient nullFlavo [facility] [id number] Memoria 14:56:00 04:59:00 r Domingo 09 l [facility] 2017-07-01 2017-07-01 Outpatient Kavon [facility] [id number] 09:56:00 23:59:00 Alirezasoco Parisi 09 2017-06-14 2017-06-16 Outside nullFlavo MHMG [id number] Memoria 18:53:00 04:59:59 Medical r Primary 03 l Records [facility] Jose Krystle 2017-06-14 2017-06-15 Outpatient MHMG MHMG [id number] 13:53:00 23:59:59 03 2017-05-31 2017-06-01 Outpatient nullFlavo MHMG [id number] Memoria 16:30:00 05:59:59 r Primary 05 l [facility] Jose Krystle 2017-05-31 2017-05-31 Outpatient Alcantar, MHMG MHMG [id number] 10:30:00 23:59:59 Blanqiuta 05 2017-05-31 2017-05-31 Outpatient MHIE IE [id number] Memoria 10:30:00 10:30:[address] 2017-05-24 2017-05-25 Outpatient nullFlavo [facility] [id number] Memoria 19:27:00 05:59:00 r Domingo 51 [facility] 2017-05-24 2017-05-24 Outpatient Horace [facility] [id number] 13:27:00 23:59:00 Amauri Sh[facility] 2017-05-23 2017-05-24 Outpatient nullFlavo [facility] [id number] Memoria 21:05:00 05:59:00 r Domingo 07 [facility] 2017-05-23 2017-05-23 Outpatient [place] [id number] 15:05:00 23:59:00 [place] [address] 2017-05-09 2017-05-10 Outpatient nullFlavo [facility] [id number] Memoria 17:15:00 05:59:00 r Domingo 05 [facility] 2017-05-09 2017-05-09 Outpatient [place], [place] [id number] 11:15:00 23:59:00 [facility] 2017-04-28 2017-04-29 Outpatient nullFlavo [facility] [id number] Memoria 18:39:00 05:59:00 r Domingo 03 [facility] 2017-04-28 2017-04-28 Outpatient [facility] [id number] 12:39:00 23:59:00 VuValeria green 2017-03-21 2017-03-22 Outpatient nullFlavo [facility] [id number] Memoria 14:08:00 05:59:[address] 02 [facility] 2017-03-21 2017-03-21 Outpatient Leora MHSE MHSE [id number] 08:08:00 23:59:00 Kay Rodriguez 02 2017-01-18 2017-01-18 Outpatient MHIE MHIE [id number] Memoria 10:00:00 10:00:[address] 2016-08-25 2016-08-25 Outpatient MHIE MHIE [id number] Memoria 11:30:00 11:30:[address] 2016-08-24 2016-08-25 Emergency nullFlavo [facility] [id number] Memoria 22:17:00 00:49:00 r Domingo 01 [facility] 2016-08-24 2016-08-24 Outpatient Banegas, MHSE MHSE [id number] 17:17:00 19:49:00 Deborah Shields 2016-08-24 2016-08-24 Outpatient MHIE MHIE [id number] Memoria 16:00:00 16:00:[address] 2015 2015-07-10 Outpatient nullFlavo [facility] [id number] Memoria 18:12:00 04:59:00 r [place] 97 [facility] 2015 2015 Outpatient [place], MHSE MHSE [id number] 13:12:00 23:59:00 Dorota Luann 2014-11-29 2014-11-30 Outpt Diag nullFlavo [facility] [id number] Memoria 14:16:00 04:59:00 Services r [facility] 04 [facility] 2014-11-29 2014-11-29 Outpatient Martina, [id number] 09:16:00 23:59:00 Wily [id number] Brett [id number] 5.90 2014-11-28 2014-11-28 Outpatient MHIE MHIE [id number] Memoria 10:00:00 10:00:[address] 2014-10-23 2014-10-23 Outpatient MHIE MHIE [id number] Memoria 14:30:00 14:30:[address] 2012-09-27 2012-09-27 OD MHIE MHIE [id number] Memoria 11:06:00 23:59:[address] 2012-08-14 2012-08-14 TH MHIE MHIE [id number] Memoria 15:00:00 15:00:[address] 2012-07-14 2012-07-14 TH MHIE MHIE [id number] Memoria 10:00:00 10:00:[address] 2012-06-14 2012-07-13 TH MHIE MHIE [id number] Memoria 14:00:00 23:59:[address] 2012-06-28 2012-06-28 OD MHIE MHIE [id number] Memoria 15:33:00 23:59:00 02 leeann [place] 2012-05-31 2012-05-31 OD MARJ MCMAHAN [id number] Memoria 09:49:00 23:59:00 01 leeann [place] 2012-05-10 2012-05-10 TH MARJ MCMAHAN [id number] Memoria 14:00:00 14:00:00 00 leeann [place] 2012-05-03 2012-05-03 OD MARJ MCMAHAN [id number] Memoria 10:54:00 23:59:00 [facility] 2012-04-18 2012-04-21 Inpatient nullFlavo [facility] [id number] Memoria 17:59:00 15:05:00 r Medical 00 [facility] Results Test Description Test Time Test Comments Results Result Comments Source CULTURE, URINE 2022-11-21 SPECIMEN NUMBER: 11:36:45 [id number] CULTURE, URINE SPECIMEN NUMBER: [id number] SPECIMEN COMMENT: URINE SOURCE: URINE REPORT STATUS: FINAL ISOLATE NUMBER 1: ORGANISM: 11/19/2022 >100,000 CFU/ML GRAM NEGATIVE BACILLI IDENTIFICATION: 11/21/2022 ESCHERICHIA COLI E. COLI AMOX ICILLIN/CA SENSITIVE <=8/4AMPICILLIN SENSITIVE <=8CEFAZOLIN SENSITIVE <=2CEFTRIAXONE SENSITIVE <=1CIPROFLOXACIN SENSITIVE <=1LEVOFLOXACIN SENSITIVE <=2NITROFURANTOIN SENSITIVE <=32PIP/TAZOBAC SENSITIVE <=16TETRACYCLINE SENSITIVE <=4TOBRAMYCIN SENSITIVE <=4TRIMETH/SULFA SENSITIVE <=2/38 NOTE: NUMBERS DISPLAYED REPRESENT MINIMUM INHIBITORY CONCENTRATION (MARTA) WHICH IS EXPRESSED IN MCG/ML. UNLESS OTHERWISE INDICATED, ALL TESTING PERFORMED AT [facility] [address] [place] [address], [place] [address] HOUSE CARPENTER HELPER: DALLAS MAXWELL M.D. CLIA NUMBER [id number] [facility] [place]. [id number] HEMOGLOBIN A1c 2021-09-12 05:48:52 Test Item Value Reference Range Interpretation Comme nts HEMOGLOBIN A1c (test code = 6.9 % 4.2-5.6 H [employer] 84803) GUIDELINES FOR HGB A1C: PREDIABETES/INC REASED RISK . . . . . . . 5.7-6.4% DIAGNO SIS OF DIABETES . . . . . . . . . >=6.5% WITH CONFIRMATION OR APPROPRIATE SYM PTOMS NOTE: ASSAY MAY BE AFFECTED BY HEM OGLOBINOPATHIES (SICKLE CELL ANEMIA, S- C DISEASE, OTHERS) OR ARTIFICIALLY LO WERED BY DECREASED RED CELL SURVIVAL ( HEMOLYTIC ANEMIAS, BLOOD LOSS, ETC.). CO NSIDER ALTERNATE TESTING OR LABORATORY C ONSULTATION. UNLESS OTHERWISE INDIC ATED, ALL TESTING PERFORMED [facility], [address] DIRECTOR: TEDDY HUITRON M.D. CLIA NUMBER [id number] [facility] [place] [id number] COMPREHENSIVE METABOLIC [id number] 05:22:58 Test Item Value Reference Range Interpretation Comments GLUCOSE (test code = 127 MG/DL 70-99 H 2216) BUN (test code = 20 MG/DL 8-23 2207) CREATININE (test 0.90 MG/DL 0.60-1.30 code = 2214) eGFR (2020 CKD-EPI) 68 ML/MIN/1.73 >60 (test code = 36189) CALC BUN/CREAT (test 22 RATIO 6-28 code = 2235) SODIUM (test code = 142 MEQ/L 461-308 6667) POTASSIUM (test code 4.6 MEQ/L 3.5-5.4 = 2227) CHLORIDE (test code 108 MEQ/L 95-107 H = 2215) CARBON DIOXIDE (test 25 MEQ/L 19-31 code = 2206) CALCIUM (test code = 9.0 MG/DL 8.5-10.5 2208) PROTEIN, TOTAL (test 6.5 G/DL 6.1-8.3 code = 2229) ALBUMIN (test code = 3.9 G/DL 3.5-5.2 2200) CALC GLOBULIN (test 2.6 G/DL 1.9-3.7 code = 2240) CALC A/G RATIO (test 1.5 RATIO 1.0-2.6 code = 2234) BILIRUBIN, TOTAL 0.2 MG/DL See_Comment [Automated message] (test code = 2207) The syste m which generated this result transmit karen reference range : <=1.2. The refe rence range was not u sed to interpret th is result as normal/abnormal . ALKALINE PHOSPHATASE 117 U/L 40-142 (test code = 2204) AST (test code = 21 U/L -2217) ALT (test code = 22 U/L -40 2218) LIPID [id number] 05:22:58 Test Item Value Reference Range Interpretation Comments CHOLESTEROL (test 146 MG/DL <200 code = 2210) TRIGLYCERIDES (test 104 MG/DL <150 code = 2232) HDL CHOLESTEROL (test 29 MG/DL >39 L code = 2220) CALC LDL CHOL (test 97 MG/DL <100 NOTE: C ALCULATED LDL code = 2237) IS BASED ON YONATAN-MENDES METHOD WHICHINCLUDES ADJUSTABLE TRIGLYCERIDE:VL DL CHOLESTEROL RAT IO.THIS FACTOR VARIES B Y MEASURED TRIGLY CERIDE AND NON-HDLCHOL ESTEROL CONCENTRATIONS WITH INCREASED CALCU LATED LDL SEENIN HIGH ER TRIGLYCERIDE OR LOWER NON-HDL SPECIME NS. FOR MOREINFORMATION , SEE CLIENT ANNOUNCE MENT AT [email or web address] RISK RATIO LDL/HDL 3.34 RATIO <3.22 H (test code = 2238) COMPREHENSIVE METABOLIC PANEL [ADDED]2021-09-12 00:00:00 Test Item Value Reference Range Interpretation Comments GLUCOSE (test code = 2216) 127 MG/DL BUN (test code = 8) 20 MG/DL CREATININE (test code = 2214) 0.90 MG/DL eGFR (2020 CKD-EPI) (test code 68 ML/MIN/1.73 = 01079) CALC BUN/CREAT (test code = 22 RATIO 5) SODIUM (test code = 2231) 142 MEQ/L POTASSIUM (test code = 2228) 4.6 MEQ/L CHLORIDE (test code = 2215) 108 MEQ/L CARBON DIOXIDE (test code = 25 MEQ/L 2205) CALCIUM (test code = 220) 9.0 MG/DL PROTEIN, TOTAL (test code = 6.5 G/DL 2228) ALBUMIN (test code = 220) 3.9 G/DL CALC GLOBULIN (test code = 2.6 G/DL 2239) CALC A/G RATIO (test code = 1.5 RATIO 2233) BILIRUBIN, TOTAL (test code = 0.2 MG/DL 2206) ALKALINE PHOSPHATASE (test 117 U/L code = 2204) AST (test code = 2218) 21 U/L ALT (test code = 2219) 22 U/L COMPREHENSIVE METABOLIC PANEL [ADDED]2021-09-12 00:00:00 Test Item Value Reference Range Interpretation Comments GLUCOSE (test code = 2217) 127 MG/DL BUN (test code = 2208) 20 MG/DL CREATININE (test code = 2214) 0.90 MG/DL eGFR (2020 CKD-EPI) (test code 68 ML/MIN/1.73 = 02051) CALC BUN/CREAT (test code = 22 RATIO 2235) SODIUM (test code = 2231) 142 MEQ/L POTASSIUM (test code = 2228) 4.6 MEQ/L CHLORIDE (test code = 2215) 108 MEQ/L CARBON DIOXIDE (test code = 25 MEQ/L 2205) CALCIUM (test code = 2209) 9.0 MG/DL PROTEIN, TOTAL (test code = 6.5 G/DL 2228) ALBUMIN (test code = 2201) 3.9 G/DL CALC GLOBULIN (test code = 2.6 G/DL 224) CALC A/G RATIO (test code = 1.5 RATIO 2234) BILIRUBIN, TOTAL (test code = 0.2 MG/DL 2206) ALKALINE PHOSPHATASE (test 117 U/L code = 2204) AST (test code = 2218) 21 U/L ALT (test code = 2219) 22 U/L LIPID PANEL [ADDED]2021-09-12 00:00:00 Test Item Value Reference Range Interpretation Comments CHOLESTEROL (test code = 2210) 146 MG/DL TRIGLYCERIDES (test code = 2232) 104 MG/DL HDL CHOLESTEROL (test code = 2220) 29 MG/DL CALC LDL CHOL (test code = 2237) 97 MG/DL RISK RATIO LDL/HDL (test code = 3.34 RATIO 2238) LIPID PANEL [ADDED]2021-09-12 00:00:00 Test Item Value Reference Range Interpretation Comments CHOLESTEROL (test code = 2210) 146 MG/DL TRIGLYCERIDES (test code = 2232) 104 MG/DL HDL CHOLESTEROL (test code = 2220) 29 MG/DL CALC LDL CHOL (test code = 2237) 97 MG/DL RISK RATIO LDL/HDL (test code = 3.34 RATIO 2238) HEMOGLOBIN A1c [ADDED]2021-09-12 00:00:00 Test Item Value Reference Range Interpretation Comments HEMOGLOBIN A1c (test code = 35731) 6.9 % HEMOGLOBIN A1c [ADDED]2021-09-12 00:00:00 Test Item Value Reference Range Interpretation Comments HEMOGLOBIN A1c (test code = 32585) 6.9 % HEMOGLOBIN A1c [ADDED]2021-09-12 00:00:00 Test Item Value Reference Range Interpretation Comments HEMOGLOBIN A1c (test code = 45226) 6.9 % URINE AND [id number] 20:39:00 Test Item Value Reference Range Interpretation Comments UA Color (test code = UA Color) YELLOW [facility] [id number] 20:39:00 Test Item Value Reference Range Interpretation Comments UA Turbidity (test code = UA Turbidity) CLEAR [facility] [id number] 20:39:00 Test Item Value Reference Range Interpretation Comments UA Spec Grav (test code = UA Spec 1.023 1 1.001-1.035 Grav) [facility] [id number] 20:39:00 Test Item Value Reference Range Interpretation Comments UA pH (test code = UA pH) < OR = 5.0 5.0-8.0 [facility] [id number] 20:39:00 Test Item Value Reference Range Interpretation Comments UA Glucose (test code = UA Glucose) NEGATIVE [facility] [id number] 20:39:00 Test Item Value Reference Range Interpretation Comments UA Bili (test code = UA Bili) NEGATIVE [facility] [id number] 20:39:00 Test Item Value Reference Range Interpretation Comments UA Ketones (test code = UA Ketones) NEGATIVE [facility] [id number] 20:39:00 Test Item Value Reference Range Interpretation Comments UA Blood (test code = UA Blood) NEGATIVE [facility] [id number] 20:39:00 Test Item Value Reference Range Interpretation Comments UA Protein (test code = UA Protein) 1+ [facility] [id number] 20:39:00 Test Item Value Reference Range Interpretation Comments UA Nitrite (test code = UA Nitrite) POSITIVE [facility] [id number] 20:39:00 Test Item Value Reference Range Interpretation Comments UA Leuk Est (test code = UA Leuk NEGATIVE Est) [facility] [id number] 20:39:00 Test Item Value Reference Range Interpretation Comments UA WBC (test code = UA WBC) 0-5 [facility] [id number] 20:39:00 Test Item Value Reference Range Interpretation Comments UA RBC (test code = UA RBC) NONE SEEN [facility] [id number] 20:39:00 Test Item Value Reference Range Interpretation Comments UA Sq Epi (test code = UA Sq Epi) 0-5 [facility] [id number] 20:39:00 Test Item Value Reference Range Interpretation Comments UA Bacteria (test code = UA Bacteria) FEW [facility] [id number] 20:39:00 Test Item Value Reference Range Interpretation Comments UA Hyal Cast (test code = UA Hyal NONE SEEN Cast) [facility] AND [id number] 20:39:00 Test Item Value Reference Range Interpretation Comments Result 3 (Urine Culture) (test SEE COMMENT code = Result 3 (Urine Culture)) [facility] [id number] 16:03:00 Test Item Value Reference Range Interpretation Comments Glucose Lvl (test code = Glucose Lvl) 129 65-99 [facility] [id number] 16:03:00 Test Item Value Reference Range Interpretation Comments BUN (test code = BUN) 21 7-25 [facility]2021-09-27 16:03:00 Test Item Value Reference Range Interpretation Comments Creatinine Lvl (test code = Creatinine 0.91 0.60-0.93 Lvl) [facility]2021-09-27 16:03:00 Test Item Value Reference Range Interpretation Comments eGFR NON-AFR. RUSSIAN (test code = 64 eGFR NON-AFR. RUSSIAN) [facility]ootCAR[facility] [id number] 16:03:00 Test Item Value Reference Range Interpretation Comments eGFR (test code = eGFR 74 ) [facility]2021-09-27 16:03:00 Test Item Value Reference Range Interpretation Comments B/C Ratio (test code = B/C NOT APPLICABLE 6-22 Ratio) [facility]2021-09-27 16:03:00 Test Item Value Reference Range Interpretation Comments Sodium Lvl (test code = Sodium Lvl) 138 135-146 [facility]2021-09-27 16:03:00 Test Item Value Reference Range Interpretation Comments Potassium Lvl (test code = Potassium 4.6 3.5-5.3 Lvl) [place] [id number] 16:03:00 Test Item Value Reference Range Interpretation Comments Chloride Lvl (test code = Chloride Lvl) 106 98-110 [place] [id number] 16:03:00 Test Item Value Reference Range Interpretation Comments CO2 (test code = CO2) 25 20-32 [place] [id number] 16:03:00 Test Item Value Reference Range Interpretation Comments Calcium Lvl (test code = Calcium Lvl) 8.6 8.6-10.4 [place] [id number] 16:03:00 Test Item Value Reference Range Interpretation Comments Total Protein (test code = Total 6.3 6.1-8.1 Protein) [facility]2021-09-27 16:03:00 Test Item Value Reference Range Interpretation Comments Albumin Lvl (test code = Albumin Lvl) 3.9 3.6-5.1 [facility]2021-09-27 16:03:00 Test Item Value Reference Range Interpretation Comments Globulin (test code = Globulin) 2.4 1.9-3.7 [facility]2021-09-27 16:03:00 Test Item Value Reference Range Interpretation Comments A/G Ratio (test code = A/G Ratio) 1.6 1.0-2.5 [facility]2021-09-27 16:03:00 Test Item Value Reference Range Interpretation Comments Bili Total (test code = Bili Total) 0.3 0.2-1.2 [facility]2021-09-27 16:03:00 Test Item Value Reference Range Interpretation Comments Alk Phos (test code = Alk Phos) 117 37-153 [facility]2021-09-27 16:03:00 Test Item Value Reference Range Interpretation Comments ASPARTATE TRANSAMINASE (test code = 23 10-35 ASPARTATE TRANSAMINASE) [facility]2021-09-27 16:03:00 Test Item Value Reference Range Interpretation Comments ALANINE AMINOTRANSFERASE (test code = 24 6-29 ALANINE AMINOTRANSFERASE) [id number] 16:03:00 Test Item Value Reference Range Interpretation Comments WBC X 10x3 (test code = WBC X 10x3) 4.6 3.8-10.8 [facility] H[id number] 16:03:00 Test Item Value Reference Range Interpretation Comments RBC X 10x6 (test code = RBC X 10x6) 4.52 3.80-5.10 [facility] HospitalZttmlqqREHOHYFDTF2171-91-46 16:03:00 Test Item Value Reference Range Interpretation Comments Hgb (test code = Hgb) 12.4 11.7-15.5 [facility] HospitalZbnskdsEHPRBMTUWI0874-97-10 16:03:00 Test Item Value Reference Range Interpretation Comments Hct (test code = Hct) 39.7 35.0-45.0 [facility] [id number] 16:03:00 Test Item Value Reference Range Interpretation Comments MCV (test code = MCV) 87.8 80.0-100.0 [facility] [id number] 16:03:00 Test Item Value Reference Range Interpretation Comments MCH (test code = MCH) 27.4 pg 27.0-33.0 [facility] H[id number] 16:03:00 Test Item Value Reference Range Interpretation Comments MCHC (test code = MCHC) 31.2 32.0-36.0 [facility] Hos[id number] 16:03:00 Test Item Value Reference Range Interpretation Comments RDW (test code = RDW) 13.8 11.0-15.0 [facility] [id number] 16:03:00 Test Item Value Reference Range Interpretation Comments Platelet (test code = Platelet) 257 140-400 [facility] HospitalBaeioyxAXJPYTWXRX7901-15-86 16:03:00 Test Item Value Reference Range Interpretation Comments MPV (test code = MPV) 10.2 7.5-12.5 [facility] HospitalGvyhzcvWPPFPUNNLN8714-70-94 16:03:00 Test Item Value Reference Range Interpretation Comments Neutrophils # (test code = Neutrophils 2797 6359-1033 #) [facility] HospitalDmtepilLCOFZKBEIM1394-63-88 16:03:00 Test Item Value Reference Range Interpretation Comments Lymphocytes # (test code = Lymphocytes 004 542-5374 #) [facility] HospitalKoxbebxGOTRJCAWDX0499-98-62 16:03:00 Test Item Value Reference Range Interpretation Comments Monocytes # (test code = Monocytes #) 359 200-950 [facility]KahpzcsNWCWGCMWKD2083-21-18 16:03:00 Test Item Value Reference Range Interpretation Comments Eosinophils # (test code = Eosinophils 120 15-500 #) [id number] 16:03:00 Test Item Value Reference Range Interpretation Comments Basophils # (test code = Basophils #) 32 <=200 [facility]iacLsemmyhEPATJYYZYP9573-12-59 16:03:00 Test Item Value Reference Range Interpretation Comments Segs (test code = Segs) 69.5 [facility]HjuxtcfYSRIUVYHUQ0398-34-35 16:03:00 Test Item Value Reference Range Interpretation Comments Lymphocytes (test code = Lymphocytes) 19.4 [facility]JvhgryoPQIRXNUEEY9610-18-31 16:03:00 Test Item Value Reference Range Interpretation Comments Monocytes (test code = Monocytes) 7.8 [facility]iacRnoyldhZQTJZKTMVF9837-68-84 16:03:00 Test Item Value Reference Range Interpretation Comments Eosinophils (test code = Eosinophils) 2.6 [facility]NhpkwpmBKXJBRLHWE1574-45-86 16:03:00 Test Item Value Reference Range Interpretation Comments Basophils (test code = Basophils) 0.7 [facility]TcbbertEUIPRP7451-11-52 16:03:00 Test Item Value Reference Range Interpretation Comments Chol (test code = Chol) 146 [facility] HospitalGuazbysHXNIKQ1306-29-23 16:03:00 Test Item Value Reference Range Interpretation Comments HDL (test code = HDL) 33 [facility] HospitalIxjcfinATHNPT3741-27-93 16:03:00 Test Item Value Reference Range Interpretation Comments Trig (test code = Trig) 134 [facility] HospitalXvqkvwpAXTGSE9085-78-85 16:03:00 Test Item Value Reference Range Interpretation Comments LDL (Calculated) (test code = LDL 90 (Calculated)) [facility] HospitalYexgsjyKSNUZR1103-39-57 16:03:00 Test Item Value Reference Range Interpretation Comments CHD Risk (test code = CHD Risk) 4.4 [facility] HospitalAgykblwLCZJKZ1858-74-17 16:03:00 Test Item Value Reference Range Interpretation Comments Non HDL Chol (test code = Non HDL Chol) 113 [facility] [id number] 16:03:00 Test Item Value Reference Range Interpretation Comments Hgb A1C (test code = Hgb A1C) 6.5 [facility] [id number] 16:03:00 Test Item Value Reference Range Interpretation Comments U Creat mg/dL (test code = U Creat 84 20-275 mg/dL) [facility]2021-09-27 16:03:00 Test Item Value Reference Range Interpretation Comments U Alb (test code = U Alb) 2.4 [facility]2021-09-27 16:03:00 Test Item Value Reference Range Interpretation Comments U Alb/Crea (test code = U Alb/Crea) 29 [facility] HospitalJ[facility] [id number] 15:15:00 Test Item Value Reference Range Interpretation Comments Glucose Lvl (test code = Glucose Lvl) 153 65-99 [facility] [id number] 15:15:00 Test Item Value Reference Range Interpretation Comments BUN (test code = BUN) 18 7-25 [facility] [id number] 15:15:00 Test Item Value Reference Range Interpretation Comments Creatinine Lvl (test code = Creatinine 0.90 0.50-0.99 Lvl) [facility] [id number] 15:15:00 Test Item Value Reference Range Interpretation Comments eGFR NON-AFR. RUSSIAN (test code = 65 eGFR NON-AFR. RUSSIAN) [facility] [id number] 15:15:00 Test Item Value Reference Range Interpretation Comments eGFR (test code = eGFR 76 ) [facility] [id number] 15:15:00 Test Item Value Reference Range Interpretation Comments B/C Ratio (test code = B/C NOT APPLICABLE 6-22 Ratio) [facility] [id number] 15:15:00 Test Item Value Reference Range Interpretation Comments Sodium Lvl (test code = Sodium Lvl) 138 135-146 [facility] [id number] 15:15:00 Test Item Value Reference Range Interpretation Comments Potassium Lvl (test code = Potassium 4.3 3.5-5.3 Lvl) [facility] [id number] 15:15:00 Test Item Value Reference Range Interpretation Comments Chloride Lvl (test code = Chloride Lvl) 105 98-110 [facility] [id number] 15:15:00 Test Item Value Reference Range Interpretation Comments CO2 (test code = CO2) 25 20-32 [id number] 15:15:00 Test Item Value Reference Range Interpretation Comments Calcium Lvl (test code = Calcium Lvl) 8.7 8.6-10.4 [place] [id number] 15:15:00 Test Item Value Reference Range Interpretation Comments Total Protein (test code = Total 6.6 6.1-8.1 Protein) [facility]2020-10-16 15:15:00 Test Item Value Reference Range Interpretation Comments Albumin Lvl (test code = Albumin Lvl) 3.9 3.6-5.1 [place] [id number] 15:15:00 Test Item Value Reference Range Interpretation Comments Globulin (test code = Globulin) 2.7 1.9-3.7 [place] [id number] 15:15:00 Test Item Value Reference Range Interpretation Comments A/G Ratio (test code = A/G Ratio) 1.4 1.0-2.5 [place] [id number] 15:15:00 Test Item Value Reference Range Interpretation Comments Bili Total (test code = Bili Total) 0.6 0.2-1.2 [place] 790950-10-16 15:15:00 Test Item Value Reference Range Interpretation Comments Alk Phos (test code = Alk Phos) 92 37-153 [place] [id number] 15:15:00 Test Item Value Reference Range Interpretation Comments ASPARTATE TRANSAMINASE (test code = 20 10-35 ASPARTATE TRANSAMINASE) [place] [id number] 15:15:00 Test Item Value Reference Range Interpretation Comments ALANINE AMINOTRANSFERASE (test code = 19 6-29 ALANINE AMINOTRANSFERASE) [facility]DarbaijPYFYOE2977-88-66 15:15:00 Test Item Value Reference Range Interpretation Comments Chol (test code = Chol) 152 [facility] HospitalRixjdztCYTHYQ9072-72-40 15:15:00 Test Item Value Reference Range Interpretation Comments HDL (test code = HDL) 34 [facility] Ho[id number] 15:15:00 Test Item Value Reference Range Interpretation Comments Trig (test code = Trig) 95 [facility]JddrpdbZYKQYQ4233-18-86 15:15:00 Test Item Value Reference Range Interpretation Comments LDL (Calculated) (test code = LDL 99 (Calculated)) [place] [address]-10-16 15:15:00 Test Item Value Reference Range Interpretation Comments CHD Risk (test code = CHD Risk) 4.5 [facility] HospitalSsavvyeHKNWAN4462-84-49 15:15:00 Test Item Value Reference Range Interpretation Comments Non HDL Chol (test code = Non HDL Chol) 118 [facility] [id number] 15:15:00 Test Item Value Reference Range Interpretation Comments Hgb A1C (test code = Hgb A1C) 6.6 [facility] [id number] 15:15:00 Test Item Value Reference Range Interpretation Comments U Creat mg/dL (test code = U Creat 98 20-275 mg/dL) [facility] [id number] 15:15:00 Test Item Value Reference Range Interpretation Comments U Alb (test code = U Alb) 6.4 [facility] [id number] 15:15:00 Test Item Value Reference Range Interpretation Comments U Alb/Crea (test code = U Alb/Crea) 65 [facility] HospitalCHEM [id number] 18:53:00 Test Item Value Reference Range Interpretation Comments ALANINE AMINOTRANSFERASE (test code = 20 6-29 ALANINE AMINOTRANSFERASE) [facility] HospitalZqktjszAQZBPFMDII8906-81-67 18:53:00 Test Item Value Reference Range Interpretation Comments WBC X 10x3 (test code = WBC X 10x3) 4.3 3.8-10.8 [facility] HospitalUhlmyapWZVNQCFRMH4246-38-90 18:53:00 Test Item Value Reference Range Interpretation Comments RBC X 10x6 (test code = RBC X 10x6) 4.37 3.80-5.10 [facility] HospitalArdaqoeSRTPYDAHNS7501-97-87 18:53:00 Test Item Value Reference Range Interpretation Comments Hgb (test code = Hgb) 11.9 11.7-15.5 [facility] HospitalXjklbkrBWABHDEVOY4213-60-45 18:53:00 Test Item Value Reference Range Interpretation Comments Hct (test code = Hct) 37.4 35.0-45.0 [facility] HospitalSsuzlnrMONNJUQTPO9168-02-41 18:53:00 Test Item Value Reference Range Interpretation Comments MCV (test code = MCV) 85.6 80.0-100.0 [facility]zrnwgqDLCXDIQYXV8797-79-16 18:53:00 Test Item Value Reference Range Interpretation Comments MCH (test code = MCH) 27.2 pg 27.0-33.0 [facility] HospitalNncxfhwVSFIGSKLEF5676-93-60 18:53:00 Test Item Value Reference Range Interpretation Comments MCHC (test code = MCHC) 31.8 32.0-36.0 [facility] HospitalDelvrjpXJITSHDOLE7828-00-81 18:53:00 Test Item Value Reference Range Interpretation Comments RDW (test code = RDW) 14.9 11.0-15.0 [facility] HospitalJpwwbvzZLSLAAFXFZ8604-07-39 18:53:00 Test Item Value Reference Range Interpretation Comments Platelet (test code = Platelet) 247 140-400 [facility] HospitalBhfsnehDUYPYBGLOV9883-39-47 18:53:00 Test Item Value Reference Range Interpretation Comments MPV (test code = MPV) 10.3 7.5-12.5 [facility] HospitalJaumtwoVKRTDLCRAK5835-43-55 18:53:00 Test Item Value Reference Range Interpretation Comments Neutrophils # (test code = Neutrophils 2821 6068-8880 #) [facility] HospitalNdhmceiSCIERERVEW2461-59-14 18:53:00 Test Item Value Reference Range Interpretation Comments Lymphocytes # (test code = Lymphocytes 7753 976-2837 #) [facility] HospitalOhxsayxAZIOWTKOFS5115-71-72 18:53:00 Test Item Value Reference Range Interpretation Comments Monocytes # (test code = Monocytes #) 348 200-950 [facility] HospitalUvfwsanXJATNOLGNN1943-09-98 18:53:00 Test Item Value Reference Range Interpretation Comments Eosinophils # (test code = Eosinophils 82 15-500 #) [facility] HospitalUmtqaecIRETFLGMHR6053-81-46 18:53:00 Test Item Value Reference Range Interpretation Comments Basophils # (test code = Basophils #) 22 <=200 [facility] HospitalEdhhwqyDVXWTYZZFN4044-22-07 18:53:00 Test Item Value Reference Range Interpretation Comments Segs (test code = Segs) 65.6 [facility] HospitalYfoblzjVFZRPKWSJN8197-23-91 18:53:00 Test Item Value Reference Range Interpretation Comments Lymphocytes (test code = Lymphocytes) 23.9 [place] 305650-07-07 18:53:00 Test Item Value Reference Range Interpretation Comments Monocytes (test code = Monocytes) 8.1 [facility] HospitalEmfbysdHYKDMDHFIS8572-68-70 18:53:00 Test Item Value Reference Range Interpretation Comments Eosinophils (test code = Eosinophils) 1.9 [facility] HospitalOljgatnDHDFXTBVOQ7425-11-82 18:53:00 Test Item Value Reference Range Interpretation Comments Basophils (test code = Basophils) 0.5 [facility] CampusBgvskhfYVKYOD9249-57-93 18:53:00 Test Item Value Reference Range Interpretation Comments Chol (test code = Chol) 150 [facility] HospitalZfkaiwaNVOYAC3216-55-07 18:53:00 Test Item Value Reference Range Interpretation Comments HDL (test code = HDL) 31 [facility] CampusVrgnnwqDCNJBL3566-39-76 18:53:00 Test Item Value Reference Range Interpretation Comments Trig (test code = Trig) 111 [facility] HospitalEvosfaaBOOMXY2607-30-22 18:53:00 Test Item Value Reference Range Interpretation Comments LDL (Calculated) (test code = LDL 98 (Calculated)) [facility] HospitalWzscvizVWLNTO3116-25-15 18:53:00 Test Item Value Reference Range Interpretation Comments CHD Risk (test code = CHD Risk) 4.8 [facility] HospitalVbhdnzyUHYZFB4693-64-93 18:53:00 Test Item Value Reference Range Interpretation Comments Non HDL Chol (test code = Non HDL Chol) 119 [facility] [id number] 18:53:00 Test Item Value Reference Range Interpretation Comments Hgb A1C (test code = Hgb A1C) 6.8 [facility] HospitalJ[facility] [id number] 18:53:00 Test Item Value Reference Range Interpretation Comments Glucose Lvl (test code = Glucose Lvl) 124 65-99 [facility] [id number] 18:53:00 Test Item Value Reference Range Interpretation Comments BUN (test code = BUN) 18 7-25 [facility] CampusannJ[facility] [id number] 18:53:00 Test Item Value Reference Range Interpretation Comments Creatinine Lvl (test code = Creatinine 0.88 0.50-0.99 Lvl) [facility] [id number] 18:53:00 Test Item Value Reference Range Interpretation Comments eGFR NON-AFR. RUSSIAN (test code = 67 eGFR NON-AFR. RUSSIAN) [facility] CampusannJ[facility] [id number] 18:53:00 Test Item Value Reference Range Interpretation Comments eGFR (test code = eGFR 78 ) [facility] [id number] 18:53:00 Test Item Value Reference Range Interpretation Comments B/C Ratio (test code = B/C NOT APPLICABLE 09-23 Ratio) [facility]2020-07-07 18:53:00 Test Item Value Reference Range Interpretation Comments Sodium Lvl (test code = Sodium Lvl) 138 135-146 [facility]2020-07-07 18:53:00 Test Item Value Reference Range Interpretation Comments Potassium Lvl (test code = Potassium 4.3 3.5-5.3 Lvl) [facility]2020-07-07 18:53:00 Test Item Value Reference Range Interpretation Comments Chloride Lvl (test code = Chloride Lvl) 107 98-110 [facility]2020-07-07 18:53:00 Test Item Value Reference Range Interpretation Comments CO2 (test code = CO2) 22 20-32 [facility]2020-07-07 18:53:00 Test Item Value Reference Range Interpretation Comments Calcium Lvl (test code = Calcium Lvl) 9.1 8.6-10.4 [facility]2020-07-07 18:53:00 Test Item Value Reference Range Interpretation Comments Total Protein (test code = Total 6.9 6.1-8.1 Protein) [facility]2020-07-07 18:53:00 Test Item Value Reference Range Interpretation Comments Albumin Lvl (test code = Albumin Lvl) 4.1 3.6-5.1 [facility]2020-07-07 18:53:00 Test Item Value Reference Range Interpretation Comments Globulin (test code = Globulin) 2.8 1.9-3.7 [facility]2020-07-07 18:53:00 Test Item Value Reference Range Interpretation Comments A/G Ratio (test code = A/G Ratio) 1.5 1.0-2.5 [facility]2020-07-07 18:53:00 Test Item Value Reference Range Interpretation Comments Bili Total (test code = Bili Total) 0.4 0.2-1.2 [facility]2020-07-07 18:53:00 Test Item Value Reference Range Interpretation Comments Alk Phos (test code = Alk Phos) 94 37-153 [facility]2020-07-07 18:53:00 Test Item Value Reference Range Interpretation Comments ASPARTATE TRANSAMINASE (test code = 22 10-35 ASPARTATE TRANSAMINASE) [facility] [id number] 14:52:00 Test Item Value Reference Range Interpretation Comments HEMOGLOBIN A1C (BEAKER) (test code = 9.6 % 4.3-6.1 H 368) POCT-GLUCOSE [id number] 12:01:00 Test Item Value Reference Range Interpretation Comments POC-GLUCOSE METER 268 mg/dL 70-110 H TESTED AT [place] [address] [facility] (test code = KYLE Gandara [facility] 1538) [address] [place], [employer]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 This examination is nondiagnostic. Fluoroscopy was not performed by the undersigned, and the radiologist was not present at the time of examination. Interpretation of the images was not requested. Total fluoroscopy time: 28.0 second Total number of films: 5 Please refer to the referring physician's procedure report for complete detail. Signed: Alexis Vang Verified Date/Time: 08/13/2018 10:18:27 Reading Location: [facility] C013X Ortho Consult Reading Room POCT-GLUCOSE [id number] 08:48:00 Test Item Value Reference Range Interpretation Comments POC-GLUCOSE METER 199 mg/dL 70-110 H TESTED AT [place] [address] ([facility] (test code = KYLE Gandara [facility] 1538) [address] POCT-GLUCOSE [id number] 06:06:00 Test Item Value Reference Range Interpretation Comments POC-GLUCOSE METER 195 mg/dL 70-110 H TESTED AT [facility] 6720 (BEAKER) (test code = KYLE Gandara [facility] 1538) [address] BASIC METABOLIC [id number] 05:10:00 Test Item Value Reference Range Interpretation Comments SODIUM (BEAKER) 134 meq/L 136-145 L (test code = 381) POTASSIUM (BEAKER) 4.0 meq/L 3.5-5.1 (test code = 379) CHLORIDE (BEAKER) 102 meq/L 98-107 (test code = 382) CO2 (BEAKER) (test 23 meq/L 22-29 code = 355) BLOOD UREA NITROGEN 19 mg/dL 7-21 ([facility]) (test code = 354) CREATININE ([facility]) 1.01 mg/dL 0.57-1.25 (test code = 358) GLUCOSE RANDOM 201 mg/dL 70-105 H ([facility]) (test code = 652) CALCIUM (AKER) 8.8 mg/dL 8.4-10.2 (test code = 697) EGFR ([facility]) (test 55 mL/min/1.73 ESTIMA KAREN GFR IS code = 1092) sq m NOT ACCURATE CREATININE CLEARANCE IN PREDICTING GLOMERULAR FILTRATION RATE . ESTIMATED GFR I S NOT APPLICABLE FOR DIALYSIS PATIEN TS. PROTHROMBIN [id number] 04:51:00 Test Item Value Reference Range Interpretation Comments PROTIME (KOBY) (test code = 13.1 seconds 11.7-14.7 759) INR ([facility]) (test code = 370) 1.0 <=5.9 RECOMMENDED COUMADIN/WARFARIN INR THERAPY RANGESSTANDARD DOSE: 2.0 - 3.0 Includes: PROPHYLAXIS for venous thrombosis, systemic embolization; TREATMENT for venous thrombosis and/or pulmonary embolus.HIGH RISK: Target INR is 2.5-3.5 for patients with mechanical heart valves.POCT-GLUCOSE [id number] 21:35:00 Test Item Value Reference Range Interpretation Comments POC-GLUCOSE METER 263 mg/dL 70-110 H TESTED AT [facility] 67 ([facility]) (test code = [facility] 1538) [address] POCT-GLUCOSE [id number] 16:35:00 Test Item Value Reference Range Interpretation Comments POC-GLUCOSE METER 195 mg/dL 70-110 H TESTED AT [place] [address] ([facility]) (test code = [facility] 1538) [address] HEMOGLOBIN [id number] 15:00:00 Test Item Value Reference Range Interpretation Comments HEMOGLOBIN A1C ([facility]) (test code = 9.8 % 4.3-6.1 H 368) RAD, WRIST, 2 VIEWS, [id number] 10:08:00Reason for exam:->fractureFINAL REPORT Two views of the right forearm and two views of the right wrist. COMPARISON: None. IMPRESSION: The patient is status post casting of the right wrist and forearm. Thereare comminuted fractures of the right distal radius and distal ulna in near-anatomic alignment. Bones are osteopenic. No other fracture is demonstrated. Signed: Alexis Vang MDReport Verified Date/Time: 08/12/2018 10:08:55 Reading Location: [facility] B1 C013X Ortho Consult Reading Room RAD, FOREARM, 2 VIEWS, [id number] 10:08:00Reason for exam:->fractureFINAL REPORT Two views of the right forearm and two views of the right wrist. COMPARISON: None. IMPRESSION: The patient is status post casting of the right wrist and forearm. Thereare comminuted fractures of the right distal radius and distal ulna in near-anatomic alignment. Bones are osteopenic. No other fracture is demonstrated. Signed: Alexis Vangeport Verified Date/Time: 08/12/2018 10:08:55 Reading Location: [facility] C013X Ortho Consult Reading Room BASIC METABOLIC [id number] 06:52:00 Test Item Value Reference Range Interpretation Comments SODIUM (BEAKER) 134 meq/L 136-145 L (test code = 381) POTASSIUM (BEAKER) 4.2 meq/L 3.5-5.1 (test code = 379) CHLORIDE (BEAKER) 103 meq/L 98-107 (test code = 382) CO2 (BEAKER) (test 22 meq/L 22-29 code = 355) BLOOD UREA NITROGEN 17 mg/dL 7-21 (BEAKER) (test code = 354) CREATININE (BEAKER) 0.83 mg/dL 0.57-1.25 (test code = 358) GLUCOSE RANDOM 171 mg/dL 70-105 H (BEAKER) (test code = 652) CALCIUM (BEAKER) 9.0 mg/dL 8.4-10.2 (test code = 697) EGFR (BEAKER) (test 68 mL/min/1.73 ESTIMA KAREN GFR IS code = 1092) sq m NOT ACCURATE CREATININE CLEARANCE IN PREDICTING GLOMERULAR FILTRATION RATE . ESTIMATED GFR I S NOT APPLICABLE FOR DIALYSIS PATIEN TS. PROTHROMBIN [id number] 06:34:00 Test Item Value Reference Range Interpretation Comments PROTIME (BEAKER) (test code = 13.2 seconds 11.7-14.7 759) INR (BEAKER) (test code = 370) 1.1 <=5.9 RECOMMENDED COUMADIN/WARFARIN INR THERAPY RANGESSTANDARD DOSE: 2.0 - 3.0 Includes: PROPHYLAXIS for venous thrombosis, systemic embolization; TREATMENT for venous thrombosis and/or pulmonary embolus.HIGH RISK: Target INR is 2.5-3.5 for patients with mechanical heart valves.CBC W/PLT COUNT & AUTO [id number] 06:11:00 Test Item Value Reference Range Interpretation Comments WHITE BLOOD CELL COUNT (BEAKER) 7.2 K/ L 3.5-10.5 (test code = 775) RED BLOOD CELL COUNT (BEAKER) 4.53 M/ L 3.93-5.22 (test code = 761) HEMOGLOBIN (BEAKER) (test code = 12.2 GM/DL 11.2-15.7 410) HEMATOCRIT (BEAKER) (test code = 38.1 % 34.1-44.9 411) MEAN CORPUSCULAR VOLUME (BEAKER) 84.1 fL 79.4-94.8 (test code = 753) MEAN CORPUSCULAR HEMOGLOBIN 26.9 pg 25.6-32.2 (BEAKER) (test code = 751) MEAN CORPUSCULAR HEMOGLOBIN CONC 32.0 GM/DL 32.2-35.5 L (BEAKER) (test code = 752) RED CELL DISTRIBUTION WIDTH 15.1 % 11.7-14.4 H (BEAKER) (test code = 412) PLATELET COUNT (BEAKER) (test 181 K/CU MM 150-450 code = 756) MEAN PLATELET VOLUME (BEAKER) 10.3 fL 9.4-12.3 (test code = 754) NUCLEATED RED BLOOD CELLS 0 /100 WBC 0-0 (BEAKER) (test code = 413) NEUTROPHILS RELATIVE PERCENT 77 % (BEAKER) (test code = 429) LYMPHOCYTES RELATIVE PERCENT 14 % (BEAKER) (test code = 430) MONOCYTES RELATIVE PERCENT 7 % (BEAKER) (test code = 431) EOSINOPHILS RELATIVE PERCENT 1 % (BEAKER) (test code = 432) BASOPHILS RELATIVE PERCENT 0 % (BEAKER) (test code = 437) NEUTROPHILS ABSOLUTE COUNT 5.56 K/ L 1.56-6.13 (BEAKER) (test code = 670) LYMPHOCYTES ABSOLUTE COUNT 1.01 K/ L 1.18-3.74 L (BEAKER) (test code = 414) MONOCYTES ABSOLUTE COUNT (BEAKER) 0.51 K/ L 0.24-0.36 H (test code = 415) EOSINOPHILS ABSOLUTE COUNT 0.06 K/ L 0.04-0.36 (BEAKER) (test code = 416) BASOPHILS ABSOLUTE COUNT (BEAKER) 0.02 K/ L 0.01-0.08 (test code = 417) IMMATURE GRANULOCYTES-RELATIVE 0 % 0-1 PERCENT (BEAKER) (test code = 2801) POCT-GLUCOSE [id number] 22:41:00 Test Item Value Reference Range Interpretation Comments POC-GLUCOSE METER 236 mg/dL 70-110 H TESTED AT [facility] 6720 ([facility]) (test code = [place] 1538) [address] CHEM [id number] 16:30:00 Test Item Value Reference Range Interpretation Comments ALT (test code = ALT) 88 <=65 [facility] [id number] 16:30:00 Test Item Value Reference Range Interpretation Comments Bili Indirect (test code Unable to Calculate <=1.0 = Bili Indirect) [facility] [id number] 16:30:00 Test Item Value Reference Range Interpretation Comments Bili Direct (test code = Bili Direct) no gt <=0.3 [facility] [id number] 16:30:00 Test Item Value Reference Range Interpretation Comments Bili Total (test code = Bili Total) 0.3 0.2-1.3 [facility] [id number] 16:30:00 Test Item Value Reference Range Interpretation Comments A/G Ratio (test code = A/G Ratio) 1.0 1 0.7-1.6 [facility] [id number] 16:30:00 Test Item Value Reference Range Interpretation Comments AST (test code = AST) 57 <=37 [facility] [id number] 16:30:00 Test Item Value Reference Range Interpretation Comments Alk Phos (test code = Alk Phos) 181 39-136 [facility]2018-10-24 16:30:00 Test Item Value Reference Range Interpretation Comments Globulin (test code = Globulin) 3.7 2.7-4.2 [facility]2018-10-24 16:30:00 Test Item Value Reference Range Interpretation Comments Albumin Lvl (test code = Albumin Lvl) 3.7 3.5-5.0 [facility] [id number] 16:30:00 Test Item Value Reference Range Interpretation Comments Total Protein (test code = Total 7.4 6.4-8.4 Protein) [id number] 16:30:00 Test Item Value Reference Range Interpretation Comments AGAP (test code = AGAP) 11.2 10.0-20.0 [facility] R[id number] 16:30:00 Test Item Value Reference Range Interpretation Comments eGFR (test code = eGFR) 46 [facility] RegionWcnoavrHBUKXGWMKPYB6332-52-65 16:30:00 Test Item Value Reference Range Interpretation Comments CO2 (test code = CO2) 25 24-32 [facility] Reg[id number] 16:30:00 Test Item Value Reference Range Interpretation Comments Calcium Lvl (test code = Calcium Lvl) 8.4 8.5-10.5 [facility] RegionImnhtdlMPMLSEZVZSON2574-74-48 16:30:00 Test Item Value Reference Range Interpretation Comments Potassium Lvl (test code = Potassium 4.2 3.5-5.1 Lvl) [facility] RegionCuxjwewEEVYKSWROSOH7098-71-01 16:30:00 Test Item Value Reference Range Interpretation Comments Chloride Lvl (test code = Chloride Lvl) 105 95-109 [facility] RegionCnfwcuxYZEIQNZSSUBQ5539-93-38 16:30:00 Test Item Value Reference Range Interpretation Comments Creatinine Lvl (test code = Creatinine 1.22 0.50-1.40 Lvl) [facility] RegionHfgnehbYMRDAFXYNFEP8220 16:30:00 Test Item Value Reference Range Interpretation Comments Sodium Lvl (test code = Sodium Lvl) 137 135-145 [facility] RegionFihejvqKDLEQFUVUTXC0407-03-16 16:30:00 Test Item Value Reference Range Interpretation Comments Glucose Lvl (test code = Glucose Lvl) 354 70-99 [facility] RegionHezuqutFOCAYHHLQRID3853-59-22 16:30:00 Test Item Value Reference Range Interpretation Comments BUN (test code = BUN) 20 7-22 [facility] HospitalEdaopapOKFNURUXOW0081-76-19 16:30:00 Test Item Value Reference Range Interpretation Comments WBC (test code = WBC) 4.5 3.7-10.4 [facility] HospitalHiqdlvjSNNCRULPCK5800-30-45 16:30:00 Test Item Value Reference Range Interpretation Comments RBC (test code = RBC) 4.80 4.20-5.40 [facility] HospitalUxtyxirCWJSJMGTSM6852-75-84 16:30:00 Test Item Value Reference Range Interpretation Comments Hgb (test code = Hgb) 12.4 12.0-16.0 [facility] Hos[id number] 16:30:00 Test Item Value Reference Range Interpretation Comments Platelet (test code = Platelet) 240 133-450 [facility] HospitalUxxanppEIGZJQOZNB7022-11-75 16:30:00 Test Item Value Reference Range Interpretation Comments MPV (test code = MPV) 8.6 7.4-10.4 [facility] HospitalWsjmmtvSSBQWCAAME3629-30-19 16:30:00 Test Item Value Reference Range Interpretation Comments Hct (test code = Hct) 38.6 36.0-48.0 [facility] HospitalUxxngxnRTHJGZUCYK4585-10-30 16:30:00 Test Item Value Reference Range Interpretation Comments MCHC (test code = MCHC) 32.0 32.0-36.0 [facility] HospitalUslrulfUKVRGQRSPI8721-99-89 16:30:00 Test Item Value Reference Range Interpretation Comments MCH (test code = MCH) 25.8 pg 27.0-31.0 [facility] H[id number] 16:30:00 Test Item Value Reference Range Interpretation Comments MCV (test code = MCV) 80.5 80.0-98.0 [facility] HospitalYouvmeyBRXPAWXQWK5364-71-12 16:30:00 Test Item Value Reference Range Interpretation Comments RDW (test code = RDW) 16.4 11.5-14.5 [facility]AenpibfDUAEZOKVBT7011-62-47 16:30:00 Test Item Value Reference Range Interpretation Comments Monocytes (test code = Monocytes) 9.2 2.0-12.0 [facility] HospitalFdoibdtDWJYPVAWCX1865-93-51 16:30:00 Test Item Value Reference Range Interpretation Comments Lymphocytes (test code = Lymphocytes) 24.9 20.0-40.0 [facility]wzhcceHFSAEFQRBW4035-11-02 16:30:00 Test Item Value Reference Range Interpretation Comments Eosinophils (test code = Eosinophils) 1.0 <=4.0 [facility]KoawdvfYYWTRJVEHC3959-88-76 16:30:00 Test Item Value Reference Range Interpretation Comments Monocytes # (test code = Monocytes #) 0.4 <=0.8 [facility]AehqsgkTYETOKMXQE1964-75-78 16:30:00 Test Item Value Reference Range Interpretation Comments Lymphocytes # (test code = Lymphocytes 1.1 1.0-5.5 #) [facility] HospitalIpbktclIXHOUAUWVS6798-95-27 16:30:00 Test Item Value Reference Range Interpretation Comments Basophils (test code = Basophils) 0.6 <=1.0 [facility] HospitalUyvirlwYGJXTBUBCY1956-23-76 16:30:00 Test Item Value Reference Range Interpretation Comments Neutrophils # (test code = Neutrophils 2.9 1.5-8.1 #) [facility] HospitalKywtfjiUCNQIRYMOP4325-47-22 16:30:00 Test Item Value Reference Range Interpretation Comments Segs (test code = Segs) 64.3 45.0-75.0 [facility]luuuzbBYGWPPRDKV0264-72-14 16:30:00 Test Item Value Reference Range Interpretation Comments IgG Lvl (test code = IgG Lvl) [phone] [facility]2018-04-23 15:00:00 Test Item Value Reference Range Interpretation Comments Glucose BF Cyst (test code = Glucose <2 mg/dL BF Cyst) [facility]2018-04-23 15:00:00 Test Item Value Reference Range Interpretation Comments CEA BF Cyst (test code = CEA BF Cyst) 49.3 [facility]2018-04-23 15:00:00 Test Item Value Reference Range Interpretation Comments Amylase BF Cyst (test code = Amylase BF 802 Cyst) [facility]Snap[facility] [id number] 22:08:00 Test Item Value Reference Range Interpretation Comments eGFR (test code = eGFR) 52 [facility]2018-02-19 22:08:00 Test Item Value Reference Range Interpretation Comments POC Creatinine (test code = POC 1.1 0.5-1.4 Creatinine) [facility] [id number] 23:59:00 Test Item Value Reference Range Interpretation Comments Lipase Lvl (test code = Lipase Lvl) 107 73-393 [facility]2017-05-23 23:59:00 Test Item Value Reference Range Interpretation Comments eGFR (test code = eGFR) 47 [facility]2017-05-23 23:59:00 Test Item Value Reference Range Interpretation Comments Bili Total (test code = Bili Total) 0.6 0.2-1.3 [facility]2017-05-23 23:59:00 Test Item Value Reference Range Interpretation Comments ALT (test code = ALT) 78 <=65 [facility]2017-05-23 23:59:00 Test Item Value Reference Range Interpretation Comments AST (test code = AST) 42 <=37 [facility]2017-05-23 23:59:00 Test Item Value Reference Range Interpretation Comments Alk Phos (test code = Alk Phos) 123 39-136 [facility]2017-05-23 23:59:00 Test Item Value Reference Range Interpretation Comments Albumin Lvl (test code = Albumin Lvl) 3.3 3.5-5.0 [facility]2017-05-23 23:59:00 Test Item Value Reference Range Interpretation Comments Calcium Lvl (test code = Calcium Lvl) 8.8 8.5-10.5 [facility]2017-05-23 23:59:00 Test Item Value Reference Range Interpretation Comments Total Protein (test code = Total 7.6 6.4-8.4 Protein) [facility]2017-05-23 23:59:00 Test Item Value Reference Range Interpretation Comments CO2 (test code = CO2) 21 24-32 [facility]2017-05-23 23:59:00 Test Item Value Reference Range Interpretation Comments Chloride Lvl (test code = Chloride Lvl) 110 95-109 [facility]2017-05-23 23:59:00 Test Item Value Reference Range Interpretation Comments Potassium Lvl (test code = Potassium 4.7 3.5-5.1 Lvl) [facility]2017-05-23 23:59:00 Test Item Value Reference Range Interpretation Comments Creatinine Lvl (test code = Creatinine 1.20 0.50-1.40 Lvl) [facility]2017-05-23 23:59:00 Test Item Value Reference Range Interpretation Comments Sodium Lvl (test code = Sodium Lvl) 138 135-145 [facility]2017-05-23 23:59:00 Test Item Value Reference Range Interpretation Comments Glucose Lvl (test code = Glucose Lvl) 93 70-99 [facility]2017-05-23 23:59:00 Test Item Value Reference Range Interpretation Comments BUN (test code = BUN) 30 7-22 [facility]2017-05-23 23:59:00 Test Item Value Reference Range Interpretation Comments A/G Ratio (test code = A/G Ratio) 0.8 0.7-1.6 [facility]2017-05-23 23:59:00 Test Item Value Reference Range Interpretation Comments Globulin (test code = Globulin) 4.3 2.7-4.2 [facility]2017-05-23 23:59:00 Test Item Value Reference Range Interpretation Comments B/C Ratio (test code = B/C Ratio) 25 6-25 [facility]2017-05-23 23:59:00 Test Item Value Reference Range Interpretation Comments AGAP (test code = AGAP) 11.7 10.0-20.0 [facility] HospitalIpwlwxmLMBTSQBOLH5046-28-17 23:59:00 Test Item Value Reference Range Interpretation Comments Monocytes (test code = Monocytes) 11.0 2.0-12.0 [facility] HospitalKgyyiuxBZTSUYPPLA4950-79-00 23:59:00 Test Item Value Reference Range Interpretation Comments Lymphocytes (test code = Lymphocytes) 21.8 20.0-40.0 [facility] HospitalHpkbcsmUYIRCRCIFI8212-10-07 23:59:00 Test Item Value Reference Range Interpretation Comments Basophils (test code = Basophils) 0.4 <=1.0 [facility] HospitalLstgdphLICFAZGCKF5077-74-23 23:59:00 Test Item Value Reference Range Interpretation Comments Eosinophils (test code = Eosinophils) 2.5 <=4.0 [facility] HospitalEnpmzyfITICVTWEVS7949-13-35 23:59:00 Test Item Value Reference Range Interpretation Comments Monocytes # (test code = Monocytes #) 0.8 <=0.8 [place] 630507-05-23 23:59:00 Test Item Value Reference Range Interpretation Comments Lymphocytes # (test code = Lymphocytes 1.7 1.0-5.5 #) [facility] HospitalOuzfpuuIDTNWUCLVY2654-99-94 23:59:00 Test Item Value Reference Range Interpretation Comments Segs-Bands # (test code = Segs-Bands #) 5.0 1.5-8.1 [facility] HospitalAunswsqJAHYGEPMCY1085-29-20 23:59:00 Test Item Value Reference Range Interpretation Comments Eosinophils # (test code = Eosinophils 0.2 <=0.5 #) [facility] HospitalNhnixxtGCPCCHBWJA2253-00-13 23:59:00 Test Item Value Reference Range Interpretation Comments Segs (test code = Segs) 64.3 45.0-75.0 [facility] HospitalTkwebfdEVZDLFTVZY7722-62-91 23:59:00 Test Item Value Reference Range Interpretation Comments WBC (test code = WBC) 7.7 3.7-10.4 [facility] HospitalVobecyhTCAEUBYYAM3095-50-29 23:59:00 Test Item Value Reference Range Interpretation Comments Hgb (test code = Hgb) 13.5 12.0-16.0 [facility] HospitalJpopaegEQOKFNXYCG0172-51-78 23:59:00 Test Item Value Reference Range Interpretation Comments MCV (test code = MCV) 85.0 80.0-98.0 [facility] HospitalJwqoskkAAJRMHGRSE6608-83-00 23:59:00 Test Item Value Reference Range Interpretation Comments RBC (test code = RBC) 4.74 4.20-5.40 [facility] HospitalHdevqocDCGKJVTANK5794-29-17 23:59:00 Test Item Value Reference Range Interpretation Comments Hct (test code = Hct) 40.3 36.0-48.0 [facility] HospitalMmwsqltDDVJZFLPUF7902-53-66 23:59:00 Test Item Value Reference Range Interpretation Comments MPV (test code = MPV) 8.3 7.4-10.4 [facility] HospitalOihpxxhCGWNOWATTJ6405-78-04 23:59:00 Test Item Value Reference Range Interpretation Comments MCH (test code = MCH) 28.6 pg 27.0-31.0 [facility] HospitalVunjsduEUVHDVRWVN8046-85-84 23:59:00 Test Item Value Reference Range Interpretation Comments MCHC (test code = MCHC) 33.6 32.0-36.0 [facility] HospitalNepaubsRNZRIGFSKO6982-80-84 23:59:00 Test Item Value Reference Range Interpretation Comments RDW (test code = RDW) 14.9 11.5-14.5 [facility] HospitalDlzfyiaJKFXKQJYPR6995-18-74 23:59:00 Test Item Value Reference Range Interpretation Comments Platelet (test code = Platelet) 270 133-450 [facility] AND [id number] 23:59:00 Test Item Value Reference Range Interpretation Comments UA Color (test code = Yellow *NA*(08/24/16 UA Color) 6:59 PM) [facility] AND [id number] 23:59:00 Test Item Value Reference Range Interpretation Comments UA Protein (test code = UA Negative mg/dL Protein) [facility] AND [id number] 23:59:00 Test Item Value Reference Range Interpretation Comments UA Turbidity (test code Slight *ABN*(08/24/16 = UA Turbidity) 6:59 PM) [facility] AND [id number] 23:59:00 Test Item Value Reference Range Interpretation Comments UA pH (test code = UA pH) 5.0 5.0-8.0 [facility] AND [id number] 23:59:00 Test Item Value Reference Range Interpretation Comments UA Spec Grav (test code = UA Spec Grav) 1.017 [facility] AND [id number] 23:59:00 Test Item Value Reference Range Interpretation Comments UA Ketones (test code = UA Negative mg/dL Ketones) [facility] AND [id number] 23:59:00 Test Item Value Reference Range Interpretation Comments UA Glucose (test code = UA Negative mg/dL Glucose) [facility] AND [id number] 23:59:00 Test Item Value Reference Range Interpretation Comments UA Nitrite (test code Negative (08/24/16 6:59 = UA Nitrite) PM) [facility] AND [id number] 23:59:00 Test Item Value Reference Range Interpretation Comments UA Blood (test code = Negative (08/24/16 6:59 UA Blood) PM) [facility] AND [id number] 23:59:00 Test Item Value Reference Range Interpretation Comments UA Bili (test code = Negative *NA*(08/24/16 UA Bili) 6:59 PM) [facility] AND [id number] 23:59:00 Test Item Value Reference Range Interpretation Comments UA Urobilinogen (test code = UA <=1.0 mg/dL 0.1-1.0 Urobilinogen) [facility] AND [id number] 23:59:00 Test Item Value Reference Range Interpretation Comments UA Bacteria (test code = UA Occasional /HPF Bacteria) [facility] AND [id number] 23:59:00 Test Item Value Reference Range Interpretation Comments UA Mucus (test code = UA Mucus) Few /LPF [facility] AND [id number] 23:59:00 Test Item Value Reference Range Interpretation Comments UA Sq Epi (test code = UA Sq Epi) Few /LPF [facility] AND [id number] 23:59:00 Test Item Value Reference Range Interpretation Comments UA Leuk Est (test code Trace *ABN*(08/24/16 = UA Leuk Est) 6:59 PM) [facility] AND [id number] 23:59:00 Test Item Value Reference Range Interpretation Comments UA WBC (test code = UA WBC) 3 <=5 [facility] AND [id number] 23:59:00 Test Item Value Reference Range Interpretation Comments UA RBC (test code = UA RBC) 1 <=2 [facility] GLUCOSE HSXPFYJ5147-47-28 17:55:00 Test Item Value Reference Range Interpretation Comments Gluc POC Lifscn (test code = Gluc POC 251 70-99 H Lifscn) [facility] GLUCOSE [id number] 11:54:00 Test Item Value Reference Range Interpretation Comments Comment1 (test code = Comment1) Notify RN/MD [facility] GLUCOSE [id number] 11:54:00 Test Item Value Reference Range Interpretation Comments Gluc POC Lifscn (test code = Gluc POC 211 70-99 H Lifscn) [facility] CenterRopezlwYOBFXVETD7182-31-95 11:24:00 Test Item Value Reference Range Interpretation Comments eGFR (test code = eGFR) 94 [facility] CenterByblzsqQMPISCZIY4779-71-07 11:24:00 Test Item Value Reference Range Interpretation Comments CO2 (test code = CO2) 21 24-32 L [facility] CenterPifihubCQJXCKROA5599-13-86 11:24:00 Test Item Value Reference Range Interpretation Comments Calcium Lvl (test code = Calcium Lvl) 7.7 8.5-10.5 L [facility] CenterAcbeexzUUDMGOWJV8834-67-81 11:24:00 Test Item Value Reference Range Interpretation Comments Potassium Lvl (test code = Potassium 4.3 3.5-5.1 N Lvl) [facility] CenterGizjvqgPHQHBZFOD9527-40-68 11:24:00 Test Item Value Reference Range Interpretation Comments Chloride Lvl (test code = Chloride Lvl) 106 95-109 N [facility] CenterEseobydOUOVVGEVS5886-07-65 11:24:00 Test Item Value Reference Range Interpretation Comments Creatinine Lvl (test code = Creatinine 0.7 0.5-1.4 N Lvl) [facility] CenterBurygrnRTJNRUOXE4619-65-82 11:24:00 Test Item Value Reference Range Interpretation Comments Sodium Lvl (test code = Sodium Lvl) 138 135-145 N [facility] CenterHyioemzUABNGUWPN8078-93-20 11:24:00 Test Item Value Reference Range Interpretation Comments Glucose Lvl (test code = Glucose Lvl) 189 70-99 H [facility] CenterXeqywqbAVSVKXTDS9831-04-50 11:24:00 Test Item Value Reference Range Interpretation Comments BUN (test code = BUN) 21 7-22 N [facility] CenterZzipvcwZGFRYESZO8153-04-74 11:24:00 Test Item Value Reference Range Interpretation Comments AGAP (test code = AGAP) 15.3 10.0-20.0 N [facility] HospitalLpftmdiAAXQCHWQJA4288-87-43 11:24:00 Test Item Value Reference Range Interpretation Comments Basophils (test code = Basophils) 0.5 <=1.0 N [facility] HospitalXpsxjfvWGIXBNSGMH7143-18-80 11:24:00 Test Item Value Reference Range Interpretation Comments Eosinophils (test code = Eosinophils) 1.4 <=4.0 N [facility] HospitalXgaabywVWHEJVHJMA8074-19-83 11:24:00 Test Item Value Reference Range Interpretation Comments Segs (test code = Segs) 58.3 45.0-75.0 N [facility] HospitalEmciapyLMYYHFSHTB3014-07-50 11:24:00 Test Item Value Reference Range Interpretation Comments Lymphocytes (test code = Lymphocytes) 30.8 20.0-40.0 N [facility] HospitalAdapditFKINIEKGCU2992-67-70 11:24:00 Test Item Value Reference Range Interpretation Comments Eosinophils # (test code = Eosinophils 0.1 <=0.5 N #) [facility] HospitalGnmyrjhBVFZTTLMYE1724-81-05 11:24:00 Test Item Value Reference Range Interpretation Comments Monocytes # (test code = Monocytes #) 0.4 <=0.8 N [facility] HospitalYuivxdtAIHEXUCYMN4822-86-35 11:24:00 Test Item Value Reference Range Interpretation Comments Segs-Bands # (test code = Segs-Bands #) 2.6 1.5-8.1 N [facility] HospitalQhyfmrmQRDXNOBJGI0128-96-92 11:24:00 Test Item Value Reference Range Interpretation Comments Monocytes (test code = Monocytes) 9.0 2.0-12.0 N [facility] HospitalBrnfoicFDICTNJNLM6647-75-65 11:24:00 Test Item Value Reference Range Interpretation Comments Lymphocytes # (test code = Lymphocytes 1.4 1.0-5.5 N #) [facility] HospitalCnolkmxFPEVOKZDPC5122-41-98 11:24:00 Test Item Value Reference Range Interpretation Comments MCHC (test code = MCHC) 34.0 32.0-36.0 N [facility] HospitalNoeheroURAVKNKPMZ6596-72-65 11:24:00 Test Item Value Reference Range Interpretation Comments MCH (test code = MCH) 30.1 pg 27.0-31.0 N [facility] HospitalZjrybpsROGQGVMJPD1537-16-68 11:24:00 Test Item Value Reference Range Interpretation Comments Hgb (test code = Hgb) 10.3 12.0-16.0 L [facility] HospitalFytejunTDFAMZCMMN7640-69-06 11:24:00 Test Item Value Reference Range Interpretation Comments RBC (test code = RBC) 3.41 4.20-5.40 L [facility] HospitalNojayefHDXJFWIEYP3995-96-17 11:24:00 Test Item Value Reference Range Interpretation Comments MPV (test code = MPV) 8.1 7.4-10.4 N [facility] HospitalVxzihkiCPPTNUKPEY8699-11-44 11:24:00 Test Item Value Reference Range Interpretation Comments Platelet (test code = Platelet) 173 133-450 N [facility] HospitalQklqddcDKHEQXAFWB2076-67-55 11:24:00 Test Item Value Reference Range Interpretation Comments RDW (test code = RDW) 14.0 11.5-14.5 N [facility] HospitalJhgromgSQVQPVUGQX5580-13-55 11:24:00 Test Item Value Reference Range Interpretation Comments MCV (test code = MCV) 88.5 81.0-99.0 N [facility] HospitalMdqyxcpPAZXZXPYTS2263-28-87 11:24:00 Test Item Value Reference Range Interpretation Comments Hct (test code = Hct) 30.2 36.0-48.0 L [facility] HospitalRcnwomhAPWYXYHDJU2317-61-52 11:24:00 Test Item Value Reference Range Interpretation Comments WBC (test code = WBC) 4.4 3.7-10.4 N [facility] GLUCOSE KLIVSEV0576-51-24 03:11:00 Test Item Value Reference Range Interpretation Comments Gluc POC Lifscn (test code = Gluc POC 293 70-99 H Lifscn) [facility] GLUCOSE [id number] 03:11:00 Test Item Value Reference Range Interpretation Comments Comment1 (test code = Comment1) Notify RN/MD [facility] GLUCOSE [id number] 23:18:00 Test Item Value Reference Range Interpretation Comments Comment1 (test code = Comment1) [facility]MD [facility] CenterPsaacrpGOCMAHWDV6462-36-00 18:00:00 Test Item Value Reference Range Interpretation Comments Hgb A1C (test code = Hgb A1C) 9.6 [facility] CenterKdxelysBCVTERNJT6302-61-88 07:46:00 Test Item Value Reference Range Interpretation Comments eGFR (test code = eGFR) 69 [facility] CenterBewudrmOYSPJOSOA3574-77-11 07:46:00 Test Item Value Reference Range Interpretation Comments CO2 (test code = CO2) 24 24-32 N [facility] CenterBjhifcvTIPPHEOTJ0397-61-84 07:46:00 Test Item Value Reference Range Interpretation Comments AGAP (test code = AGAP) 13.1 10.0-20.0 N [facility] CenterVpiembhSWJCEKSTI8051-23-62 07:46:00 Test Item Value Reference Range Interpretation Comments Calcium Lvl (test code = Calcium Lvl) 8.1 8.5-10.5 L [facility] CenterPrdyqfhXLONXAEVW8030-01-19 07:46:00 Test Item Value Reference Range Interpretation Comments Chloride Lvl (test code = Chloride Lvl) 108 95-109 N [facility] CenterSodfejbDZBWUVOKR8796-59-22 07:46:00 Test Item Value Reference Range Interpretation Comments BUN (test code = BUN) 20 7-22 N [facility] CenterDcprcadHVKAZNQIB9696-73-15 07:46:00 Test Item Value Reference Range Interpretation Comments Glucose Lvl (test code = Glucose Lvl) 175 70-99 H [facility] CenterBignjwpDUIVDQNIX3696-81-68 07:46:00 Test Item Value Reference Range Interpretation Comments Sodium Lvl (test code = Sodium Lvl) 141 135-145 N [facility] CenterVyacormAUWIMROQX9317-16-86 07:46:00 Test Item Value Reference Range Interpretation Comments Creatinine Lvl (test code = Creatinine 0.9 0.5-1.4 N Lvl) [facility] CenterBdzbtcmXCYFFQTLZ8551-35-44 07:46:00 Test Item Value Reference Range Interpretation Comments Potassium Lvl (test code = Potassium 4.1 3.5-5.1 N Lvl) [facility] CenterStkdwnnPGXHRVMDU1146-07-74 07:46:00 Test Item Value Reference Range Interpretation Comments Magnesium Lvl (test code = Magnesium 1.4 1.8-2.4 L Lvl) [facility] CenterOmaouoyOSIDOIJZD6734-21-65 07:46:00 Test Item Value Reference Range Interpretation Comments Phosphorus (test code = Phosphorus) 4.0 2.5-4.5 N [facility] HospitalAlolgijKQXJVENULV7758-57-63 07:46:00 Test Item Value Reference Range Interpretation Comments Monocytes # (test code = Monocytes #) 0.5 <=0.8 N [facility] HospitalHpfhajzRIASMQIWYH7128-30-27 07:46:00 Test Item Value Reference Range Interpretation Comments Lymphocytes # (test code = Lymphocytes 1.3 1.0-5.5 N #) [facility] HospitalFedtghfATGDNHEMCQ4867-96-43 07:46:00 Test Item Value Reference Range Interpretation Comments Eosinophils (test code = Eosinophils) 1.9 <=4.0 N [facility] HospitalFszxmoyGYEKUQBLWL3382-33-41 07:46:00 Test Item Value Reference Range Interpretation Comments Basophils (test code = Basophils) 0.4 <=1.0 N [facility] HospitalDnkadyzUAYIBFWKWB3893-44-02 07:46:00 Test Item Value Reference Range Interpretation Comments Segs-Bands # (test code = Segs-Bands #) 3.3 1.5-8.1 N [facility] HospitalUasfuybRRXQOLWMUH1725-65-70 07:46:00 Test Item Value Reference Range Interpretation Comments Lymphocytes (test code = Lymphocytes) 25.3 20.0-40.0 N [facility] HospitalByrxmocIFSPBQHXDQ3161-29-38 07:46:00 Test Item Value Reference Range Interpretation Comments Monocytes (test code = Monocytes) 9.5 2.0-12.0 N [facility] HospitalRvpfkdaBRGKMKIRQY3494-56-75 07:46:00 Test Item Value Reference Range Interpretation Comments Segs (test code = Segs) 62.9 45.0-75.0 N [facility] HospitalKticmvgJPGDBCGKQH3497-62-29 07:46:00 Test Item Value Reference Range Interpretation Comments Eosinophils # (test code = Eosinophils 0.1 <=0.5 N #) [facility] HospitalSxqkyzuPNYYFWOFJU0003-40-67 07:46:00 Test Item Value Reference Range Interpretation Comments Platelet (test code = Platelet) 170 133-450 N [facility] HospitalNjsfxcaOYFFTJYLYI2544-95-00 07:46:00 Test Item Value Reference Range Interpretation Comments MCHC (test code = MCHC) 34.2 32.0-36.0 N [facility] HospitalVnynovbEPGSUCXABK8406-75-01 07:46:00 Test Item Value Reference Range Interpretation Comments RDW (test code = RDW) 13.8 11.5-14.5 N [facility] HospitalCtwidbsTDVZCDFRWR0405-58-84 07:46:00 Test Item Value Reference Range Interpretation Comments MCH (test code = MCH) 30.2 pg 27.0-31.0 N [facility] HospitalZnpjrpyBUQKUXQQIB0693-17-41 07:46:00 Test Item Value Reference Range Interpretation Comments Hgb (test code = Hgb) 11.4 12.0-16.0 L [facility] HospitalOqdncvxESDSEWBOLQ1513-09-74 07:46:00 Test Item Value Reference Range Interpretation Comments RBC (test code = RBC) 3.77 4.20-5.40 L [facility] HospitalAwnjdifWIBMIURLOU8011-36-01 07:46:00 Test Item Value Reference Range Interpretation Comments WBC (test code = WBC) 5.3 3.7-10.4 N [facility] HospitalHmewbutDIHQGHTQEP8494-85-26 07:46:00 Test Item Value Reference Range Interpretation Comments MPV (test code = MPV) 8.1 7.4-10.4 N [facility] HospitalUmhdublYBCZCEDJGK9865-45-31 07:46:00 Test Item Value Reference Range Interpretation Comments Hct (test code = Hct) 33.4 36.0-48.0 L [facility] HospitalTcfordoTWESGRFKOG9218-49-29 07:46:00 Test Item Value Reference Range Interpretation Comments MCV (test code = MCV) 88.5 81.0-99.0 N [employer] LPEQYDP5603-73-24 22:22:00 Test Item Value Reference Range Interpretation Comments Antibody Scrn (test Negative (04/18/2012 N code = Antibody Scrn) 16:22:00) [facility] [employer] [id number] 22:22:00 Test Item Value Reference Range Interpretation Comments ABO/Rh (test code = ABO/Rh) O NEG [facility] GqiuoehNCQXJGMZD6126-10-95 21:45:00 Test Item Value Reference Range Interpretation Comments eGFR (test code = eGFR) 61 [facility]PriprglREVPEYYBW6072-44-23 21:45:00 Test Item Value Reference Range Interpretation Comments Calcium Lvl (test code = Calcium Lvl) 8.9 8.5-10.5 N [facility] ZnqnacsXFROSAVSK7114-53-27 21:45:00 Test Item Value Reference Range Interpretation Comments Potassium Lvl (test code = Potassium 4.6 3.5-5.1 N Lvl) [facility] MklpghzVLZXFBONA4063-34-56 21:45:00 Test Item Value Reference Range Interpretation Comments Sodium Lvl (test code = Sodium Lvl) 137 135-145 N [facility] [id number] 21:45:00 Test Item Value Reference Range Interpretation Comments CO2 (test code = CO2) 26 24-32 N [facility] OsfbpkmSLHBLKRIR7686-55-15 21:45:00 Test Item Value Reference Range Interpretation Comments Chloride Lvl (test code = Chloride Lvl) 104 95-109 N [facility] YvyjwnwJKPJHTNPJ7866-79-34 21:45:00 Test Item Value Reference Range Interpretation Comments Glucose Lvl (test code = Glucose Lvl) 279 70-99 H [facility]hn[facility]ugvKWUBTJUOI9507-91-79 21:45:00 Test Item Value Reference Range Interpretation Comments Creatinine Lvl (test code = Creatinine 1.0 0.5-1.4 N Lvl) [facility]VyzrdnvOJUZDENRU9980-66-66 21:45:00 Test Item Value Reference Range Interpretation Comments BUN (test code = BUN) 23 7-22 H [facility] CampusLghglnhAEPPLSCNM4478-18-22 21:45:00 Test Item Value Reference Range Interpretation Comments AGAP (test code = AGAP) 11.6 10.0-20.0 N [facility] CampusXijjufiORLAVZUVZW1707-59-36 21:45:00 Test Item Value Reference Range Interpretation Comments MPV (test code = MPV) 8.2 7.4-10.4 [facility]OT[facility]0939[facility]48-49 21:45:00 Test Item Value Reference Range Interpretation Comments MCH (test code = MCH) 29.6 pg 27.0-31.0 N [facility]YfenqaoAPJZLSRWGP0711-18-35 21:45:00 Test Item Value Reference Range Interpretation Comments MCHC (test code = MCHC) 34.0 32.0-36.0 N [facility] HospitalVuvgcpcOJNPXFUHRM6850-64-52 21:45:00 Test Item Value Reference Range Interpretation Comments WBC (test code = WBC) 5.6 3.7-10.4 N [facility] HospitalDukfwzaLBXQXODQCK8930-22-52 21:45:00 Test Item Value Reference Range Interpretation Comments MCV (test code = MCV) 87.3 81.0-99.0 N [facility] HospitalFgpdnpsUJLIMAZKPW8665-20-39 21:45:00 Test Item Value Reference Range Interpretation Comments Platelet (test code = Platelet) 219 133-450 N [facility] HospitalWwgeqmnVTGOOGJBWS2311-67-78 21:45:00 Test Item Value Reference Range Interpretation Comments RDW (test code = RDW) 13.2 11.5-14.5 N [facility] HospitalDmjtqchVWVVDBAOJT1122-53-13 21:45:00 Test Item Value Reference Range Interpretation Comments Hct (test code = Hct) 40.5 36.0-48.0 N [facility] HospitalCzirzfrZSVBSNLKKY6546-52-91 21:45:00 Test Item Value Reference Range Interpretation Comments RBC (test code = RBC) 4.64 4.20-5.40 N [facility] HospitalWnbwvbkBDVWHECUZO0768-25-27 21:45:00 Test Item Value Reference Range Interpretation Comments Hgb (test code = Hgb) 13.8 12.0-16.0 N [facility] HospitalPkzasniWCHSGBPTZJ0446-99-22 21:45:00 Test Item Value Reference Range Interpretation Comments Monocytes # (test code = Monocytes #) 0.3 <=0.8 N [facility] HospitalGliyjfbQXYVRSPOVX4028-15-77 21:45:00 Test Item Value Reference Range Interpretation Comments Lymphocytes # (test code = Lymphocytes 0.9 1.0-5.5 L #) [facility] HospitalXuuhtehKCXMUKDYLK5419-92-31 21:45:00 Test Item Value Reference Range Interpretation Comments Segs-Bands # (test code = Segs-Bands #) 4.3 1.5-8.1 N [facility] HospitalQhljcedQFJODVEFHM4033-61-60 21:45:00 Test Item Value Reference Range Interpretation Comments Basophils (test code = Basophils) 0.5 <=1.0 N [facility] HospitalNqmbrpsCUUSAWKSIC5648-95-55 21:45:00 Test Item Value Reference Range Interpretation Comments Monocytes (test code = Monocytes) 5.8 2.0-12.0 N [facility] HospitalOmxmxoiLEGBXNSWWQ4185-61-27 21:45:00 Test Item Value Reference Range Interpretation Comments Eosinophils (test code = Eosinophils) 1.3 <=4.0 N [facility] HospitalIbgetauLESZCXLQQR1415-63-56 21:45:00 Test Item Value Reference Range Interpretation Comments Lymphocytes (test code = Lymphocytes) 16.1 20.0-40.0 L [facility] HospitalTchjrrtRLHHABAVNY2635-55-39 21:45:00 Test Item Value Reference Range Interpretation Comments Eosinophils # (test code = Eosinophils 0.1 <=0.5 N #) [facility] HospitalXhneqoyKXQAGYITUN5404-45-60 21:45:00 Test Item Value Reference Range Interpretation Comments Basophils # (test code = Basophils #) 0.0 <=0.2 N [facility] HospitalCbnvsenWCQBQEEBGY6653-53-93 21:45:00 Test Item Value Reference Range Interpretation Comments Segs (test code = Segs) 76.3 45.0-75.0 H [facility] HospitalZujwgjvZGGCJTXQEN6037-51-31 21:18:00 Test Item Value Reference Range Interpretation Comments PT (test code = PT) 13.0 s 12.0-14.7 N [facility] HospitalLrhmazgVYZKXJFAGX1557-37-25 21:18:00 Test Item Value Reference Range Interpretation Comments INR (test code = INR) 0.96 0.85-1.17 N [facility] HospitalPbhimbxAUQAARNYDA9331-96-14 21:18:00 Test Item Value Reference Range Interpretation Comments PTT (test code = PTT) 38.3 s 22.9-35.8 H [facility]
[2023-03-06 19:32] LABS: Specific Gravity 1.006 (1.005-1.030); Urine Bilirubin NEGATIVE (Negative); Urine Blood Negative (Negative); Urine Clarity Clear (Clear); Urine Color Colorless (Yellow); Urine Glucose NEGATIVE (Negative); Urine Protein NEGATIVE (Negative); Urine Urobilinogen Normal (Normal); Urine pH 5.5 (5.0-7.0)
[2023-03-06 20:24] LABS: Absolute Lymphocytes (CBC) 1.1 K/uL (0.7-4.9); Hematocrit 34.6 % (36.0-45.0); Lymphocytes % 25.5 % (15.3-44.8); MPV 7.5 fL (7.6-11.3); Platelets 200 thou/uL (152-406); RBC Red Blood Cell Count 3.89 M/uL (3.86-4.86)
[2023-03-06 20:39] LABS: Bilirubin Total 0.3 mg/dL (0.2-1.0); Potassium 3.4 mEq/L (3.5-5.1); Protein, Total 6.4 g/dL (6.4-8.2)
--- NOTE | 2023-03-06 21:21 | RAD REPORT ---
EXAM DESCRIPTION: CT - Abdomen Pelvis W Contrast - 03/06/2023 8:58 pm CLINICAL HISTORY: Abdominal pain COMPARISON: 2018 MRI TECHNIQUE: Computed axial tomography of the abdomen pelvis was obtained. 100 cc Isovue-300 was admin istered intravenously. Oral contrast was not requested which limits evaluation of bowel and appendix All CT scans are performed using dose optimization technique as appropriate and may include automated exposure control or mA/KV adjustment according to patient size. FINDINGS: The pancreas contains many cystic masses. The largest lies within the pancreatic neck angelia uring 2.3 centimeters. This is mildly enlarged from the prior exam. Cholecystectomy Portal vein is distended but patent. Tiny hepatic cysts. Spleen, adrenals and kidneys are unremarkable. No adnexal mass. No evidence of diverticulitis. Normal appendix. Small umbilical hernia IMPRESSION: Many cystic pancreatic masses. The largest measures 2.3 centimeters and is mildly enlarg ed from prior exam. These may represent intraductal papillary mucinous neoplasm
--- NOTE | 2023-03-06 21:50 | ER ---
Nurse's Notes [facility] Name: Cynthia Mayen Age: 72 yrs Sex: Female : 1950 Arrival Date: 03/06/2023 Time: 18:29 Bed 17 Private MD: Diagnosis: Pancreatic masses;Abdominal pain, Generalized Presentation: 03/06 18:31 Chief complaint: EMS states: toned out for abdominal pain. Patient lives at [place] [id number] on the locked dementia unit and has been c/o Left sided abdominal pain that feels "like bloating or like i ate too much.". Coronavirus screen: Vaccine status: Patient reports receiving the 2nd dose of the covid vaccine. Ebola Screen: No symptoms or risks identified at this time. Initial Sepsis Screen: Does the patient meet any 2 criteria? No. Patient's initial sepsis screen is negative. Does the patient have a suspected source of infection? No. Patient's initial sepsis screen is negative. Risk Assessment: Do you want to hurt yourself or someone else? Patient reports no desire to harm self or others. Onset of symptoms is unknown. 18:31 Method Of Arrival: EMS: [facility] 18:31 Acuity: SOL 3 me1 22:51 Note Report called to facility, [facility] ambulance to parts picker patient in 45 minutes. la4 Triage Assessment: 18:34 General: Appears uncomfortable, well groomed, well developed, well nourished, Behavior me1 is calm, cooperative, appropriate for age, Reports Left sided abdominal pain that feels like she is bloated or ate too much. Pain: Complains of pain in abdomen- left Pain does not radiate. Pain currently is 7 out of 10 on a pain scale. Quality of pain is described as fullness Pain began gradually, Is continuous. Neuro: Level of Consciousness is awake, alert, obeys commands, Oriented to person, situation. Cardiovascular: Capillary refill < 3 seconds Patient's skin is warm and dry. Respiratory: Airway is patent Respiratory effort is even, unlabored, Respiratory pattern is regular, symmetrical. GI: Reports lower abdominal pain. 22:51 General: Appears in no apparent distress. Behavior is calm, cooperative. Neuro: Level la4 of Consciousness is awake, alert, obeys commands, confused, Oriented to person. Historical: - Allergies: 18:34 No Known Allergies; me1 - PMHx: 18:34 Alzheimer's disease; Hyperthyroidism; Rheumatoid arthritis; Diabetes mellitus; me1 - Immunization history:: Adult Immunizations up to date. - Social history:: Smoking status: Patient denies any tobacco usage or history of. Screenin:37 [facility] ED Fall Risk Assessment (Adult) History of falling in the last 3 months, me1 including since admission No falls in past 3 months (0 pts) Confusion or Disorientation No (0 pts) Intoxicated or Sedated No (0 pts) Impaired Gait No (0 pts) Mobility Assist Device Used No (0 pt) Altered Elimination No (0 pt) Score/Fall Risk Level 0 - 2 = Low Risk Maintained a safe environment, Provided non-skid footwear, Hourly rounding (assess needs \\T\\ fall precautionary measures) done. Abuse screen: Denies threats or abuse. Nutritional screening: No deficits noted. Tuberculosis screening: No symptoms or risk factors identified. Assessment: 18:37 General: See triage assessment. . me1 20:22 General: Appears in no apparent distress. Behavior is cooperative, anxious. Neuro: la4 [place] Agitation-Sedation Scale (RASS): 0 - Alert and Calm Level of Consciousness is awake, alert, obeys commands, confused, Oriented to person, does not know that she lives at a SNF and states that she did a lot of yard work today. Believes that she is to have surgery for her pancreatic cyst tomorrow. . Respiratory: No deficits noted. Airway is patent Respiratory effort is even, unlabored, Respiratory pattern is regular, symmetrical, Breath sounds are clear. GI: No deficits noted. 20:23 GI: No deficits noted. Abdomen is round Bowel sounds present X 4 quads. Abd is soft and la4 non tender X 4 quads. Musculoskeletal: Circulation, motion, and sensation intact. Capillary refill < 3 seconds, is brisk, Range of motion: intact in all extremities, Reports pain in lumbar area, left low back and right low back. Vital Signs: 18:31 BP 162 / 92; Pulse 58; Resp 18; Temp 98.2(O); Pulse Ox 96% on R/A; Weight 61.69 kg; me1 Height 5 ft. 7 in. ; Pain 7/10; 19:30 BP 143 / 63; Pulse 54; Resp 20; Pulse Ox 99% ; la4 20:00 BP 139 / 73; Pulse 57; Resp 18; Pulse Ox 99% ; la4 21:06 BP 152 / 67; Pulse 59; Resp 18; Pulse Ox 100% ; la4 22:41 BP 149 / 62; Pulse 55; Resp 18; Pulse Ox 99% on R/A; la4 18:31 Body Mass Index 21.30 (61.69 kg, 170.18 cm) me1 18:31 Pain Scale: Adult pr1 ED Course: 18:31 Patient arrived in ED. kb 18:31 Patricia Rodney FNP-C is PHCP. kb 18:31 Janusz Davies MD is Attending Physician. kb 18:31 Kati Arreola, RN is Primary Nurse. me1 18:34 Triage completed. me1 18:34 Arm band placed on Patient placed in an exam room. me1 18:37 Patient has correct armband on for positive identification. Bed in low position. Call me1 light in reach. Side rails up X2. Provided Education on: POC. Verbalized understanding. . 18:37 No provider procedures requiring assistance completed. me1 19:25 Urinalysis w/ reflexes Sent. me1 20:04 Primary Nurse role handed off by Kati Arreola, RN la4 20:04 Garry Duarte, RN is Primary Nurse. la4 20:14 Radiology exam delayed due to lab results not completed at this time. IV insertion mw3 attempt and/or patient not having appropriate IV at this time. 20:21 CBC with Diff Sent. la4 20:21 CMP Sent. la4 20:21 Lipase Sent. la4 20:59 CT Abd/Pelvis - IV Contrast Only In Process Unspecified. EDMS 22:58 IV discontinued, intact, bleeding controlled, No redness/swelling at site. Pressure la4 dressing applied. Administered Medications: No medications were administered Medication: 18:37 VIS not applicable for this client. me1 Outcome: 21:49 Discharge ordered by . kb 22:16 Discharged to senior care. Report called to EDGAR BUSTOS \\T\\ [facility] nw1 22:16 Condition: stable 22:16 Discharge instructions given to patient, senior care, Instructed on discharge instructions, follow up and referral plans. Demonstrated understanding of instructions, follow-up care, 1204 00:52 Patient left the ED. lg3 Signatures: Dispatcher [employer] EDMS Patricia Rodney, CITRIX ARCHITECT-C CITRIX ARCHITECT-Ckb Kati Johnson mw3 Lashae Wheat RN RN lg3 Kati Arreola, RN RN me1 Garry Duarte RN RN la4 Jena Porter, EDGAR RN nw1 Corrections: (The following items were deleted from the chart) 03/06 20:25 20:22 Neuro: [place] Agitation-Sedation Scale (RASS): 0 - Alert and Calm Level of la4 Consciousness is awake, alert, obeys commands, Oriented to person, la4
--- NOTE | 2023-03-06 21:50 | EDPHYS ---
Physician Documentation [facility] Name: Cynthia Mayen Age: 72 yrs Sex: Female : 1950 Arrival Date: 03/06/2023 Time: 18:29 Bed 17 Private MD: ED Physician Janusz Davies HPI: 03/06 19:35 This 72 yrs old Female presents to ER via EMS with complaints of Abdominal kb pain. 19:35 Patient is a 72-year-old female who presents for left abdominal pain that started kb yesterday. States pain is worse after eating. Denies nausea, vomiting, diarrhea, constipation, fever.. Historical: - Allergies: 18:34 No Known Allergies; me1 - PMHx: 18:34 Alzheimer's disease; Hyperthyroidism; Rheumatoid arthritis; Diabetes mellitus; me1 - Immunization history:: Adult Immunizations up to date. - Social history:: Smoking status: Patient denies any tobacco usage or history of. ROS: 19:35 Constitutional: Negative for fever, chills, and weight loss, kb 19:35 Abdomen/GI: Positive for abdominal pain, Negative for nausea, vomiting, and diarrhea, 19:35 All other systems are negative, Exam: 19:35 Constitutional: This is a well developed, well nourished patient who is awake, alert, kb and in no acute distress. Head/Face: Normocephalic, atraumatic. ENT: Moist Mucous membranes Cardiovascular: Regular rate Respiratory: Respirations even and unlabored. No increased work of breathing. Talking in full sentences Abdomen/GI: Soft, non-tender. No distention Skin: Warm, dry with normal turgor. Normal color. MS/ Extremity: Pulses equal, no cyanosis. Neurovascular intact. Full, normal range of motion. 19:35 Neuro: Exam negative for acute changes, Vital Signs: 18:31 BP 162 / 92; Pulse 58; Resp 18; Temp 98.2(O); Pulse Ox 96% on R/A; Weight 61.69 kg; me1 Height 5 ft. 7 in. ; Pain 7/10; 19:30 BP 143 / 63; Pulse 54; Resp 20; Pulse Ox 99% ; la4 20:00 BP 139 / 73; Pulse 57; Resp 18; Pulse Ox 99% ; la4 21:06 BP 152 / 67; Pulse 59; Resp 18; Pulse Ox 100% ; la4 22:41 BP 149 / 62; Pulse 55; Resp 18; Pulse Ox 99% on R/A; la4 18:31 Body Mass Index 21.30 (61.69 kg, 170.18 cm) me1 18:31 Pain Scale: Adult me1 MDM: 18:31 Patient medically screened. kb 19:35 Differential diagnosis: bowel obstruction, diverticulitis, gastritis, non-specific abd kb pain. Data reviewed: vital signs, nurses notes. Historians other than the Patient: EMS: [facility]. 21:48 Counseling: I had a detailed discussion with the patient and/or guardian regarding the kb historical points, exam findings, and any diagnostic results supporting the discharge/admit diagnosis, lab results, radiology results, the need for outpatient follow up, a family practitioner, to return to the emergency department if symptoms worsen or persist or if there are any questions or concerns that arise at home. ED course: Discussed CT results with patient. Patient states she is aware of the masses on her pancreas and is being seen for those.. 03/06 18:31 Order name: CBC with Diff; Complete Time: 20:27 kb 03/06 18:31 Order name: CMP; Complete Time: 20:43 kb 03/06 18:31 Order name: Lipase; Complete Time: 20:43 kb 03/06 18:31 Order name: Urinalysis w/ reflexes; Complete Time: 19:35 kb 03/06 18:31 Order name: CT Abd/Pelvis - IV Contrast Only; Complete Time: 21:34 kb 03/06 18:31 Order name: IV Saline Lock; Complete Time: 20:21 kb 03/06 18:31 Order name: Labs collected and sent; Complete Time: 20:21 kb Administered Medications: No medications were administered Disposition Summary: 03/06/23 21:49 Discharge Ordered Notes: Location: Home kb Condition: Stable kb Diagnosis - Pancreatic masses kb - Abdominal pain, Generalized kb Followup: kb - With: Emergency Department - When: As needed - Reason: Worsening of condition Followup: kb - With: Private Physician - When: 2 - 3 days - Reason: Recheck today's complaints, Continuance of care, Re-evaluation by your physician Discharge Instructions: - Discharge Summary Sheet kb - Abdominal Pain, Adult, Qwit-lj-[id number] kb Forms: - Medication Reconciliation Form kb - Thank You Letter kb - Antibiotic Education kb - Prescription Opioid Use kb - Patient Portal Instructions kb - Leadership Thank You Letter kb Signatures: Dispatcher [employer] Patricia Kelly, Kati Burnette, RN RN me1
[2023-03-07 02:42] VITALS: TEMP 98.2
[2023-03-07 02:49] VITALS: BP 149/62; O2SAT 99
== END 2023-03-07 00:52 | disposition home or self-care (01) ==
LOC: ER 18:29
DX: K86.89 Other specified diseases of pancreas (principal); G30.9 Alzheimer's disease, unspecified; F02.80 Dementia in other diseases classified elsewhere, unspecified severity, without behavioral disturbance, psychotic disturbance, mood disturbance, and anxiety
CPT/HCPCS: 85025; 36415; 81003; 83690; 80053; 74177; 99284; Q9967

== ENCOUNTER 2024-04-25 12:23 | Emergency (ER) | payer OTHER ==
[2024-04-25] MEDS ORDERED: ACETAMINOPHEN 325 MG TABLET ONE (12:48)
[2024-04-25 13:16] LABS: Absolute Lymphocytes (CBC) 0.3 K/uL (0.7-4.9); Absolute Monocytes 0.7 K/uL (0.1-1.3); Absolute Neutrophil 5.4 K/uL (1.8-8.0); Basophils % 0.3 % (0-1.3); Hematocrit 39.1 % (36.0-45.0); Hemoglobin 13.3 g/dL (12.0-15.0); Lymphocytes % 4.8 % (15.3-44.8); MCV 91.1 fL (80-100); MPV 8.6 fL (7.6-11.3); Monocytes % 10.5 % (3.3-12.3); Neutrophils % 84.4 % (41.7-73.7); Nucleated Red Blood Cells % 0.1 % (0-0); Platelets 179 thou/uL (152-406)
--- NOTE | 2024-04-25 13:24 | RAD REPORT ---
EXAMINATION: ONE VIEW CHEST XR CLINICAL INDICATION: COUGH TECHNIQUE: Frontal chest projection is submitted. Examination is limited by patient positioning and t echnique. COMPARISON: No prior exam. FINDINGS: Lungs appear mildly emphysematous. Small left pleural effusion with linear opacity left base could be atelectasis or early infiltrate. The heart is upper limit of normal in size. No displaced fractures identified.
[2024-04-25 13:33] LABS: Albumin 3.2 g/dL (3.4-5.0); Albumin/Globulin Ratio 0.8 (1.1-1.8); Anion Gap 11.3 mEq/L (5.0-15.0); Bilirubin Direct 0.3 mg/dL (0-0.2); Bilirubin Indirect, Calculated 0.5 mg/dL (0.2-0.8); Bilirubin Total 0.8 mg/dL (0.2-1.0); Globulin 4.2 g/dL (2.3-3.5); Magnesium 1.6 mg/dL (1.6-2.4); Potassium 4.3 mEq/L (3.5-5.1); Protein, Total 7.4 g/dL (6.4-8.2)
[2024-04-25 13:34] LABS: SARS-CoV-2 Antigen CONTROL BLUE LINE VIS/BG OK; SARS-CoV-2 Antigen Rapid Res Negative (Negative)
[2024-04-25 15:08] LABS: Sqamous Epithelial <5 /HPF (None Seen); Urine Bacteria None Seen /HPF (<20); Urine Bilirubin NEGATIVE (Negative); Urine Blood Negative (Negative); Urine Clarity Clear (Clear); Urine Color Light-Yellow (Yellow); Urine Culture Reflex Order NOT NEEDED; Urine Glucose 2+ (Negative); Urine Ketones TRACE (Negative); Urine Microscopic Reflex YN ORDER UMIC; Urine Nitrite NEGATIVE (Negative); Urine Protein TRACE (Negative); Urine RBC <5 /HPF (None Seen); Urine Urobilinogen Normal (Normal); Urine WBC <5 /HPF (<5); Urine pH 6.5 (5.0-7.0)
--- NOTE | 2024-04-25 15:30 | EDPHYS ---
Physician Documentation [facility] Name: Cynthia Mayen Age: 73 yrs Sex: Female : 1950 Arrival Date: 04/25/2024 Time: 12:23 Bed 7 Private MD: ED Physician Rolando Dale HPI: 04/25 12:29 This 73 yrs old Female presents to ER via EMS with complaints of Blood kb Pressure Problem. 12:29 Pt is a 73 year old female who presents for hypertension and weakness that started this kb morning. Pt has a history of dementia, EMS was called by group home staff. [facility] staff reports pt is just more weak than normal. EMS reports BP upon their arrival was 160/80, now 143/70. Pt has no complaints but does report she has a cough "all of the time." EMS reports pt was able to transfer from wheelchair to stretcher with assistance. . Historical: - Allergies: 13:48 No Known Allergies; ph - PMHx: 12:27 Alzheimer's disease; diabetes mellitus; Hypertension; hyperthyroidism; Rheumatoid bp Arthritis; - Immunization history:: Adult Immunizations up to date. - Infectious Disease History:: Denies. - Social history:: Smoking status: Patient denies any tobacco usage or history of. ROS: 12:29 Constitutional: As per HPI kb Exam: 12:29 Constitutional: This is a well developed, well nourished patient who is awake, alert, kb and in no acute distress. Head/Face: Normocephalic, atraumatic. ENT: Moist Mucous membranes Cardiovascular: Regular rate Respiratory: Respirations even and unlabored. No increased work of breathing. Talking in full sentences Abdomen/GI: Soft, non-tender. No distention Skin: Warm, dry with normal turgor. Normal color. 12:29 Cardiovascular: Edema: pedal edema, that is mild, 12:29 Neuro: Exam negative for acute changes, 12:48 ECG was reviewed by the Attending Physician. kb Vital Signs: 12:25 BP 143 / 70; Pulse 82; Resp 16; Temp 100.5; Pulse Ox 98% ; bp 13:47 BP 168 / 98; Pulse 88; Resp 18; Pulse Ox 97% on R/A; ph 15:30 BP 157 / 89; Pulse 86; Resp 18; Temp 99; Pulse Ox 98% on R/A; ph 16:30 BP 156 / 84; Pulse 84; Resp 18; Temp 98.9; Pulse Ox 99% on R/A; ph 17:48 BP 149 / 81; Pulse 91; Resp 18; Pulse Ox 98% ; bp MDM: 12:25 Medical Screening Exam initiated kb 12:32 Data reviewed: vital signs, nurses notes. kb 12:32 Historians other than the Patient: EMS: [facility]. ED course: Pt found to have a fever kb of 100.5. Will treat the fever, obtain labs and chest xray. . 20:46 Differential diagnosis: viral Infection, pneumonia UTI, primary hypertension. kb Counseling: I had a detailed discussion with the patient and/or guardian regarding the historical points, exam findings, and any diagnostic results supporting the discharge/admit diagnosis, lab results, radiology results, the need for outpatient follow up, a family practitioner, to return to the emergency department if symptoms worsen or persist or if there are any questions or concerns that arise at home. ED course: Pt ambulatory with steady gait prior to discharge. Will treat possible early infiltrate with abx. . 04/25 12:26 Order name: Flu; Complete Time: 13:54 kb 04/25 12:26 Order name: SARS-COV-2 Antigen Rapid; Complete Time: 13:54 kb 04/25 12:26 Order name: Basic Metabolic Panel; Complete Time: 13:54 kb 04/25 12:26 Order name: CBC with Diff; Complete Time: 13:23 kb 04/25 12:26 Order name: Hepatic Function; Complete Time: 13:54 kb 04/25 12:26 Order name: Magnesium; Complete Time: 13:54 kb 04/25 12:26 Order name: Troponin High Sensitivity; Complete Time: 13:54 kb 04/25 12:26 Order name: Urinalysis w/ reflexes; Complete Time: 15:08 kb 04/25 12:26 Order name: BNP; Complete Time: 13:54 kb 04/25 12:26 Order name: Chest Single View XRAY; Complete Time: 13:25 kb 04/25 12:26 Order name: Cardiac monitoring; Complete Time: 12:55 kb 04/25 12:26 Order name: EKG - Nurse/Tech; Complete Time: 12:55 kb 04/25 12:26 Order name: IV Saline Lock; Complete Time: 12:55 kb 04/25 12:26 Order name: Labs collected and sent; Complete Time: 12:55 kb 04/25 12:26 Order name: O2 Per Protocol; Complete Time: 12:48 kb 04/25 12:26 Order name: O2 Sat Monitoring; Complete Time: 12:48 kb 04/25 14:23 Order name: Misc. Order: please obtain urine specimen; Complete Time: 14:53 kb EC:48 Rate is 86 beats/min. Rhythm is regular. QRS [place] is Normal. [place] interval is normal at kb 160 msec. QRS interval is normal at 82 msec. QT interval is normal at 418 msec. Administered Medications: 12:54 Drug: Acetaminophen PO 650 mg PO once Route: PO; bp 17:09 Follow up: Response: No adverse reaction ph 16:03 Drug: Doxycycline PO 100 mg PO once Route: PO; ph 17:09 Follow up: Response: No adverse reaction ph Disposition: 17:42 I was immediately available on-site in the Emergency Department for consultation in the ms3 care of the patient. Disposition Summary: 04/25/24 15:29 Discharge Ordered Notes: Location: Home kb Condition: Stable kb Diagnosis - Essential (primary) hypertension kb - Pneumonia, unspecified organism - early kb Followup: kb - With: Emergency Department - When: As needed - Reason: Worsening of condition Followup: kb - With: Private Physician - When: 2 - 3 days - Reason: Recheck today's complaints, Continuance of care, Re-evaluation by your physician Discharge Instructions: - Discharge Summary Sheet kb - Hypertension, Adult, Xpyt-vd-Pzrv kb - Community-Acquired Pneumonia, Adult, Ywef-jc-Oqtz kb Forms: - Medication Reconciliation Form kb - Antibiotic Education kb - Prescription Opioid Use kb - Patient Portal Instructions kb - Leadership Thank You Letter kb Prescriptions: - Doxycycline Hyclate 100 mg Oral Tablet - take 1 tablet ORAL route every 12 hours; 20 tablet; Refills: 0, Product kb Selection Permitted Signatures: Dispatcher [employer] Patricia Kelly FNP-C FNP-Kanchan Beckman, RN RN Donovan Leroy RN RN Rolando Edgar, DO ms3 Corrections: (The following items were deleted from the chart) 12:27 12:26 Influenza Screen (A \\T\\ B)+BA.LAB.BRZ ordered. EDMS EDMS 12: 12:26 SARS-COV-2 Antigen Rapid+I.LAB.BRZ ordered. EDMS EDMS 12: 12:26 BASIC METABOLIC PANEL+C.LAB.BRZ ordered. EDMS EDMS 12: 12:26 CBC+H.LAB.BRZ ordered. EDMS EDMS 12: 12:26 HEPATIC FUNCTION+C.LAB.BRZ ordered. EDMS EDMS 12: 12:26 MAGNESIUM+C.LAB.BRZ ordered. EDMS EDMS 12: 12:26 Troponin High Sensitivity+C.LAB.BRZ ordered. EDMS EDMS 12: 12:27 Chest Single View+RAD.RAD.BRZ ordered. EDMS EDMS 12: 12:27 Urinalysis+U.LAB.BRZ ordered. EDMS EDMS 12: 12:27 PROBNP+C.LAB.BRZ ordered. EDMS EDMS 12:32 12:29 Pt is a 73 year old female who presents for hypertension and weakness that kb started this morning. Pt has a history of dementia, EMS was called by group home staff. [facility] staff reports pt is just more weak than normal. EMS reports BP upon their arrival was 160/80, now 143/70. Pt has no complaints but does report she has a cough "all of the time." . kb
--- NOTE | 2024-04-25 15:30 | ER ---
Nurse's Notes [facility] Name: Cynthia Mayen Age: 73 yrs Sex: Female : 1950 Arrival Date: 04/25/2024 Time: 12:23 Bed 7 Private MD: Diagnosis: Essential (primary) hypertension;Pneumonia, unspecified organism-early Presentation: 04/25 12:25 Chief complaint: EMS states: [facility] CALLED FOR HIGH BP OF 160/80, AND "MORE bp ALTERED". Coronavirus screen: At this time, the client does not indicate any symptoms associated with coronavirus-19. Ebola Screen: No symptoms or risks identified at this time. Initial Sepsis Screen: Does the patient meet any 2 criteria? No. Patient's initial sepsis screen is negative. Does the patient have a suspected source of infection? No. Patient's initial sepsis screen is negative. Risk Assessment: Do you want to hurt yourself or someone else? Patient reports no desire to harm self or others. Onset of symptoms was April 25, 2024 at 06:00. Care prior to arrival: Glucose check: 282. 12:25 Method Of Arrival: EMS: [facility] bp 12:25 Acuity: SOL 3 bp Triage Assessment: 12:27 General: Appears in no apparent distress. Behavior is calm, cooperative. Pain: bp Complains of pain in GENERALIZED. EENT: No deficits noted. Cardiovascular: No deficits noted. Respiratory: No deficits noted. GI: No signs and/or symptoms were reported involving the gastrointestinal system. : No signs and/or symptoms were reported regarding the genitourinary system. Derm: No signs and/or symptoms reported regarding the dermatologic system. Musculoskeletal: No deficits noted. Historical: - Allergies: 13:48 No Known Allergies; ph - PMHx: 12:27 Alzheimer's disease; diabetes mellitus; Hypertension; hyperthyroidism; Rheumatoid bp Arthritis; - Immunization history:: Adult Immunizations up to date. - Infectious Disease History:: Denies. - Social history:: Smoking status: Patient denies any tobacco usage or history of. Screenin:02 Abuse screen: Denies threats or abuse. Denies injuries from another. Nutritional ph screening: No deficits noted. Tuberculosis screening: No symptoms or risk factors identified. 17:45 [facility] ED Fall Risk Assessment (Adult) History of falling in the last 3 months, bp including since admission No falls in past 3 months (0 pts) Confusion or Disorientation No (0 pts) Intoxicated or Sedated No (0 pts) Impaired Gait No (0 pts) Mobility Assist Device Used No (0 pt) Altered Elimination No (0 pt) Score/Fall Risk Level 0 - 2 = Low Risk Oriented to surroundings. Assessment: 13:00 General: Appears in no apparent distress. Behavior is calm, cooperative. Pain: Complains of pain in "all over". Neuro: Level of Consciousness is awake, alert, obeys commands, Oriented to person. Cardiovascular: Capillary refill < 3 seconds in bilateral fingers Patient's skin is warm and dry. Respiratory: Airway is patent Respiratory effort is even, unlabored. GI: No signs and/or symptoms were reported involving the gastrointestinal system. Derm: Skin is pink, warm \\T\\ dry. 15:39 Reassessment: REPORT TO [facility], TRANSPORT PENDING. bp 17:08 Reassessment: D/C pending transport back to facility, spoke to nurse at [facility] who states that [facility] will be here at approx 1730. 17:45 Reassessment: EMS AT B/S FOR TRANSPORT. bp Vital Signs: 12:25 BP 143 / 70; Pulse 82; Resp 16; Temp 100.5; Pulse Ox 98% ; bp 13:47 BP 168 / 98; Pulse 88; Resp 18; Pulse Ox 97% on R/A; ph 15:30 BP 157 / 89; Pulse 86; Resp 18; Temp 99; Pulse Ox 98% on R/A; ph 16:30 BP 156 / 84; Pulse 84; Resp 18; Temp 98.9; Pulse Ox 99% on R/A; ph 17:48 BP 149 / 81; Pulse 91; Resp 18; Pulse Ox 98% ; bp Vitals: 13:48 Cardiac Rhythm Assessment Sinus rhythm. ED Course: 12:24 Patient arrived in ED. bp 12:25 Patricia Rodney FNP-C is PHCP. kb 12:25 Rolando Dale DO is Attending Physician. kb 12:27 Triage completed. bp 12:27 Arm band placed on. bp 12:43 Kanchan Patterson, RN is Primary Nurse. ph 13:01 Initial lab(s) drawn, by me, sent to lab. Inserted saline lock: 20 gauge in right bc6 antecubital area, using aseptic technique. Blood collected. Flushed with 10 mL NS. 13:21 Chest Single View XRAY In Process Unspecified. EDMS 14:52 Straight cath inserted, using sterile technique, 14 Fr. Specimen obtained. kb4 15:40 Patient has correct armband on for positive identification. Bed in low position. bp Administered Medications: 12:54 Drug: Acetaminophen PO 650 mg PO once Route: PO; bp 17:09 Follow up: Response: No adverse reaction ph 16:03 Drug: Doxycycline PO 100 mg PO once Route: PO; ph 17:09 Follow up: Response: No adverse reaction ph Medication: 17:45 VIS not applicable for this client. bp Outcome: 15:29 Discharge ordered by . kb 17:49 Patient left the ED. bp Signatures: Dispatcher [employer] EDMS Patricia Rodney, PT SKILLED-C PT SKILLED-Kanchan Beckman, RN RN Donovan Palu RN RN bp Kimberly Guardado [facility] Zoe Ronquillo [id number]
[2024-04-25] MEDS ORDERED: DOXYCYCLINE 100 MG CAP PO ONE (15:36)
[2024-04-25 20:09] VITALS: TEMP 98.9
[2024-04-25 20:10] VITALS: BP 149/81; O2SAT 98
== END 2024-04-25 17:49 | disposition home or self-care (01) ==
LOC: ER 12:23
DX: I10 Essential (primary) hypertension (principal); J18.9 Pneumonia, unspecified organism; Z11.52 Encounter for screening for COVID-19; G30.9 Alzheimer's disease, unspecified; F02.80 Dementia in other diseases classified elsewhere, unspecified severity, without behavioral disturbance, psychotic disturbance, mood disturbance, and anxiety
CPT/HCPCS: 36415; 51702; 71045; 80048; 80076; 81001; 83735; 83880; 84484; 85025; 87804; 87811; 99284